=== PATIENT | female | born 1955 | race Caucasian/White ===

== ENCOUNTER → 2018-07-03 10:42 | Outpatient (CLI) | payer MEDICAID, SELFPAY | PROVIDERS: PCP Nurse Practitioner Family; Visit Provider Nurse Practitioner Family | DX: E04.2 Nontoxic multinodular goiter (principal) | CPT/HCPCS: 36415; 84443 ==

== ENCOUNTER → 2018-07-28 12:32 | Outpatient (REF) | payer MEDICAID, SELFPAY ==
[2018-07-28 22:20] LABS: Abs Immature Grans 0.01 k/cumm (0.0-0.09); Absolute Basophil Count 0.02 k/cumm (0.0-0.2); Absolute Eosinophil Count 0.03 k/cumm (0.0-0.7); Absolute Lymphocyte Count 0.84 k/cumm (1.2-3.4); Absolute Monocyte Count 0.21 k/cumm (0.11-0.7); Absolute Neutrophil Count 1.68 k/cumm (1.2-6.7); Basophils % 0.7; Eosinophils % 1.1; HCT 39.6 % (36.0-46.0); HGB 13.7 g/dL (12.0-15.5); Immature Grans % 0.4; Lymphocytes % 30.1; Mean Corp. HGB Concentration 34.6 g/dL (32.0-36.0); Mean Corpuscular Hemoglobin 29.7 pg (27.0-33.0); Mean Corpuscular Volume 85.9 fL (80-95); Monocytes % 7.5; Neutrophils % 60.2; Platelet Count 155 x1000/uL (130-400); RBC 4.61 m/cumm (4.00-5.20); RBC Distribution Width 12.2 % (11.7-14.6); White Blood Cell Count 2.79 k/cumm (4.4-10.8)
[2018-07-28 22:21] LABS: ALT 20 U/L (12-78); AST 23 U/L (15-37); Alkaline Phosphatase 73 U/L (46-116); Anion Gap 6.3 mmol/L (3-11); BUN 15 mg/dL (7-18); Bilirubin, Total 0.5 mg/dL (0.2-1.0); CO2 27.7 mmol/L (21.0-32.0); CREATININE 0.85 mg/dL (0.55-1.02); Chloride 106 mmol/L (98-107); Glucose 85 mg/dL (70-100); Magnesium 1.8 mg/dL (1.8-2.4); Potassium 3.9 mmol/L (3.5-5.1); Sodium 140 mmol/L (136-145); Total Protein 6.4 g/dL (6.4-8.2)
[2018-07-28 22:23] LABS: C-Reactive Protein < 0.05 mg/dL (0.0-0.3)
[2018-07-28 23:31] LABS: ESR 5 MM/HR (0-30)
[2018-07-30 12:13] LABS: Hepatitis C Ab w Rflx HCV PCR Negative (NEGAT)
[2018-07-30 14:19] LABS: ANA Interpretation Negative (NEGAT)
== END ==
LOC: NCHCN 12:32
PROVIDERS: PCP Nurse Practitioner Family; Visit Provider Nurse Practitioner Family
DX: R63.4 Abnormal weight loss (principal); D72.829 Elevated white blood cell count, unspecified; E04.2 Nontoxic multinodular goiter; Z11.59 Encounter for screening for other viral diseases
CPT/HCPCS: 80053; 85652; 86803; 83735; 85025; 86038; 86140

== ENCOUNTER → 2018-07-28 13:48 | Outpatient (CLI) | payer MEDICAID, SELFPAY ==
--- NOTE | 2018-07-28 13:58 | DI.REPORT_ITS ---
SYMPTOMS/DIAGNOSIS: UNINTENTIONAL WEIGHT LOSS, R63.4, LEUKOCYTOSIS, D72.829 CHEST X-RAY, PA AND LATERAL: The heart size and pulmonary vasculature are within normal limits. The lungs are clear and well expanded. No effusions or pneumothoraces are identified. There is a reciprocal scoliosis of the thoracolumbar spine. IMPRESSION: No acute pulmonary process.
== END ==
PROVIDERS: PCP Nurse Practitioner Family; Visit Provider Nurse Practitioner Family
DX: R63.4 Abnormal weight loss (principal); D72.829 Elevated white blood cell count, unspecified
CPT/HCPCS: 80053; 85652; 86803; 71046; 83735; 85025; 86038; 86140

== ENCOUNTER 2018-08-10 00:13 | Outpatient (CLI) | payer MEDICAID, SELFPAY ==
--- NOTE | 2018-08-10 10:51 | DI.MAMMO_ITS ---
SYMPTOMS/DIAGNOSIS: SCREENING, Z12.31 BILATERAL SCREENING MAMMOGRAM: Mammograms were interpreted according to the usual protocol including computer analysis with CAD system, tomosynthesis and C view imaging. Comparison is made with exams from 2014 through 2017. The breasts are composed of heterogeneously dense fibroglandular tissue, breast density category C. No suspicious masses or suspicious microcalcifications are seen. There has been no significant change. IMPRESSION: Category 1C, negative mammogram. Yearly screening mammography is recommended. [facility] ASSESSMENT OF FINDINGS: Negative. Category 1. Patient will receive a letter notifying them of these results. Bi-RADS category C. The breasts are heterogeneously dense, which may obscure small masses.
--- NOTE | 2018-08-10 12:50 | DI.US_ITS ---
SYMPTOMS/DIAGNOSIS: LEFT OVARIAN CYST, N83.202 PELVIC ULTRASOUND: Comparison is made with May,. The uterus measures 6.6 x 3.2 x 5.3 cm. The endometrial stripe measures 5 mm in double-wall thickness, which includes 3 mm of fluid. A single wall measurement is approximately 1 mm. No focal endometrial abnormality is seen. A small rounded hyperechoic area in the myometrium is again noted. The right ovary was partially obscured by bowel gas. It appeared normal in size. A cyst with a septation is again noted in the left ovary. It has increased in size slightly, now measuring 3.4 x 4.5 x 4.5 compared with 3.7 x 4.1 x 4.2 cm. The kidneys are grossly normal. There is no free fluid. IMPRESSION: Slight interval increase in size of previously noted left ovarian cyst with septation versus two adjacent cysts. Looking back to 2008, there were either two adjacent cysts or a cyst with a septation in the left ovary. It has increased slowly when compared with 2008.
== END 2018-08-10 00:33 ==
PROVIDERS: PCP Nurse Practitioner Family; Visit Provider Nurse Practitioner Family
DX: Z12.31 Encounter for screening mammogram for malignant neoplasm of breast (principal); N83.202 Unspecified ovarian cyst, left side
CPT/HCPCS: 77063; 77067; 76830; 76856

== ENCOUNTER 2018-08-13 15:17 | Outpatient (CLI) | payer MEDICAID, SELFPAY ==
[2018-08-17 11:07] LABS: CEA 1.3 ng/ml
[2018-08-17 15:00] LABS: CA 125 16 U/mL (0-30)
[2018-08-17 15:14] LABS: CA 19-9 43 U/mL (<35)
== END 2018-08-13 15:37 ==
PROVIDERS: PCP Nurse Practitioner Family; Visit Provider Nurse Practitioner Family
DX: N83.202 Unspecified ovarian cyst, left side (principal)
CPT/HCPCS: 36415; 86304; 82378; 86301

== ENCOUNTER 2019-02-08 13:35 | Outpatient (REF) | payer MEDICAID, SELFPAY ==
[2019-02-08 21:34] LABS: Anion Gap 6.2 mmol/L (3-11); BUN 19 mg/dL (7-18); CO2 31.8 mmol/L (21.0-32.0); CREATININE 0.94 mg/dL (0.55-1.02); Calcium 9.2 mg/dL (8.5-10.1); Chloride 103 mmol/L (98-107); Glucose 93 mg/dL (70-100); Sodium 141 mmol/L (136-145)
== END 2019-02-08 13:55 ==
LOC: NCHCN 13:35
PROVIDERS: PCP Nurse Practitioner Family; Visit Provider Nurse Practitioner Family
DX: I10 Essential (primary) hypertension (principal); R10.13 Epigastric pain; E04.2 Nontoxic multinodular goiter; M54.5 Low back pain
CPT/HCPCS: 80048

== ENCOUNTER 2019-02-19 00:55 | Outpatient (CLI) | payer MEDICAID, SELFPAY ==
--- NOTE | 2019-02-19 14:03 | DI.US_ITS ---
SYMPTOMS/DIAGNOSIS: LEFT OVARIAN CYST, N83.202 PELVIC ULTRASOUND: Transabdominal and transvaginal examination was performed. Comparison is 08/10/18. The uterus measures 6.8 cm long x 3.6 cm AP x 4.5 cm transverse. The endometrial stripe measures 5.3 mm. There is a small amount of fluid within the endometrial canal. There is again seen an echogenic area in the myometrium, which appears stable. The right ovary was not visualized transabdominally or transvaginally. There is again seen a 4.2 x 4 cm x 4 cm septated cyst in the left adnexa, likely ovarian. It is unchanged in size compared to the prior examination. No free pelvic fluid is identified. IMPRESSION: Stable left adnexal cystic lesion. This may represent a 4.2 cm septated cyst or two adjacent cysts. These have shown no change compared to 08/10/18.
== END 2019-02-19 01:15 ==
PROVIDERS: PCP Nurse Practitioner Family; Visit Provider Nurse Practitioner Family
DX: N83.202 Unspecified ovarian cyst, left side (principal)
CPT/HCPCS: 76830; 76856

== ENCOUNTER 2019-05-10 12:02 | Outpatient (REF) | payer MEDICAID, SELFPAY | END 2019-05-10 12:22 | LOC: NCHCN 12:02 | PROVIDERS: PCP Nurse Practitioner Family; Visit Provider Nurse Practitioner Family | DX: I10 Essential (primary) hypertension (principal); R97.8 Other abnormal tumor markers; K76.89 Other specified diseases of liver; M54.5 Low back pain; E04.2 Nontoxic multinodular goiter; N39.3 Stress incontinence (female) (male) | CPT/HCPCS: 84443 ==

== ENCOUNTER 2019-07-05 10:26 | Outpatient (REF) | payer MEDICAID, SELFPAY ==
--- NOTE | 2019-07-05 10:00 | PAPFT_PTH ---
PATIENT: Audrey Gaston LOC: [facility] U#:[id number] AGE/SX: 64/F ROOM: RE07/05/[address]: GUMARO Chairez : 1955 BED: DIS: 07/05/2019 SPEC #: [id number] RECD: 07/05/19 13:00 STATUS: ML CUEVA #: [id number] ARUN: 07/05/19 10:[address]: Arabella Wilson DEPT: [facility] Cytology RECD BY: Chayito Sun ENTERED: 07/05/19 13:01 SP TYPE: PAPFT OTHR DR: Shreya Ambrose Tissues: 1 - CX/ENDOCX FOR PAP SMEARS Procedures: PAP THIN PREP/UVM Screening HPV DNA PROBE Comments: [id number]
== END 2019-07-05 10:46 ==
LOC: LBN 10:26
PROVIDERS: PCP Nurse Practitioner Family; Visit Provider Nurse Practitioner Family
DX: Z12.4 Encounter for screening for malignant neoplasm of cervix (principal); Z11.51 Encounter for screening for human papillomavirus (HPV)
CPT/HCPCS: 88142; 87624

== ENCOUNTER 2019-08-19 00:19 | Outpatient (CLI) | payer MEDICAID, SELFPAY ==
--- NOTE | 2019-08-19 15:30 | DI.US_ITS ---
EXAM: US RENAL CLINICAL HISTORY: EXTRARENAL PELVIS, Q63.9, YEARLY MONITORING OF DILATATION OF RENAL COLLECTING SYST EM. TECHNIQUE: Ultrasound performed using standard protocol. COMPARISON: US PELVIS AND TRANSVAGINAL from 02/19/2019 FINDINGS: Kidneys are normal size and shape. There is a small extrarenal pelvis on the right but no evidence of hydronephrosis. Urinary bladder is unremarkable with pre and postvoid urinary bladder volume measure s 65 cc and 0 cc, respectively, and both ureteral jets were visualized. Note is again made of previously described 4.4 cm in greatest diameter septated left ovarian cyst as noted on previous ultrasound of February 19. No gross interval change in appearance
== END 2019-08-19 00:39 ==
PROVIDERS: PCP Nurse Practitioner Family; Visit Provider Nurse Practitioner Gerontology
DX: N83.292 Other ovarian cyst, left side (principal); N28.89 Other specified disorders of kidney and ureter
CPT/HCPCS: 76770

== ENCOUNTER 2019-09-06 01:15 | Outpatient (CLI) | payer MEDICAID, SELFPAY ==
--- NOTE | 2019-09-06 13:00 | DI.MAMMO_ITS ---
EXAM: MAMMO SCREENING CLINICAL HISTORY: Screening, Z12.31. TECHNIQUE: Mammograms were interpreted according to the usual protocol including computer analysis w [employer] CAD system, tomosynthesis and C-view imaging. COMPARISON: [id number] FINDINGS: The breasts are heterogeneously dense, which may obscure small masses, BI-RADS category C. There are no suspicious masses or microcalcifications. There are no significant changes in comparison with the prior images. IMPRESSION: BI-RADS Cat 1 - Negative Breast Density - Category C - Heterogeneously dense
== END 2019-09-06 01:35 ==
PROVIDERS: PCP Nurse Practitioner Family; Visit Provider Nurse Practitioner Family
DX: Z12.31 Encounter for screening mammogram for malignant neoplasm of breast (principal)
CPT/HCPCS: 77063; 77067

== ENCOUNTER 2019-11-09 10:51 | Outpatient (REF) | payer MEDICAID, SELFPAY ==
[2019-11-09 20:30] LABS: Abs Immature Grans 0.01 k/cumm (0.0-0.09); Absolute Basophil Count 0.03 k/cumm (0.0-0.2); Absolute Eosinophil Count 0.06 k/cumm (0.0-0.7); Absolute Monocyte Count 0.29 k/cumm (0.11-0.7); Absolute Neutrophil Count 1.98 k/cumm (1.2-6.7); Basophils % 0.9; Eosinophils % 1.7; HCT 40.5 % (36.0-46.0); HGB 13.8 g/dL (12.0-15.5); Immature Grans % 0.3; Lymphocytes % 31.7; Mean Corp. HGB Concentration 34.1 g/dL (32.0-36.0); Mean Corpuscular Hemoglobin 29.5 pg (27.0-33.0); Mean Corpuscular Volume 86.5 fL (80-95); Mean Platelet Volume 10.2 fL (8.0-11.0); Monocytes % 8.4; Platelet Count 182 x1000/uL (130-400); RBC 4.68 m/cumm (4.00-5.20); RBC Distribution Width 12.6 % (11.7-14.6); White Blood Cell Count 3.47 k/cumm (4.4-10.8)
== END 2019-11-09 11:11 ==
LOC: NCHCN 10:51
PROVIDERS: PCP Nurse Practitioner Family; Visit Provider Nurse Practitioner Family
DX: R07.9 Chest pain, unspecified (principal); I10 Essential (primary) hypertension; R10.13 Epigastric pain; E04.2 Nontoxic multinodular goiter; K76.89 Other specified diseases of liver; D72.829 Elevated white blood cell count, unspecified; N39.3 Stress incontinence (female) (male)
CPT/HCPCS: 85025

== ENCOUNTER 2019-12-13 01:11 | Outpatient (CLI) | payer MEDICAID, SELFPAY ==
--- NOTE | 2019-12-13 09:46 | DI.US_ITS ---
EXAM: US THYROID CLINICAL HISTORY: GOITER MULTINODULAR W/ ADENOMATOUS HYPERPLASTIC E04.2 TECHNIQUE: Ultrasound performed using standard protocol. COMPARISON: THYROID ULTRASOUND from 09/08/2017 US RENAL from 08/19/2019 FINDINGS: The right lobe measures 5.6 x 2.2 x 2.5 centimeters. There are 2 nodules seen in the lower pole. Th e larger and more superior nodule measures 1.8 x 1.4 x 1.5 cm. It is solid and contains internal blo od flow. The smaller measures 1.4 x 0.9 x 1.2 cm. It is complex with a cystic element and contains internal blood flow. It is similar compared to the prior examination. The patient is status post left lobectomy. There are 2 nodules seen in the left thyroid bed. The la rger and more superior nodule measures 1.3 x 1.2 x 1.1 cm. It is complex with internal blood flow. The smaller measures 0.6 x 0.6 x 0.5 cm. It is solid with internal blood flow. IMPRESSION: 1. Right thyroid nodules. The larger more superior nodule has shown slight interval increase in size compared to the prior examination from 09/08/2017. 2. The nodules in the left thyroid bed have a similar appearance sonographically compared to 09/08/20 17. Larger more superior nodule measures slightly smaller on the current examination.
== END 2019-12-13 01:31 ==
PROVIDERS: PCP Nurse Practitioner Family; Visit Provider Nurse Practitioner Family
DX: E04.2 Nontoxic multinodular goiter (principal)
CPT/HCPCS: 76536

== ENCOUNTER 2020-05-12 13:22 | Outpatient (REF) | payer MEDICAID, SELFPAY ==
[2020-05-12 21:26] LABS: TSH 1.09 uIU/mL (0.36-3.74)
[2020-05-14 16:25] LABS: T3,Free 3.1 pg/mL (2.8-5.3)
== END 2020-05-12 13:42 ==
LOC: NCHCN 13:22
PROVIDERS: PCP Nurse Practitioner Family; Visit Provider Nurse Practitioner Family
DX: I10 Essential (primary) hypertension (principal); R07.9 Chest pain, unspecified; D72.829 Elevated white blood cell count, unspecified; E04.2 Nontoxic multinodular goiter; N39.3 Stress incontinence (female) (male); M54.5 Low back pain
CPT/HCPCS: 84439; 84443; 84481

== ENCOUNTER 2020-06-23 03:47 | Outpatient (CLI) | payer MEDICARE, MEDICAID, SELFPAY ==
--- NOTE | 2020-06-23 09:00 | DI.NM_ITS ---
EXAM: NM HEPATOBILIARY CCK GRP CLINICAL HISTORY: RUQ PAIN, NORMAL CT AND MRI, NO US. TECHNIQUE: Injected dose: 5 mCi Tc-99 mebrofenin Initial dynamic images: 60 minutes Post-Gallbladder fillin.7 mcg of CCK infused according to protocol. Addition images: 20 minute dynamic during CCK administration. COMPARISON: No previous for comparison. FINDINGS: Normal hepatic transit time. Prompt excretion into the small bowel. Prompt excretion into the gallbladder. The gallbladder ejection fraction was 48 percent. ([facility] norm al gallbladder ejection fraction is greater than 40 percent). IMPRESSION: 1. Hepatobiliary CCK HIDA examination within normal limits. SNM guidelines: Gallbladder visualization should be present by 3 hours. Delayed [id number] ngo sit beyond 60 min raises the suspicion for partial common bile duct (CBD) obstruction. Gallbladder ejection fraction <35% has a good correlation with acalculous disease (i.e., chronic acal culous cholecystitis, cystic duct syndrome, sphincter of Oddi disease).
[2020-06-23] MEDS: Sincalide 5 MCG VIAL 0.7 MCG IJ (14:59)
== END 2020-06-23 04:07 ==
PROVIDERS: PCP Nurse Practitioner Family; Visit Provider Surgery
DX: R10.11 Right upper quadrant pain (principal)
CPT/HCPCS: 78227

== ENCOUNTER 2020-08-04 04:33 | Outpatient (CLI) | payer MEDICARE, SELFPAY ==
--- NOTE | 2020-08-04 07:45 | DI.US_ITS ---
EXAM: US PELVIS TRANSVAGINAL CLINICAL HISTORY: Left ovarian cyst, N83.202. TECHNIQUE: Transabdominal and transvaginal pelvic ultrasound was performed using standard protocol. COMPARISON: US US PELVIS TRANSVAGINAL from 02/19/2019 FINDINGS: KIDNEYS: Kidneys are symmetric in size. No evidence of renal calculi. No evidence of hydronephrosis. No renal mass or cyst identified. Stable mild prominence of the right renal pelvis. UTERUS: Position: Anteverted. Size: 6.1 long by 3.2 AP by 4.1 transverse cm Endometrium: Less than 0.5 cm. Normal for patient's menstrual status. Small amount of fluid within th e endometrial canal. Myometrium: Stable echogenic focus in the anterior body of the uterus. Cervix: Unremarkable. OVARIES: Right: 1.6 x 0.9 x 0.9 cm Cyst or mass: None. Left: 5.3 x 4.6 x 4.4 cm Cyst or mass: The septated cyst in the left ovary has shown some interval increase in size measuring 5.3 x 4.6 cm. This compares with 4.1 x 4.2 cm. DOPPLER: Color: Symmetric and uniform flow to both ovaries. No hyperemia. Duplex: Normal ovarian arterial waveforms visualized. CUL-DE-SAC: Free fluid: None. Other: None. IMPRESSION: 1. Normal sonographic appearance of the kidneys. 2. Stable appearance of the uterus. 3. Interval increase in size of the septated left ovarian cyst now measuring 5.3 x 4.6 cm compared wi th 4.1 x 4.2 cm. DATA REPOSITORY:
== END 2020-08-04 04:53 ==
PROVIDERS: PCP Nurse Practitioner Family; Visit Provider Nurse Practitioner Family
DX: N83.202 Unspecified ovarian cyst, left side (principal)
CPT/HCPCS: 76830; 76856

== ENCOUNTER 2020-09-01 03:58 | Outpatient (CLI) | payer MEDICARE, SELFPAY ==
[2020-09-01 10:11] LABS: HCT 39.1 % (36.0-46.0); HGB 13.1 g/dL (11.2-15.7); MCH 29.1 pg (27.0-33.0); MCHC 33.5 % (32.0-36.0); MCV 86.9 fL (80-95); MPV 9.5 fL (8.0-11.0); Platelet Count 164 10^3/uL (130-400); RDW-SD 38.5 fL; WBC 2.99 10^3/uL (4.4-10.8)
[2020-09-01 11:00] LABS: HCG Qual (Urine) Negative
[2020-09-02 20:40] LABS: COVID-19 RT-PCR Result NEGATIVE (Negative)
== END 2020-09-01 04:18 ==
PROVIDERS: PCP Nurse Practitioner Family; Visit Provider Obstetrics & Gynecology
DX: N83.202 Unspecified ovarian cyst, left side (principal); Z11.59 Encounter for screening for other viral diseases; Z01.818 Encounter for other preprocedural examination; Z01.812 Encounter for preprocedural laboratory examination
CPT/HCPCS: 36415; 85027; 86850; 86900; 86901; U0003; 81025

== ENCOUNTER 2020-09-06 07:56 | Day surgery (SDC) | payer MEDICARE, SELFPAY ==
[2020-09-06] VITALS (8 sets, daily range): BP systolic 85–140; BP diastolic 42–77; PULSE 66–79; RESP 13–19; TEMP 36–36.6; O2SAT 96–100
[2020-09-06] MEDS: Lactated Ringers 1,000 ML 125 ML IV (08:35)
[2020-09-06] MEDS: Bupivacaine 0.25% Pres-Free 30 ML VIAL (11:28)
--- NOTE | 2020-09-06 12:11 | OVAR_PTH ---
PATIENT: Audrey Gaston LOC: [facility] U#:[id number] AGE/SX: 65/F ROOM: RE09/06/[address]: Roshan Ambriz MD : 1955 BED: DIS: 09/06/2020 SPEC #: [id number] RECD: 09/06/20 17:03 STATUS: ML REMarlo #: [id number] ARUN: 09/06/20 12:[address]: Roshan Ambriz DEPT: Surgical Specimen RECD BY: Chayito Sun ENTERED: 09/06/20 17:04 SP TYPE: JAZZ BROCK DR: Shreya Ambrose Tissues: 1 - OVARY NOT TUMOR W OR W/O TUBES 2 - OVARY NOT TUMOR W OR W/O TUBES Procedures: GROSS AND MICRO LEVEL 4 Comments: [id number]
[2020-09-06] MEDS: Cellulose,Oxidized 4X8 1 PACKET MC (12:17)
--- NOTE | 2020-09-06 12:33 | DI.RAD_ITS ---
EXAM: XR ABDOMEN FLAT PLATE CLINICAL HISTORY: forgein body TECHNIQUE: COMPARISON: No exams were available for comparison FINDINGS: Single AP view of the abdomen was obtained. Bowel gas pattern is within normal limits. No gross for eign body identified. IMPRESSION: RADIATION DOSE DELIVERED: Total DLP
--- NOTE | 2020-09-06 15:24 | W.PM.DSUDISC ---
Discharge Plan Disposition Patient Disposition: HOME Condition: Good Discharge Details Attending Provider: Roshan Ambriz Primary Care Provider: Shreya Ambrose Home Meds and New Rx's Prescriptions: New oxycodone-acetaminophen 5-325 mg Tablet 1 tab PO Q4H PRNQty: 20 RF: 0 Continued omeprazole 20 mg capsule,delayed release(DR/EC) 20 mg PO DAILY PRNRF: 0 Discharge Instructions Stand Alone Forms: [facility] Post Gynecology Surgery, Olinda Francisco ([facility]) Activity:: Activity as Tolerated Shower/Bathe:: 24 hours Diet:: As Tolerated Discharge Orders Discharge Orders: Discharge Order (Routine); Ordered 09/06/20 Ordered By: Roshan Ambriz DS: Diagnosis Discharge Diagnosis (1) Ovarian cyst: Status: Acute
--- NOTE | 2020-09-06 16:17 | ROE_ITS ---
Date of service: 09/06/20 Time of Service: 16:17 Operative Note Operative Note DATE OF PROCEDURE: 09/06/20 PRE-OP DIAGNOSIS: Left ovarian cyst POST-OP DIAGNOSIS: same PROCEDURE: Laparoscopic bilateral salpingo-oophorectomy. SURGEON: Roshan Ambriz ASSISTING SURGEON: Elaine aPrk ANESTHESIA: GETA ESTIMATED BLOOD LOSS: 100 PATHOLOGY: other (Bilateral tubes and ovaries) COMPLICATIONS: None Patient was transported to: PACU Patient's condition: stable Indications: Enlarging left septated ovarian cyst Findings: 1. 5 cm left ovarian cyst which was largely retroperitoneal 2. Normal postoperative cystoscopy Procedure Description: The patient was taken to the operating room after adequate general anesthesia the patient was placed in lithotomy position. A [employer] uterine manipulator placed in the cervix. The patient was repositioned and attention was then turned to the patient's abdomen. The skin and subcutaneous tissues at the umbilicus were infiltrated with 0.25% Marcaine solution. A small infraumbilical skin incision was then made with a #15 blade scalpel. Sharp dissection was carried down to the underlying layer of fascia. The fascia was grasped elevated with 2 Ally clamps as incised sharply with the scalpel. The posterior sheath was identified and was entered with Metzenbaum scissors. S retractors were placed. 2 sutures of 0 Vicryl were placed on either side of the fascial incision. A 10 mm balloon trocar was advanced through the incision and a pneumoperitoneum to approximately 15 mmHg was established. Two 5 mm ports were placed in the right and left lower quadrants both under direct visualization. There were no significant adhesions within the abdominal cavity. The uterus was somewhat enlarged and appeared to have multiple small uterine fibroids. Both fallopian tubes were status post ligation with Falope-Rings. The left ovary was markedly enlarged and was buried almost entirely retroperitoneally. Dissection was carried across the peritoneum superior to the ovary and peritoneum was opened. Blunt and sharp dissection was used to dissect the ovary from peritoneal wall and surrounding tissues. The suspensory ligament and fallopian tube were coagulated and transected with the LigaSure device. Blunt and sharp dissection were continued until the ovary was freed. Dissection was carried across the infundibulopelvic ligament with the LigaSure device. The ovary and fallopian tube were removed from the abdomen with use of an Endo Catch device. Upon retraction of the Endo Catch bag from the umbilical trocar there was a malfunction of the valve within the trocar which did break. The trocar was removed and examined and it was felt that all components were intact within the instrument. The device was well examined by multiple members of the surgical team who felt that all components were present. Laparoscopic examination of the abdominal cavity did not identify any surgical foreign body and the decision was made to perform an x-ray at the conclusion of the case as well. Attention was turned to the right tube and ovary which were normal in appearance. Dissection carried across the infundibulopelvic ligament with LigaSure device. Dissection was carried across the mesovarium and taken to the proximal fallopian tube. The suspensory ligament and fallopian tube were transected with LigaSure device as well. These were removed from the abdomen with an additional Endo Catch bag. Excellent hemostasis was noted. 2 pieces of Surgicel were applied along each of the areas of dissection. Due to the extensive dissection on the left side the course of the ureter could not be identified. The decision was made to proceed with cystoscopy. The abdomen was desufflated and trochars removed. Mesh at the umbilicus was closed with 2 previously placed sutures of 0 Vicryl. An additional figure of 8 suture of 0 Vicryl was used to complete the repair. Each skin incision was closed with interrupted sutures of 4-0 Monocryl and Dermabond was applied. 5 mL of indigo carmine had been administered intravenously. The 3 degree 5 mm cystoscope was advanced with normal saline distention media. There was strong efflux of indigo carmine from both UOs. The bladder wall appeared to be intact. The cystoscope was removed. Radiology was contacted and an abdominal film was obtained demonstrating no retained foreign body. The procedure was concluded at this point. Sponge, lap and needle counts were correct at the conclusion of the procedure. The patient tolerated the procedure well and was transferred to PACU in stable condition.
== END 2020-09-06 16:04 | disposition home or self-care (01) ==
PROVIDERS: PCP Nurse Practitioner Family; Visit Provider Obstetrics & Gynecology
PROC: (CPT 58661; principal; 2020-09-06 10:00)
DX: N83.202 Unspecified ovarian cyst, left side (principal)
CPT/HCPCS: 58661; 88305; 74018; J0131; J1100; J1885; J2001; J2405

== ENCOUNTER 2020-09-27 02:41 | Outpatient (CLI) | payer MEDICARE, SELFPAY ==
--- NOTE | 2020-09-27 15:00 | DI.MAMMO_ITS ---
EXAM: MAMMO SCREENING CLINICAL HISTORY: screening TECHNIQUE: Mammograms were interpreted according to the usual protocol including computer analysis w [employer] CAD system, tomosynthesis and C-view imaging. COMPARISON: FINDINGS: The breasts are of moderate density with fairly symmetrical distribution of fibroglandular tissue. N o dominant mass or clumped microcalcification is identified in either breast. The current examinatio n is compared with previous examinations including August 2019 and there is increased prominence of a focal area of somewhat nodular asymmetric density projected in the central superior portion of the left breast on the MLO view. Additional mammographic views of the left breast are requested to inclu de an MLO spot compression view. No other significant change seen. IMPRESSION: Additional mammographic views of the left breast requested as described above. Breast ultrasound may be indicated as well depending on the results of the additional mammographic views. BI-RADS Category 0 - Assessment Incomplete: Need additional imaging evaluation Breast Density - Category B - Scattered areas of fibroglandular density
== END 2020-09-27 03:01 ==
PROVIDERS: PCP Nurse Practitioner Family; Visit Provider Nurse Practitioner Family
DX: Z12.31 Encounter for screening mammogram for malignant neoplasm of breast (principal); R92.8 Other abnormal and inconclusive findings on diagnostic imaging of breast
CPT/HCPCS: 77063; 77067

== ENCOUNTER 2020-10-03 01:32 | Outpatient (CLI) | payer MEDICARE, SELFPAY ==
--- NOTE | 2020-10-03 | DI.US_ITS ---
EXAM: MG MAMMO SCREEN CALL BACK UNI CLINICAL HISTORY: F/U MAMMO, INCREASED ASYMMETRIC DENSITY. TECHNIQUE: Craniocaudal and mediolateral oblique Full Field Digital Mammography views of the left br east with Computer Aided Diagnosis followed by Tomosynthesis and left breast ultrasound. COMPARISON: Priors available for comparison. FINDINGS: Mammography/Tomosynthesis: Masses/Architectural Distortion: None seen. Microcalcifictions: No suspicious pleomorphic-type are seen. Skin Thickening/Nipple Retraction: None. Left breast US: Echotexture: Normal appearance of the glandular tissue. Shadowing: No suspicious foci. Cyst: None. Solid lesions: None seen. Ductal dilation: None. IMPRESSION: 1. No evidence of malignancy is noted. 2. A six-month follow-up left mammogram is recommended for re-evaluation. 3. The findings were discussed with the patient on the date of the examination. BI-RADS Category 3 - 6 month - Probably Benign Finding: Recommend follow-up mammography in 6 months Breast Density - Category B - Scattered areas of fibroglandular density A negative radiographic report should not delay biopsy if a dominant or clinically suspicious mass is present. Up to ten percent of cancers are not identified on mammography. A negative report may reinforce clinical impression. Adenosis and dense breasts may obscure an underlying neoplasm. False positive reports average 6 to 10%. Patient will receive a letter notifying them of these results.
== END 2020-10-03 01:52 ==
PROVIDERS: PCP Nurse Practitioner Family; Visit Provider Nurse Practitioner Family
DX: R92.8 Other abnormal and inconclusive findings on diagnostic imaging of breast (principal)
CPT/HCPCS: 76642; 77063; 77067

== ENCOUNTER 2020-11-07 12:03 | Outpatient (REF) | payer MEDICARE, SELFPAY ==
[2020-11-07 21:39] LABS: Calculated LDL 164 mg/dL (<100); Cholesterol 281 mg/dL (<200); HDL Cholesterol 101 mg/dL (40-60); Triglyceride 80 mg/dL (<150)
== END 2020-11-07 12:23 ==
LOC: NCHCN 12:03
PROVIDERS: PCP Nurse Practitioner Family; Visit Provider Nurse Practitioner Family
DX: E78.5 Hyperlipidemia, unspecified (principal); I10 Essential (primary) hypertension
CPT/HCPCS: 80061

== ENCOUNTER 2021-02-08 01:51 | Outpatient (CLI) | payer MEDICARE, SELFPAY ==
--- NOTE | 2021-02-08 | DI.DEXA_ITS ---
EXAM: XR DEXA BONE DENSITY W/WO DALI CLINICAL HISTORY: SCREENING FOR OSTEOPOROSIS IN POSTMENOPAUSAL WOMAN,Z78.0 TECHNIQUE: COMPARISON: No exams were available for comparison FINDINGS: Lateral Spine Image: Unremarkable. No compression deformities identified. Left hip: Total T-Score: -1.8 Total Z-Score: -0.6 T- and Z-scores: Findings are consistent with osteopenia. Lumbar Spine: Total T-Score: -1.0 Total Z-Score: 0.7 T- and Z-scores: Within normal limits. IMPRESSION: No evidence of osteoporosis.
== END 2021-02-08 02:11 ==
PROVIDERS: PCP Nurse Practitioner Family; Visit Provider Nurse Practitioner Family
DX: Z78.0 Asymptomatic menopausal state (principal)
CPT/HCPCS: 77080

== ENCOUNTER 2021-04-03 01:27 | Outpatient (CLI) | payer MEDICARE, SELFPAY ==
--- NOTE | 2021-04-03 10:14 | DI.MAMMO_ITS ---
Exam(s) MG MAMMO DIAGNOSTIC UNI EXAM: MG MAMMO DIAGNOSTIC UNI CLINICAL HISTORY: DIAGNOSTIC, 6 MO F/U, F/U ABNL MAMMO,. TECHNIQUE: Craniocaudal and mediolateral oblique Full Field Digital Mammography views of the left br east with Computer Aided Diagnosis. COMPARISON: Comparison is made with prior examinations. FINDINGS: Mammography/Tomosynthesis: Masses/Architectural Distortion: None seen. Microcalcifictions: No suspicious pleomorphic-type are seen. Skin Thickening/Nipple Retraction: None. IMPRESSION: 1. No evidence of malignancy is noted. 2. Unless there is more urgent need, follow-up screening mammography is recommended, as per [place] [employer] guidelines. 3. The findings were discussed with the patient on the date of the examination. BI-RADS Category 1 - Negative Breast Density - Category B - Scattered areas of fibroglandular density Breast density Category C or D implies that the patient has dense breast tissue. Dense breast tissue can make it harder to find cancer on a mammogram. Dense breast tissue is also associated with an incr eased risk of breast cancer. This information about the result of the mammogram report was provided to the patient to raise their awareness. Use this report when you speak with the patient about their risks for breast cancer, which includes their family history. At that time, you may recommend additional screening tests (Ultrasoun d or MRI) as these tests may add significant information. A negative radiographic report should not delay biopsy if a dominant or clinically suspicious mass is present. Up to ten percent of cancers are not identified on mammography. A negative report may reinforce clinical impression. Adenosis and dense breasts may obscure an underlying neoplasm. False positive reports average 6 to 10%. Patient will receive a letter notifying them of these results.
== END 2021-04-03 01:47 ==
PROVIDERS: PCP Nurse Practitioner Family; Visit Provider Nurse Practitioner Family
DX: Z12.31 Encounter for screening mammogram for malignant neoplasm of breast (principal); R92.8 Other abnormal and inconclusive findings on diagnostic imaging of breast; N64.59 Other signs and symptoms in breast
CPT/HCPCS: 77061; 77065; G0279

== ENCOUNTER 2021-06-07 15:02 | Outpatient (REF) | payer MEDICARE, SELFPAY ==
[2021-06-07 14:16] LABS: TSH (W/Ref FT4) 1.05 uIU/mL (0.36-3.74)
== END 2021-06-07 15:03 | disposition home or self-care (01) ==
LOC: NCHCN 15:02
PROVIDERS: PCP Nurse Practitioner Family; Visit Provider Nurse Practitioner Family
DX: M85.80 Other specified disorders of bone density and structure, unspecified site (principal); E78.5 Hyperlipidemia, unspecified; I10 Essential (primary) hypertension; R10.9 Unspecified abdominal pain; D72.829 Elevated white blood cell count, unspecified; M54.5 Low back pain; E04.2 Nontoxic multinodular goiter; N39.3 Stress incontinence (female) (male)
CPT/HCPCS: 84443

== ENCOUNTER → 2021-07-20 08:52 | Outpatient (BNVA) | payer MEDICARE, SELFPAY | PROVIDERS: PCP Nurse Practitioner Family; Referring Provider Nurse Practitioner Family; Visit Provider Surgery | DX: R10.13 Epigastric pain (principal) | CPT/HCPCS: 99203; 99214 ==

== ENCOUNTER → 2021-07-27 12:41 | Outpatient (BNVA) | payer MEDICARE, SELFPAY | PROVIDERS: PCP Nurse Practitioner Family; Referring Provider Nurse Practitioner Family; Visit Provider Surgery | DX: R10.11 Right upper quadrant pain (principal) | CPT/HCPCS: 99212; 99442 ==

== ENCOUNTER 2021-08-08 02:36 | Outpatient (CLI) | payer MEDICARE, SELFPAY ==
[2021-08-08 08:54] LABS: CREATININE 0.9 mg/dL (0.55-1.02)
--- NOTE | 2021-08-08 10:02 | DI.CT_ITS ---
Exam(s) CT ABDOMEN PELVIS CTA EXAM: CT ABDOMEN PELVIS CTA CLINICAL HISTORY: EPIGASTRIC ABD PAIN,R10.13,LOOKING FOR MEDICAL ACRUATE LIGAMENT SYNDROME. TECHNIQUE: Imaging Protocol: Axial computed tomography images with coronal and sagittal reformatted images were created and reviewed CONTRAST MATERIAL: Intravenous: Omnipaque 350 Contrast volume:57 mL Oral: Yes COMPARISON: CT ABD PELVIS WITH CONTRAST from 04/24/2018 FINDINGS: Visualized lung bases: No pleural effusions no significant nodules. ABDOMINAL AORTA: there is no evidence of abdominal aortic aneurysm. also no significant atherosclero tic disease evident in the abdominal aorta. No evidence of renal artery stenosis. Aortic bifurcatio n and aortoiliac segments are patent with no evidence of atherosclerotic narrowing nor aneurysms. Th e celiac, superior mesenteric, and inferior mesenteric arteries are patent. No evidence of significa nt stenosis at their origins, neither due to intrinsic narrowing nor external compression. No emboli evident in these vessels. The celiac artery exhibits normal diameter as does the superior mesenteri c artery. There are no dissection flaps. There are no ischemic appearing bowel loops. ABDOMEN: There is no ascites. LIVER: There is a 8 x 6 millimeter cyst in the right hepatic lobe which is unchanged from the CT scan of March 2018. No new focal hepatic lesions evident. No dilatation of intrahepatic ducts. GALLBLADDER/BILIARY: No obvious gallbladder pathology. CBD is not dilated. PANCREAS: The pancreatic duct is slightly prominent in size, reaching maximum diameter of 3.5 Millime ters at the neck level. There does not appear to be an obvious mass the pancreatic head and uncinate process nor elsewhere in the pancreas. The uncinate process retains normal triangular configuration . Is no abnormal vascular encasement. No regional adenopathy. SPLEEN: Spleen size is upper normal. Splenic and portal veins are patent. ADRENALS: There are no significant adrenal masses. KIDNEYS: No cysts evident. No calculi nor hydronephrosis. No solid renal masses. ABDOMINAL AORTA: Unremarkable, as above. LYMPH NODES: There is no retroperitoneal nor para-aortic adenopathy. No obvious mesenteric masses. ABDOMINAL WALL: No evidence of significant anterior abdominal wall hernia. GI: There is no evidence of bowel obstruction, free air, nor abscess. PELVIS: LYMPH NODES: There is no intrapelvic nor inguinal adenopathy. GI: No evidence of appendicitis.There is sigmoid diverticulosis. No obvious acute diverticulitis. H owever, the lumen of this sigmoid appears focally narrowed for distance of 3 cm. This may be related to muscular hyperplasia for in the area of diverticuli but cannot exclude the possibly of neoplasm. No adjacent lymph nodes and. URINARY BLADDER: No calculi nor masses evident REPRODUCTIVE: Uterus size upper normal. No abnormal adnexal masses. Also no abnormal dilated veins in the adnexal regions to suggest pelvic congestion syndrome. OSSEOUS: No significant osseous lesions. IMPRESSION: 1. The abdominal aorta and aortoiliac segments are nicely patent, non atherosclerotic, without eviden ce of aneurysm. 2. The origins of the celiac and superior mesenteric arteries are patent without significant narrowin g related to intrinsic disease nor related to extrinsic compression. No obvious arcuate ligament syn drome findings (as per request). 3. Inferior mesenteric artery is patent and there is also no evidence of renal artery stenosis. 4. Sigmoid diverticulosis. Although there is no obvious acute diverticulitis, there is a 3 cm segmen t of the colon which appears slightly narrowed. Although this may be related to the chronic divertic ulosis, recommend colonoscopy to ensure that there is no malignancy at this level. 5. Pancreatic duct is slightly dilated, measuring up to 3.5 millimeters at the pancreatic neck level . This is somewhat more evident than on the 2018 study. There is no evidence of obvious pancreatic mass on this CT study,, solid or cystic. However, recommend follow-up contrast infused MRI. 6. There is a stable unchanged 8 millimeter solitary benign cyst in the liver. This is unchanged fr om the CT scan 2018. RADIATION DOSE DELIVERED: 441.15mGy.cm Total DLP DATA REPOSITORY: All CT scans at this facility are submitted to the National Radiology Data Registry (NRDR) Dose Index Registry (DIR) with the [employer] ([employer]). RADIATION OPTIMIZATION: All CT scans at this facility use at least one of these dose optimization te chniques: automated exposure control; mA and/or kV adjustment per patient size (includes targeted exa ms where dose is matched to clinical indication); or iterative reconstruction.
[2021-08-08] MEDS: Breeza Beverage 473 ML BTL PO ×2 (10:08→10:09)
[2021-08-08] MEDS: Omnipaque 350 MG/ML 50 ML BTL PO (10:09)
[2021-08-08] MEDS: Omnipaque 350 MG/ML 100 ML BTL IJ (10:10)
[2021-08-08] MEDS: Normal Saline Flush 10 ML SYR IVP (10:11)
== END 2021-08-08 02:56 ==
PROVIDERS: PCP Nurse Practitioner Family; Visit Provider Nurse Practitioner Family
DX: R10.13 Epigastric pain (principal); Z01.812 Encounter for preprocedural laboratory examination; K57.30 Diverticulosis of large intestine without perforation or abscess without bleeding; K76.89 Other specified diseases of liver
CPT/HCPCS: 74174; 82565; J3490; Q9967

== ENCOUNTER 2022-06-13 12:22 | Outpatient (REF) | payer MEDICARE, SELFPAY ==
[2022-06-13 17:05] LABS: Abs Immature Grans 0.01 10^3/uL (0.0-0.06); Absolute Basophil Count 0.04 10^3/uL (0.0-0.2); Absolute Eosinophil Count 0.05 10^3/uL (0.0-0.7); Absolute Lymphocyte Count 0.94 10^3/uL (1.2-3.4); Absolute Monocyte Count 0.36 10^3/uL (0.1-0.8); Absolute Neutrophil Count 1.44 10^3/uL (1.2-6.7); Basophils % 1.4; Eosinophils % 1.8; HCT 39.2 % (36.0-46.0); HGB 13.5 g/dL (11.2-15.7); Immature Grans % 0.4; Lymphocytes % 33.1; MCHC 34.4 % (32.0-36.0); MCV 87 fL (80-95); MPV 10.6 fL (8.0-11.0); Monocytes % 12.7; Neutrophils % 50.6; Platelet Count 181 10^3/uL (130-400); RDW 11.7 % (11.7-14.6); RDW-SD 37.2 fL; WBC 2.84 10^3/uL (4.4-10.8)
[2022-06-13 17:31] LABS: Calculated LDL 157 mg/dL (<100); Cholesterol 259 mg/dL (<200); HDL Cholesterol 91 mg/dL (40-60); TSH (W/Ref FT4) 1.31 uIU/mL (0.36-3.74); Triglyceride 59 mg/dL (<150)
== END 2022-06-13 12:23 | disposition home or self-care (01) ==
LOC: NCHCN 12:22
PROVIDERS: PCP Nurse Practitioner Family; Visit Provider Nurse Practitioner Family
DX: E78.5 Hyperlipidemia, unspecified (principal); I10 Essential (primary) hypertension; R10.13 Epigastric pain; D72.829 Elevated white blood cell count, unspecified; E04.2 Nontoxic multinodular goiter
CPT/HCPCS: 80061; 84443; 85025

== ENCOUNTER → 2022-08-20 01:03 | Outpatient (CLI) | payer MEDICARE, SELFPAY ==
--- NOTE | 2022-08-20 11:45 | DI.MAMMO_ITS ---
Exam(s) MAMMO SCREENING EXAM: MAMMO SCREENING CLINICAL HISTORY: screening. TECHNIQUE: Bilateral full field digital CC and MLO mammographic images were obtained with 3D tomosyn thesis and utilizing computer aided detection (CAD). COMPARISON: Prior mammograms were reviewed, the most recent being March 2021. Prior ultrasound examin ation of October 2020 was also reviewed. FINDINGS: The fibroglandular tissue pattern is again noted be moderately dense. There are no new significant radiograph findings in left breast. The previously described finding in the left breast is again less evident, further evidence that it was benign. In the right breast there is a well-defined slightly lobulated noncalcified nodule located medially, measuring 7 by 6 millimeters, located 7 cm in from the nipple. This is seen on both CC and MLO 3D vi ews. No malignant-appearing microcalcification groups in either breast. There is no significant architectural distortion nor skin thickening-retraction. IMPRESSION: 1. No radiographic evidence of malignancy in the left breast. 2. 7 x 6 millimeter asymmetric density-nodule in the right breast as described above. Spot compressi on views and breast ultrasound recommended. BI-RADS Category 0 - Assessment Incomplete: Need additional imaging evaluation Breast Density - Category C - Heterogeneously dense Breast density Category C or D implies that the patient has dense breast tissue. Dense breast tissue can make it harder to find cancer on a mammogram. Dense breast tissue is also associated with an incr eased risk of breast cancer. This information about the result of the mammogram report was provided to the patient to raise their awareness. Use this report when you speak with the patient about their risks for breast cancer, which includes their family history. At that time, you may recommend additional screening tests (Ultrasoun d or MRI) as these tests may add significant information. A negative radiographic report should not delay biopsy if a dominant or clinically suspicious mass is present. Up to ten percent of cancers are not identified on mammography. A negative report may reinforce clinical impression. Adenosis and dense breasts may obscure an underlying neoplasm. False positive reports average 6 to 10%. Patient will receive a letter notifying them of these results.
== END ==
PROVIDERS: PCP Nurse Practitioner Family; Visit Provider Nurse Practitioner Family
DX: Z12.31 Encounter for screening mammogram for malignant neoplasm of breast (principal); R92.8 Other abnormal and inconclusive findings on diagnostic imaging of breast
CPT/HCPCS: 77063; 77067

== ENCOUNTER → 2022-08-26 01:59 | Outpatient (CLI) | payer MEDICARE, SELFPAY ==
--- NOTE | 2022-08-26 14:16 | DI.MAMMO_ITS ---
Exam(s) MAMMO SCREEN CALL BACK UNI EXAM: MAMMO SCREEN CALL BACK UNI CLINICAL HISTORY: F/U ABNL MAMMO, WELL-DEFINED NONCALCIFIED NODULE, RT BREAST TECHNIQUE: Spot compression cc and MLO views with tomographic imaging were performed. COMPARISON: 2012 through the recent exam of 20 August 2022 FINDINGS: No suspicious masses or suspicious microcalcifications are seen. The area of nodularity in question is less prominent on the spot compression views. The nodule has a fatty hilum, consistent with a normal intramammary lymph node.. IMPRESSION: BI-RADS Cat 2 - Benign Findings Yearly screening mammography is recommended. Breast Density - Category B, scattered fibroglandular densities.
== END ==
PROVIDERS: PCP Nurse Practitioner Family; Visit Provider Nurse Practitioner Family
DX: Z12.31 Encounter for screening mammogram for malignant neoplasm of breast (principal); R92.8 Other abnormal and inconclusive findings on diagnostic imaging of breast
CPT/HCPCS: 77063; 77067

== ENCOUNTER → 2023-08-21 02:59 | Outpatient (CLI) | payer MEDICARE, SELFPAY ==
[2023-08-21 10:56] LABS: Bilirubin Negative (Negative); Blood Negative (Negative); Clarity Clear (Clear); Glucose Negative (Negative); Ketones Negative (Negative); Leukocyte Esterase Small (Negative); Nitrite Negative (Negative); Urobilinogen 0.2 mg/dL (Up to 0.2); pH 6.5 (5-8)
[2023-08-21 11:05] LABS: Bacteria Rare HPF (Negative); C & S Indicated? Yes; Casts Negative LPF (Negative); Crystals Negative HPF (Negative); Epithelial Cells Rare HPF (Negative); Mucus Negative (Negative); RBC Negative HPF (0-2)
--- NOTE | 2023-08-21 11:45 | DI.MAMMO_ITS ---
Exam(s) MAMMO SCREENING EXAM: MAMMO SCREENING CLINICAL HISTORY: screening TECHNIQUE: Bilateral full field digital CC and MLO mammographic images were obtained with 3D tomosyn thesis and utilizing computer aided detection (CAD). COMPARISON: Available for comparison. FINDINGS: Masses/Architectural Distortion: The nodule in the medial right breast is stable. No new nodules or areas category CB of architectural distortion are seen. Microcalcifications: No suspicious pleomorphic-type are seen. Skin Thickening/Nipple Retraction: None. IMPRESSION: 1. No significant interval change with no specific features of malignancy noted. 2. Unless there is more urgent need, screening mammography is recommended, as per [employer] guidelines. BI-RADS Category 2 - Benign Findings Breast Density - Category B - Scattered areas of fibroglandular density Breast density category C or D implies that the patient has dense breast tissue. Dense breast tissue is very common and is not abnormal but dense breast tissue can make it harder to find cancer on a ma mmogram. Also, dense breast tissue may increase their breast cancer risk. This information about the result of the mammogram report was provided to the patient to raise their awareness. Use this report when you speak with the patient about their risks for breast cancer, which includes their family hist ory. At that time, you may recommend for more screening tests (Ultrasound or MRI) as they might be us eful based on their risk. A negative radiographic report should not delay biopsy if a dominant or clinically suspicious mass is present. Up to ten percent of cancers are not identified on mammography. A negative report may reinforce clinical impression. Adenosis and dense breasts may obscure an underlying neoplasm. False positive reports average 6 to 10%. Patient will receive a letter notifying them of these results.
== END ==
PROVIDERS: PCP Nurse Practitioner Family; Visit Provider Nurse Practitioner Women's Health
DX: Z12.31 Encounter for screening mammogram for malignant neoplasm of breast (principal)
CPT/HCPCS: 77063; 77067; 81003; 81015; 87086

== ENCOUNTER 2023-09-19 19:07 | Outpatient (REF) | payer MEDICARE, SELFPAY ==
[2023-09-19 14:44] LABS: Abs Immature Grans 0.01 10^3/uL (0.0-0.06); Absolute Basophil Count 0.04 10^3/uL (0.0-0.2); Absolute Eosinophil Count 0.04 10^3/uL (0.0-0.7); Absolute Lymphocyte Count 1.25 10^3/uL (1.2-3.4); Absolute Monocyte Count 0.39 10^3/uL (0.1-0.8); Absolute Neutrophil Count 2.73 10^3/uL (1.2-6.7); Basophils % 0.9; Eosinophils % 0.9; HCT 41.1 % (36.0-46.0); HGB 14.1 g/dL (11.2-15.7); Immature Grans % 0.2; MCH 30.1 pg (27.0-33.0); MCHC 34.3 % (32.0-36.0); MCV 88 fL (80-95); MPV 10.3 fL (8.0-11.0); Monocytes % 8.7; Neutrophils % 61.3; Platelet Count 190 10^3/uL (130-400); RBC 4.68 10^6/uL (3.93-5.22); RDW 12.1 % (11.7-14.6); RDW-SD 38.8 fL; WBC 4.46 10^3/uL (4.4-10.8)
[2023-09-19 15:16] LABS: Vitamin D 25 Total 32.7 ng/mL (30-100)
[2023-09-19 15:19] LABS: Calculated LDL 150 mg/dL (<100); Cholesterol 276 mg/dL (<200); HDL Cholesterol 111 mg/dL (40-60); TSH 1.21 uIU/mL (0.36-3.74); Triglyceride 79 mg/dL (<150)
[2023-09-19 15:36] LABS: FREE T4 0.87 ng/dL (0.76-1.46)
--- OUTSIDE RECORDS SUMMARY | 2023-09-19 19:09 | XMS_ITS | Continuity of Care Document ---
Author Name Unknown Organization [facility] Address [address] [place] [id number] Care Team Providers Care Nurse Examiner Name Role Phone TIFFANY JEAN APRN Primary Care Physician Encounter [facility] FIN NBR [id number] Date(s): 02/12/23 - 02/12/[address] [id number]- Encounter Diagnosis Other specified injuries of right wrist, hand and finger(s), initial encounter (Final) - Discharge Disposition: Home or Self Care Attending Physician: Ijeoma Mackenzie APRN, Admitting Physician: Ijeoma Mackenzie APRN, Allergies, Adverse Reactions, Alerts No Known Allergies Problem List Condition Confirmation Course Effective Dates Status H ealth Status Informant Diverticulosis Confirmed Active History of thyroid cancer Confirmed Active Procedures Procedure Date Related Diagnosis Body Site Status Removal of thyroid nodule 1 11/28/14 Completed 1Left lobe Results Radiology Reports * Exam Date Time Procedure Performing Provider Status 02/12/23 3:04 PM MRI Wrist w/ Contrast Right DomainUser , Generated; Auth (Verified) Notes: (MRI Wrist w/ Contrast Right) Reason For Exam: Looking for a TFCC tear MRI Wrist w/ Contrast Right EXAM DESCRIPTION: MRI Wrist w/ Contrast Right 02/12/2023 INDICATION: LOOKING FOR A TFCC TEAR TECHNIQUE: MRI examination of the right wrist following right wrist arthrography as detailed on arthrogram report from the same date. Examination consists of fat-suppressed T1 weighted images in 3 planes, coronal and axial fat-suppressed T2 weighted images as well as sagittal PD fat-suppressed images. COMPARISON: Routine radiographs of the right wrist and hand from 12/31/2022 FINDINGS: Extensive full-thickness tear involving the radial aspect of the of the TFCC with extravasation of contrast into the DRUJ. Extravasation of contrast into the midcarpal joint which appears to be secondary to small scapholunate ligament tear. Lunotriquetral ligament appears grossly intact. Several ovoid intra-articular bodies are noted in the ulnar aspect of the radiocarpal joint space extending into the pisiform recess. Mild subchondral cystic changes are noted involving the distal radius and ulna with nonspecific cystic changes involving the carpus most consistent with arthritic changes. Arthritic changes involving the 1st CMC articulation with joint space narrowing and mild subchondral cyst formation. No regional marrow edema. No abnormal regional flexor or extensor tendon sheath fluid accumulation to suggest tenosynovitis. The median nerve demonstrates normal morphology and signal intensity in the carpal tunnel region with no significant bowing of the flexor retinaculum. No edema within the visualized intrinsic muscles of the hand or visualized distal forearm musculature to suggest strain or myositis. No abnormal regional fluid collection to suggest ganglion cyst is identified. IMPRESSION: Extensive full-thickness tear involving the radial aspect of the TFCC with extravasation of contrast into the DRUJ Extravasation of contrast into the midcarpal joint which appears to be secondary to small scapholunate ligament tear. Several intra-articular bodies in the ulnar aspect of the radiocarpal joint extending into the pisiform recess region. Arthritic changes of the 1st CMC articulation. JOB #: [id number] Final Signed by: Roshan Vogel MD Signed (Electronic Signature): 02/12/2023 4:06 pm * Exam Date Time Procedure Performing Provider Status 02/12/23 2:41 PM XR Arthrogram Wrist Right Bouchra Rothman (Verified) Notes: (XR Arthrogram Wrist Right) Reason For Exam: ARTHROGRAM XR Arthrogram Wrist Right EXAM DESCRIPTION: XR Arthrogram Wrist Right 02/12/2023 2:54 INDICATION: ARTHROGRAM COMPARISON: None. FLUORO TIME: Fluoro time utilized was 0.7 minutes. Image number: 4 PROCEDURE: A right wrist arthrogram was performed. The procedure and potential complications including bleeding and infection were explained to the patient and informed consent was obtained. The skin overlying the dorsal aspect of the right radiocarpal joint was prepped and draped according to sterile protocol. The skin and subcutaneous soft tissues in this region were anesthetized with 1% lidocaine. Utilizing fluoroscopic guidance, a 25 gauge needle was advanced into the right radiocarpal joint space. Approximately 3-4 mL of dilute gadolinium solution, 1:200, was injected. Solution consisted of 10cc of 0.9% NS, 10 cc of Isovue 300, and 0.1 cc of Multihance. The patient tolerated the procedure well without immediate complication and was transferred to the MRI suite. FINDINGS: Normal capacity of the right radiocarpal joint space. Extravasation of contrast into the DRUJ was observed. IMPRESSION: Successful right wrist arthrogram for MRI. Please see right wrist MRI report from the same date. JOB #: [id number] Final Signed by: Roshan Vogel MD Signed (Electronic Signature): 02/12/2023 3:32 pm Social History Social History Type Response Tobacco Former tobacco user Tobacco Use:. Sex RF Wrist - right Arthrogram * Roshan Vogel MD: VERIFY, VERIFY Event Display: Report EXAM DESCRIPTION: XR Arthrogram Wrist Right 02/12/2023 2:54 INDICATION: ARTHROGRAM COMPARISON: None. FLUORO TIME: Fluoro time utilized was 0.7 minutes. Image number: 4 PROCEDURE: A right wrist arthrogram was performed. The procedure and potential complications including bleeding and infection were explained to the patient and informed consent was obtained. The skin overlying the dorsal aspect of the right radiocarpal joint was prepped and draped according to sterile protocol. The skin and subcutaneous soft tissues in this region were anesthetized with 1% lidocaine. Utilizing fluoroscopic guidance, a 25 gauge needle was advanced into the right radiocarpal joint space. Approximately 3-4 mL of dilute gadolinium solution, 1:200, was injected. Solution consisted of 10cc of 0.9% NS, 10 cc of Isovue 300, and 0.1 cc of Multihance. The patient tolerated the procedure well without immediate complication and was transferred to the MRI suite. FINDINGS: Normal capacity of the right radiocarpal joint space. Extravasation of contrast into the DRUJ was observed. IMPRESSION: Successful right wrist arthrogram for MRI. Please see right wrist MRI report from the same date. JOB #: [id number] Final Signed by: Roshan Vogel MD Signed (Electronic Signature): 02/12/2023 3:32 pm MR Wrist - right W contrast IV * Roshan Vogel MD: VERIFY, VERIFY Event Display: Report EXAM DESCRIPTION: MRI Wrist w/ Contrast Right 02/12/2023 INDICATION: LOOKING FOR A TFCC TEAR TECHNIQUE: MRI examination of the right wrist following right wrist arthrography as detailed on arthrogram report from the same date. Examination consists of fat-suppressed T1 weighted images in 3 planes, coronal and axial fat-suppressed T2 weighted images as well as sagittal PD fat-suppressed images. COMPARISON: Routine radiographs of the right wrist and hand from 12/31/2022 FINDINGS: Extensive full-thickness tear involving the radial aspect of the of the TFCC with extravasation of contrast into the DRUJ. Extravasation of contrast into the midcarpal joint which appears to be secondary to small scapholunate ligament tear. Lunotriquetral ligament appears grossly intact. Several ovoid intra-articular bodies are noted in the ulnar aspect of the radiocarpal joint space extending into the pisiform recess. Mild subchondral cystic changes are noted involving the distal radius and ulna with nonspecific cystic changes involving the carpus most consistent with arthritic changes. Arthritic changes involving the 1st CMC articulation with joint space narrowing and mild subchondral cyst formation. No regional marrow edema. No abnormal regional flexor or extensor tendon sheath fluid accumulation to suggest tenosynovitis. The median nerve demonstrates normal morphology and signal intensity in the carpal tunnel region with no significant bowing of the flexor retinaculum. No edema within the visualized intrinsic muscles of the hand or visualized distal forearm musculature to suggest strain or myositis. No abnormal regional fluid collection to suggest ganglion cyst is identified. IMPRESSION: Extensive full-thickness tear involving the radial aspect of the TFCC with extravasation of contrast into the DRUJ Extravasation of contrast into the midcarpal joint which appears to be secondary to small scapholunate ligament tear. Several intra-articular bodies in the ulnar aspect of the radiocarpal joint extending into the pisiform recess region. Arthritic changes of the 1st CMC articulation. JOB #: [id number] Final Signed by: Roshan Vogel MD Signed (Electronic Signature): 02/12/2023 4:06 pm Patient Care team information Care Team Personnel Name: TIFFANY JEAN APRN Position: No Access Member Role: Primary Care Physician Address: Address: [address] [place] [id number] [place]
--- OUTSIDE RECORDS SUMMARY | 2023-09-19 19:09 | XMS_ITS | Continuity of Care Document ---
Author Name Unknown Organization [facility] Ambulatory Clinics Address [address] [place] [address] Care Team Providers Care Gem Carver Name Role Phone TIFFANY JEAN APRN Primary Care Physician Encounter [facility] FIN NBR [id number] Date(s): 07/25/23 - 07/25/23 [facility] Ambulatory Clinics [address], [place] [address] Encounter Diagnosis Osteoarthritis of right knee(Discharge Diagnosis) - 07/25/23 Arthritis of right knee(Discharge Diagnosis) - 07/25/23 Discharge Disposition: Home or Self Care Attending Physician: Hina Clement APRN Referring Physician: Hina Clement APRN Allergies, Adverse Reactions, Alerts No Known Allergies Medications magnesium oxide 400 mg (241.3 mg elemental magnesium) oral tablet 400 mg = 1 tab, Oral, BID, 0 Refill(s) Start Date: 04/15/23 Status: Ordered Vitamin D3 50 mcg (2000 intl units) oral tablet, chewable 50 mcg = 1 tab, Oral, Daily, # 30 EA, 0 Refill(s) Start Date: 04/15/23 Status: Ordered vitamin E 33.5 mg oral capsule 33.5 mg = 1 cap, Oral, BID, # 60 cap, 0 Refill(s) Start Date: 04/15/23 Status: Ordered Problem List Condition Confirmation Course Effective Dates Status H ealth Status Informant Diverticulosis Confirmed Active History of thyroid cancer Confirmed Active Procedures Procedure Date Related Diagnosis Body Site Status Removal of thyroid nodule 1 11/28/14 Completed 1Left lobe Vital Signs Most recent to oldest [Reference Range]: 1 Peripheral Pulse Rate [60-100 bpm] 70 bp m (07/25/23 10:28 AM) Blood Pressure [90-140/60-90 mmHg] 122/7 8mmHg (07/25/23 10:28 AM) Social History Social History Type Response Tobacco Former tobacco user Tobacco Use:. Sex Physician Outpatient Note * Hina Clement APRN: PERFORM Event Display: Office Clinic Note Physician Authored Date: [id number] MAURISIO WILSON :1955 Age:68 years Sex:Female Visit Date:07/25/2023 Primary Care Physician: TIFFANY JEAN APRN Chief Complaint right knee pain History of Present Illness Maurisio is a very pleasant 68 year old female who presents for chronic, atraumatic right knee pain. She endorses a feeling of edema, medial pain and some instability. She has attempted Tylenol and Voltaren gel without relief. She was recently seen by Ijeoma Mackenzie on 04/15 and given CSI which gave her excellent relief up until a few weeks ago. She now says the pain is worse than ever and exacerbated with any activity including walking and stairs. She denies new injury. Review of Systems Constitutional:?No??fevers,?No??chills,?No??sweats Respiratory:?No??shortness of breath,?No??cough Cardiovascular:?No??Chest pain,?No??palpitations,?No??syncope Gastrointestinal:?Nonausea,?No??vomiting,?No??diarrhea David/Lymph:?No??bruising tendency,?No??swollen lymph glands Musculoskeletal:??No??back pain,??No??neck pain,??Positive for??joint pain,??No??muscle pain,??No??decreased range of motion Integumentary:?No??rash,?No??pruritus,?No??abrasions Neurologic: Alert & oriented X 4 Physical Exam Vitals & Measurements HR:??70??(Peripheral)?? BP:??122/78?? SpO2:??98%?? Pain Score:??7?? The patient is well dressed, well groomed and appearing stated age in NAD. Focused examination of the right knee is without gross deformity. There is no edema. Skin is intact without erythema, warmth. ROM is??full without pain. Patella grind positive. Medial joint line tenderness. Ligamentously stable in all plains. Tato's negative. Calf compartment is soft and nontender. RLE is neurovascularly intact. Procedure Risks, benefits and alternatives to these injections are discussed with the patient,??verbal consent is obtained.?? Under standard, sterile technique, the anterolateral injection sites of the right??knee is??meticulously prepped with ChloraPrep x3.?? Then Monovisc??88 mg?is injected without difficulty. ??The patient tolerated the injection very well and dry, sterile bandages are applied. ??Postinjection instructions are provided. Assessment/Plan 1.??Arthritis of right knee??M17.11,??Osteoarthritis of right knee??M17.11 Maurisio returns today for evaluation of chronic right knee pain secondary to OA treated successfully3 months ago with CSI. We again reviewed her xrays together today and talked about arthritis and treatment options. She is not interested in prescription antiinflammatories and topicals are not helpful. We talked about steroids and the risks of too many in a joint. We also talked about CIRSOSTOMO and the role this treatment options may play. She is interested and shared decision making to attempt Monovisc today. If she gets no relief she may contact the office in 2 weeks and we can try CSI at that point. We also briefly talked about TKA. All questions are answered prior to appointment end and Maurisio is encouraged to contact the office at any time with questions or needs. Medications and Immunizations This Visit Given Monovisc, 88 mg, Intra-articular. For: Osteoarthritis of right knee Problem List/Past Medical History Ongoing Diverticulosis History of thyroid cancer Historical No qualifying data Procedure/Surgical History ???Removal of thyroid nodule (11/29/2014) Medications magnesium oxide 400 mg (241.3 mg elemental magnesium) oral tablet, 400 mg= 1 tab, Oral, BID Vitamin D3 50 mcg (2000 intl units) oral tablet, chewable, 50 mcg= 1 tab, Oral, Daily vitamin E 33.5 mg oral capsule, 33.5 mg= 1 cap, Oral, BID Allergies No Known Allergies Social History Electronic Cigarette/Vaping Electronic Cigarette Use: Never. Tobacco Former tobacco user Tobacco Use:. Electronically Signed on 07/25/23 11:51 AM Hina Clement APRN Patient Care team information Care Team Personnel Name: TIFFANY JEAN APRN Position: No Access Member Role: Primary Care Physician Address: Address: [address] [place] [id number]- Care Team Related Persons Name: MILAGROS WILSON Address: [address] [phone]
--- OUTSIDE RECORDS SUMMARY | 2023-09-19 19:09 | XMS_ITS | Continuity of Care Document ---
Author Name Unknown Organization [facility] Ambulatory Clinics Address [address] [place] [address] Care Team Providers Care Line Service Person Name Role Phone TIFFANY JEAN APRN Primary Care Physician Encounter [facility] FIN NBR [id number] Date(s): 12/31/22 - 12/31/22 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(Discharge Diagnosis) - 12/31/22 Discharge Disposition: Home or Self Care Attending Physician: Ijeoma Mackenzie APRN, Referring Physician: TIFFANY JEAN APRN Allergies, Adverse Reactions, Alerts No Known Allergies Functional Status 12/31/22 Other exposure to Infectious Disease Non e Medications No Known Medications Problem List Condition Confirmation Course Effective Dates Status H ealth Status Informant Diverticulosis Confirmed Active History of thyroid cancer Confirmed Active Procedures Procedure Date Related Diagnosis Body Site Status Removal of thyroid nodule 1 11/28/14 Completed 1Left lobe Vital Signs Most recent to oldest [Reference Range]: 1 Peripheral Pulse Rate [60-100 bpm] 88 bp m (12/31/22 12:04 PM) Blood Pressure [90-140/60-90 mmHg] 146/8 8mmHg *HI* (12/31/22 12:04 PM) Weight 49.90 kg (12/31/22 12:04 PM) Weight Measured (lbs) 110.011 lb (12/31/22 12:04 PM) Height 152.40 cm (12/31/22 12:04 PM) Height/Length Measured (inches) 60 inch (12/31/22 12:04 PM) BSA Measured 1.45 m2 (12/31/22 12:04 PM) Body Mass Index 21.48 kg/m2 (12/31/22 12:04 PM) Social History Social History Type Response Tobacco Former tobacco user Tobacco Use:. Sex Hospital Discharge Instructions Follow Up Care 12/09/2022 08:51:37 With:Return to this practice Address: When: only if needed Physician Outpatient Note * Ijeoma Mackenzie APRN,: PERFORM Event Display: Office Clinic Note Physician Authored Date: [id number] MAURISIO WILSON :1955 Age:67 years Sex:Female Visit Date:12/31/2022 Primary Care Physician: TIFFANY JEAN APRN Chief Complaint Bilateral thumb discomfort History of Present Illness Maurisio is a very pleasant 67-year-old woman??who I have treated for CMC arthritis this in the past.?? She treats intermittently with cortisone injections. ??Her last injections were about a year ago.?? Her pain returned several months ago.?? 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 ??No history of adverse reaction. ?? She has also struggled with intermittent episodes of right wrist pain. ??She describes pain at the ulnar aspect of the wrist. ??The pain comes on suddenly, sharp and debilitating.?? She has now had 3 episodes of this pain.?? The episodes last for 2 days.?? She treats with a splint and Epsom saltsoaks, and eventually the pain resolves, but it??is becoming more debilitating.?? She does not recall any previous injuries to this wrist.?? She is right-hand dominant. ??No associated numbness or tingling. Review of Systems Constitutional:?No??fevers,?No??chills,?No??sweats Respiratory:?No??shortness of breath,?No??cough Cardiovascular:?No??Chest pain,?No??palpitations,?No??syncope Gastrointestinal:?Nonausea,?No??vomiting,?No??diarrhea Musculoskeletal:??No??back pain,??No??neck pain,??Positive for??bilat CMC pain; ulnar-sided??right wrist pain??No??muscle pain,??No??decreased range of motion Integumentary:?No??rash,?No??pruritus,?No??abrasions Neurologic: Alert & oriented X 4 Psychiatric:?No??anxiety,?No??depression Physical Exam Vitals & Measurements HR:??88??(Peripheral)?? BP:??146/88?? SpO2:??97%?? HT:??152.40??cm?? WT:??49.90??kg?? BMI:??21.48?? Pain Score:??2?? BSA:??1.45?? The patient is alert and oriented x3. ??Pleasant and cooperative. ??Well-dressed and well-groomed.?? Appears stated age and is well-nourished and well- developed.?? Examination of the bilateral wristsand hands reveals no deformity. ??Skin is intact. ??There is no erythema or warmth. ??No signs or symptoms of infection.?? CMC grind test is positive bilaterally. ??Jarrett's test is negative bilaterally.?? At the right wrist there is mild swelling??ulnarly??without point tenderness??or overlying signs or symptoms of infection.?? Range of motion is full at both wrists without pain or discomfort. ??Radial pulses are 2+. ??Patient is able to make composite fist with ease and extend all fingers without difficulty. ??No triggering noted. ??Skin is warm and pink with brisk capillary refill andsensation is intact distally. Procedure Risks, benefits and alternatives these injections are discussed with the patient,??verbal consent is obtained. Under standard, sterile technique, the ulnar aspect of the right wrist is meticulously prepped withalcohol x3. ??Then 40 mg of Kenalog combined with 1% lidocaine plain is injected without difficulty.?? A??dry, sterile bandage is applied. Attention is then turned to the bilateral CMC joints. ??Under standard, sterile technique, the bases of the bilateral thumbs overlying the CMC joint are meticulously prepped with alcohol x3. Then 40 mg of Kenalog combined with 1% lidocaine plain is injected at each CMC joint without difficulty.?? Dry, sterile bandages are applied. The patient tolerated all injections very well and??postinjection instructions are provided. Assessment/Plan 1.??Arthritis of carpometacarpal (CMC) joint of both thumbs??M18.0 Maurisio is a pleasant 67-year-old woman with??bilateral first CMC arthritis.?? She has been dealing with this for years now, treats intermittently with cortisone injections. ??She is not quite ready to consider surgery. ??Her last injections were over a year ago, she is requesting??repeat injectionstoday and I am happy to do this for her. Ordered: Kenalog-40, 40 mg, Intra-articular, Once, First Dose: 12/31/22 12:52:00 EST, Stop Date: 12/31/22 12:52:00 EST, Physician Stop, Routine ?? 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 ??They come on suddenly and are debilitating, typically resolve within a few days of supportive care including splinting??and warm soaks.?? Today's x-rays do show calcifications in the area of the pain??reflecting either??sequela of remote injury versus intra-articular loose body. ??Maurisio and I have nothad a chance to review her x-rays together.?? I suspect she likely has TFCC pathology. ??She is currently asymptomatic, but is motivated to try something to prevent future episodes.?? Therefore I didoffer her a cortisone injection??which she would like to try.?? If she continues to have these episo maricruz, at that point??I will likely recommend??MRI for further evaluation. Ordered: Kenalog-40, 40 mg, Intra-articular, Once, First Dose: 12/31/22 12:52:00 EST, Stop Date: 12/31/22 12:52:00 EST, Physician Stop, Routine ?? I will see Maurisio back on an as-needed basis. ??She is in agreement with the above plan. ??She is encouraged to contact me with questions or concerns anytime. ??I spent 20 minutes in reviewing the record, seeing the patient and documenting in the medical record. Follow Up Instructions With When Contact Information Return to this practice Only if needed Additional Instructions: Problem List/Past Medical History Ongoing Diverticulosis History of thyroid cancer Historical No qualifying data Procedure/Surgical History ???Removal of thyroid nodule (11/29/2014) Medications Kenalog-40, 40 mg, Intra-articular, Once Allergies No Known Allergies Social History Electronic Cigarette/Vaping Electronic Cigarette Use: Never. Tobacco Former tobacco user Tobacco Use:. Diagnostic Results Diagnostic Study Interpretation: X-rays of the right wrist obtained today are personally reviewed on the [facility] system.?? Calcific densities are noted adjacent to the distal aspect of the ulna which are new since prior study.?? Per theradiologist these represent intra- articular bodies versus soft tissue calcification due to remote injury.?? Early degenerative changes are seen at the radiocarpal joint space as evidenced by joint space narrowing.?? CMC arthritis noted. X-rays of the bilateral hands obtained today are also personally reviewed on the [facility] system.?? First CMC joint arthritis is noted bilaterally as evidenced by joint space narrowing; these changes haveprogressed slightly since previous x- rays.?? Scattered degenerative changes noted throughout the IPjoints.?? No acute findings. Electronically Signed on 12/31/22 12:53 PM Ijeoma Mackenzie APRN, Patient Care team information Personnel Name: TIFFANY JEAN APRN Address: Address: [address] [place] [id number]- [place]
--- OUTSIDE RECORDS SUMMARY | 2023-09-19 19:09 | XMS_ITS | Continuity of Care Document ---
Author Name Unknown Organization [facility] Ambulatory Clinics Address [address] [place] [address] Care Team Providers Care Nailing Machine Operator Name Role Phone TIFFANY JEAN APRN Primary Care Physician Encounter [facility] FIN NBR [id number] Date(s): 04/15/23 - 04/15/23 [facility] Ambulatory Clinics [address] [place] [address]- Discharge Disposition: Home or Self Care Attending Physician: Ijeoma Mackenzie APRN, Referring Physician: TIFFANY JEAN APRN Allergies, Adverse Reactions, Alerts No Known Allergies Functional Status 04/15/23 Other exposure to Infectious Disease Non e Medications magnesium oxide 400 mg (241.3 mg [...] Range]: 1 Peripheral Pulse Rate [60-100 bpm] 78 bp m (04/15/23 1:39 PM) Blood Pressure [90-140/60-90 mmHg] 138/8 4mmHg (04/15/23 1:39 PM) Weight 46.72 kg (04/15/23 1:39 PM) Weight Measured (lbs) 103 lb (04/15/23 1:39 PM) Height 152.4 cm (04/15/23 1:39 PM) Height/Length Measured (inches) 60 inch (04/15/23 1:39 PM) BSA Measured 1.41 m2 (04/15/23 1:39 PM) Body Mass Index 20.12 kg/m2 (04/15/23 1:39 PM) Social History Social History Type Response Tobacco Former tobacco user Tobacco Use:. Sex Patient Care team information Care Team Personnel Name: TIFFANY JEAN APRN Position: No Access Member Role: Primary Care Physician Address: Address: [address] [place] [id number]- Care Team Related Persons Name: MILAGROS WILSON Address: Home [address] [place] [phone]
--- OUTSIDE RECORDS SUMMARY | 2023-09-19 19:09 | XMS_ITS | Continuity of Care Document ---
Author Name Unknown Organization [facility] Address [address] [place] [id number] Care Team Providers Care Carpenter Supervisor Name Role Phone TIFFANY JEAN APRN Primary Care Physician [phone] Encounter [facility] FIN NBR [id number] Date(s): 04/15/23 - 04/15/[address] [address]- Discharge Disposition: Home or Self Care Attending Physician: Ijeoma Mackenzie APRN, Admitting Physician: Ijeoma Mackenzie APRN, Referring Physician: TIFFANY [...] Exam Date Time Procedure Performing Provider Status 04/15/23 1:10 PM XR Knee Complete 4+ Views Right Lona Franz; Nixon (Verified) Notes: (XR Knee Complete 4+ Views Right) Reason For Exam: right knee pain XR Knee Complete 4+ Views Right EXAM DESCRIPTION: XR Knee Complete 4+ Views Right 04/15/2023 INDICATION: RIGHT KNEE PAIN COMPARISON: None IMPRESSION: No acute fracture or dislocation Medial femorotibial compartment joint space narrowing consistent with mild arthritic changes No focal lytic or sclerotic lesion. Increased density in the suprapatellar region on the lateral view suspicious for component of joint effusion. JOB #: [id number] Final Signed by: Roshan Vogel MD Signed (Electronic Signature): 04/15/2023 1:52 pm Social History Social History Type Response Tobacco Former tobacco user Tobacco Use:. Sex XR Knee - right GE 4 Views * Roshan Vogel MD: VERIFY, VERIFY Event Display: Report EXAM DESCRIPTION: XR Knee Complete 4+ Views Right 04/15/2023 INDICATION: RIGHT KNEE PAIN COMPARISON: None IMPRESSION: No acute fracture or dislocation Medial femorotibial compartment joint space narrowing consistent with mild arthritic changes No focal lytic or sclerotic lesion. Increased density in the suprapatellar region on the lateral view suspicious for component of joint effusion. JOB #: [id number] Final Signed by: Roshan Vogel MD Signed (Electronic Signature): 04/15/2023 1:52 pm Patient Care team information Care Team Personnel Name: TIFFANY JEAN APRN Position: No Access Member Role: Primary Care Physician Address: Address: [address] [place] [id number]- Care Team Related Persons Name: MILAGROS WILSON Address: [address] [phone]
--- OUTSIDE RECORDS SUMMARY | 2023-09-19 19:09 | XMS_ITS | Continuity of Care Document ---
Author Name Unknown Organization [facility] Address [address] [place] [address] Care Team Providers Care Recovery Operator Helper Name Role Phone TIFFANY JEAN APRN Primary Care Physician Encounter [facility] FIN NBR [id number] Date(s): 12/31/22 - 12/31/[address] [address] Encounter Diagnosis Pain in unspecified finger(s)(Final) - Pain in right hand(Final) - Osteoarthritis of first carpometacarpal joint, unspecified(Final) - Primary osteoarthritis, right wrist(Final) - Discharge Disposition: Home or Self Care Attending Physician: Ijeoma Mackenzie APRN, Admitting Physician: Ijeoma Mackenzie APRN, Referring Physician: Ijeoma Mackenzie APRN, Allergies, Adverse Reactions, Alerts No Known Allergies Problem List Condition Confirmation Course Effective Dates Status H ealth Status Informant Diverticulosis Confirmed Active History of thyroid cancer Confirmed Active Procedures Procedure Date Related Diagnosis Body Site Status Removal of thyroid nodule 1 11/28/14 Completed 1Left lobe Results Radiology Reports * Exam Date Time Procedure Performing Provider Status 12/31/22 11:53 AM XR Hand Complete 3+ Views Left Lona Franz; Auth (Verified) Notes: (XR Hand Complete 3+ Views Left) Reason For Exam: bilateral thumb pain XR Hand Complete 3+ Views Left EXAM DESCRIPTION: XR Hand Complete 3+ Views Left 12/31/2022 INDICATION: BILATERAL THUMB PAIN COMPARISON: 01/03/2017 IMPRESSION: No acute fracture or dislocation Scattered mild IP joint space narrowing consistent with mild arthritic changes. First CMC joint arthritic changes with joint space narrowing and mild osteophyte formation No regional radiopaque soft tissue foreign body. JOB #: [id number] Final Signed by: Roshan Vogel MD Signed (Electronic Signature): 12/31/2022 12:05 pm * Exam Date Time Procedure Performing Provider Status 12/31/22 11:53 AM XR Hand Complete 3+ Views Right Lona Franz; Auth (Verified) Notes: (XR Hand Complete 3+ Views Right) Reason For Exam: bilateral thumb pain XR Hand Complete 3+ Views Right EXAM DESCRIPTION: XR Hand Complete 3+ Views Right 12/31/2022 INDICATION: BILATERAL THUMB PAIN COMPARISON: 01/03/2017 IMPRESSION: No acute fracture or dislocation Second MCP joint space narrowing with scattered IP joint space narrowing consistent with arthritic changes. First CMC joint space narrowing consistent with mild arthritic changes Soft tissue calcification adjacent to the radial base of the 3rd proximal phalanx without significant change from prior study which may reflect sequela of old injury. Please see right wrist report of the same date for right wrist findings. JOB #: [id number] Final Signed by: Roshan Vogel MD Signed (Electronic Signature): 12/31/2022 12:04 pm * Exam Date Time Procedure Performing Provider Status 12/31/22 11:53 AM XR Wrist Complete 3+ Views Right Lona Hurley; Auth (Verified) Notes: (XR Wrist Complete 3+ Views Right) Reason For Exam: right hand pain XR Wrist Complete 3+ Views Right EXAM DESCRIPTION: XR Wrist Complete 3+ Views Right 12/31/2022 INDICATION: RIGHT HAND PAIN COMPARISON: Right hand examination from 01/03/2017 IMPRESSION: No acute fracture or dislocation Ovoid calcific densities adjacent to the distal aspect of the ulna which appear new since prior study. Findings may reflect soft tissue calcifications in the setting of old injury although intra-articular bodies can not be excluded Mild radiocarpal joint space narrowing consistent arthritic changes with subchondral cyst formation involving the distal radius. First CMC joint space narrowing consistent with arthritic changes. No regional radiopaque soft tissue foreign body. JOB #: [id number] Final Signed by: Roshan Vogel MD Signed (Electronic Signature): 12/31/2022 12:02 pm Social History Social History Type Response Tobacco Former tobacco user Tobacco Use:. Sex XR Wrist - right GE 3 Views * Roshan Vogel MD: VERIFY, VERIFY Event Display: Report EXAM DESCRIPTION: XR Wrist Complete 3+ Views Right 12/31/2022 INDICATION: RIGHT HAND PAIN COMPARISON: Right hand examination from 01/03/2017 IMPRESSION: No acute fracture or dislocation Ovoid calcific densities adjacent to the distal aspect of the ulna which appear new since prior study. Findings may reflect soft tissue calcifications in the setting of old injury although intra-articular bodies can not be excluded Mild radiocarpal joint space narrowing consistent arthritic changes with subchondral cyst formation involving the distal radius. First CMC joint space narrowing consistent with arthritic changes. No regional radiopaque soft tissue foreign body. JOB #: [id number] Final Signed by: Roshan Vogel MD Signed (Electronic Signature): 12/31/2022 12:02 pm XR Hand - right GE 3 Views * Roshan Vogel MD: VERIFY, VERIFY Event Display: Report EXAM DESCRIPTION: XR Hand Complete 3+ Views Right 12/31/2022 INDICATION: BILATERAL THUMB PAIN COMPARISON: 01/03/2017 IMPRESSION: No acute fracture or dislocation Second MCP joint space narrowing with scattered IP joint space narrowing consistent with arthritic changes. First CMC joint space narrowing consistent with mild arthritic changes Soft tissue calcification adjacent to the radial base of the 3rd proximal phalanx without significant change from prior study which may reflect sequela of old injury. Please see right wrist report of the same date for right wrist findings. JOB #: [id number] Final Signed by: Roshan Vogel MD Signed (Electronic Signature): 12/31/2022 12:04 pm XR Hand - left GE 3 Views * Roshan Vogel MD: VERIFY, VERIFY Event Display: Report EXAM DESCRIPTION: XR Hand Complete 3+ Views Left 12/31/2022 INDICATION: BILATERAL THUMB PAIN COMPARISON: 01/03/2017 IMPRESSION: No acute fracture or dislocation Scattered mild IP joint space narrowing consistent with mild arthritic changes. First CMC joint arthritic changes with joint space narrowing and mild osteophyte formation No regional radiopaque soft tissue foreign body. JOB #: [id number] Final Signed by: Roshan Vogel MD Signed (Electronic Signature): 12/31/2022 12:05 pm Patient Care team information Personnel Name: TIFFANY JEAN APRN Address: Address: [address] [place] [address]- [place]
--- OUTSIDE RECORDS SUMMARY | 2023-09-19 19:09 | XMS_ITS | Continuity of Care Document ---
Author Name Unknown Organization [facility] Address [address] [place] [address] Care Team Providers Care Data Technical Lead Name Role Phone TIFFANY JEAN APRN Primary Care Physician [phone] Encounter [facility] NBR [id number] Date(s): 07/18/23 - 07/18/23 [facility] Ambulatory Clinics [address] [place] [address]- [place] Discharge Disposition: Home Allergies, Adverse Reactions, Alerts No Known Allergies Assessment and Plan Future Appointments Medications magnesium oxide 400 mg (241.3 mg [...] thyroid nodule 1 11/28/14 Completed 1Left lobe Social History Social History Type Response Tobacco Former tobacco user Tobacco Use:. Sex Patient Care team information Care Team Personnel Name: TIFFANY JEAN APRN Position: No Access Member Role: Primary Care Physician Address: Address: [address] [place] [address] [place] Care Team Related Persons Name: MILAGROS WILSON Address: Home [address], [place] [id number]
[2023-09-19 22:15] LABS: T3,Free 4.1 pg/mL (2.8-5.3)
== END 2023-09-19 19:08 | disposition home or self-care (01) ==
LOC: NCHCN 19:07
PROVIDERS: PCP Nurse Practitioner Family; Visit Provider Nurse Practitioner Family
DX: E78.5 Hyperlipidemia, unspecified (principal); J31.0 Chronic rhinitis; I10 Essential (primary) hypertension; R10.13 Epigastric pain; D72.829 Elevated white blood cell count, unspecified; E04.2 Nontoxic multinodular goiter
CPT/HCPCS: 80061; 82306; 84439; 84443; 84481; 85025

== ENCOUNTER 2023-11-11 09:12 | Outpatient (REF) | payer MEDICARE, SELFPAY ==
[2023-11-11 15:39] LABS: ALT 19 U/L (14-59); AST 24 U/L (15-37); Alkaline Phosphatase 82 U/L (46-116); Anion Gap 7.6 mmol/L (3-11); BUN 16 mg/dL (7-18); Bilirubin, Total 0.5 mg/dL (0.2-1.0); CO2 28.4 mmol/L (21.0-32.0); CREATININE 0.9 mg/dL (0.55-1.02); Calcium 9.3 mg/dL (8.5-10.1); Calculated LDL 80 mg/dL (<100); Chloride 104 mmol/L (98-107); Cholesterol 200 mg/dL (<200); Estimated GFR 69.64 (mL/min/1.73m2); Glucose 109 mg/dL (74-106); HDL Cholesterol 105 mg/dL (40-60); Potassium 4.5 mmol/L (3.5-5.1); Sodium 140 mmol/L (136-145); Total Protein 6.5 g/dL (6.4-8.2); Triglyceride 79 mg/dL (<150)
== END 2023-11-11 09:13 | disposition home or self-care (01) ==
LOC: NCHCN 09:12
PROVIDERS: PCP Nurse Practitioner Family; Visit Provider Nurse Practitioner Family
DX: I10 Essential (primary) hypertension (principal)
CPT/HCPCS: 80053; 80061

== ENCOUNTER → 2023-12-29 13:10 | Outpatient (CLI) | payer MEDICARE, SELFPAY ==
--- NOTE | 2023-12-29 | DI.RAD_ITS ---
Exam(s) XR LUMBAR SPINE COMPLETE EXAM: XR LUMBAR SPINE COMPLETE CLINICAL HISTORY: ACUTE LOW BACK PAIN, M54.50. TECHNIQUE: 2D digital imaging was performed of the lumbar spine. Five images were obtained. AP, la teral, right oblique, left oblique and L5-S1 spot views were obtained. COMPARISON: CR XR DEXA BONE DENSITY W/WO DALI from 02/08/2021 FINDINGS: BONES: No fracture or destructive lesion. Vertebral bodies are unremarkable. There are degenerative c hanges of the facets seen at L4-5 and L5-S1. DISKS: Intervertebral disc spaces are maintained. ALIGNMENT: There is a left convex curvature of the thoracolumbar spine. No spondylolysis or spondylo listhesis. SOFT TISSUE: Normal. IMPRESSION: Degenerative facet arthropathy at L4-5 and L5-S1. DATA REPOSITORY: RADIATION DOSE DELIVERED:
== END ==
PROVIDERS: PCP Nurse Practitioner Family; Visit Provider Nurse Practitioner Family
DX: M46.96 Unspecified inflammatory spondylopathy, lumbar region (principal)
CPT/HCPCS: 72110

== ENCOUNTER → 2024-02-09 09:51 | Outpatient (BNVA) | payer MEDICARE, SELFPAY | PROVIDERS: PCP Nurse Practitioner Family; Referring Provider Nurse Practitioner Family; Visit Provider Student in an Organized Health Care Education/Training Program | DX: M18.11 Unilateral primary osteoarthritis of first carpometacarpal joint, right hand (principal); M18.12 Unilateral primary osteoarthritis of first carpometacarpal joint, left hand; S69.81XA Other specified injuries of right wrist, hand and finger(s), initial encounter; X58.XXXA Exposure to other specified factors, initial encounter | CPT/HCPCS: 20600; 99202; J1030 ==

== ENCOUNTER 2024-02-26 05:12 | Outpatient (CLI) | payer MEDICARE, SELFPAY ==
[2024-02-26 13:31] LABS: Vitamin B12 362 pg/mL (193-986)
== END 2024-02-26 05:13 | disposition home or self-care (01) ==
PROVIDERS: PCP Nurse Practitioner Family; Visit Provider Nurse Practitioner Family
DX: R20.2 Paresthesia of skin (principal)
CPT/HCPCS: 36415; 82607; 84443

== ENCOUNTER → 2024-04-15 10:33 | Outpatient (BNVA) | payer MEDICARE, SELFPAY | PROVIDERS: PCP Nurse Practitioner Family; Referring Provider Nurse Practitioner Family; Visit Provider Student in an Organized Health Care Education/Training Program | DX: M18.12 Unilateral primary osteoarthritis of first carpometacarpal joint, left hand (principal); M18.11 Unilateral primary osteoarthritis of first carpometacarpal joint, right hand; S69.81XA Other specified injuries of right wrist, hand and finger(s), initial encounter; X58.XXXA Exposure to other specified factors, initial encounter; M19.031 Primary osteoarthritis, right wrist | CPT/HCPCS: 99214; J1010 ==

== ENCOUNTER 2024-06-29 13:02 | Outpatient (REF) | payer MEDICARE, SELFPAY ==
[2024-06-29 15:18] LABS: TSH (W/Ref FT4) 1.27 uIU/mL (0.36-3.74); Vitamin B12 329 pg/mL (193-986)
== END 2024-06-29 13:03 | disposition home or self-care (01) ==
LOC: NCHCN 13:02
PROVIDERS: PCP Nurse Practitioner Family; Visit Provider Nurse Practitioner Family
DX: R20.2 Paresthesia of skin (principal); G62.9 Polyneuropathy, unspecified
CPT/HCPCS: 82607; 84443

== ENCOUNTER 2024-08-27 01:10 | Outpatient (CLI) | payer MEDICARE, SELFPAY ==
--- NOTE | 2024-08-27 | DI.MAMMO_ITS ---
Exam(s) MAMMO SCREENING EXAM: MAMMO SCREENING CLINICAL HISTORY: Z12.31 Screening TECHNIQUE: Bilateral full field digital CC and MLO mammographic images were obtained with 3D tomosyn thesis and utilizing computer aided detection (CAD). COMPARISON: Available for comparison. FINDINGS: Masses/Architectural Distortion: None seen. Microcalcifications: No suspicious pleomorphic-type are seen. Skin Thickening/Nipple Retraction: None. IMPRESSION: 1. No significant interval change with no specific features of malignancy noted. 2. Unless there is more urgent need, screening mammography is recommended, as per [employer] guidelines. BI-RADS Category 1 - Negative Breast Density - Category B - Scattered areas of fibroglandular density Breast density category C or D implies that the patient has dense breast tissue. Dense breast tissue is very common and is not abnormal but dense breast tissue can make it harder to find cancer on a ma mmogram. Also, dense breast tissue may increase their breast cancer risk. This information about the result of the mammogram report was provided to the patient to raise their awareness. Use this report when you speak with the patient about their risks for breast cancer, which includes their family hist ory. At that time, you may recommend for more screening tests (Ultrasound or MRI) as they might be us eful based on their risk. A negative radiographic report should not delay biopsy if a dominant or clinically suspicious mass is present. Up to ten percent of cancers are not identified on mammography. A negative report may reinforce clinical impression. Adenosis and dense breasts may obscure an underlying neoplasm. False positive reports average 6 to 10%. Patient will receive a letter notifying them of these results.
--- OUTSIDE RECORDS SUMMARY | 2024-08-27 01:13 | XMS_ITS | Encounter Summary ---
Author Organization [facility] [place] [address] Care Team Providers Care Process Trainer Name Role Phone Shreya Ambrose APRN Primary Care Provider [phone] Encounter Details Date Type Department Care Team (Late st Contact Info) Description 01/31/2020 [place]phone [place] [address] Amelia Schwartz RN Social History Tobacco Use Types Packs/Day Years Used Date Smoking Tobacco: Former Cigarettes 1 01/20/1977 - 11/19/1992 Smokeless Tobacco: Never Comments:Social smoker Sex and Gender Information Value Date Recorded Sex Assigned at Not on file Gender Identity Not on file Sexual Orientation Not on file documented as of this encounter Miscellaneous Notes * Telephone Encounter - Amelia Hoyos RN - 02/02/2020 3:21 PM EST Pt heard from PCP that Dr Turner is requesting a new referral for follow up and is calling to discuss.She notes that she does not need a new referral because it's only been 2 years and 3 months since she was seen. She also states she thought Dr Turner wanted her to be followed by her PCP from now on, but if Dr Turner wants to see her to reassess she is fine with that. She states that upon her comparison of previous U/S notes, she thinks the R lobe itself has increased, not necessarily the nodule. How to proceed? I believe you are booking out until May. Is that too long for pt to wait? Pt wouldlike to know plan for next steps by the end of the week and can be contacted by portal or phone. * Telephone Encounter - Amelia Hoyos RN - 02/01/2020 11:19 AM EST Images from the original note were not included. February 01, 2020 Sunday Turner, DO to Me ?? 6:36 AM There has been slight interval increase in one of the nodules, which is overall reassuring. Given that it has been 3 years since her last appt. I would recommend her PCP place a new referral for reassessment. Notified Denice who requests a faxed copy of this recommendation. Faxing to her attention at [phone]. Amelia Hoyos RN * Telephone Encounter - Amelia Hoyos RN - 01/31/2020 3:03 PM EST Images from the original note were not included. Msg from Denice at [facility]. They sent U/S report for Dr Turner's review on 12/14/19 andare looking for interp and plan. Keara Ambrose is PCP. They can be reached at [phone] or info can be faxed to [phone]. Per phone note of 07/22/19: July 28, 2019 Me to Audrey Gaston ?? 1:02 PM Jorje Ventura, I received a reply from Dr Turner: ?? She needs an ultrasound around Oct or December and that can be performed locally through her PCP. ?? So it seems he does not need to see you. Please let me know if you have any further questions. ?? Thank you, Amelia Hoyos RN documented in this encounter Plan of Treatment Upcoming Encounters Date Type Department Care Team (Late st Contact Info) Description 10/07/2024 11:30 AM EST Office Visit Dermatology at [address] [place] [address] José Villeda MD [address], [place] [address] documented as of this encounter Visit Diagnoses Not on filedocumented in this encounter Care Teams Process Trainer Relationship Specialty Start Date End Date Shreya Ambrose APRN [address] [place] [address] PCP - General 09/06/14 documented as of this encounter
--- OUTSIDE RECORDS SUMMARY | 2024-08-27 01:13 | XMS_ITS | Encounter Summary ---
Author Organization [facility] [address] Care Team Providers Care Correction Officer Head Name Role Phone Shreya Ambrose APRN Primary Care Provider [phone] Encounter Details Date Type Department Care Team (Latest Contact Info) Description 11/06/2023 Travel Social History Tobacco Use Types Packs/Day Years Used Date Smoking Tobacco: Former Cigarettes 1 01/20/1977 - 11/19/1992 Smokeless Tobacco: Never Comments:Social smoker Alcohol Use Standard Drinks/Week Comments Not Currently 0 (1 standard drink = 0.6 oz pur e alcohol) Sex and Gender Information Value Date Recorded Sex Assigned at Not on file Gender Identity Not on file Sexual Orientation Not on file documented as of this encounter Plan of Treatment Upcoming Encounters Date Type Department Care Team (Late st Contact Info) Description 10/07/2024 11:30 AM EST Office Visit Dermatology at [address] [place] [id number] José Villeda MD [address] [facility], [place] [address] documented as of this encounter Visit Diagnoses Not on filedocumented in this encounter Care Teams Correction Officer Head Relationship Specialty Start Date End Date Shreya Ambrose APRN [address] [place] [address] PCP - General 09/06/14 documented as of this encounter
--- OUTSIDE RECORDS SUMMARY | 2024-08-27 01:13 | XMS_ITS | Encounter Summary ---
Author Organization [facility] [place] [address] Care Team Providers Care Economist Research Assistant Name Role Phone Shreya Ambrose APRN Primary Care Provider [phone] Encounter Details Date Type Department Care Team (Latest Contact Info) Description 05/10/2024 Travel Social History Tobacco Use Types Packs/Day [...] 11:30 AM EST Office Visit Dermatology at [address] [place] [phone] José Villeda MD [address] [facility], [place] [address] documented as of this encounter Visit Diagnoses Not on filedocumented in this encounter Care Teams Economist Research Assistant Relationship Specialty Start Date End Date Shreya Ambrose APRN [address] [place] [address] PCP - General 09/06/14 documented as of this encounter
--- OUTSIDE RECORDS SUMMARY | 2024-08-27 01:13 | XMS_ITS | Encounter Summary ---
Author Organization [place] [address] Care Team Providers Care Belt Operator Name Role Phone Shreya Ambrose APRN Primary Care Provider [phone] Reason for Visit * Reason Onset Date Comments Reminder Appointment 09/04/2021 Encounter Details Date Type Department Care Team (Late st Contact Info) Description 09/04/2021 Telephone [place] [address] Cecy Alvarado CMA GASTROENTEROLOGY DEPT Reminder Appointment Social History Tobacco Use Types Packs/Day Years Used Date Smoking Tobacco: Former Cigarettes 1 01/20/1977 - 11/19/1992 Smokeless Tobacco: Never Comments:Social smoker Sex and Gender Information Value Date Recorded Sex Assigned at Not on file Gender Identity Not on file Sexual Orientation Not on file documented as of this encounter Miscellaneous Notes * Telephone Encounter - Cecy Alvarado CMA - 09/04/2021 9:22 AM EDT Called patient to review medications and allergies for their upcoming gastroenterology Type of Appointment: Telehealth appointment. Reach Patient during MA Check: Yes Notes for the provider: Notes for the nurse: documented in this encounter Plan of Treatment Upcoming Encounters Date Type Department Care Team (Late st Contact Info) Description 10/07/2024 11:30 AM EST Office Visit Dermatology at [place] [address] [facility] [place] [phone] José Villeda MD [address], [place] [address] documented as of this encounter Visit Diagnoses Not on filedocumented in this encounter Care Teams Belt Operator Relationship Specialty Start Date End Date Shreya Ambrose APRN [address] [place] [address] PCP - General 09/06/14 documented as of this encounter
--- OUTSIDE RECORDS SUMMARY | 2024-08-27 01:13 | XMS_ITS | Encounter Summary ---
Author Organization [facility] Address [facility] [place] [address] Care Team Providers Care Radio Disc Jockey Name Role Phone Shreya Ambrose APRN Primary Care Provider [phone] Reason for Visit * Reason Comments Follow-up Encounter Details Date Type Department Care Team (Late st Contact Info) Description 05/31/2021 11:00 AM EDT Office [place] [phone] Marilyn Mcleod MD [facility] [place] [address] Multiple thyroid nodules Social History Tobacco Use Types Packs/Day Years Used Date Smoking Tobacco: Former Cigarettes 1 01/20/1977 - 11/19/1992 Smokeless Tobacco: Never Comments:Social smoker Sex and Gender Information Value Date Recorded Sex Assigned at Not on file Gender Identity Not on file Sexual Orientation Not on file documented as of this encounter Last Filed Vital Signs Vital Sign Reading Time Taken Comments Blood Pressure 144/81 05/31/2021 10:51 AM EDT Pulse 77 05/31/2021 10:51 AM EDT Temperature 36.5 ??C (97.7 ??F) 05/31/2021 1 0:51 AM EDT Respiratory Rate 16 05/31/2021 10:5 1 AM EDT Oxygen Saturation 99% 05/31/2021 10: 51 AM EDT Inhaled Oxygen Concentration - - Weight 48.5 kg (106 lb 14.4 oz) 021 10:51 AM EDT Height 149.9 cm (4' 11.02) 05/31/2021 10:51 AM EDT Body Mass Index 21.58 05/31/2021 10:51 AM EDT documented in this encounter Progress Notes * Marilyn Mcleod MD - 05/31/2021 11:00 AM EDT Images from the original note were not included. Endocrine Surgery Follow Up ?? HPI: Ms. Audrey Gaston is a 66 y.o. year old female whom I initially met on 11/02/20 for evaluation of a right-sided thyroid nodule. Her history is detailed in my note with that date, but to briefly review, her history is significant for a left lobectomy in 2013 for a multinodular goiter. This wasdone by Dr. Toño Edwards, a general surgeon at [facility]. Per Dr. 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 She was subsequently followed by ultrasound. In January 2017, she underwent FNA of 3 nodules at [facility]: 2 nodules in the right lobe and a left-sided remnant. The right inferior was interpreted as features of benign follicular nodule, as was the left-sided remnant. The right posterior nodule was nondiagnostic because of an acellular sample. In October 2017, she saw Dr. Turner as a second opinion who repeated the biopsy of the posterior hypoechoic right-sided nodule. Cytology was AUS with a comment that there were predominantly Hurthle cells, some with nuclear atypia. ThyGenX was sent, with no mutations detected and interpreted as very highly likely benign. In December 2019, she underwent a repeat ultrasound with her PCP that demonstrated slight interval increase in the larger more superior nodule on the right. This wasbiopsied by [place] at [facility] on 07/28/20, with [place] 3 cytology and a comment that there were rare clusters of atypical follicular cells with mild nuclear enlargement and nuclear grooves. ThyroSeq was sent and demonstrated an NRAS mutation associated with a 50% risk of malignancy. When I met her in October 2020, we had an extensive discussion about her options, and ultimately Irecommended completion thyroidectomy. However, given that she is not requiring thyroid hormone supplementation, she is asymptomatic, and she had a difficult time recovering from her right hemithyroidectomy, she elected for ultrasound surveillance. She presents back today in 6-month follow up. She continues to be asymptomatic. She is not sure when her last TSH was done, but she remains off thyroid hormone replacement. There have been no other changes to her medical or surgical history except that she has started taking amitriptyline for stomach pains. Past Medical History: Diagnosis Date ??? 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 IR FNA THYROID NODULE 07/28/2020 IR US Guided Biopsy Thyroid FNA 07/28/2020 Dylan Blackwell MD [facility] INTERVENTIONL RAD ??? SALPINGO-OOPHORECTOMY Bilateral ??? THYROIDECTOMY, PARTIAL Left Current Outpatient Medications on File Prior to Visit Medication Sig Dispense Refill ??? amitriptyline (Elavil) 25 mg Tablet TAKE ONE TABLET BY MOUTH AT ONCE DAILY AT BEDTIME ??? flu vacc [id number],65yr up,/PF (FluZONE HighDose Quad 20-21 PF) 240 mcg/0.7 mL Syringe Inject 1mL into the muscle once. No current facility-administered medications on file prior to visit. No Known Allergies Family History: No thyroid cancer. No pituitary, pancreas or adrenal tumors. No parathyroid disease. Social History: unchanged. 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 Nonsmoker. No EtOH. ROS: 10 of 14 systems reviewed and all negative except as per HPI Physical Exam: No data found. General: well-appearing, NAD Neuro: Alert and oriented x 3. Cranial nerves II-XII grossly intact. Eyes: no lid lag or proptosis ENT: Moist mucus membranes. Trachea midline Thyroid: well-healed anterior neck incision. ~2cm nodule on right. Mobile with swallowing. Lymph: No palpable cervical lymphadenopathy CV: RRR Respiratory: Normal respiratory effort. Lungs clear bilaterally. Extremities well-perfused without edema Skin: warm and dry. No rashes Psych: appropriate affect Labs: TSH 1.09 (05/2020) ?? Imaging: ?? Thyroid, Parathyroid and Cervical Ultrasound ?? I performed a thyroid, parathyroid and cervical ultrasound at the time of the clinic visit today using the 12 mHz linear ultrasound transducer. The thyroid, parathyroid and central and bilateral lateral neck lymph node basins were evaluated. ?? Thyroid Isthmus: Surgically absent Right lobe: Lobe: 5.50 x 1.98 x 2.40 cm Nodules: There is a slightly hyperechoic nodule measuring 1.73 x 1.17 x 1.65cm (compared with 1.67 x 0.92 x 1.40 cm in October). It has well-defined borders. There are not microcalcifications. Thereis no/low vascularity. There is a second, poorly-defined hypoechoic nodule with ill-defined borders, possible microcalcifications, and no/low vascularity at the inferior and lateral aspect of the lobe measuring1.29 x 0.63 x 1.12cm (compared with 1.06 x 0.80 x 0.80cm in October 2020) Left lobe: The lobe is surgically absent, but there are two nodules in the thyroid bed. One measures 1.56 x 1.09 x 1.13cm (compared with 1.46 x 1.15 x 0.99cm in October 2020), is isoechoic, well-circumscribed,without calcifications and with a small amount of internal vascularity. The second is similar in echogenicity and measures approximately 7mm in greatest dimension ?? Cervical lymph nodes ?? Central neck: Normal ultrasonographic appearing lymph nodes. Right lateral neck: Normal ultrasonographic appearing lymph nodes. Left lateral neck: Normal ultrasonographic appearing lymph nodes. Ultrasound-Guided Thyroid Nodule Fine Needle Aspiration (FNA) I performed an ultrasound-guided fine needle aspiration biopsy today in clinic as a separately identifiable procedure. I first performed a diagnostic thyroid and cervical ultrasound with the findingsas noted above. Verbal informed consent was then obtained after discussing the risks of fine needlebiopsy, including bleeding, infection, and damage to surrounding structures. Then, using the 12mHz ultrasound transducer for guidance, I prepped the area with alcohol and infiltrated the dermal layerwith 1% lidocaine with epinephrine. First, I attempted to sample the posterior hypoechoic nodule that is pictured above. I made 2 attempts from a medial approach, and on both I got immediate return of approximately 1 cc of dark blood, despite clearly visualizing the needle in the nodule. I made 1 more attempt from a lateral approach, but again just got return of blood. None of these were sent forcytology, I noted a distinct change in the appearance of the nodule after aspiration of the blood Idecided to abort this attempt. The post FNA appearance of the nodule is pictured below : I observed the site for several minutes and repeated the ultrasound to ensure that there was no significant change, which there was not. I explained to the patient what had happened and that I suspected that the nodule was bleeding into itself. We decided to go ahead with the left-sided FNA. Using 4 separate passes with a 1.5 inch, 20G needle with gentle aspiration, I sampled the larger left-sided thyroid nodule. Three needle passes were washed out in Cytolyte to be sent to cytology, andthe 4th was washed out in a ThyroSeq vial to be reserved and sent in the event that the cytology isindeterminate. The patient tolerated the procedure well without immediate complications. I will notify her of the final pathology results when they are available. A/P: Ms. gaston is a 66-year-old woman who is status post left hemithyroidectomy in 2013, who presents today in 6-month surveillance of bilateral nodules. All of these have been biopsied at some point in the past. The left-sided nodule was biopsied benign in January 2017; the hypoechoic more suspiciousposterior right- sided nodule was biopsied twice in 2017, once in January with [place] 1 cytology andonce in October with [place] 3 cytology and subsequent molecular testing with ThyGenX was benign;and the larger isoechoic right-sided nodule in 2016, at which point [place] 2 cytology was favored, and again in 2020 [place] 3 cytology was reported with the NRAS mutation detected on ThyroSeq andassociated with a 50% chance of malignancy. I have offered completion thyroidectomy, but Ms. gaston would like to avoid surgery. All 3 of her nodules have grown slightly compared with my last ultrasound 6 months ago. I do not know what her TSH has done in the meantime, and this may be related. I willattempt to find out if she has recent thyroid blood work (she think she does), and if she has not then I will send her to have a TSH checked. We decided to repeat the biopsy on the left side given that the nodule had enlarged somewhat and that the cytology report from 2017 uses the terminology favor rather than definitively stating it is benign. Unfortunately, the hypoechoic right thyroid nodule seems to have bled with the biopsy today, and I did not ultimately send specimen for cytology. This does have a history of reassuring molecular testing in 2017, but has enlarged slightly since then. Given its appearance and location, a parathyroid adenoma is on the differential, but chart review reveals that her calcium levels have been between 8.8 and 9.0 over the past several years, and she also had a parathyroid sestamibi scan done in 2017 to investigate the residual tissue in the left thyroid bed. This was negative. We again discussed the fact that we have a 50% malignancy in the larger nodule on the right side, and that this alone would be enough to justify completion thyroidectomy. That nodule also has enlarged slightly since October, by about 2 mm in both the AP and transverse dimensions. I do not think a repeat biopsy with repeat molecular testing would be very high yield for that nodule. She would liketo avoid surgery, so we did decide to get additional information from the left-sided thyroid nodule, which I suspect is just residual tissue that was not removed to her index left hemithyroidectomy. I will call her when I have the results of the left-sided FNA. This is benign, I suspect she will continue to choose surveillance. I will plan to see her back in 6 months for this. documented in this encounter Plan of Treatment Upcoming Encounters Date Type Department Care Team (Late st Contact Info) Description 10/07/2024 11:30 AM EST Office Visit Dermatology at [place] [address] [place] [address] José Villeda MD [address] [facility], [place] [address] documented as of this encounter Procedures Procedure Name Priority Date/Time Associated Diagnosis Comments NON-PRESCHOOL SPECIAL EDUCATION TEACHER FINAL REPORT Routine 05/31/2021 11:56 AM EDT CYTOPATHOLOGY NON-GYNECOLOGICAL Routine 05/31/2021 11:56 AM EDT Multiple thyroid nodules documented in this encounter Results * Non-Asbestos Siding Installer Final Report (05/31/2021 11:56 AM EDT) Diagnosis Discussion [id number] ? Location: 4L The signing pathologist has (i) examined the relevant preparation(s) for the specimen(s) and (ii) rendered or confirmed the diagnosis(es). . ? Non-Asbestos Siding Installer Final DIAGNOSIS Atypia of Undetermined Significance Electronically signed by: ?Anali SPEARS, Avelino Vargas Verified: ??06/02/2021 14:37 ??Cytopathologist Performed at: ??-[facility] Dept. of Pathology, [place], [place] DISCUSSION Thyroid: left (US-guided FNA) - Atypia of Undetermined Significance. Low to moderate cellularity aspirate in which most of the follicular epithelial cells display Hurthle cell features. Scattered macrophages and a small amount of colloid are seen. Lymphocytes are not conspicuous. A sample is being sent for molecular testing. Reference: Ladonna TELLEZ, Edward PINA. The [place] System for Reporting Thyroid Cytopathology. [place]: [place]; 2018. CLINICAL INFORMATION Specimen Source : Thyroid: left (US-guided FNA) Pertinent Clinical Data and Significant Therapy: S/p L hemithyroidectomy with left thyroid nodule Clinical Impression : ? malignancy Pertinent Radiologic Findings ??: Size: 1.6 x 1.1 x 1.1cm Echogenicity: Iso Cystic: No Calcification: No Vascularity: Absent/Low Gross Description: Received ??in CytoLyt approximately 15 mL total volume of ?? cloudy, red fluid. Total Preparation: Liquid-Based Prep 1. A separate sample was received for potential molecular testing. 06/02/2021 2:37 PM EDT [facility] THYROID STRUCTURE / Unknown 05/31/2021 11:56 AM EDT 05/31/2021 11:56 AM EDT Marilyn Mcleod MD PATHOLOGY/CYTOLOG Y ORDERABLES [facility] [place] [address] * Cytopathology Non-Gynecological (05/31/2021 11:56 AM EDT) AP Specimen 05/31/2021 11:5 6 AM EDT 05/31/2021 11:56 AM EDT Narrative [facility] - 05/31/2021 11:56 AM EDT Specimen requisition ordered. ??Separate Pathology report to follow Marilyn Mcleod MD PATHOLOGY/CYTOLOG Y ORDERABLES [facility] [place] [address] documented in this encounter Visit Diagnoses Diagnosis Multiple thyroid nodules Nontoxic multinodular goiter documented in this encounter Care Teams Radio Disc Jockey Relationship Specialty Start Date End Date Shreya Ambrose APRN [address] [place] [address] PCP - General 09/06/14 documented as of this encounter
--- OUTSIDE RECORDS SUMMARY | 2024-08-27 01:13 | XMS_ITS | Encounter Summary ---
Author Organization [facility] Address [facility] [place] [address] Care Team Providers Care Color Grinder Name Role Phone Shreya Ambrose APRN Primary Care Provider [phone] Reason for Visit * Reason Comments Follow-up Encounter Details Date Type Department Care Team (Late st Contact Info) Description 11/06/2023 2:15 PM EST Office Visit [place] [phone] Marilyn Mcleod MD [facility] [place] [address] Multiple thyroid nodules Social History Tobacco Use [...] Sign Reading Time Taken Comments Blood Pressure - - Pulse - - Temperature - - Respiratory Rate - - Oxygen Saturation - - Inhaled Oxygen Concentration - - Weight 46.5 kg (102 lb 8 oz) 11/06/2023 2:07 PM EST Height 148.5 cm (4' 10.47) 11/06/2023 2:[address] Body Mass Index 21.08 11/06/2023 2:07 PM EST documented in this encounter Progress Notes * Marilyn Mcleod MD - 11/06/2023 2:15 PM EST Endocrine Surgery Follow Up HPI: Ms. Audrey Gaston is a 68 y.o. year old female whom I am following for bilateral thyroid nodules. To briefly review, her history is significant for a left lobectomy in 2013 for a multinodular goiter. This was done by Dr. Toño Edwards, a general surgeon at [facility]. 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 She was subsequently followed by ultrasound. Her biopsy history since surgery is as follows: January 2017 (FNAs at [facility]) Right inferior: benign Right posterior: nondiagnostic Left remnant: benign October 2017 (FNA with Dr. Turner, [facility] endocrinology) Right posterior: [place] 3 cytology (predominantly Hurthle cells, some with nuclear atypia) ThyGenX: no mutations, very highly likely benign July 2020 (FNA with [facility] IR) Right superior (appears to be same as right inferior above): [place] 3 cytology (rare clusters of atypical follicular cells with mild nuclear enlargement and nuclear grooves.) ThyroSeq: NRAS (50% risk of malignancy) May 2021 Left remnant nodule: [place] 3 cytology ThyroSeq: negative, but low cell content Right posterior: aborted due to aspiration of solomon blood x 3 Given that she is not requiring thyroid hormone supplementation, she is asymptomatic, and she had adifficult time recovering from her prior hemithyroidectomy, she has elected for ultrasound surveillance. Ultrasound follow-ups have been stable. She continues to be asymptomatic. She had recent TFTs with her PCP in August that were normal. PMH, PSH, Medications and Allergies: all reviewed in eDH. She has started taking simvastatin since prior visit Physical Exam: Vitals Flowsheet Row Office Visit from 11/06/2023 in General Surgery at [facility] Weight 46.5 kg (102 lb 8 oz) Height 148.5 cm (4' 10.47) BSA (Calculated - sq m) 1.38 sq meters BMI (Calculated) 21.08 General: well-appearing, NAD Neuro: Alert and oriented x 3. Cranial nerves II-XII grossly intact. Eyes: no lid lag or proptosis ENT: Moist mucus membranes. Trachea midline Thyroid: well-healed anterior neck incision. ~2cm nodule on right. possible 1.5- 2cm left-sided thyroid nodule. Mobile with swallowing. Lymph: No palpable cervical lymphadenopathy CV: RRR Respiratory: Normal respiratory effort. Lungs clear bilaterally. Extremities well-perfused without edema Skin: warm and dry. No rashes Psych: appropriate affect Labs: 09/22: free T3 4.1 [2.8-5.3]; other TFTs not in care everywhere Imaging: Thyroid, Parathyroid and Cervical Ultrasound I performed a thyroid, parathyroid and cervical ultrasound at the time of the clinic visit today using the 12 mHz linear ultrasound transducer. The thyroid, parathyroid and central and bilateral lateral neck lymph node basins were evaluated. Thyroid Isthmus: Surgically absent Right lobe: Lobe: 5.54 x 2.11 x 2.41 cm Nodules: There is a slightly hyperechoic nodule measuring 2.13 x 1.44 x 1.85 cm (compared with 1.71x 1.28 x 1.59cm in 11/21, 1.73 x 1.13 x 1.47 cm in 11/20, 1.73 x 1.17 x 1.65cm in May 2021, and 1.67 x 0.92 x 1.40 cm in October 2020). It has well-defined borders. There are not microcalcifications. There is now peripheral hypervascularity and a small amount of central vascularity. There is a second, poorly-defined hypoechoic nodule with well-defined borders, no microcalcifications, and normalvascularity at the inferior and lateral aspect of the lobe measuring 1.15 x 0.58 x 1.04cm (comparedwith 1.15 x 0.54 x 1.30 in 11/21, 1.19 x 0.48 x 0.81 cm in 11/20, 1.29 x 0.63 x 1.12cm in Maynd 1.06 x 0.80 x 0.80cm in October 2020) Left lobe: The lobe is surgically absent, but there are two nodules in the thyroid bed. One measures 1.59 x 1.07 x 1.27 (compared with 1.59 x 1.23 x 1.12cm in 11/21, 1.39 x 1.04 x 1.05 in 11/20, 1.56 x 1.09 x 1.13cm in May 2021 and 1.46 x 1.15 x 0.99cm in October 2020), is isoechoic, well-circumscribed, without calcifications and with a small amount of internal vascularity. The second is similar in echogen icity and measures 0.61 x 0.38 x 0.60cm, compared with 0.85 x 0.49 x 0.49cm in 11/21compared with 0.68 x 0.45 x 0.51 cm in 11/20 and 7mm in greatest dimension in May 2021 Cervical lymph nodes Central neck: Normal ultrasonographic appearing lymph nodes. Right lateral neck: Normal ultrasonographic appearing lymph nodes. Left lateral neck: Normal ultrasonographic appearing lymph nodes. A/P: Ms. Gaston is a 68-year-old woman who is status post left hemithyroidectomy in 2013, who presents today in annual surveillance of bilateral nodules. All of these have been biopsied at some point in the past, with the summary of these results outlined in H&P. I have offered completion thyroidectomy in the past, but Ms. Gaston would like to avoid surgery. Her largest nodule on the right side has increased in size for the first time in the 3 years I have been following her. This is the nodulethat had [place] 3 cytology with an NRAS mutation detected on ThyGenX in 2017, associated with a 50% risk of malignancy. There also appears to be a bit more vascularity to this nodule than I have measured previously. She and I discussed these findings and their implications. It may just be simple benign enlargement, but it may mean a small progression of malignancy if there is one underlying. Wedid entertain the idea of repeating the biopsy, but ultimately I decided there would probably be very little additional information gained since we had already have molecular testing on the nodule. Un fortunately, we will be unlikely to get more specific information than the NRAS mutation and the 50% risk of malignancy. We discussed the fact that it is likely safe to continue with surveillance versus considering going ahead to surgery. She would still like to avoid surgery, but would feel more comfortable checking in in 6 months rather than a year. I think this is reasonable. If the nodule has grown at that time, we should probably go ahead with removal. If it stabilizes, we could revert back to an annual surveillance strategy. I will look forward to seeing her next summer. documented in this encounter Plan of Treatment Upcoming Encounters Date Type Department Care Team (Late st Contact Info) Description 10/07/2024 11:30 AM EST Office Visit Dermatology at [place] [address] [facility] [place] [address] José Villeda MD [address] [facility], [place] [address] documented as of this encounter Visit Diagnoses Diagnosis Multiple thyroid nodules Nontoxic multinodular goiter documented in this encounter Care Teams Color Grinder Relationship Specialty Start Date End Date Shreya Ambrose APRN [address] [place] [address] PCP - General 09/06/14 documented as of this encounter
--- OUTSIDE RECORDS SUMMARY | 2024-08-27 01:13 | XMS_ITS | Encounter Summary ---
Author Organization [facility] Address [facility] [place] [address] Care Team Providers Care Assistant Research Scientist Name Role Phone ArnolAngieShreya Any MONTGOMERY Primary Care Provider [phone] Encounter Details Date Type Department Care Team (Late st Contact Info) Description 10/08/2021 1:14 PM EST Anesthesia [place] [address] Gordon Chris MD [facility] [place] [address] Anesthesia Record Procedure Summary Procedure Name Responsible Anesthesiologist Anesthesia Start Time Anesthesia Stop Time EGD, UPPER GI ENDOSCOPY (WRVU 2.09) (Trunk) Gordon Chris MD 10/08/21 1314 10/08/21 1409 Events Date Time Event Comment 10/08/2021 1221 1314 Start 1316 AN Verify 1316 An Start Data 1320 An Induction 1322 Anesthesia Ready 1404 an stop data 1409 Recovery or ICU Handoff Trudy ent care was transferred to the destination unit staff after review of the patient's medical history, current anesthetic/surgical status and plan, according to the Provider Handoff Checklist. 1409 Stop Meds Name Total IV Lidocaine 50 mg Propofol 3,110 mg Propofol INF 314.83 mg Dexmedetomidine 8 mcg lactated ringers infusion 400 mL * Agents Name O2 Air N2O O2 Auxiliary Flowmeter 1 * Blood No blood administrations on file. Lines, Drains, and Airways Type Details Placement Removal (RETIRED) Peripheral IV Line - Single Lumen 10/08/21; 1219; metacarpal vein (top of hand), right; [id number] catheter system; Anatomical Landmarks; US Not Used; 22 gauge; Gato Gifford RN; tolerated well, appears comfortable; 10/08/21; 1452 10/08/21 1219 by Nabeel Gifford RN 10/08/21 1452 by Chinyere Maharaj RN documented in this encounter Social History Tobacco Use Types Packs/Day Years [...] on file documented as of this encounter OR Notes * Anesthesia Postprocedure Evaluation - Gordon Chris MD - 10/08/2021 3:04 PM EST Department of Anesthesiology Post-procedure Note Patient: Audrey Gaston Procedure Summary Date: 10/08/21 Room / Location: [facility] ENDO 2 / [facility] ENDOSCOPY Anesthesia Start: 1314 Anesthesia Stop: 1409 Procedures: EGD, UPPER GI ENDOSCOPY (N/A Trunk) UPPER EUS- ENDOSCOPIC ULTRASOUND (N/A Trunk) COLONOSCOPY, POLYPECTOMY, REMOVAL LESION BY SNARE (WRVU 4.67) (N/A Trunk) Diagnosis: Epigastric pain Screening for colon cancer (ABnl CT, dyspepsia and screening) Surgeons: Alec Barraza MD Responsible Provider: Gordon Chris MD Anesthesia Type: MAC ASA Status: 2 All Anesthesia Providers: Anesthesiologist: Gordon Chris MD PAINTER DRUM: Edouard Choudhary CRNA Vitals Value Taken Time BP 102/57 10/08/21 1450 Temp Pulse Resp 16 10/08/21 1450 SpO2 100 % 10/08/21 1455 Pain Level 0 10/08/21 1450 Vitals shown include unvalidated device data. Patient Location: PACU/[facility] Level of Consciousness: Conscious but Sleepy Pain Management: Satisfactory Analgesia PONV: None Cardiovascular Status: Hemodynamically Stable Respiratory Status: Stable Respiratory Status Postoperative Fluid Status: Intravascular EUvolemia Possible Anesthetic Complications: NONE apparent at time of evaluation Final Primary Anesthesia Type: MAC (The anesthetic type performed was the same as planned.) Comments: * Anesthesia Preprocedure Evaluation - Gordon Chris MD - 10/05/2021 5:53 PM EDT Pre-Anesthesia Evaluation for: Audrey Gaston a 66 y.o. female. Procedure(s): EGD, UPPER GI ENDOSCOPY UPPER EUS- ENDOSCOPIC ULTRASOUND COLONOSCOPY, DIAGNOSTIC Patient Active Problem List Diagnosis ??? Epigastric pain ??? Trigger finger ??? Pain in toe ??? Goiter ??? Female stress incontinence ??? Leucopenia Past Medical History: Diagnosis Date ??? 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 IR FNA THYROID NODULE 07/28/2020 IR US Guided Biopsy Thyroid FNA 07/28/2020 Dylan Blackwell MD [facility] INTERVENTIONL RAD ??? SALPINGO-OOPHORECTOMY Bilateral ??? THYROIDECTOMY, PARTIAL Left Social History Tobacco Use ??? Smoking status: Former Smoker Years: 15.00 Types: Cigarettes Quit date: 11/19/1992 Years since quittin.8 ??? Smokeless tobacco: Never Used ??? Tobacco comment: Social smoker Substance Use Topics ??? Alcohol use: Not on file Social History Substance and Sexual Activity Drug Use Not on file No Known Allergies Medications: MAR and/or home medications have been reviewed. Physical Exam: Preprocedure Vitals Current as of 10/05/21 1753 No BP, pulse, respiration, SpO2, or temperature recorded. Height: Weight: BMI: IBW: 39.1 kg (86 lb 3.6 oz) Airway Assessment: Mallampati: I TM distance: >3 FB Neck ROM: full Cardiovascular Assessment: system normal Pulmonary Assessment: pulmonary exam normal Dental Assessment: Misc Assessment: Last Filed Perioperative Cognitive Screening None Anesthesia Plan: ASA 2 MAC, with a(n) intravenous induction 66 yr old F pmhx thyroid Ca s/p partial resection with chronic epigastric pain presenting for EGD/EUS, colo NPO appropriate, denies GERD, >4 mets, ROS negative except as above. No anest records available, patient denies any complications. No recents lab/imaging Planning propofol MAC, ETT backup Region - Other Informed Consent: Anesthetic plan and risks discussed with patient. Use of blood products discussed with patient who consented to blood products. Plan discussed with PAINTER DRUM. Anesthesia Screening documented in this encounter Miscellaneous Notes * Addendum Note - Gordon Chris MD - 10/08/2021 3:05 PM EST Addendum created 10/08/21 1505 by Gordon Chris MD Clinical Note Signed documented in this encounter Plan of Treatment Upcoming Encounters Date Type Department Care Team (Late st Contact Info) Description 10/07/2024 11:30 AM EST Office Visit Dermatology at [place] [address] [place] [id number] José Villeda MD [address], [place] [address] documented as of this encounter Visit Diagnoses Not on filedocumented in this encounter Administered Medications Inactive Administered Medications - up to 3 most recent administrations Medication Order MAR Action Action Date Dose Rate Site dexmedetomidine (Precedex) (4 mcg/mL) bolus injection (Anesthsia) Intravenous, PRN, Starting on Fri10/08/21 at 1320, Until Fri10/08/21 at 1409, Anesthesia Intra-op, Routine Given 10/08/2021 1:20 PM EST 8 mcg lactated ringers infusion 100 mL/hr, Intravenous, CONTINUOUS, Starting on Fri10/08/21 at 1245, Until Fri10/08/21 at 1453, Endoscopy (Day of Procedure) New Bag 10/08/2021 1:14 PM EST lidocaine (pf) (Xylocaine) (20 mg/mL) 2% injection syringe Intravenous, PRN, Starting on Fri10/08/21 at 1320, Until Fri10/08/21 at 1409, Anesthesia Intra-op, Routine Given 10/08/2021 1:20 PM EST 50 mg propofoL (Diprivan) 10 mg/mL bolus injection (Anesthesia) Intravenous, PRN, Starting on Fri10/08/21 at 1320, Until Fri10/08/21 at 1409, Anesthesia Intra-op Given 10/08/2021 1:30 PM EST 3,010 mg Given 10/08/2021 1:20 PM EST 100 mg propofoL (Diprivan) infusion Intravenous, CONTINUOUS PRN, Starting on Fri10/08/21 at 1320, Until Fri10/08/21 at 1409, Anesthesia Intra-op, Routine Rate/Dose Change 10/08/2021 1:58 PM EST 75 mcg/kg/min 22.05 mL/hr Rate/Dose Change 10/08/2021 1:50 PM EST 150 mcg/kg/min 44. 1 mL/hr Rate/Dose Change 10/08/2021 1:30 PM EST 175 mcg/kg/min 51. 45 mL/hr documented in this encounter Care Teams Assistant Research Scientist Relationship Specialty Start Date End Date Shreya Ambrose APRN [address] [place] [address] PCP - General 09/06/14 documented as of this encounter
--- OUTSIDE RECORDS SUMMARY | 2024-08-27 01:13 | XMS_ITS | Clinical Summary ---
Author Organization [facility] Address [facility] [place] [address] Care Team Providers Care Clinic Licensed Practical Nurse Name Role Phone Shreya Ambrose APRN Primary Care Provider [phone] [phone] Allergies No known active allergies Medications Medication Sig Dispensed Refills Start Date End Date Status simvastatin (Zocor) 20 mg tablet 10/21/2023 Active fluticasone propionate (Flonase) 50 mcg/actuation [place], Suspension 11/05/2023 Active cholecalciferol, Vitamin D3, (Vitamin D) 25 mcg (1,000 unit) Capsule Take 50 mcg by mouth. 04/15/2023 Active meloxicam (Mobic) 15 mg tablet Take 15 mg by mouth daily. Active Active Problems Problem Noted Date Diagnosed Date Epigastric pain 09/04/2021 Trigger finger 11/02/2020 Pain in toe 11/02/2020 Goiter 11/02/2020 Female stress incontinence 11/02/2020 Leucopenia 01/10/2020 Immunizations Name Administration Dates Next Due Influenza Unspecified Formulation 12/23/2016,01/2015,12/22/2013 Tdap 06/24/2011 Zoster (Zostavax) LIVE 04/06/2015 Social History Tobacco Use Types Packs/Day Years Used Date Smoking Tobacco: Former Cigarettes 1 01/20/1977 - 11/19/1992 Smokeless Tobacco: Never Tobacco Cessation:Counseling Given: Not Answered Comments:Social smoker Alcohol Use Standard Drinks/Week Comments Not Currently 0 (1 standard drink = 0.6 oz pur e alcohol) Sex and Gender Information Value Date Recorded Sex Assigned at Not on file Gender Identity Not on file Sexual Orientation Not on file Last Filed Vital Signs Vital Sign Reading Time Taken Comments Blood Pressure 147/70 05/13/2024 11:21 AM EDT Pulse 81 05/13/2024 11:21 AM EDT Temperature 36.9 ??C (98.4 ??F) 05/13/2024 11:21 AM E DT Respiratory Rate 18 11/07/2022 11:25 AM EST Oxygen Saturation 98% 05/13/2024 11:21 AM EDT Inhaled Oxygen Concentration - - Weight 48.3 kg (106 lb 8 oz) 05/13/2024 11:21 AM EDT Height 148.5 cm (4' 10.47) 05/13/2024 11:21 AM EDT Body Mass Index 21.91 05/13/2024 11:21 AM EDT Plan of Treatment Upcoming Encounters Date Type Department Care Team (Late st Contact Info) Description 10/07/2024 11:30 AM EST Office Visit Dermatology at [place] [address] [facility] [place] [phone] José Villeda MD [address], [place] [address] Health Maintenance Due Date Last Done Comments CT Colonography 1955 FIT DNA 1955 FIT 1955 Sigmoidoscopy 1955 Hepatitis C Screening 1973 Breast Cancer Share Decision Needed 1995 Breast Cancer screening 1995 Advance Directive 2010 Zoster vaccine (2 of 3) 06/01/2015 04/06/2015 Bone Density Scan 2020 Pneumoccocal Vaccine: 65+ (1 of 1 - PCV) 2020 Tetanus/Diphtheria/Pertussis Vaccines (2 - Td or Tdap) 06/24/2021 06/24/2011 Covid-19 Vaccine (1 - 2022- season) 2024 Influenza (Flu) vaccine (1 o f 1 - Influenza standard series) 08/01/2024 12/23/2016, 11/01/2015, 12/22/2013 Colonoscopy 10/08/2028 10/08/2021, 10/08/2021 Colorectal Cancer Screening 10/08/2028 Sigmoidoscopy (10 year) with FIT yearly 10/08/2031 10/08/2021, 10/08/2021 Procedures Procedure Name Priority Date/Time Associated Diagnosis Comments COLONOSCOPY Routine 10/08/2021 11:29 AM EST from Last 3 Months or Most Recently Relevant to Health Maintenance Results * COLONOSCOPY (10/08/2021 11:29 AM EST) COLONOSCOPY [facility] Endoscopy ___ Procedure Date: 10/08/2021 11:29 AM ? Patient Name: Audrey Page ? N: [id number] ? Date of : 1955 ? Age: 66 ? Order #: [id number] ? Instrument Name: [id number] ? ___ Procedure: ? Colonoscopy Indications: ? Screening for colorectal malignant ? neoplasm, Incidental - Abnormal CT of ? the GI tract Providers: ? Alec Barraza MD, Rodrigo Bauer ? Bhanu, IVAN, Taisha Weber MD: ?Shreya Ambrose Medicines: ? Propofol per Anesthesia Complications: ? No immediate complications. ___ Procedure: ? Pre-Anesthesia Assessment: ? - Prior to the procedure, a History ? and Physical was performed, and ? patient medications, allergies and ? sensitivities were reviewed. The ? patient's tolerance of previous ? anesthesia was reviewed. ? - The risks and benefits of the ? procedure and the sedation options ? and risks were discussed with the ? patient. All questions were answered ? and informed consent was obtained. ? - ASA Grade Assessment: II - A ? patient with mild systemic disease. ? - Using IV propofol under the ? supervision of an anesthesiologist ? was determined to be medically ? necessary for this procedure based on ? age 65 or older and complex procedure ? (ERCP, EUS). ? The procedure, indications, benefits, ? risks and alternatives were explained ? to the patient. Specifically ? discussed were potential ? complications including, but not ? limited to, bleeding, perforation, ? infection, missing a cancer, and ? adverse medication reactions. The ? patient was placed in the left ? lateral decubitus position, and a ? digital rectal exam was performed. ? The Colonoscope was inserted in the ? anus and under direct visualization, ? advanced to the terminal ileum. ? Careful inspection was made as the ? colonoscope was withdrawn. The ? patient tolerated the procedure well. ? The quality of the bowel preparation ? was evaluated using the BBPS ([place] ? Bowel Preparation Scale) with scores ? of: Right Colon = 3, Transverse Colon ? = 3 and Left Colon = 3 (entire mucosa ? seen well with no residual staining, ? small fragments of stool or opaque ? liquid). The total BBPS score equals ? 9. The quality of the bowel ? preparation was excellent. The total ? duration of the procedure was 25 ? minutes. Scope withdrawal time was 7 ? minutes. ? Findings: ? The perianal and digital rectal examinations were ? normal. ? The terminal ileum appeared normal. ? Multiple diverticula were found in the sigmoid colon. ? A 5 mm polyp was found in the rectum. The polyp was ? sessile. The polyp was removed with a cold snare. ? Resection and retrieval were complete. ? The retroflexed view of the distal rectum and anal ? verge was normal and showed no anal or rectal ? abnormalities. ? The exam was otherwise without abnormality. ? Moderate Sedation: ? Not applicable - See Anesthesia documentation Impression: ?- The examined portion of the ileum ? was normal. ? - Diverticulosis in the sigmoid colon. ? - One 5 mm polyp in the rectum, ? removed with a cold snare. Resected ? and retrieved. ? - The distal rectum and anal verge ? are normal on retroflexion view. Recommendation: ?- Await pathology results. ? - Repeat colonoscopy in 7-10 years ? for surveillance based on pathology ? results. ? Attending Participation: ? I personally performed the entire procedure. ? Alec Barraza MD 10/08/2021 2:24:01 PM This report has been signed electronically. Number of Addenda: 0 Note Initiated On: 10/08/2021 11:29 AM PROVATION 10/08/2021 11:2 9 AM EST Shreya Ambrose MILLING/POLISHING OPERATOR GENERAL SURGICAL ORDERABLES PROVATION from Last 3 Months or Most Recently Relevant to Health Maintenance Care Teams Clinic Licensed Practical Nurse Relationship Specialty Start Date End Date Shreya Ambrose APRN [address] [place], [place] [id number] PCP - General 09/06/14
--- OUTSIDE RECORDS SUMMARY | 2024-08-27 01:13 | XMS_ITS | Data Portability ---
Author Organization [place] - [facility] Address [address] [place] [address] Assessment Encounter Date Assessment Date Assessment LastModified by Organization Details LastModified Time 01/19/2024 01/19/2024 Flu vaccine: current Comirnaty: declines Td: current PCV20: completed Shingrix: completed RSV: counseled to get at local pharmacy as desires Pap/ HPV: aged out Mammogram: Last done 08/23 CRC: due next2027 DEXA: current The total time devoted to today's encounter, including both the uuwg-mt-rbfy time with the patient and/or family/caregi melanie and rcg-lias-sk-f isaac time I personally spent is 32 minutes. Not available 01/19/2024 10:27:53 06/29/2024 06/29/2024 Flu vaccine: current Comirnaty: declines Td: current, due next 2029 PCV20: completed 2021. PPSV23 2019. Shingrix: completed RSV: counseled to get at local pharmacy as desires Pap/ HPV: aged out Mammogram: Last done 08/23 CRC: due next2027 DEXA: current Follow-up in 6 Months. Call or RTO sooner if needs arise. Not available 06/29/2024 12:46:13 Plan of Treatment Reminders Order Date Submit Date Provider Last Modified By Organization Details Last Modified Time Details Appointments Office Visit 2024 10:30A M Not available Not available Not available Lab CMP, serum or plasma - 1Y 2022 023 [facility] (Registration ), [address] [facility] [place], [address], 11/11/2023 15:44:55 lipids, total, serum - 1Y 2022 023 [email or web address] [facility] (Registration ), [address] [place] [address] [place], [address], 11/12/2023 07:48:43 vitamin B12, serum 2023 024 [facility] (Registration ), [address] [place] [address] [place], [address], 07/01/2024 08:30:23 TSH, serum, reflex free T4 2023 024 [facility] (Registration ), [address] [place] [address] [place], [address], 07/01/2024 08:30:[address] referral - EMG 2023 024 [facility], [address] [place] [address] [place], [address], 07/27/2024 11:30:11 Procedures None recorded. Surgeries None recorded. Imaging XR, lumbar spine - Lumbar sacral spine complete 2023 024 [email or web address] [facility], [address], [place], [address], 01/12/2024 13:00:01 Medication Orders None recorded. Patient TargetsNo targets recorded. Patient Instructions Encounter Date Encounter Id Patient Instructions Last Modified By Organization Details Last Modified Time 12/29/2023 [id number] acute low back pain: exercises Not available 12/29/2023 12:19:16 06/29/2024 [id number] - Continue wearing compression socks as tolerated. - Inspect feet daily for any injuries or sores. - Consider trying vitamin B12 supplement or dmmw-zxw-iiggmqd supplements like NeuroVia or alpha-lipoic acid if desired. - Maintain a healthy diet and stay active. - Use low-dose ibuprofen as needed for pain, no more than twice a day. - Follow up with neurology as recommended. - Return for follow-up and reevaluation of hypertension and monitor for any complications. [id number] Not available 06/29/2024 11:26:04 Reason for Referral Physical Therapist Referral for Acute low back pain Referring Physician: Shreya Jean [facility], Encounter Date: 12/30/2023 Neurologist Referral for Jarrett ropathy EMG Referring Physician: Shreya Jean [facility], Encounter Date: 06/29/2024 Results Created Date Observation Date Name Description Value Unit Range Abnormal Flag Note LastModifiedBy Organization Detail LastModifiedTime 11/11/20 23 11/11/2023 COMPR EHENS LYNETTE METAB OLIC PANEL calcium 9.3 mg/dL 8.5-10 .1 normal Not Available [address] [place], [address] 11/11/2023 15:44:55 11/11/20 23 11/11/2023 COMPR EHENS LYNETTE METAB OLIC PANEL glucose 109 mg/dL 74-106 high Not Available Ronald herrera [address] [facility] [place], [address] 11/11/2023 15:44:55 11/11/20 23 11/11/2023 COMPR EHENS LYNETTE METAB OLIC PANEL BUN 16 mg/dL 7-18 normal Not Available Ronald [address] [facility] [place], [address] 11/11/2023 15:44:55 11/11/20 23 11/11/2023 COMPR EHENS LYNETTE METAB OLIC PANEL creatinine 0.9 mg/dL 0.55-1 .02 normal Not Available [address] [facility] [place], [address] 11/11/2023 15:44:55 11/11/20 23 11/11/2023 COMPR EHENS LYNETTE METAB OLIC PANEL estimated GFR 69.64 mL/min /1.73m 2 The eGFR is calcu lated from a serum creat inine using the CKD-E PI 2020 equat ion. Other varia bles requi red for the equat ion are gende r and age; this equat ion does not inclu de a race coeff icien t. This equat ion has simil ar overa ll perfo rmanc e to previ ous equat ions excep t value s may diffe r, in parti cular , in patie nts with highe r value s of eGFR and young er-ag ed adult s. Not Available [address] [place], [address] 11/11/2023 15:44:55 11/11/20 23 11/11/2023 COMPR EHENS LYNETTE METAB OLIC PANEL total protein 6.5 g/dL 6.4-8. 2 normal Not Available [address] [place], [address] 11/11/2023 15:44:55 11/11/20 23 11/11/2023 COMPR EHENS LYNETTE METAB OLIC PANEL albumin 4.0 g/dL 3.4-5. 0 normal Not Available [address] [place], [address] 11/11/2023 15:44:55 11/11/20 23 11/11/2023 COMPR EHENS LYNETTE METAB OLIC PANEL bilirubin, total 0.5 mg/dL 0.2-1. 0 normal Not Available [address] [place], [address] 11/11/2023 15:44:55 11/11/20 23 11/11/2023 COMPR EHENS LYNETTE METAB OLIC PANEL alk phos 82 U/L 46-116 normal Not Available [address] [place], [address] 11/11/2023 15:44:55 11/11/20 23 11/11/2023 COMPR EHENS LYNETTE METAB OLIC PANEL sodium 140 mmol/ L 136-14 5 normal Not Available [address] [place], [address] 11/11/2023 15:44:55 11/11/20 23 11/11/2023 COMPR EHENS LYNETTE METAB OLIC PANEL potassium 4.5 mmol/ L 3.5-5. 1 normal Not Available [address] [place], [address] 11/11/2023 15:44:55 11/11/20 23 11/11/2023 COMPR EHENS LYNETTE METAB OLIC PANEL chloride 104 mmol/ L 98-107 normal Not Available [address] [place], [address] 11/11/2023 15:44:55 11/11/20 23 11/11/2023 COMPR EHENS LYNETTE METAB OLIC PANEL CO2 28.4 mmol/ L 21.0-3 2.0 normal Not Available [address] [place], [address] 11/11/2023 15:44:55 11/11/20 23 11/11/2023 COMPR EHENS LYNETTE METAB OLIC PANEL anion gap 7.6 mmol/ L 3-11 normal Not Available [address] [place], [address] 11/11/2023 15:44:55 11/11/20 23 11/11/2023 COMPR EHENS LYNETTE METAB OLIC PANEL AST 24 U/L 15-37 normal Not Available Ronald herrera [address] [place], [address] 11/11/2023 15:44:55 11/11/20 23 11/11/2023 COMPR EHENS LYNETTE METAB OLIC PANEL ALT 19 U/L 14-59 normal Not Available Ronald herrera [address] [place], [address] 11/11/2023 15:44:55 11/11/20 23 11/11/2023 LIPID 2 cholesterol 200 mg/dL <200 Not Available [address] [place], [address] 11/11/2023 15:44:56 11/11/20 23 11/11/2023 LIPID 2 triglyceride 79 mg/dL <150 Not Available [address] [place], [address] 11/11/2023 15:44:56 11/11/20 23 11/11/2023 LIPID 2 HDL cholesterol 105 mg/dL 40-60 Not Available Mily lockhart[address] [place], [address] 11/11/2023 15:44:56 11/11/20 23 11/11/2023 LIPID 2 calculated LDL 80 mg/dL <100 Natio nal Liya stero l Educa tion Progr am (NCEP -ATPI II) class ifica tions : Liya stero l <200 mg/dL Tyree able Liya stero l 200-2 39 mg/dL Borde rline High Liya stero l >or=2 40 mg/dL High HDL <40 mg/dL Low HDL >or=6 0 mg/dL High LDL <100 mg/dL Optim al LDL 100-1 29 mg/dL Near Optim al/Ab ove Optim al LDL 130-1 59 mg/dL Borde rline High LDL 160-1 89 mg/dL High LDL >or=1 90 mg/dL Very High *The above refer ence range is for adult s 18 years or older . Not Available [address] [place], [address] 11/11/2023 15:44:56 02/26/20 24 02/26/2024 TSH (W/RE F FT4) TSH (w/ref FT4) 1.20 uIU/m L 0.36-3 .74 normal Not Available [address] [place], [address] 02/26/2024 13:44:34 02/26/20 24 02/26/2024 VITAM IN B12 vitamin B12 362 pg/mL 193-98 6 normal Not Available [address] [place], [address] 02/26/2024 13:44:34 06/29/20 24 06/29/2024 TSH (W/RE F FT4) TSH (w/ref FT4) 1.27 uIU/m L 0.36-3 .74 normal Not Available [facility] (Registration ) [address] [place] [address] [place], [address], 06/29/2024 15:58:23 06/29/20 24 06/29/2024 VITAM IN B12 vitamin B12 329 pg/mL 193-98 6 normal Not Available [facility] (Registration ) [address] [place] [address] [place], [address], 06/29/2024 15:58:24 12/29/19 24 12/29/2023 x-ray imagi ng repor t Yuriy odell Name: Alicia Gaston Unit #: [id number] Loc: DI Orderi ng Provid er: Holly Fields Accmirlande t #: [id number] Status : REG CLI Primar y Care Provid er: Holly Fields Date of Exam: Sex: F Admiss ion Date: : 1954 Age: 68 Exam(s ) XR LUMBAR SPINE COMPLE TE EXAM: XR LUMBAR SPINE COMPLE TE CLINIC AL HISTOR Y: ACUTE LOW BACK PAIN, M54.50 . TECHNI QUE: 2D digita l imagin g was perfor med of the lumbar spine. Five images were obtain ed. AP, latera l, right obliqu e, left obliqu e and L5-S1 spot views were obtain ed. COMPAR JACEY: CR XR DEXA BONE DENSIT Y W/WO DALI from 2020 FINDIN GS: BONES: No fractu re or destru ctive lesion . Verteb ral bodies are unrema rkable . There are degene rative change s of the facets seen at L4-5 and L5-S1. DISKS: Interv ertebr al disc spaces are mainta ined. ALIGNM ENT: There is a left convex curvat ure of the thorac olumba r spine. No spondy lolysi s or spondy lolist hesis. SOFT TISSUE : Normal . IMPRES TASHA: Degene rative facet arthro izabela at L4-5 and L5-S1. DATA REPOSI TORY: RADIAT ION DOSE DELIVE RED: Ordere d By: Holly Fields CC: ------ ------ ------ ------ ------ ------ ------ ------ ------ ------ ------ ------ - Dictat ed By: Neil Fernández M.D. 1324 1324 Transc ribed By: Neil Fernández 1324 This is privil eged, confid ential inform ation intend ed only for the provid er named. Any use or distri bution by any person other than this provid er is strict ly prohib ited. If you receiv e this report in error, please notify us alexy botello at and return the origin al report to us at the addres s above. Thank- you. CARA [facility] [address], [place], [address] 12/29/2023 15:12:23 08/16/20 24 04/15/2023 XR, knee No observ ation record ed. Not Available 08/16 03:25:16 08/16/20 24 02/19/2019 imagi ng/di agnos tic resul t No observ ation record ed. Not Available 08/16 03:25:17 08/16/20 24 08/19/2019 imagi ng/di agnos tic resul t No observ ation record ed. Not Available 08/16 03:25:17 08/16/20 24 12/14/2019 imagi ng/di agnos tic resul t No observ ation record ed. Not Available 08/16 03:25:18 08/16/20 24 08/04/2020 imagi ng/di agnos tic resul t No observ ation record ed. Not Available 08/16 03:25:19 08/16/20 24 10/03/2020 imagi ng/di agnos tic resul t No observ ation record ed. Not Available 08/16 03:25:20 08/16/20 24 08/08/2021 imagi ng/di agnos tic resul t No observ ation record ed. Not Available 08/16 03:25:21 08/16/20 24 02/08/2021 bone densi ty No observ ation record ed. Not Available 08/16 03:25:23 08/16/20 24 02/08/2021 bone densi ty No observ ation record ed. Not Available 08/16 03:25:24 08/16/20 24 09/07/2019 MAMMO fernando No observ ation record ed. Not Available 08/16 03:25:30 08/16/20 24 09/27/2020 MAMMO fernando No observ ation record ed. Not Available 08/16 03:25:30 08/16/20 24 10/03/2020 MAMMO fernando No observ ation record ed. Not Available 08/16 03:25:31 08/16/20 24 04/03/2021 MAMMO fernando No observ ation record ed. Not Available 08/16 03:25:32 08/16/20 24 08/20/2022 MAMMO fernando No observ ation record ed. Not Available 08/16 03:25:33 08/16/20 24 08/26/2022 MAMMO fernando No observ ation record ed. Not Available 08/16 03:25:34 08/16/20 24 08/21/2023 MAMMO fernando No observ ation record ed. Not Available 08/16 03:25:35 08/16/20 24 06/23/2020 imagi ng/di agnos tic resul t No observ ation record ed. Not Available 08/16 03:25:38 08/16/20 24 02/12/2023 XR, wrist No observ ation record ed. Not Available 08/16 03:25:40 08/16/20 24 12/29/2018 MRI, abdom en No observ ation record ed. Not Available 08/16 03:25:42 08/16/20 24 09/06/2020 imagi ng/di agnos tic resul t No observ ation record ed. Not Available 08/16 03:25:49 Result Notes None recorded. Problems Name Problem SNOMED Code Status Onset Date Resolution Date Notes Provider Name and Address Organization Details Recorded Time Genuine stress incontin ence 06413963 Active 201202/07/20 21 - Comments only - Shreya Jean APRN - Asuncion Crow ed pelvic floor exercise s/ kegels. Problem Code: N39.3; Problem Code Type: ICD-10; SHREYA JEAN APRN [address], [place], [address] , [facility] 3 09:05:06 Non-toxi c multinod ular goiter 49670170 Active 201402/07/20 21 - Comments only - Shreya Jean APRN - Check TSH with reflex next visit. Continue to see surgeon ammon peterson has a FU in March / May time period. Problem Code: E04.2; Problem Code Type: ICD-10; SHREYA JEAN APRN [address], [place], [address] , [facility] 3 09:05:06 Low back pain 383855660 Active 201702/07/20 21 - Comments only - Shreya Jean APRN - no complain ts today. monitor for now. Problem Code: M54.5; Problem Code Type: ICD-10; [address], [place], [address] , [facility] 3 09:05:06 Epigastr ic pain 63255389 Active 201707/15/20 22 - Unchange d - Paola Gomez M.D. - Unfortun ately, despite improvem ents in many areas (sleep, nausea, constipa tion), abd pain hasn't improved at all. I would expect if it was d/t gastriti s, it would be better w/ current tx and given nausea is much better. I do wonder if, given consiste ncy and position al nature, it has a MSK componen t, such as from her back/rad iculopat hy. We discusse d acupunct ure and PT. she would like to trial acupunct ure, as will set that up in [facility]. If no better w/ that, consider referral to PT and back imaging vs. spine referral . Problem Code: R10.13; Problem Code Type: ICD-10; [address], [place], [address] , [facility] 3 09:05:06 Leukocyt osis 666553438 Active 201702/07/20 21 - Comments only - Shreya Jean APRN - Unchange d and staying stable. has seen hematolo gy, no concerns . Check every fall. Problem Code: D72.829; Problem Code Type: ICD-10; [address], [place], [address] , [facility] 3 09:05:06 History of gynecolo gical disorder 310979629 Active 2017 Hx of ovarian cyst. [address], [place], [address] , [facility] 4 10:04:16 Disease of liver 833000611 Active 2017 Liver and splenic cysts. [address], [place], [address] , [facility] 4 10:04:01 Divertic nakul of intestin e 99907364 Active 201704/04/20 22 - Comments only - Poala Gomez M.D. - Assured her studies have shown NO dietary triggers of divertic ulitis, so okay to resume eating nuts! And in fact, eat a handful a day to reduce LDL. Problem Code: K57.90; Problem Code Type: ICD-10; [address], [place], [address] , [facility] 3 09:05:06 Congenit al anomaly of the kidney 10715914 Active 2017 Extraren al pelvis. [address], [place], [address] , [facility] 4 10:04:53 Finding of serum tumor marker level 765329954 Active 2017 Abnormal tumor markers, elevated CA19-9. [address], [place], [address] , [facility] 4 10:04:41 Essentia l hyperten tasha 91561656 Active 201802/07/20 21 - Comments only - Shreya Jean APRN - Diet managed. Monitor for now. Problem Code: I10; Problem Code Type: ICD-10; [address], [place], [address] , [facility] 3 09:05:06 Screenin g for cancer Active 2019 Problem Code: Z12.10; Problem Code Type: ICD-Saranya; [address], [place], [address] , [facility] 3 09:05:06 Hyperlip idemia 23562867 Active 201904/04/20 22 - Comments only - Paola Gomez M.D. - Discusse d decreasi ng saturate d fats and increasi ng intake of unsatura saumya fats. Problem Code: E78.5; Problem Code Type: ICD-10; [address], [place], [address] , [facility] 3 09:05:06 Bone density finding 643547946 Active 2020 Problem Code: M85.80; Problem Code Type: ICD-Saranya; [address], [facility] [address] , [facility] 3 09:05:06 Abdomina l pain 29698493 Completed 202006/14/2021 Problem Code: R10.9; Problem Code Type: ICD-10; Not Available [facility] 3 04:26:21 Idiopath ic osteoart hritis 602509057 Active 2021 Problem Code: M19.049; Problem Code Type: ICD-10; SHREYA JEAN APRN [address], [place], [address] , [facility] 3 09:05:06 Bilatera l tinnitus 46644315859 02 Active 202104/04/20 22 - Comments only - Paola Gomez M.D. - Unfortun ate lasting effect of amitript yline. Denies hearing loss. May be improved w/ AI diet. Could consider ENT referral , but I doubt they would have much to offer her. Problem Code: H93.13; Problem Code Type: ICD-10; SHREYA JEAN APRN [address], [place], [address] , [facility] 3 09:05:06 Active immuniza tion Completed 202109/09/2022 Problem Code: Z23; Problem Code Type: ICD-10; Not Available [facility] 3 04:26:21 Chronic rhinitis 17240755 Active 2022 Problem Code: J31.0; Problem Code Type: ICD-10; SHREYA JEAN APRN [address], [place], [address] , [facility] 3 09:05:06 Menopaus e present 716706317 Completed 202006/07/2021 Problem Code: Z78.0; Problem Code Type: ICD-10; Not Available [facility] 3 04:26:25 Bone density finding 475668700 Completed 202002/15/2021 Problem Code: M85.88; Problem Code Type: ICD-10; SHREYA JEAN, ULIS[address], [place], [address] , [facility]. 3 09:05:06 Elevated blood-pr essure reading without diagnosi s of hyperten tasha 126825210 Completed 201707/28/2018 12/10/19 19 - Comments only - Shreya Vazquezsonido [place]TG[place] - unsure of trigger, but has had periodic blood pressure spikes over the last year. More recently was reassdayan samaniego. Recheck in 1 month with nursing and 2 months with myself. If at that appt, remains elevated , would check urine for protien / MA and treat as gypsy Crow ed DASH diet. Problem Code: R03.0; Problem Code Type: ICD-10; Not Available [facility] 3 04:26:25 Trigger thumb of left hand 37352235242 9107 Completed 201503/21/2023 Problem Code: M65.312; Problem Code Type: ICD-10; Not Available [facility] 3 04:26:25 Acute upper respirat ory infectio n 34368014 Completed 201512/23/2016 Problem Code: J06.9; Problem Code Type: ICD-10; Not Available [facility] 3 04:26:26 Primary malignan t neoplasm of thyroid gland 24764749 Completed 201408/27/2023 Problem Code: 193; Problem Code Type: ICD-9; Not Available [facility] 3 04:26:26 Screenin g for disorder Completed 201704/23/2018 Problem Code: Z13.89; Problem Code Type: ICD-10; Not Available [facility] 3 04:26:26 Abnormal weight loss 252016741 Completed 201711/09/2019 Problem Code: R63.4; Problem Code Type: ICD-10; Not Available [facility] 3 04:26:26 Chest pain 39324515 Completed 201812/11/2021 Problem Code: R07.9; Problem Code Type: ICD-10; Not Available [facility] 3 04:26:26 Abdomina l pain 08230958 Completed 201707/28/2018 Problem Code: R10.9; Problem Code Type: ICD-10; Not Available [facility] 3 04:26:27 Pre-surg charley testing Completed 202012/11/2021 Problem Code: Z01.812; Problem Code Type: ICD-10; Not Available [facility] 3 04:26:27 Acquired absence of genital organ 032212011 Completed 201911/07/2020 Problem Code: Z90.79; Problem Code Type: ICD-10; Not Available [facility] 3 04:26:27 Pain of toe of left foot 62153684140 9108 Completed 201602/06/2021 Problem Code: M79.675; Problem Code Type: ICD-10; Not Available [facility] 3 04:26:28 Female stress incontin ence 55472213 Completed 201208/27/2023 Problem Code: 625.6; Problem Code Type: ICD-9; Not Available [facility] 3 04:26:28 Trigger finger of right hand 09969863144 777384 Completed 201503/21/2023 Problem Code: M65.341; Problem Code Type: ICD-10; Not Available [facility] 3 04:26:28 Pain of right knee joint 77635172963 4100 Active 2022 Problem Code: M25.561; Problem Code Type: ICD-10; Not Available [facility] 4 05:37:20 Acute low back pain 948868668 Active 2023 SHREYA JEAN APRN [address], [place], [address] , [facility]. 4 12:06:59 Impaired fasting glycemia 223950781 Active 2023 SHREYA JEAN APRN [address], [place], [address] , [facility]. 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 36381281 Active 2023 ELIEZER Kohli, [facility] 4 12:39:17 Arthriti s of hand 670778539 Active 2023 SHREYA JEAN APRN [address], [place], [address] , [facility] 4 11:30:10 Osteopen ia 926473409 Active 2023 SHREYA JEAN APRN [address], [place], [address] , [facility] 4 11:30:14 Varicose vein of ankle region Active 2023 SHREYA JEAN APRN [address], [place], [address] , [facility] 4 12:43:38 Neuropat hy 662202335 Active 2023 SHREYA JEAN APRN [address], [place], [address] , [facility] 4 12:43:38 Problem Notes None recorded. Procedures Surgical History Date Name Laterality Status Provider Name and Address Organization Details Recorded Time 1 Date of Last Colonoscopy completed MONA JESSICA CMA [facility] 11/10/2023 12:22:36 1 Date of Last Mammogram completed MONA JESSICA [facility] 11/10/2023 12:21:22 9 Date of Last Pap Smear completed MONA JESSICA [facility] 11/10/2023 12:20:27 Imaging Results Imaging Date Name Status LastModified by Organiz ation Details LastModified Time 12/29/2023 x-ray imaging report completed [facility] [address] [facility] , [place], [address] 12/29/2023 15:12:23 04/15/2023 XR, knee completed Information no t available 08/16/2024 03:25:16 02/19/2019 imaging/diagno stic result completed Information not available 08/16/2024 03:25:17 08/19/2019 imaging/diagno stic result completed Information not available 08/16/2024 03:25:17 12/14/2019 imaging/diagno stic result completed Information not available 08/16/2024 03:25:18 08/04/2020 imaging/diagno stic result completed Information not available 08/16/2024 03:25:19 10/03/2020 imaging/diagno stic result completed Information not available 08/16/2024 03:25:20 08/08/2021 imaging/diagno stic result completed Information not available 08/16/2024 03:25:21 02/08/2021 bone density completed Information not available 08/16/2024 03:25:23 02/08/2021 bone density completed Information not available 08/16/2024 03:25:24 09/07/2019 MAMMO, screening completed Information not available 08/16/2024 03:25:30 09/27/2020 MAMMO, screening completed Information not available 08/16/2024 03:25:30 10/03/2020 MAMMO, screening completed Information not available 08/16/2024 03:25:31 04/03/2021 MAMMO, screening completed Information not available 08/16/2024 03:25:32 08/20/2022 MAMMO, screening completed Information not available 08/16/2024 03:25:33 08/26/2022 MAMMO, screening completed Information not available 08/16/2024 03:25:34 08/21/2023 MAMMO, screening completed Information not available 08/16/2024 03:25:35 06/23/2020 imaging/diagno stic result completed Information not available 08/16/2024 03:25:38 02/12/2023 XR, wrist completed Information no t available 08/16/2024 03:25:40 12/29/2018 MRI, abdomen completed Information not available 08/16/2024 03:25:42 09/06/2020 imaging/diagno stic result completed Information not available 08/16/2024 03:25:49 Procedure Notes None recorded. Medical Equipment None Reported. Allergies No known drug allergies Medications Name Sig Start Date Stop Date Status Note LastModified by Organization Details LastModified Time Claritin 10 mg tablet 1 TAB daily 12/12 completed Not Available Not Available Not Available meloxicam 15 mg tablet TAKE ONE TABLET BY MOUTH ONCE DAILY active Not Available Not Available No t Available prednison e 5 mg tablet take as needed for flare ups of hands/wr ist active Dr. Ragsdale Not Available Not Available Not Available Diflucan 150 mg tablet 1TAB once 10/26 completed Not Available Not Available Not Available pantopraz ole 20 mg tablet,de layed release Take 1 tab by mouth prn 11/07 completed Not Available Not Available Not Available Guaiatuss in AC 10 mg-100 mg/5 mL oral liquid 1-2 tsp every six hours 12/23 completed Not Available Not Available Not Available amitripty line 25 mg tablet Take 1 tablet by mouth at bedtime 07/09 completed Not Available Not Available Not Available amitripty line 10 mg tablet Take 1 tablet by mouth at bedtime active Not Available Not Available No t Available benzonata te 100 mg capsule 1 tab three times daily as needed for cough 12/23 completed Not Available Not Available Not Available simvastat in 20 mg tablet Take 1 tablet by mouth every night active Not Available Not Available No t Available Pepto-Bis mol 262 mg tablet by mouth as needed 12/11 completed Not Available Not Available Not Available omeprazol e 20 mg capsule,d elayed release TAKE ONE CAPSULE BY MOUTH ONE TIME DAILY 11/09 completed Not Available Not Available Not Available fluticaso ne propionat e 50 mcg/actua tion nasal spray,sujit pension Use 2 spray intranas ally daily administ er into each nostril active Not Available Not Available No t Available cholecalc iferol (vitamin D3) 25 mcg (1,000 unit) capsule active Not Available Not Available Not Available nitrofura ntoin monohydra te/macroc rystals 100 mg capsule take 1 capsule( 100mg) by mouth every 12 hours for 5 daysadmi nister with a meal/jett d 11/11 completed Not Available Not Available Not Available hydrochlo rothiazid e 12.5 mg tablet Take 1 tab by mouth daily in the AM 02/22 completed Not Available Not Available Not Available vitamin E (dl, acetate) 180 mg (400 unit) capsule Take 1 capsule by mouth twice a day 11/11 completed Not Available Not Available Not Available magnesium citrate 100 mg capsule Take 150 capsule twice a day 11/11 completed Not Available Not Available Not Available Vitals Date Recorded Body height Body temperature Heart rate Oxygen saturation Oxygen saturation in Arterial blood by Pulse oximetry Systolic blood pressure Diastolic blood pressure Provider Name and Address Organization Details Last Updated DateTime 3 150.901 4 cm 96.9 [degF] 58 /min 96 % 96 % 120 mm[Hg] 78 mm[Hg] MONA JESSICA [facility] 3 09:04:01 Date Recorded Body height Body mass index (BMI) Body weight Oxygen saturation Oxygen saturation in Arterial blood by Pulse oximetry Heart rate Systolic blood pressure Diastolic blood pressure Provider Name and Address Organization Details Last Updated DateTime 4 150.901 4 cm 19.8 kg/m2 73231.4 4 g 97 % 97 % 81 /min 154 mm[Hg] 86 mm[Hg] SHIRA GRIER [facility] 4 11:55:25 Date Recorded Systolic blood pressure Diastolic blood pressure Provider Name and Address Organization Details Last Updated DateTime 12/29/2023 126 mm[Hg] 80 mm[Hg] SHREYA JEAN, ULISES [address], [place], [address], [facility] 12/29/2023 12:15:20 Date Recorded Body height Body mass index (BMI) Body weight Oxygen saturation Oxygen saturation in Arterial blood by Pulse oximetry Heart rate Systolic blood pressure Diastolic blood pressure Provider Name and Address Organization Details Last Updated DateTime 4 150.901 4 cm 20.3 kg/m2 68547.4 2 g 97 % 97 % 73 /min 128 mm[Hg] 82 mm[Hg] SHIRA GRIER [facility] 4 10:01:31 Date Recorded Body height Body mass index (BMI) Body weight Body temperature Oxygen saturation Oxygen saturation in Arterial blood by Pulse oximetry Heart rate Systolic blood pressure Diastolic blood pressure Provider Name and Address Organization Details Last Updated DateTime 4 150.901 4 cm 21.3 kg/m2 67227.3 8 g 98.7 [degF] 97 % 97 % 65 /min 144 mm[Hg] 80 mm[Hg] SHIRA GRIER [facility] 4 11:03:50 Date Recorded Systolic blood pressure Diastolic blood pressure Provider Name and Address Organization Details Last Updated DateTime 06/29/2024 136 mm[Hg] 80 mm[Hg] SHREYA JEAN, [employer] [address], [place], [address], [facility] 06/29/2024 11:20:18 Social History Question Answer Notes LastModified by Organizat ion Details LastModified Time Tobacco Smoking Status Never Smoker SHIRA GRIER CMA null, [facility] 12/29/2023 11:57:31 What Was The Date Of Your Most Recent Tobacco Screening? 12/29/2023 Information not available 12/29/2023 Has Tobacco Cessation Counseling Been Provided? No Information not available 12/29/2023 Do You Or Have You Ever Used Any Other Forms Of Tobacco Or Nicotine? No Information not available 12/29/2023 Sex: Female Functional Status None recorded. Mental Status None recorded. Family History Nothing Reported Notes:*Problem: Mother: Dece ased - age 74. Alzhemier's. Breast CA (40s). Father: - age 82. COPD, ETOH 6 Siblings- alive. DM and depression in quite a few. 1 brother had stroke age 50. Children: 4 - alive and well, all live locally. Grandchildren: 3 MGM: Breast cancer, arthritis, thyroid issues MGF: Diabetes Family History of: Hypertension: No Hyperlipidemia: No Coronary heart disease: No Diabetes mellitus: Yes Breast cancer: Yes Colorectal cancer: No Prostate cancer: No Alcoholism: Yes Mental illness: Yes - Depression Medical History No medical history recorded. Gynecological History Statement/Question Response Date of Last Pap Smear 07/05/2019 Date of Last Colonoscopy 10/08/2021 Date of Last Mammogram 04/03/2021 Obstetrics History GPAL:G 0 P 0 0 0 0 Immunizations Vaccine Type Date Status Provider Name and Address Organization Details Recorded Time Td (adult), 2 Lf tetanus toxoid, preservative free, adsorbed 11/07/2020 completed Not Available [facility] 10/10/2023 05:22:48 Tdap 06/24/2011 completed Not Available [facility] 05:22:48 zoster live 02/10/2019 completed Not Available [facility] 10/10/2023 05:22:49 Influenza, split virus, trivalent, preservative 12/22/2013 completed Not Available [facility] 10/10/2023 05:22:49 Influenza, split virus, trivalent, preservative 12/23/2016 completed Not Available [facility] 10/10/2023 05:22:49 Influenza, split virus, trivalent, preservative 11/01/2015 completed Not Available [facility] 10/10/2023 05:22:49 Influenza, split virus, quadrivalent, PF 09/28/2019 completed Not Available [facility] 10/10/2023 05:22:49 Influenza, split virus, quadrivalent, preservative 09/07/2018 completed Not Available [facility] 10/10/2023 05:22:50 Influenza, split virus, quadrivalent, preservative 10/08/2017 completed Not Available [facility] 10/10/2023 05:22:50 zoster recombinant 10/09/2018 completed Not Available [facility] 10/10/2023 05:22:50 zoster, unspecified formulation 04/06/2015 completed Not Available [facility] 10/10/2023 05:22:50 Influenza, high-dose, quadrivalent, PF 09/12/2022 completed Not Available [facility] 10/10/2023 05:22:50 COVID-19, mRNA, LNP-S, PF, 100 mcg/0.5mL dose or 50 mcg/0.25mL dose 02/13/2021 completed Not Available [facility] 10/10/2023 05:22:51 COVID-19, mRNA, LNP-S, PF, 100 mcg/0.5mL dose or 50 mcg/0.25mL dose 03/13/2021 completed Not Available [facility] 10/10/2023 05:22:51 COVID-19, mRNA, LNP-S, PF, 100 mcg/0.5mL dose or 50 mcg/0.25mL dose 11/12/2021 completed Not Available [facility] 10/10/2023 05:22:51 SARS-COV-2 (COVID-19) vaccine, UNSPECIFIED 09/26/2022 completed Not Available [facility] 10/10/2023 05:22:51 Pneumococcal conjugate PCV20, polysaccharide [id number] conjugate, adjuvant, PF 06/13/2022 completed Not Available [facility] 10/10/2023 05:22:51 pneumococcal polysaccharide PPV23 05/12/2020 completed Not Available [facility] 2022 05:22:51 influenza, unspecified formulation 02/10/2019 completed Not Available [facility] 10/10/2023 05:22:51 influenza, unspecified formulation 09/18/2021 completed Not Available [facility] 10/10/2023 05:22:51 influenza, unspecified formulation 11/07/2020 completed Not Available [facility] 10/10/2023 05:22:52 Influenza, high-dose, quadrivalent, PF 09/19/2023 completed Not Available [facility] 12/12/2023 05:32:03 Past Encounters Encounter ID Performer Location Encounter Start Date Encounter Closed Date Diagnosis/Indication Diagnosis SNOMED-CT Code Diagnosis ICD10 Code [id number] MONA JESSICA [address] [address] 11/11/2023 08:54:01 11/11/2023 09:08:06 Essential hypertension 89895836 I10 Lipid abov e reference range 314043405 E78.5 [id number] SHREYA [address] [address] 12/29/2023 11:42:13 12/29/2023 12:40:26 Acute low back pain 783215371 M54.50 [id number] SHREYADERRELL JEAN[address] [address] 01/19/2024 09:51:36 01/19/2024 10:26:14 Acute low back pain 468720645 M54.50 Non-toxic multinodular goiter 64438354 E04.2 Leukocytosis 762560947 D 72.829 Essential hypertension 10323993 I10 Hyperlipidemia 69569726 E78.5 Epigastric pain 58379150 R10.13 Bone density finding 385 862512 M85.80 Idiopathic osteoarthritis 492837439 M19.91 Chronic rhinitis 3744613 6 J31.0 Impaired f asting glycemia 280165741 R73.01 [id number] SHREYA JEAN[address] [address] 06/29/2024 10:40:10 06/29/2024 11:41:19 Arthritis of hand 174835442 M19.041 Neuropathy 304076735 G62 .9 Varicose v ein of ankle region 2883755405 I83.90 Leukocytosis 066514137 D 72.829 Non-toxic multinodular goiter 18550054 E04.2 Bone density finding 385 508533 M85.80 Hyperlipidemia 72589737 E78.5 Essential hypertension 83787884 I10 Epigastric pain 36593580 R10.13 Chronic rhinitis 1845911 6 J31.0 Health Concerns Section Related Observation LastModified by Organization Detai ls LastModified Time None Recorded Concern Status LastModified by Organization Details LastModified Time None Recorded Advance Directives Directive None Recorded Payers Encounter Date Sequence Insurance Name Policy Number Policy Ortiz Covered Member ID Ortiz Member ID Guarantor Name 11/11/2023 2 [employer] (MEDICARE SUPPLEMENT) Audrey Magaña Page [id number] Audrey Magaña Page 11/11/2023 1 [place] [employer] Audrey Magaña Page [id number] 9 Audrey Magaña Page 12/29/2023 2 [employer] (MEDICARE SUPPLEMENT) Audrey Magaña Page [id number] Audrey Magaña Page 12/29/2023 1 [place] [facility] Audrey Magaña Page [id number] 9 Audrey Magaña Page 01/19/2024 2 [employer] (MEDICARE SUPPLEMENT) Audrey Magaña Page [id number] Audrey Magaña Page 01/19/2024 1 [place] [facility] Audrey Magaña Page [id number] 9 Audrey Magaña Page 06/29/2024 2 [employer] (MEDICARE SUPPLEMENT) Audrey Magaña Page [id number] Audrey Magaña Page 06/29/2024 1 [place] [facility] Audrey Magaña Page [id number] 9 Audrey Magaña Page Notes Date Note Type Note Provider Name and Address Organization Details Recorded Time 12/29/2023 text/html HPI Notes: Is he re for complaints of low back pain. Started 5 days ago. Started on 12/24/23. Pain is described as low, all the way across her back. The first few days. then it went to the middle of the base of her spine. Soreness, swelling, difficult with ambulation. The pain has been awful. ice does relieve some of the discomfort, afters he stops, the pain does return; icing will last for about 2 hours. no discomfort down the legs. Denies loss of bowel or bladder. Denies saddle paresthesia. Denies any trauma. took APAP, no relief. Has not tried exercises or stretching. Denies dysuria, hematuria. pain is described more as stabbing to the point where she cannot go one way or the other, just awful. Some pressure last night and today. had covid19 the first week of December, this was horrible for her. Her wrist on the right side went bad again, has an appt with Dr Ragsdale in near future. Wearing a brace for this. SHREYA JEAN, [employer] [address], [place], [address], [facility]. 12/29/2023 12:28:39 01/19/2024 text/html HPI Notes: Is he re for follow-up: -Goiter. Had FNA 06/20. Saw endo 11/22, plans was to reimage in 6 months with US; trying to avoid surgery if possible. -Leukocytosis. Chronic and stable for her. WBC was normal 09/23. -Abdominal pain, epigastric. Chronic for her. She has worked with general surgery, gastroenterology, integrative medicine provider without resolution to her pain. The pain is constant, located in the epigastric area and will radiate across the abdomen and to her mid back, to her left flank. She has tried multiple H2 blockers, PPIs, TCAs, and supplements without improvements. -HTN. Diet managed. -HLD. ASCVD risk 09/22 was 8.23%. Started on simvastatin 09/22. no side effects. -Osteopenia. Working on diet, weight bearing activities. -OA. Wrist pain, right; working with [facility]; going to Dr Ragsdale for 2nd opinion on the right wrist pain, hoping for injections in 3 weeks. -Rhinitis. Working with ENT, uses flonase. -LBP. Started on 12/24/23. Pain is described as low, all the way across her back, then it went to the middle of the base of her spine; described as stabbing and awful, pressure at times. Soreness, swelling, difficult with ambulation. ice does relieve some of the discomfort, after she stops, the pain does return; icing will last for about 2 hours. took APAP, no relief. Xray done was reassuring, has been referred to PT. Had 1 session of PT last week, no great improvement. Acheing persists. Doing HEP 2-3 times per day. SHREYA JEAN, [employer] [address], [place], [address], [facility]. 01/19/2024 10:54:54 06/29/2024 text/html HPI Notes: 69-year-old female presents with leg numbness, aching, and swelling at the ankles. Leg numbness and aching: The patient reports having trouble with her legs, particularly her left leg, with numbness and aching from the knees down. The numbness comes and goes, sometimes lasting for days. It occurs during both sitting and activity. Swelling is also present at the ankles. The left leg is worse and the patient has a lot of veins. She has tried wearing compression socks with minimal relief. The patient is currently on meloxicam for her OA to hand pain, but it has not made much difference. There is no back pain, loss of bowel or bladder function, or numbness or tingling in the fingers. Would also like her FU of: -Goiter. Had FNA 06/20. Saw endo 11/22, plans was to reimage in 6 months with US; trying to avoid surgery if possible. -Leukocytosis. Chronic and stable for her. WBC was normal 09/23. -Abdominal pain, epigastric. Chronic for her. She has worked with general surgery, gastroenterology, integrative medicine provider without resolution to her pain. The pain is constant, located in the epigastric area and will radiate across the abdomen and to her mid back, to her left flank. She has tried multiple H2 blockers, PPIs, TCAs, and supplements without improvements. -HTN. Diet managed. -HLD. ASCVD risk 09/22 was 8.23%. Started on simvastatin 09/22. no side effects. -Osteopenia. Working on diet, weight bearing activities. -OA. Wrist pain, right; taking meloxicam without improvements. -Rhinitis. Working with ENT, uses flonase. -LBP. Started on 12/24/23. Pain is described as low, all the way across her back, then it went to the middle of the base of her spine; described as stabbing and awful, pressure at times. Soreness, swelling, difficult with ambulation. ice does relieve some of the discomfort, after she stops, the pain does return; icing will last for about 2 hours. took APAP, no relief. Xray done was reassuring, has been referred to PT. Had 1 session of PT last week, no great improvement. Acheing persists. Doing HEP 2-3 times per day. SHREYA JEAN, [employer] [address], [place], [address], [place] [facility]. 06/29/2024 12:46:37 OBGyn Episode No OBEpisode recorded.
--- OUTSIDE RECORDS SUMMARY | 2024-08-27 01:13 | XMS_ITS | Encounter Summary ---
Author Organization [facility] [place] [address] Care Team Providers Care Hay Stacker Name Role Phone Shreya Ambrose APRN Primary Care Provider [phone] Encounter Details Date Type Department Care Team (Late st Contact Info) Description 09/04/2021 Telephone [place] [phone] Bre Ferrari Social History Tobacco Use Types Packs/Day Years Used Date Smoking Tobacco: Former Cigarettes 1 01/20/1977 - 11/19/1992 Smokeless Tobacco: Never Comments:Social smoker Sex and Gender Information Value Date Recorded Sex Assigned at Not on file Gender Identity Not on file Sexual Orientation Not on file documented as of this encounter Miscellaneous Notes * Telephone Encounter - Bre Ferrari - 09/04/2021 1:30 PM EDT Spoke w/ pt, changed time of visit, pt agreeable to changes * Telephone Encounter - Bre Ferrari - 09/04/2021 10:12 AM EDT Left vm- need to shift the time of visit- (Needs to move to 4:40, provider has had to add in an urgent case) documented in this encounter Plan of Treatment Upcoming Encounters Date Type Department Care Team (Late st Contact Info) Description 10/07/2024 11:30 AM EST Office Visit Dermatology at [place] [address] [place] [address] José Villeda MD [address], [place] [address] documented as of this encounter Visit Diagnoses Not on filedocumented in this encounter Care Teams Hay Stacker Relationship Specialty Start Date End Date Shreya Ambrose APRN [address] [place] [address] PCP - General 09/06/14 documented as of this encounter
--- OUTSIDE RECORDS SUMMARY | 2024-08-27 01:13 | XMS_ITS | Continuity of Care Document ---
Author Organization [place] [facility] Address [address] [place] [address] Assessment Encounter Date Assessment Date Assessment LastModified by Organization Details LastModified Time 06/29/2024 06/29/2024 Flu vaccine: current Comirnaty: declines [...] Last Modified Time Details Appointments Office Visit 30 2024 10:30A M Not available Not available Not available Lab vitamin B12, serum 2023 024 [facility] (Registration ), [address] [place] [address] [place], [address], 07/01/2024 08:30:23 TSH, serum, reflex free T4 2023 024 [facility] (Registration ), [address] [place] [address] [place], [address], 07/01/2024 08:30:[address] referral - EMG 2023 024 [email or web address] [facility], [address] [place] [address] [place], [address], 07/27/2024 11:30:11 Procedures None recorded. Surgeries None recorded. Imaging None recorded. Medication Orders None recorded. Patient TargetsNo targets recorded. Patient Instructions Encounter Date Encounter Id Patient Instructions Last Modified By Organization Details Last Modified Time 06/29/2024 [id number] - Continue wearing compression socks as tolerated. - Inspect feet daily for any injuries or sores. - Consider trying vitamin B12 supplement or msio-vaa-korgtbi supplements like NeuroVia or alpha-lipoic acid if [...] Acute low back pain Referring Physician: Shreya Jean, Family Medicine, Encounter Date: 12/30/2023 Neurologist Referral for Jarrett ropathy EMG Referring Physician: Shreya Jean [facility] Medicine, Encounter Date: 06/29/2024 Results Created Date Observation Date Name Description Value Unit Range Abnormal Flag Note LastModifiedBy Organization Detail LastModifiedTime 08/16/2004/15/2023 XR, knee No observ ation record ed. [...] Available 08/16 03:25:24 08/16/20 24 09/07/2019 MAMMO , scree andrea No observ ation record ed. Not Available 08/16 03:25:30 08/16/20 24 09/27/2020 MAMMO , scree andrea No observ ation record ed. Not Available 08/16 03:25:30 08/16/20 24 10/03/2020 MAMMO , scree andrea No observ ation record ed. Not Available 08/16 03:25:31 08/16/20 24 04/03/2021 MAMMO , scree andrea No observ ation record ed. Not Available 08/16 03:25:32 08/16/20 24 08/20/2022 MAMMO , scree andrea No observ ation record ed. Not Available 08/16 03:25:33 08/16/20 24 08/26/2022 MAMMO , scree andrea No observ ation record ed. Not Available 08/16 03:25:34 08/16/20 24 08/21/2023 MAMMO , scree andrea No observ ation record ed. Not Available [...] Details Recorded Time Genuine stress incontin ence 66367822 Active 201202/07/20 21 - Comments only - Shreya Jean APRN - Asuncion Crow ed pelvic floor exercise s/ kegels. Problem Code: N39.3; Problem Code Type: ICD-10; SHREYA JEAN APRN [address], [place], [address] , [facility] 3 09:05:06 Non-toxi c multinod ular goiter 01038074 Active 201402/07/20 21 - Comments only - Shreya Jean APRN - Check TSH with reflex next visit. Continue to see surgeon routinejonah y. has a FU in March / May time period. Problem Code: E04.2; Problem Code Type: ICD-10; SHREYA JEAN APRN [address], [place], [address] , [facility] 3 09:05:06 Low back pain 788195060 Active 201702/07/20 21 - Comments only - Shreya Jean APRN - no complain ts today. monitor for now. Problem Code: M54.5; Problem Code Type: ICD-10; SHREYA JEAN APRN [address], [place], [address] , [facility] 3 09:05:06 Epigastr ic pain 15474246 Active 201707/15/20 22 - Unchange d - [...] ure, as will set that up in [facility]. If no better w/ that, consider referral to PT and back imaging vs. spine referral . Problem Code: R10.13; Problem Code Type: ICD-10; SHREYA JEAN APRN [address], [place], [address] , [facility] 3 09:05:06 Leukocyt osis 021452070 Active 201702/07/20 21 - Comments only - Shreya Jean APRN - Unchange d and staying stable. has seen hematolo gy, no concerns . Check every fall. Problem Code: D72.829; Problem Code Type: ICD-10; SHREYA JEAN APRN [address], [place], [address] , [facility] 3 09:05:06 History of gynecolo gical disorder 524623840 Active 2017 Hx of ovarian cyst. SHREYA JEAN APRN [address], [place], [address] , [facility] 4 10:04:16 Disease of liver 876588880 Active 2017 Liver and splenic cysts. SHREYA JEAN APRN [address], [place], [address] , [facility] 4 10:04:01 Divertic nakul of intestin e 02818500 Active 201704/04/20 22 - Comments only - Paola Gomez M.D. - Assured her studies have shown NO dietary triggers of divertic ulitis, so okay to resume eating nuts! And in fact, eat a handful a day to reduce LDL. Problem Code: K57.90; Problem Code Type: ICD-10; [address], [place], [address] , [facility] 3 09:05:06 Congenit al anomaly of the kidney 72275349 Active 2017 Extraren al pelvis. [address], [place], [address] , [facility] 4 10:04:53 Finding of serum tumor marker level 652591205 Active 2017 Abnormal tumor markers, elevated CA19-9. [address], [place], [address] , [facility] 4 10:04:41 Ess[facility]ia l hyperten wale 33284767 Active 201802/07/20 21 - Comments only - Shreya Jean APRN - Diet managed. Monitor for now. Problem Code: I10; Problem Code Type: ICD-10; [address], [place], [address] , [facility] 3 09:05:06 Screenin g for cancer Active 2019 Problem Code: Z12.10; Problem Code Type: ICD-10; [address], [place], [address] , [facility] 3 09:05:06 Hyperlip idemia 45784361 Active 201904/04/20 22 - Comments only - Paola Gomez M.D. - Discusse d decreasi ng saturate d fats and increasi ng intake of unsatura saumya fats. Problem Code: E78.5; Problem Code Type: ICD-10; [address], [place], [address] , [facility] 3 09:05:06 Bone density finding 769224057 Active 2020 Problem Code: M85.80; Problem Code Type: ICD-10; [address], [place], [address] , [facility] 3 09:05:06 Abdomina l pain 91016247 Completed 202006/14/2021 Problem Code: R10.9; Problem Code Type: ICD-10; Not Available [facility] 3 04:26:21 Idiopath ic osteoart hritis 080456529 Active 2021 Problem Code: M19.049; Problem Code Type: ICD-10; [address], [place], [address] , [facility] 3 09:05:06 Bilatera l tinnitus 27418178275 02 Active 202104/04/20 22 - Comments only - Paola Gomez M.D. - Unfortun ate lasting effect of amitript yline. Denies hearing loss. May be improved w/ AI diet. Could consider ENT referral , but I doubt they would have much to offer her. Problem Code: H93.13; Problem Code Type: ICD-10; [address], [place], [address] , [facility] 3 09:05:06 Active immuniza tion Completed 202109/09/2022 Problem Code: Z23; Problem Code Type: ICD-10; Not Available [facility] 3 04:26:21 Chronic rhinitis 89371508 Active 2022 Problem Code: J31.0; Problem Code Type: ICD-10; SHREYA JEAN, SPARMAKER [address], [place], [address] , [facility] 3 09:05:06 Ar shah present 774881032 Completed 202006/07/2021 Problem Code: Z78.0; Problem Code Type: ICD-10; Not Available [facility] 3 04:26:25 Bone density finding 467186207 Completed 202002/15/2021 Problem Code: M85.88; Problem Code Type: ICD-10; SHREYA JEAN APRN [address], [place], [address] , [facility] 09:05:06 Elevated blood-pr essure reading without diagnosi s of hyperten wale 075215792 Completed 201707/28/2018 12/10/19 19 - Comments only - Shreya Jean SPARMAKER - unsure of trigger, but has had periodic blood pressure spikes over the last year. More recently was reassdayan samaniego. Recheck in 1 month with nursing and 2 months with myself. If at that appt, remains elevated , would check urine for protien / MA and treat as indicate dKirk Encour ed DASH diet. Problem Code: R03.0; Problem Code Type: ICD-10; Not Available [facility] 3 04:26:25 Trigger thumb of left hand 45833316048 9107 Completed 201503/21/2023 Problem Code: M65.312; Problem Code Type: ICD-10; Not Available [facility] 3 04:26:25 Acute upper respirat ory infectio n 24727604 Completed 201512/23/2016 Problem Code: J06.9; Problem Code Type: ICD-10; Not Available [facility] 3 04:26:26 Primary malignan t neoplasm of thyroid gland 29848897 Completed 201408/27/2023 Problem Code: 193; Problem Code Type: ICD-9; Not Available [facility] 3 04:26:26 Screenin g for disorder Completed 201704/23/2018 Problem Code: Z13.89; Problem Code Type: ICD-10; Not Available [facility] 3 04:26:26 Abnormal weight loss 082273539 Completed 201711/09/2019 Problem Code: R63.4; Problem Code Type: ICD-10; Not Available [facility] 3 04:26:26 Chest pain 92589227 Completed 201812/11/2021 Problem Code: R07.9; Problem Code Type: ICD-10; Not Available [facility] 3 04:26:26 Abdomina l pain 00054361 Completed 201707/28/2018 Problem Code: R10.9; Problem Code Type: ICD-10; Not Available [facility] 3 04:26:27 Pre-surg charley testing Completed 202012/11/2021 Problem Code: Z01.812; Problem Code Type: ICD-10; Not Available [facility] 3 04:26:27 Acquired absence of genital organ 052021963 Completed 201911/07/2020 Problem Code: Z90.79; Problem Code Type: ICD-10; Not Available [facility] 3 04:26:27 Pain of toe of left foot 92699979616 9108 Completed 201602/06/2021 Problem Code: M79.675; Problem Code Type: ICD-10; Not Available [facility] 3 04:26:28 Female stress incontin ence 34240857 Completed 201208/27/2023 Problem Code: 625.6; Problem Code Type: ICD-9; Not Available [facility] 3 04:26:28 Trigger finger of right hand 22836455848 886864 Completed 201503/21/2023 Problem Code: M65.341; Problem Code Type: ICD-10; Not Available [facility] 3 04:26:28 Pain of right knee joint 49157818362 4100 Active 2022 Problem Code: M25.561; Problem Code Type: ICD-10; Not Available [facility] 4 05:37:20 Acute low back pain 225781554 Active [address], [facility] [address] , [facility] 4 12:06:59 Impaired fasting glycemia 476321979 Active [address], [facility] [address] , [facility] 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 4 12:39:17 Arthriti s of hand 512162236 Active [address], [facility] [address] , [facility] 4 11:30:10 Osteopen ia 157391824 Active [address], [facility] [address] , [facility] 4 11:30:14 Varicose vein of ankle region Active [address], [facility] [address] , [facility] 4 12:43:38 Neuropat hy 608720011 Active [address], [facility] [address] , [facility] 4 12:43:38 Problem Notes None recorded. Procedures Surgical History Date Name Laterality Status Provider Name and Address Organization Details Recorded Time 1 Date of Last Colonoscopy completed MONA JESSICA [facility] 11/10/2023 12:22:36 1 Date of Last Mammogram completed MONA JASKARAN [facility] 11/10/2023 12:21:22 9 Date of Last Pap Smear completed MONAAZRA GROVESAny [facility] 11/10/2023 12:20:27 Imaging Results None recorded. Procedure Notes None recorded. Medical Equipment None [...] Available Vitals Date Recorded Body height Body mass index (BMI) Body weight Body temperature Oxygen saturation Oxygen saturation in Arterial blood by Pulse oximetry Heart rate Systolic blood pressure Diastolic blood pressure Provider Name and Address Organization Details Last Updated DateTime 150.901 4 cm 21.3 kg/m2 16097.3 8 g 98.7 [degF] 97 % 97 % 65 /min 144 mm[Hg] 80 mm[Hg] SHIRA GRIER CMA [facility] 11:03:50 Date Recorded Systolic blood pressure Diastolic blood pressure Provider Name and Address Organization Details Last Updated DateTime 06/29/2024 136 mm[Hg] 80 mm[Hg] SHREYA JEAN APRN [address], [place], [address], [facility] 06/29/2024 11:20:18 Social History Question Answer Notes LastModified by Organizat ion Details LastModified Time Tobacco Smoking Status Never Smoker SHIRA GRIER CMA null, [facility] 12/29/2023 11:57:31 What Was The Date Of [...] preservative free, adsorbed 11/07/2020 completed Not Available [facility] 10/10/2023 05:22:48 Tdap 06/24/2011 completed Not Available [facility] 05:22:48 zoster live 02/10/2019 completed Not Available [facility] 10/10/2023 05:22:49 Influenza, split virus, trivalent, preservative 12/22/2013 completed Not Available [facility] 10/10/2023 05:22:49 Influenza, split virus, trivalent, preservative 12/23/2016 completed Not Available [facility] 10/10/2023 05:22:49 Influenza, split virus, trivalent, preservative 11/01/2015 completed Not Available [facility] 10/10/2023 05:22:49 Influenza, split virus, quadrivalent, PF 09/28/2019 completed Not Available [facility] 10/10/2023 05:22:49 Influenza, split virus, quadrivalent, preservative 09/07/2018 completed Not Available [facility] 10/10/2023 05:22:50 Influenza, split virus, quadrivalent, preservative 10/08/2017 completed Not Available [facility] 10/10/2023 05:22:50 zoster recombinant 10/09/[address] [facility] 10/10/2023 05:22:50 zoster, unspecified formulation 04/06/2015 completed Not Available [facility] 10/10/2023 05:22:50 Influenza, high-dose, quadrivalent, PF 09/12/2022 completed Not Available [facility] 10/10/2023 05:22:50 COVID-19, mRNA, LNP-S, PF, 100 mcg/0.5mL dose or 50 mcg/0.25mL dose 02/13/2021 completed Not Available [facility] 10/10/2023 05:22:51 COVID-19, mRNA, LNP-S, PF, 100 mcg/0.5mL dose or 50 mcg/0.25mL dose 03/13/2021 completed Not Available [facility] 10/10/2023 05:22:51 COVID-19, mRNA, LNP-S, PF, 100 mcg/0.5mL dose or 50 mcg/0.25mL dose 11/12/2021 completed Not Available [facility] 10/10/2023 05:22:51 SARS-COV-2 (COVID-19) vaccine, UNSPECIFIED 09/26/2022 completed Not Available [facility] 10/10/2023 05:22:51 Pneumococcal conjugate PCV20, polysaccharide [id number] conjugate, adjuvant, PF 06/13/2022 completed Not Available [facility] 10/10/2023 05:22:51 pneumococcal polysaccharide PPV23 05/12/2020 completed Not Available [facility] 2022 05:22:51 influenza, unspecified formulation 02/10/2019 completed Not Available [facility] 10/10/2023 05:22:51 influenza, unspecified formulation 09/18/2021 completed Not Available [facility] 10/10/2023 05:22:51 influenza, unspecified formulation 11/07/2020 completed Not Available [facility] 10/10/2023 05:22:52 Influenza, high-dose, quadrivalent, PF 09/19/2023 completed Not Available [facility] 12/12/2023 05:32:03 Past Encounters Encounter ID Performer Location Encounter Start Date Encounter Closed Date Diagnosis/Indication Diagnosis SNOMED-CT Code Diagnosis ICD10 Code [id number] SHREYA JEANULISES [address] [address] 06/29/2024 10:40:10 06/29/2024 11:41:19 Arthritis of hand 852533062 M19.041 Neuropathy 073444971 G62 .9 Varicose v ein of ankle region 3982925854 I83.90 Leukocytosis 787260322 D 72.829 Non-toxic multinodular goiter 01838343 E04.2 Bone density finding 385 701509 M85.80 Hyperlipidemia 60715508 E78.5 Essential hypertension 38684105 I10 Epigastric pain 59944345 R10.13 Chronic rhinitis 5769624 6 J31.0 Health Concerns Section Related Observation LastModified by Organization Detai ls LastModified Time None Recorded Concern Status LastModified by Organization Details LastModified Time None Recorded Payers Encounter Date Sequence Insurance Name Policy Number Policy Ortiz Covered Member ID Ortiz Member ID Guarantor Name 06/29/2024 2 [employer] (MEDICARE SUPPLEMENT) Audrey Magaña Page [id number] Audrey Magaña Page 06/29/2024 1 [place] [employer] Audrey Magaña Page [id number] Audrey Page Notes Date Note Type Note Provider Name and Address Organization Details Recorded Time 06/29/2024 text/html HPI Notes: 69-year-old female presents [...] HEP 2-3 times per day. SHREYA JEAN, SPARMAKER [address], [place], [address], [place] [facility]. 06/29/2024 12:46:37 OBGyn Episode No OBEpisode recorded.
--- OUTSIDE RECORDS SUMMARY | 2024-08-27 01:13 | XMS_ITS | Encounter Summary ---
[place] [address] Care Team Providers Care Olive Packer Name Role Phone Shreya Ambrose APRN Primary Care Provider [phone] Reason for Referral * Diagnostic Test (Routine) - Closed Specialty Diagnoses / Procedures Referred By Prerna odell Referred To Contact Radiology Diagnoses Thyroid nodule Procedures IR US Guided Biopsy Thyroid FNA Sunday Turner [facility] [place] [address] [place] [address] Referral ID Status Reason Start Date Expiration Date V isits Requested Visits Authorized [id number] Closed Specialty Service Requested 04/26/2020 10/22/2021 1 1 Encounter Details Date Type Department Care Team (Late st Contact Info) Description 04/21/2020 Orders Only [place] [address] Sunday Turner [facility] [place] [address] Thyroid nodule Social History Tobacco Use Types Packs/Day Years [...] 11:30 AM EST Office Visit [facility] [place] [address] [place] [address] José Villeda MD [address], [place] [address] documented as of this encounter Results * IR US Guided Biopsy Thyroid FNA (07/28/2020 11:17 AM EDT) Anatomical Region Laterality Modality Neck X-Ray Angiograph y Impressions 07/31/2020 4:47 PM EDT Technically successful ultrasound-guided fine-needle aspiration of a right lobe thyroid nodule. Operators: Fellow: Marky Chambers MD Attending: Dylan Blackwell MD Procedure/Teaching Attestation: I, Dylan Blackwell, was present for the entire procedure. Preliminary report signed by: Marky Chambers at 07/28/2020 5:26 PM I have personally reviewed the image(s) and the resident's interpretation and agree with the findings, Dylan Blackwell at 07/31/2020 4:47 PM Thank you for letting us participate in the care of this patient. For questions regarding this report, please contact the number below. ? Narrative 07/31/2020 4:47 PM EDT NEURORADIOLOGY PROCEDURE NOTE Procedure: US-guided biopsy of a NEURORADIOLOGY PROCEDURE NOTE Procedure: US-guided biopsy of a right lobe thyroid nodule. Indication for Procedure: History of microPTC. Please biopsy the larger (1.8cm) superior nodule in the right thyroid lobe.. Consent: After discussing the risks (including infection, hemorrhage, damage to surrounding structures, nondiagnostic biopsy) and benefits, the patient consented to the procedure. The patient was also consented for Thyroseq testing. Technique: Prior to beginning the procedure, a standard Time Out was performed. The patient was in the supine position. ??Initial grayscale and color Doppler images of the thyroid were used to localize the target and surrounding structures. The skin was prepped and draped in the usual sterile fashion. Local anesthesia provided with less than 5 mL of 1% lidocaine. Under ultrasound guidance, fine-needle aspirations were performed utilizing 25-gauge needles. Once sufficient samples were collected, the procedure was ended. The patient tolerated the procedure well. Medications: Lidocaine 1% <5 mL SQ EBL: 0 cc Complications: No immediate Specimens: Four fine-needle aspirations of the nodule. Specimen was sent to the laboratory for analysis. Findings: Preprocedure ultrasound images demonstrated a mid right thyroid lobe mostly solid nodule. Position of the needle tip was confirmed in the target lesion by ultrasound. Procedure Note Dylan Blackwell MD - 07/31/2020 NEURORADIOLOGY PROCEDURE NOTE Procedure: US-guided biopsy of a NEURORADIOLOGY PROCEDURE NOTE Procedure: US-guided biopsy of a right lobe thyroid nodule. Indication for Procedure: History of microPTC. Please biopsy the larger(1.8cm) superior nodule in the right thyroid lobe.. Consent: After discussing the risks (including infection, hemorrhage,damage to surrounding structures, nondiagnostic biopsy) and benefits, the patient consented to the procedure. The patient was also consented for Thyroseqtesting. Technique: Prior to beginning the procedure, a standard Time Out wasperformed. The patient was in the supine position. Initial grayscale and colorDoppler images of the thyroid were used to localize the target and surrounding structures. The skin was prepped and draped in the usual sterile fashion.Local anesthesia provided with less than 5 mL of 1% lidocaine. Underultrasound guidance, fine-needle aspirations were performed utilizing 25-gaugeneedles. Once sufficient samples were collected, the procedure was ended. Thepatient tolerated the procedure well. Medications: Lidocaine 1% <5 mL SQ EBL: 0 cc Complications: No immediate Specimens: Four fine-needle aspirations of the nodule. Specimen was sentto the laboratory for analysis. Findings: Preprocedure ultrasound images demonstrated a mid right thyroidlobe mostly solid nodule. Position of the needle tip was confirmed in thetarget lesion by ultrasound. IMPRESSION Technically successful ultrasound-guided fine-needle aspiration of a right lobe thyroid nodule. Operators: Fellow: Marky Chambers MD Attending: Dylan Blackwell MD Procedure/Teaching Attestation: I, Dylan Blackwell, was present for theentire procedure. Preliminary report signed by: Marky Chambers at 07/28/2020 5:26 PM I have personally reviewed the image(s) and the resident's interpretationand agree with the findings, Dylan Blackwell at 07/31/2020 4:47 PM Thank you for letting us participate in the care of this patient. Forquestions regarding this report, please contact the number below. Sunday Yue DO IMG IR ORDERABLES documented in this encounter Visit Diagnoses Diagnosis Thyroid nodule Nontoxic uninodular goiter Thyroid nodule Nontoxic uninodular goiter documented in this encounter Care Teams Olive Packer Relationship Specialty Start Date End Date Shreya Ambrose APRN [address] [place] [address] PCP - General 09/06/14 documented as of this encounter
--- OUTSIDE RECORDS SUMMARY | 2024-08-27 01:13 | XMS_ITS | Encounter Summary ---
Author Organization [facility] Address [facility] [place] [address] Care Team Providers Care Cook 3 Pastry Name Role Phone Shreya Ambrose APRN Primary Care Provider [phone] Encounter Details Date Type Department Care Team (Latest Contact Info) Description 10/08/2021 11:57 AM EST - 10/08/2021 3:21 PM EST Hospital En[place] [id number] Alec Barraza MD [facility] [place] [address] Discharge Disposition: Home Social History Tobacco Use Types Packs/Day Years [...] Sign Reading Time Taken Comments Blood Pressure 102/57 10/08/2021 2:50 PM EST Pulse 105 10/08/2021 12:07 PM EST Temperature 37.4 ??C (99.4 ??F) 10/08/2021 12:[address] Respiratory Rate 16 10/08/2021 2:50 PM EST Oxygen Saturation 100% 10/08/2021 2:50 PM EST Inhaled Oxygen Concentration - - Weight - - Height - - Body Mass Index - - documented in this encounter Discharge Instructions * Discharge Instructions* Chinyere Maharaj RN - 10/08/2021 2:11 PM EST Upper Endoscopy (EGD) and Colonoscopy: What to Expect at Home Your Recovery After you have an EGD and colonoscopy, you will stay at the clinic for 1 to 2 hours until the medicines wear off. Then you can go home. But you will need to arrange for a ride. Your doctor will tell you when you can eat and do your other usual activities. Your doctor will talk to you about when you will need your next colonoscopy. Your doctor can help you decide how often you need to be checked. This will depend on the results of your test and your risk for colorectal cancer. You may have a sore throat for a day or two after the test. After the test, you may be bloated or have gas pains. You may need to pass gas. If a biopsy was done or a polyp was removed, you may have streaks of blood in your stool (feces) for a few days. Problems such as heavy rectal bleeding may notoccur until several weeks after the test. This isn't common. But it can happen after polyps are avril irish. This care sheet gives you a general idea about how long it will take for you to recover. But each person recovers at a different pace. Follow the steps below to get better as quickly as possible. How can you care for yourself at home? Activity ?? Rest when you feel tired. ?? You can do your normal activities when it feels okay to do so. Diet ?? Follow your doctor's directions for eating. ?? Unless your doctor has told you not to, drink plenty of fluids. This helps to replace the fluidsthat were lost during the colon prep. ?? Do not drink alcohol. Medicines If you have a sore throat the day after the test, use an ydso-axj-jhbhpqo spray or lozenges to numbyour throat. Warm salt water gargles can also help the discomfort. Your doctor will tell you if and when you can restart your medicines. He or she will also give you instructions about taking any new medicines. ?? If you take blood thinners, such as warfarin (Coumadin), clopidogrel (Plavix), or aspirin, be sure to talk to your doctor. He or she will tell you if and when to start taking those medicines again. Make sure that you understand exactly what your doctor wants you to do. ?? If polyps were removed or a biopsy was done during the test, your doctor may tell you not to take aspirin or other anti-inflammatory medicines for a few days. These include ibuprofen (Advil, Motrin) and naproxen (Aleve). Other instructions for patients who received sedation: You may have received medications during the procedure which effect your judgement and reaction time. For your safety, do not drive or operate machinery until the medicine wears off and you can think clearly. Your doctor may tell you not to drive or operate machinery until the day after your test. Do not sign legal documents or make major decisions until the medicine wears off and you can think clearly. The anesthesia can make it hard for you to fully understand what you are agreeing to. Be careful on stairs and when standing up quickly as you may be unsteady on your feet. IV site: Slight redness or tenderness is normal. You can use a warm compress if you would like. If tenderness and/or redness increase or if foul drainage occurs, please contact your doctor. Please call [phone] before 8pm Mon-Fri with problems, questions, or concerns. If you call after 8pm or on weekends, call the Hospital at [phone] and ask for the Residential [employer]od[employer] Subcontractor manager of administration and the aging room operator will contact that person for you. When should you call for help? Call [phone] anytime you think you may need emergency care. For example, call if: ?? You passed out (lost consciousness). ?? You pass maroon or bloody stools. ?? You have trouble breathing. Call your doctor now or seek immediate medical care if: ?? You have pain that does not get better after you take pain medicine. ?? You are sick to your stomach or cannot drink fluids. ?? You have new or worse belly pain. ?? You have blood in your stools. ?? You have a fever. ?? You cannot pass stools or gas. ?? Your throat still hurts after a day or two. ?? Your throat still hurts after a day or two. ?? Watch closely for changes in your health, and be sure to contact your doctor if you have any problems. Where can you learn more? You can view health information on [employer], your personal patient account. Log in or sign up today. Content Version: 12.2 ?? 1149-0837 [email or web address]. Care instructions adapted under license by [facility]. If you have questions about a medical condition or this instruction, always ask your healthcare professional. [email or web address] disclaims any warranty or liability for your use of this information.Endoscopic Ultrasound (Oral): What to Expect At Home Your Recovery After you have an endoscopic ultrasound--a test to look for problems in the stomach, liver, gallbladder, and other organs--you will stay at the hospital or clinic for 1 to 2 hours. This will allow the medicine to wear off. You will be able to go home after your doctor or nurse checks to make sure you are not having any problems. You may have a sore throat for a day or two after the test. This care sheet gives you a general idea about what to expect after the test. How can you care for yourself at home? Activity ??? Rest when you feel tired. ?? You can do your normal activities when it feels okay to do so. Diet ?? Follow your doctor's directions for eating. ?? Unless your doctor has told you not to, drink plenty of fluids. ?? Do not drink alcohol. Medicines ?? Your doctor will tell you if and when you can restart your medicines. He or she will also give you instructions about taking any new medicines. ?? If you take blood thinners, such as warfarin (Coumadin), clopidogrel (Plavix), or aspirin, be sure to talk to your doctor. He or she will tell you if and when to start taking those medicines again. Make sure that you understand exactly what your doctor wants you to do. ?? If a biopsy was done during the test, your doctor may tell you not to take aspirin or other anti-inflammatory medicines for a few days. These include ibuprofen (Advil, Motrin) and naproxen (Aleve). ?? If you have a sore throat the day after the procedure, use an lyoj-dzr-fonkpjh spray to numb your throat. Sucking on throat lozenges and gargling with warm salt water may also help relieve your symptoms. Other instructions ?? For your safety, do not drive or operate machinery until the medicine wears off and you can think clearly. Your doctor may tell you not to drive or operate machinery until the day after your test. ?? Do not sign legal documents or make major decisions until the medicine wears off and you can think clearly. The anesthesia can make it hard for you to fully understand what you are agreeing to. Additional Information for Sedation Patients For patients who received sedation: ?? You may have received medications before and/or during your procedure which effects your judgement and reaction time. ?? Do not drive, operate machinery, drink alcoholic beverages or make important decisions for 24 hours. ?? Be careful on stairs as you may be unsteady on your feet. ?? You may eat a regular diet as tolerated. ?? Do not smoke if you are alone. ?? IV site: Slight redness or tenderness is normal, you can use a warm compress if you would like. If tenderness and/or redness increase or if foul drainage occurs, please contact your Doctor. Please call [phone] before 8pm Mon-Fri with problems, questions or concerns. If you call after 8pm or on weekends, call the Hospital at [phone] and ask to speak to the Residential [employer]od[employer] Subcontractor manager of administration and the aging room operator will contact that person for you. When should you call for help? Call [phone] anytime you think you may need emergency care. For example, call if: ?? You passed out (lost consciousness). ?? You pass maroon or bloody stools. ?? You have trouble breathing. Call your doctor now or seek immediate medical care if: ?? You have pain that does not get better after you take pain medicine. ?? You are sick to your stomach or cannot drink fluids. ?? You have new or worse belly pain. ?? You have blood in your stools. ?? You have a fever. ?? You cannot pass stools or gas. Watch closely for changes in your health, and be sure to contact your doctor if you have any problems. Where can you learn more? [facility] View your After Visit Summary and more online at [email or web address] If you would like to provide feedback about your hospital experience, please call the Office of Patient and Family Relations at . If you have received this After Visit Summary in error, please immediately return it in person to the department, or notify the [facility] Privacy Office by calling toll free at between the hours of 8AM and 5PM to arrange for our retrieval of the documents at no cost to you. Content Version: 12.2 ?? 9197-5839 [email or web address]. Care instructions adapted under license by [facility]. If you have questions about a medical condition or this instruction, always ask your healthcare professional. [email or web address] disclaims any warranty or liability for your use of this information. * Patient Instructions* Alec Barraza MD - 10/08/2021 2:16 PM EST Please see Recommendations in the Provation procedure report which is documented in the procedural note in E-DH. documented in this encounter Medications at Time of Discharge Medication Sig Dispensed Refills Start Date End Date flu vacc [id number],65yr up,/PF (FluZONE HighDose Quad 20-21 PF) 240 mcg/0.7 mL Syringe Inject 1 mL into the muscle once. 08/15/2020 05/13/2024 documented as of this encounter H&P Notes * Alec Barraza MD - 10/08/2021 1:11 PM EST Gastroenterology and Hepatology Pre-Procedure History and Physical Exam Procedure: EGD: Colonoscopy: EUS: Indication: Epigastric pain, abnormal CT and colon cancer screening. Patient Active Problem List Diagnosis Code ??? Leucopenia D72.819 ??? Trigger finger M65.30 ??? Pain in toe M79.676 ??? Goiter E04.9 ??? Female stress incontinence N39.3 ??? Epigastric pain R10.13 EXAM: HEENT: Airway examined, oropharynx clear Mallampati Score: Per anesthesia LUNGS: Clear to auscultation HEART: Regular rate and rhythm, normal S1, S2 ABDOMEN: Normal bowel sounds, soft, non tender, non distended, A/P Proceed with the planned endoscopic procedure. ASA 2 - Patient with mild systemic disease with no functional limitations Sedation Plan: deep Risks and benefits of the procedure explained to the patient. Consent signed. documented in this encounter Miscellaneous Notes * Op Note - Alce Barraza MD - 10/08/2021 1:27 PM EST [facility] [place] Operative Note Patient Name: Audrey Gaston : [id number] MR#: [id number] Case Date: 10/08/2021 Surgeon: Surgeon(s) and Role: * Alec Barraza MD - Primary Preoperative diagnosis: ABnl CT, dyspepsia and screening Postoperative diagnosis: * No post-op diagnosis entered * Procedure(s) (LRB): EGD, UPPER GI ENDOSCOPY (N/A) UPPER EUS- ENDOSCOPIC ULTRASOUND (N/A) COLONOSCOPY, POLYPECTOMY, REMOVAL LESION BY SNARE (WRVU 4.67) (N/A) Anesthesia: MAC Full procedure note is documented under the Procedure section of eDH. documented in this encounter Plan of Treatment Upcoming Encounters Date Type Department Care Team (Late st Contact Info) Description 10/07/2024 11:30 AM EST Office Visit Dermatology at [place] [address] [place] [address] José Villeda MD [address] [facility], [place] [address] documented as of this encounter Procedures Procedure Name Priority Date/Time Associated Diagnosis Comments SPECIMEN TO PATHOLOGY Routine 10/08/2021 2:04 PM EST SURGICAL PATHOLOGY REPORT Routine 10/08/2021 2:01 PM EST Colonoscopy, Remv Kevan, Snare ([id number]) 10/08/2021 1:16 PM EST Epigastric pain Screening for colon cancer Endoscopic Us Exam, Esoph ([id number]) 10/08/2021 1:16 PM EST Epigastric pain Screening for colon cancer Upper GI Endoscopy, Diagnostic ([id number]) 10/08/2021 1:16 PM EST Epigastric pain Screening for colon cancer UPPER GI ENDOSCOPY Routine 10/08/2021 11 :30 AM EST UPPER EUS-ENDOSCOPIC ULTRASOUND Routine 10/08/2021 11:29 AM EST COLONOSCOPY Routine 10/08/2021 11:29 AM EST documented in this encounter Results * Specimen to Pathology (10/08/2021 2:04 PM EST) AP Specimen 10/08/2021 2:04 PM EST 10/08/2021 2:04 PM EST Narrative [facility] - 10/08/2021 2:04 PM EST Specimen requisition ordered. ??Separate Pathology report to follow Alec Barraza MD PATHOLOGY/CYTOLOGY Everardo KIDD Performing Organization Address City/State/[facility] Co de Phone Number [facility] [place] [address] * Surgical Pathology Report (10/08/2021 2:01 PM EST) Final Diagnosis [id number] ? Location: 4T; EA08; A The signing pathologist has (i) examined the relevant preparation(s) for the specimen(s) and (ii) rendered or confirmed the diagnosis(es). . ?Surgical Pathology DIAGNOSIS A - Rectal polyp, excision: - ??Hyperplastic polyp. CR-PX Electronically signed by: ?Edmond Banks MD Verified: ??10/12/2021 12:53 ??Pathologist Performed at: ??-[facility] – [place] Dept. of Pathology, [place], [place] SPECIMEN(S) SUBMITTED A - Rectal polyp, excision (1) CLINICAL INFORMATION 66-year-old with abdominal pain SPECIMEN PROCESSING A - Labeled/Fixativ e: Rectal polyp, formalin. Quantity/Size: Single, 1.0 x 0.4 x 0.1 cm. Tissue Description: Soft, pink-red tissue. Sections/Proces sing: Quadrisected and entirely submitted in 1 cassette labeled A1. ??sns 10/12/2021 12:53 PM EST [facility] GI Biopsy 10/08/2021 2:01 PM EST 10/08/2021 2:01 PM EST Alec Barraza MD PATHOLOGY/CYTOLOGY O MARTI [facility] [place] [address] * UPPER GI ENDOSCOPY (10/08/2021 11:30 AM EST) UPPER GI ENDOSCOPY [facility] Endoscopy ___ Procedure Date: 10/08/2021 11:30 AM ? Patient Name: Audrey Page ? N: [id number] ? Date of : 1955 ? Age: 66 ? Order #: [id number] ? Instrument Name: [id number] ? ___ Procedure: ? Upper GI endoscopy Indications: ? Epigastric abdominal pain, Abnormal ? CT of the GI tract Providers: ? Alec Barraza MD, Rodrigo Bauer ? IVAN Drummond, Taisha Weber MD: ?Shreya Ambrose Medicines: ? [...] and ? adverse medication reactions. The ? Endoscope was introduced through the ? mouth, and advanced to the second ? part of duodenum. The patient ? tolerated the procedure well. The ? patient tolerated the procedure well. ? Findings: ? The esophagus was normal. ? The Z-line was regular and was found 38 cm from the ? incisors. ? A few small sessile polyps were found in the gastric ? fundus. ? Otherwise normal stomach including retroflex view of ? cardia and fundus. ? The examined duodenum was normal. ? Moderate Sedation: ? Not applicable - See Anesthesia documentation Impression: ?- Normal esophagus. ? - A few benign fundic gland gastric ? polyps. ? - Normal examined duodenum. ? - No specimens collected. Recommendation: ?- Perform an upper endoscopic ? ultrasound (UEUS) today. ? Attending Participation: ? I personally performed the entire procedure. ? Alec Barraza MD 10/08/2021 1:46:09 PM This report has been signed electronically. Number of Addenda: 0 Note Initiated On: 10/08/2021 11:30 AM [employer]ATION 10/08/2021 11:3 0 AM EST Shreya Ambrose APRN GENERAL SURGICAL ORDERABLES [employer] * UPPER EUS-ENDOSCOPIC ULTRASOUND (10/08/2021 11:29 AM EST) UPPER ENDOSCOPIC ULTRASOUND [facility] Endoscopy Procedure Date: 10/08/2021 11:29 AM ? Patient Name: Audrey Page ? Date of : 1955 ? Age: 66 ? Order #: [id number] ? Instrument Name: [id number] ? Procedure: ? Upper EUS Indications: ? Dilated pancreatic duct on CT scan, ? Epigastric abdominal pain Providers: ? Alec Barraza MD, Rodrigo Bauer ? IVAN Drummond, Taisha Acevedo Referring : ?Shreya Ambrose Medicines: ? Propofol per Anesthesia Complications: ? No immediate complications. Procedure: ? Pre-Anesthesia Assessment: ? - Prior [...] missing a cancer, and ? adverse medication reactions.The ? ULTRASOUND SCOPE was introduced ? through the mouth, and advanced to ? the second part of duodenum. The ? patient tolerated the procedure well. ? Findings: ? ENDOSONOGRAPHIC FINDING: : ? The esophagus, stomach and duodenum were visualized ? endosonographically and were unremarkable save for ? few benign fundic gland polyps in the stomach. ? The pancreatic duct had a mildly dilated ? endosonographic appearance in the genu of the ? pancreas. The pancreatic duct measured up to 3 mm in ? diameter. The distal duct and proximal was normal in ? caliber. There was no evidence for stricture or mass. ? There was no sign of significant endosonographic ? abnormality in the common bile duct and in the ? gallbladder. ? Normal visualized portion of liver (limited exam). ? No lymphadenopathy seen. ? Moderate Sedation: ? Not applicable - See Anesthesia documentation Impression: ?- The pancreatic duct had a mildly ? dilated endosonographic appearance in ? the genu of the pancreas. The ? pancreatic duct measured up to 3 mm ? in diameter. However, there was no ? evidence for associated stricture or ? mass so the finding is likely ? clinically insignificant. ? - The remainder of the EUS was ? unremarkable. Recommendation: ?- Observe patient's clinical course. ? - Reassurance. ? Attending Participation: ? I personally performed the entire procedure. ? Alec Barraza MD 10/08/2021 2:27:13 PM This report has been signed electronically. Number of Addenda: 0 Note Initiated On: 10/08/2021 11:29 AM [employer]ATION 10/08/2021 11:2 9 AM EST Shreya Ambrose APRN GENERAL SURGICAL ORDERABLES [employer]ATION * COLONOSCOPY (10/08/2021 11:29 AM EST) COLONOSCOPY [facility] Endoscopy ___ Procedure Date: 10/08/2021 11:29 AM ? Patient Name: Audrey Page ? N: [id number] ? Date of : 1955 ? Age: 66 ? Order #: [id number] ? Instrument Name: [id number] ? ___ Procedure: ? Colonoscopy Indications: ? [...] preparation ? was evaluated using the BBPS (Lyndon ? Bowel Preparation Scale) with scores ? [...] 10/08/2021 11:2 9 AM EST Shreya Ambrose APRN GENERAL SURGICAL ORDERABLES [employer] documented in this encounter Visit Diagnoses Not on filedocumented in this encounter Active and Recently Administered Medications Due to Daylight Saving Time, this section may contain times in both EDT and EST. Continuous Medication Order 10/06/2021 10/07/2021 10/08/2021 lactated ringers infusion (CANCELED) 100 mL/hr, Intravenous, CONTINUOUS, Starting on Fri10/08/21 at 1245, Until Fri10/08/21 at 1453, Endoscopy (Day of Procedure) 1314 (New Bag - Prov ider: Roshan Haro CRNA)1358 (Anesthesia Volume Adjustment - Provider: Edouard Choudhary CRNA) documented in this encounter Care Teams Cook 3 Pastry Relationship Specialty Start Date End Date Shreya Ambrose APRN [address] [place] [address] PCP - General 09/06/14 documented as of this encounter
--- OUTSIDE RECORDS SUMMARY | 2024-08-27 01:13 | XMS_ITS | Encounter Summary ---
Author Organization [place] [address] Care Team Providers Care Check Inspector Name Role Phone Shreya Ambrose APRN Primary Care Provider [phone] Encounter Details Date Type Department Care Team (Latest Contact Info) Description 11/03/2023 Travel Social History Tobacco Use Types Packs/Day [...] 11:30 AM EST Office Visit Dermatology at [address] [place] [phone] José Villeda MD [address] [facility], [place] [address] documented as of this encounter Visit Diagnoses Not on filedocumented in this encounter Care Teams Check Inspector Relationship Specialty Start Date End Date Shreya Ambrose APRN [address] [place] [address] PCP - General 09/06/14 documented as of this encounter
--- OUTSIDE RECORDS SUMMARY | 2024-08-27 01:13 | XMS_ITS | Encounter Summary ---
Author Organization [facility] Address [facility] [place] [address] Care Team Providers Care Advertising Sales Assistant Name Role Phone Shreya Ambrose APRN Primary Care Provider [phone] Encounter Details Date Type Department Care Team (Late st Contact Info) Description 06/05/2021 Telephone [place] [address] Marilyn Mcleod MD [facility] [place] [address] Social History Tobacco Use Types Packs/Day Years Used Date Smoking Tobacco: Former Cigarettes 1 01/20/1977 - 11/19/1992 Smokeless Tobacco: Never Comments:Social smoker Sex and Gender Information Value Date Recorded Sex Assigned at Not on file Gender Identity Not on file Sexual Orientation Not on file documented as of this encounter Miscellaneous Notes * Telephone Encounter - Marilyn Mcleod MD - 06/05/2021 12:42 PM EDT Called patient to review results: AUS in left-sided nodule, ThyroSeq pending. I will notify her when those results are available, and we will make a decision about surgery. documented in this encounter Plan of Treatment Upcoming Encounters Date Type Department Care Team (Late st Contact Info) Description 10/07/2024 11:30 AM EST Office Visit Dermatology at [address] [phone] José Villeda MD [address] [place] [address] [address], [place] [address] documented as of this encounter Visit Diagnoses Not on filedocumented in this encounter Care Teams Advertising Sales Assistant Relationship Specialty Start Date End Date Shreya Ambrose APRN [address] [place] [address] PCP - General 09/06/14 documented as of this encounter
--- OUTSIDE RECORDS SUMMARY | 2024-08-27 01:13 | XMS_ITS | Encounter Summary ---
Author Organization Formerly [facility] [place] [address] Care Team Providers Care Industrial Automation Engineer Name Role Phone ArnolShreya head Any MONTGOMERY Primary Care Provider [phone] [phone] Encounter Details Date Type Department Care Team (Late st Contact Info) Description 12/14/2021 Telephone Gastroenterology at [facility] [place] [address] Tracey Nelson Social History Tobacco Use Types Packs/Day Years [...] encounter Miscellaneous Notes * Telephone Encounter - Tracey Nelson - 12/14/2021 9:01 AM EST Call made to patient per in basket request from: nursing Patient needs: JEZ from Dr. Barraza to Motility team LVM for patient to call GI clinic to schedule documented in this encounter Plan of Treatment Upcoming Encounters Date Type Department Care Team (Late st Contact Info) Description 10/07/2024 11:30 AM EST Office Visit Dermatology at [place] [address] [facility] [address] [place] [address] José Villeda MD [address], [place] [address] documented as of this encounter Visit Diagnoses Not on filedocumented in this encounter Care Teams Industrial Automation Engineer Relationship Specialty Start Date End Date Shreya Ambrose APRN [address] [place] [address] PCP - General 09/06/14 documented as of this encounter
--- OUTSIDE RECORDS SUMMARY | 2024-08-27 01:13 | XMS_ITS | Encounter Summary ---
Author Organization [facility] Address [facility] [place] [address] Care Team Providers Care Assault Amphibious Vehicle Crewman Name Role Phone Shreya Ambrose APRN Primary Care Provider [phone] [phone] Reason for Referral * Consultation (Routine) - Closed Specialty Diagnoses / Procedures Referred By Prerna odell Referred To Contact General Surgery Diagnoses Thyroid nodule Right superior most nodule with atypia (including a few scattered nuclear changes) and NRAS mutation on molecular testing. s/p left lobectomy with incidental finding of 1mm PTC. Procedures Right superior most nodule with atypia (including a few scattered nuclear changes) and NRAS mutation on molecular testing. s/p left lobectomy with incidental finding of 1mm PTC. Sunday Turner DO [facility] [place] [address] Marilyn Mcleod MD [facility] [place] [address] Referral ID Status Reason Start Date Expiration Date V isits Requested Visits Authorized [id number] Closed Consult, Test & Treat 08/25/2020 08/25/2021 1 1 Encounter Details Date Type Department Care Team (Late st Contact Info) Description 08/25/2020 12:00 PM EDT TH Visit (TeleHealth) [place] [address] Sunday Turner DO [facility] [place] [address] Thyroid nodule Social History Tobacco Use Types Packs/Day Years Used Date Smoking Tobacco: Former Cigarettes 1 01/20/1977 - 11/19/1992 Smokeless Tobacco: Never Comments:Social smoker Sex and Gender Information Value Date Recorded Sex Assigned at Not on file Gender Identity Not on file Sexual Orientation Not on file documented as of this encounter Progress Notes * YueSunday, - 08/25/2020 12:00 PM EDT Images from the original note were not included. Endocrinology Follow Up Visit Patient Name: Audrey Gaston Date of : 1955 PCP: Shreya Ambrose APRN Audrey Gaston is a very pleasant 65 y.o. 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 In 2013, She underwent left lobectomy (Dr Pham in [facility]). 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 She has been followed with serial ultrasounds since that time. She is feeling well and denies specific complaints. She reports having yearly thyroid blood work with her primary care provider in January 2020 everything was normal. Past medical history: Papillary carcinoma/microcarcinoma 1 mm in largest dimension REVIEW OF SYSTEMS: as per HPI, all other systems reviewed and negative No Known Allergies Current Outpatient Medications on File Prior to Visit Medication Sig Dispense Refill ??? omeprazole (PRILOSEC) 20 mg Capsule, Delayed Release(E.C.) No current facility-administered medications on file prior to visit. Social History Socioeconomic History ??? Marital status: Spouse name: Not on file ??? Number of children: Not on file ??? Years of education: Not on file ??? Highest education level: Not on file Occupational History ??? Not on file Social Needs ??? Financial resource strain: Not on file ??? Food insecurity Worry: Not on file Inability: Not on file ??? Transportation needs Medical: Not on file Non-medical: Not on file Tobacco Use ??? Smoking status: Former Smoker Years: 15.00 Types: Cigarettes Quit date: 11/19/1992 Years since quittin.7 ??? Smokeless tobacco: Never Used ??? Tobacco comment: Social smoker Substance and Sexual Activity ??? Alcohol use: Not on file ??? Drug use: Not on file ??? Sexual activity: Not on file Lifestyle ??? Physical activity Days per week: Not on file Minutes per session: Not on file ??? Stress: Not on file Relationships ??? Social connections Talks on phone: Not on file Gets together: Not on file Attends faith service: Not on file Active member of club or organization: Not on file Attends meetings of clubs or organizations: Not on file Relationship status: Not on file ??? Intimate partner violence Fear of current or ex partner: Not on file Emotionally abused: Not on file Physically abused: Not on file Forced sexual activity: Not on file Other Topics Concern ??? Not on file Social History Narrative ??? 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 There has been a small interval increase (0.4cm) over 3 years in the larger of the right-sided nodules and therefore I recommended fine-needle aspiration. The cytology revealed atypia and therefore molecular testing was completed revealing an intermediate risk of malignancy including NIFTP. Given the molecular test results and her prior history of a 1 mm foci of papillary thyroid cancer I have recommended she meet with our endocrine surgeon for a discussion regarding completion thyroidectomy. Recommendations: - Surgical referral placed for discussion of completion thyroidectomy vs surveillance. Sunday Turner DO, MS Junior Account Executivetheatrical rigger Department of Medicine Section of Endocrinology [facility] cc: [address] documented in this encounter Plan of Treatment Upcoming Encounters Date Type Department Care Team (Late st Contact Info) Description 10/07/2024 11:30 AM EST Office Visit Dermatology at [place] [address] [place] [id number] José Villeda MD [address], [place] [address] documented as of this encounter Procedures Procedure Name Priority Date/Time Associated Diagnosis Comments AMB REFERRAL TO GENERAL SURGERY Routine 11/14/2020 11:08 PM EST Thyroid nodule documented in this encounter Results * Referral to General Surgery (11/14/2020 11:08 PM EST) Sunday Turner DO OUTPATIENT REFERRAL ORDERABLES documented in this encounter Visit Diagnoses Diagnosis Thyroid nodule Nontoxic uninodular goiter documented in this encounter Care Teams Assault Amphibious Vehicle Crewman Relationship Specialty Start Date End Date Shreya Ambrose APRN [address] [place] [address] PCP - General 09/06/14 documented as of this encounter
--- OUTSIDE RECORDS SUMMARY | 2024-08-27 01:13 | XMS_ITS | Encounter Summary ---
Author Organization [facility] [place] [address] Care Team Providers Care Station Mechanic Apprentice Name Role Phone Shreya Ambrose APRN Primary Care Provider [phone] Encounter Details Date Type Department Care Team (Latest Contact Info) Description 11/07/2022 Travel Social History Tobacco Use Types Packs/Day [...] 11:30 AM EST Office Visit Dermatology at [address] [place] [address] José Villeda MD [address] [facility], [place] [address] documented as of this encounter Visit Diagnoses Not on filedocumented in this encounter Care Teams Station Mechanic Apprentice Relationship Specialty Start Date End Date Shreya Ambrose APRN [address] [place] [address] PCP - General 09/06/14 documented as of this encounter
--- OUTSIDE RECORDS SUMMARY | 2024-08-27 01:13 | XMS_ITS | Encounter Summary ---
Author Organization [facility] Address [facility] [place] [address] Care Team Providers Care Playground Official Name Role Phone Shreya Ambrose APRN Primary Care Provider [phone] Reason for Visit * Reason Comments Follow-up Encounter Details Date Type Department Care Team (Late st Contact Info) Description 11/01/2021 11:15 AM EST Office Visit [place] [phone] Marilyn Mcleod MD [facility] [place] [address] Multiple thyroid nodules Social History Tobacco Use [...] Pressure - - Pulse - - Temperature 36.6 ??C (97.8 ??F) 11/01/2021 1 1:02 AM EST Respiratory Rate - - Oxygen Saturation - - Inhaled Oxygen Concentration - - Weight 47.1 kg (103 lb 14.4 oz) 021 11:02 AM EST Height 149.9 cm (4' 11.02) 11/01/2021 11:02 AM EST Body Mass Index 20.97 11/01/2021 11:02 AM EST documented in this encounter Progress Notes * Marilyn Mcleod MD - 11/01/2021 11:15 AM EST Endocrine Surgery Follow Up ?? HPI:??Ms.??Audrey Magaña Page??is a 66 y.o.??year old female??whom I am following for bilateral thyroid nodules. To briefly review, her history is significant for a left lobectomy??in 2013 for a multinodular goiter. This was done by Dr. Toño Edwards, a general surgeon at [facility]. 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 She was subsequently followed by ultrasound. Her biopsy history since surgery is as follows: January 2017 (FNAs at [facility]) Right inferior: benign Right posterior: nondiagnostic Left remnant: benign October 2017 (FNA with Dr. Turner, [facility] endocrinology) Right posterior: Gypsy 3 cytology (predominantly Hurthle cells, some with nuclear atypia) ThyGenX: no mutations, very highly likely benign July 2020 (FNA with [facility] IR) Right superior (appears to be same as right inferior above): Gypsy 3 cytology (rare clusters of atypical follicular cells with mild nuclear enlargement and nuclear grooves.) ThyroSeq: NRAS (50% risk of malignancy) May 2021 Left remnant nodule: Gypsy 3 cytology ThyroSeq: negative, but low cell content Right posterior: aborted due to aspiration of solomon blood x 3 Given that she is not requiring thyroid hormone supplementation, she is asymptomatic, and she had adifficult time recovering from her prior hemithyroidectomy, she has elected for ultrasound surveillance. She presents back today in 6-month follow up. ?? She continues to be asymptomatic. She reports that she had a recent TSH with her PCP that was normal. PMH, PSH, Medications and Allergies: all reviewed in eDH and not significantly changed since prior visit Physical Exam: No data found. Body mass index is 20.97 kg/m??. General: well-appearing, NAD Neuro: Alert and oriented x 3. ??Cranial nerves II-XII grossly intact. Eyes: no lid lag or proptosis ENT: Moist mucus membranes. ??Trachea midline Thyroid:??well-healed anterior neck incision. ??~2cm nodule on right. ??possible 1.5-2cm left-sidedthyroid nodule. Mobile with swallowing. Lymph: No palpable cervical lymphadenopathy CV: RRR Respiratory: Normal respiratory effort. ??Lungs clear bilaterally. Extremities well-perfused without edema Skin:??warm and dry. ??No rashes Psych: appropriate affect ?? Labs:?? TSH 1.09 (05/2020) ?? Imaging: ?? Thyroid, Parathyroid and Cervical Ultrasound ?? I performed a thyroid, parathyroid and cervical ultrasound at the time of the clinic visit today using the 12 mHz linear ultrasound transducer. ??The thyroid, parathyroid and central and bilateral lateral neck lymph node basins were evaluated. ?? Thyroid Isthmus: ?Surgically absent Right lobe: ?Lobe: ??5.70 x 2.19 x 2.41??cm ?Nodules: There is a??slightly hyperechoic??nodule measuring 1.73 x 1.13 x 1.47 cm (compared with 1.73 x 1.17 x 1.65cm in May 2021 and 1.67??x 0.92??x 1.40??cm in October 2020). ??It has well-defined??borders. ??There are not??microcalcifications. ??There is no/low vascularity. ??There is a second, poorly-defined hypoechoic nodule with ill-defined borders, possible microcalcifications, andno/low vascularity at the inferior and lateral aspect of the lobe measuring 1.19 x 0.48 x 0.81 cm (compared with 1.29 x 0.63 x 1.12cm in May 2021 and 1.06 x 0.80 x 0.80cm in October 2020) Left lobe: ?The lobe is surgically absent, but there are two nodules in the thyroid bed. ??One measures 1.39 x 1.04 x 1.05 (compared with 1.56 x 1.09 x 1.13cm in May 2021 and 1.46 x 1.15 x 0.99cm in October 2020), is isoechoic, well- circumscribed, without calcifications and with a small amount of internal vascularity. ??The second is similar in echogenicity and measures 0.68 x 0.45 x 0.51 cm (noted to be 7mm in greatest dimension in May 2021) ?? Cervical lymph nodes ?Central neck: Normal ultrasonographic appearing lymph nodes. ?Right lateral neck: Normal ultrasonographic appearing lymph nodes.?Left lateral neck: ??Normal ultrasonographic appearing lymph nodes. ? A/P: Ms. Gaston is a 66-year-old woman who is status post left hemithyroidectomy in 2013, who presents today in 6-month surveillance of bilateral nodules. All of these have been biopsied at some point in the past, but the summary of these results outlined in H&P. I have offered completion thyroidectomy in the past, but Ms. Gaston would like to avoid surgery. All of her nodules are stable compared with my last ultrasound 6 months ago. Her strong preference is to continue to avoid surgery. She expresses good understanding that there is a chance we may be missing a malignancy, as not all of her cytology was definitively benign. However, given the ultrasound characteristics and stability of thenodules in size, I think this is a reasonable strategy. I recommend a follow-up with me in 1 year. At that time, we could start to consider whether she could have her surveillance ultrasounds more locally. documented in this encounter Plan of Treatment Upcoming Encounters Date Type Department Care Team (Late st Contact Info) Description 10/07/2024 11:30 AM EST Office Visit Dermatology at [place] [address] [place] [address] José Villeda MD [address] [facility], [place] [address] documented as of this encounter Visit Diagnoses Diagnosis Multiple thyroid nodules Nontoxic multinodular goiter documented in this encounter Care Teams Playground Official Relationship Specialty Start Date End Date Shreya Ambrose APRN [address] [place] [address] PCP - General 09/06/14 documented as of this encounter
--- OUTSIDE RECORDS SUMMARY | 2024-08-27 01:13 | XMS_ITS | Encounter Summary ---
Author [facility] [place] [address] Care Team Providers Care Semiconductor Processing Group Leader Name Role Phone Shreya Ambrose APRN Primary Care Provider [phone] Encounter Details Date Type Department Care Team (Latest Contact Info) Description 05/13/2024 Travel Social History Tobacco Use Types Packs/Day [...] 11:30 AM EST Office Visit Dermatology at [address] [place] [address] José Villeda MD [address] [facility], [place] [address] documented as of this encounter Visit Diagnoses Not on filedocumented in this encounter Care Teams Semiconductor Processing Group Leader Relationship Specialty Start Date End Date Shreya Ambrose APRN [address] [place] [address] PCP - General 09/06/14 documented as of this encounter
--- OUTSIDE RECORDS SUMMARY | 2024-08-27 01:13 | XMS_ITS | Encounter Summary ---
[place] [address] Care Team Providers Care Brownfield Redevelopment Specialist Name Role Phone Shreya Ambrose APRN Primary Care Provider [phone] Reason for Referral * Diagnostic Test (Routine) - Closed Specialty Diagnoses / Procedures Referred By Prerna odell Referred To Contact Radiology Diagnoses Thyroid nodule Procedures IR US Guided Biopsy [facility] [place] [address] [place] [address] Referral ID Status Reason Start Date Expiration Date V isits Requested Visits Authorized [id number] Closed Specialty Service Requested 04/26/2020 10/22/2021 1 1 Reason for Visit * Diagnostic Test (Routine) - Closed Specialty Diagnoses / Procedures Referred By Prerna odell Referred To Contact Radiology Diagnoses Thyroid nodule Procedures IR US Guided Biopsy Thyroid FNA Sunday Turner [facility] [place] [address] [place] [address] Referral ID Status Reason Start Date Expiration Date V isits Requested Visits Authorized [id number] Closed Specialty Service Requested 04/26/2020 10/22/2021 1 1 Encounter Details Date Type Department Care Team (Latest Contact Info) Description 07/28/2020 8:41 AM EDT - 07/28/2020 11:59 PM EDT Hospital [place] [address] Sunday Turner [facility] [place] [address] Thyroid nodule Discharge Disposition: Home Social History Tobacco Use Types Packs/Day Years Used Date Smoking Tobacco: Former Cigarettes 1 01/20/1977 - 11/19/1992 Smokeless Tobacco: Never Comments:Social smoker Sex and Gender Information Value Date Recorded Sex Assigned at Not on file Gender Identity Not on file Sexual Orientation Not on file documented as of this encounter Medications at Time of Discharge Medication Sig Dispensed Refills Start Date End Date omeprazole (PRILOSEC) 20 mg Capsule, Delayed Release(E.C.)Indications:Leukopenia, unspecified type 07/20/2018 11/02/2020 documented as of this encounter Plan of Treatment Upcoming Encounters Date Type Department Care Team (Late st Contact Info) Description 10/07/2024 11:30 AM EST Office Visit Dermatology at [place] [address] [facility] [place] [address] José Villeda MD [address] [facility], [place] [address] documented as of this encounter Procedures Procedure Name Priority Date/Time Associated Diagnosis Comments IR FNA THYROID NODULE Routine 07/28/2020 11:17 AM EDT Thyroid nodule NON-ASSOCIATE DIRECTOR OF NURSING FINAL REPORT Routine 07/28/2020 10:44 AM EDT CYTOPATHOLOGY NON-GYNECOLOGICAL Routine 07/28/2020 10:44 AM EDT documented in this encounter Results * IR US Guided [...] report, please contact the number below. ? Electronically signed by: Dylan Blackwell [facility] ([phone]), at 07/31/2020 4:47 PM Narrative 07/31/2020 4:47 PM EDT NEURORADIOLOGY PROCEDURE [...] this report, please contact the number below. Electronically signed by: Dylan Blackwell [facility]([phone]), at 07/31/2020 4:47 PM Sunday Turner DO IMG IR ORDERABLES * Non-Innersole Maker Final Report (07/28/2020 10:44 AM EDT) Diagnosis Discussion [id number] ? Location: [facility] The signing pathologist has (i) examined the relevant preparation(s) for the specimen(s) and (ii) rendered or confirmed the diagnosis(es). . ? Non-Innersole Maker Final DIAGNOSIS Atypia of Undetermined Significance Electronically signed by: ??Leonardo SPEARS, Angely Verified: ??07/31/2020 ?Pathologist Performed at: ??[facility] Dept. of Pathology, [place], [place] DISCUSSION Thyroid, right (US guided FNA): Atypia of Undetermined Significance (see note). A rare cluster of atypical follicular cells with mild nuclear enlargement and nuclear grooves, is noted. The specimen contains ?predominantly Hurthle cells, ??abundant macrophages, rare lymphocytes, and small amount colloid. Note: Clinical correlation is recommended. ?A sample will be sent for molecular testing. Reference: Ladonna TELLEZ, ??Cibyasmeen ??ES. The [employer] System for Reporting Thyroid Cytopathology. [place]: [place]; 2018. CLINICAL INFORMATION Specimen Source : Thyroid, right (US guided FNA) Pertinent Clinical Data and Significant Therapy: History of microPTC. Please biopsy the larger (1.8cm) superior nodule in the right thyroid lobe. Clinical Impression : History of microPTC. Please biopsy the larger (1.8cm) superior nodule in the right thyroid lobe. Pertinent Radiologic Findings ??: (not provided) Gross Description: Received ??in CytoLyt approximately 30 mL total volume of ?? clear, pink fluid, with light flecks. Total Preparation: Liquid-Based Prep 1. A separate sample was received for potential molecular testing. 07/31/2020 12:43 PM EDT [facility] THYROID STRUCTURE / Unknown 07/28/2020 10:44 AM EDT 07/28/2020 10:44 AM EDT Sunday Turner DO PATHOLOGY/CYTOLOGY O RDERABREANNE Performing Organization Address [facility] Co de Phone Number [facility] [place] [address] * Cytopathology Non-Gynecological (07/28/2020 10:44 AM EDT) AP Specimen 07/28/2020 10:4 4 AM EDT 07/28/2020 10:44 AM EDT Narrative [facility] - 07/28/2020 10:44 AM EDT Specimen requisition ordered. ??Separate Pathology report to follow Sunday Turner DO PATHOLOGY/CYTOLOGY O RDERABREANNE Performing Organization Address [facility] Co de Phone Number [facility] [place] [address] documented in this encounter Visit Diagnoses Diagnosis Thyroid nodule Nontoxic uninodular goiter documented in this encounter Care Teams Brownfield Redevelopment Specialist Relationship Specialty Start Date End Date Shreya Ambrose APRN [address] [place] [address] PCP - General 09/06/14 documented as of this encounter
--- OUTSIDE RECORDS SUMMARY | 2024-08-27 01:13 | XMS_ITS | Encounter Summary ---
Author Organization Formerly [facility], 1928–1983 Address [facility] [place] [address] Care Team Providers Care Promotion Producer Name Role Phone Shreya Ambrose APRN Primary Care Provider [phone] [phone] Encounter Details Date Type Department Care Team (Late st Contact Info) Description 10/08/2021 1:00 PM EST - 10/08/2021 2:15 PM EST Surgery [place] [phone] Alec Barraza MD [facility] [place] [address] EGD, UPPER GI ENDOSCOPY (VU 2.09) Social History Tobacco Use Types Packs/Day Years [...] Sign Reading Time Taken Comments Blood Pressure 87/59 10/08/2021 2:10 PM EST Pulse 105 10/08/2021 12:07 PM EST Temperature 37.4 ??C (99.4 ??F) 10/08/2021 12:[address] Respiratory Rate 16 10/08/2021 2:10 PM EST Oxygen Saturation 99% 10/08/2021 2:10 PM EST Inhaled Oxygen Concentration - - [...] the day after the test, use an tmyw-rur-jfwbume spray or lozenges to numbyour throat. Warm [...] occurs, please contact your doctor. Please call [phone] before 8pm Mon-Fri with problems, questions, or concerns. If you call after 8pm or on weekends, call the Hospital at [phone] and ask for the Cable Weaver day habilitation specialist and the strapping machine operator will contact that person for you. When should you call for help? Call [phone] anytime you think you may need emergency [...] more? You can view health information on [email or web address], your personal patient account. Log in or sign up today. Content Version: 12.2 ?? 8588-5080 edPULSE. Care instructions adapted under license by [facility]. If you have questions about a medical condition or this instruction, always ask your healthcare professional. [employer] disclaims any warranty or liability for your [...] the day after the procedure, use an idac-noo-nvwdzvn spray to numb your throat. Sucking on [...] occurs, please contact your Doctor. Please call [phone] before 8pm Mon-Fri with problems, questions or concerns. If you call after 8pm or on weekends, call the Hospital at [phone] and ask to speak to the Cable Weaver day habilitation specialist and the strapping machine operator will contact that person for you. When should you call for help? Call [phone] anytime you think you may need emergency [...] any problems. Where can you learn more? [facility] View your After Visit Summary and more online at [email or web address] If you would like to provide feedback [...] cost to you. Content Version: 12.2 ?? 1116-0494 edPULSE. Care instructions adapted under license by [facility]. If you have questions about a medical condition or this instruction, always ask your healthcare professional. ed[employer]ULSE disclaims any warranty or liability for your use of this information. * Patient Instructions* Alec Barraza MD - 10/08/2021 2:16 PM EST Please see Recommendations in the Provation procedure report which is documented in the procedural note in E-DH. documented in this encounter Medications at Time of Discharge Medication Sig Dispensed Refills Start Date End Date flu vacc xt1177-55,65yr up,/PF (FluZONE HighDose Quad 20-21 PF) 240 [...] encounter Miscellaneous Notes * Op Note - Alec Barraza MD - 10/08/2021 1:27 PM EST [facility] [place] [place] Operative Note Patient Name: Audrey Gaston : [id number] MR#: [id number] Case Date: 10/08/2021 Surgeon: Surgeon(s) and Role: * Alec Barraza MD - Primary Preoperative diagnosis: ABnl CT, dyspepsia and screening Postoperative diagnosis: * No post-op diagnosis entered * Procedure(s) (LRB): EGD, UPPER GI ENDOSCOPY (N/A) UPPER EUS- ENDOSCOPIC ULTRASOUND (N/A) COLONOSCOPY, POLYPECTOMY, REMOVAL LESION BY SNARE (WRVU 4.67) (N/A) Anesthesia: MAC Full procedure note is documented under the Procedure section of eD. documented in this encounter Plan of Treatment Upcoming Encounters Date Type Department Care Team (Late st Contact Info) Description 10/07/2024 11:30 AM EST Office Visit Dermatology at [address] [phone] José Villeda MD [address] [facility], [place] [address] documented as of this encounter Procedures Procedure Name Priority Date/Time Associated Diagnosis Comments SPECIMEN TO PATHOLOGY Routine 10/08/2021 2:04 PM EST SURGICAL PATHOLOGY REPORT Routine 10/08/2021 2:01 PM EST Colonoscopy, Remv Lesn, Snare ([id number]) 10/08/2021 1:16 PM EST Epigastric pain Screening for colon cancer Endoscopic Us Exam, Esoph ([id number]) 10/08/2021 1:16 PM EST Epigastric pain Screening for colon cancer Upper GI Endoscopy, Diagnostic ([id number]) 10/08/2021 1:16 PM EST Epigastric pain Screening for colon cancer UPPER GI ENDOSCOPY Routine 10/08/2021 11 :30 AM EST UPPER EUS-ENDOSCOPIC ULTRASOUND Routine 10/08/2021 11:29 AM EST COLONOSCOPY Routine 10/08/2021 11:29 AM EST documented in this encounter Results * Specimen to Pathology (10/08/2021 2:04 PM EST) AP Specimen 10/08/2021 2:04 PM EST 10/08/2021 2:04 PM EST Narrative [facility] - 10/08/2021 2:04 PM EST Specimen requisition ordered. ??Separate Pathology report to follow Alec Barraza MD PATHOLOGY/CYTOLOGY O MARTI [facility] [place] [address] * Surgical Pathology Report (10/08/2021 2:01 PM EST) Final Diagnosis [id number] ? Location: 4T; EA08; A The signing pathologist has (i) examined the relevant preparation(s) for the specimen(s) and (ii) rendered or confirmed the diagnosis(es). . ?Surgical Pathology DIAGNOSIS A - Rectal polyp, excision: - ??Hyperplastic polyp. CR-PX Electronically signed by: ?Edmond Banks MD Verified: ??10/12/2021 12:53 ??Pathologist Performed at: ??-[facility] [place] [place] Dept. of Pathology, [place], [place] SPECIMEN(S) SUBMITTED A - Rectal polyp, excision (1) CLINICAL INFORMATION 66-year-old with abdominal pain SPECIMEN PROCESSING A - Labeled/Fixativ e: Rectal polyp, formalin. Quantity/Size: Single, 1.0 x 0.4 x 0.1 cm. Tissue Description: Soft, pink-red tissue. Sections/Proces sing: Quadrisected and entirely submitted in 1 cassette labeled A1. ??sns 10/12/2021 12:53 PM EST [facility] GI Biopsy 10/08/2021 2:01 PM EST 10/08/2021 2:01 PM EST Alec Barraza MD PATHOLOGY/CYTOLOGY Everardo KIDD [facility] [place] [address] * UPPER GI ENDOSCOPY (10/08/2021 11:30 AM EST) UPPER GI ENDOSCOPY [facility] ___ Procedure Date: 10/08/2021 11:30 AM ? Patient Name: Audrey Page ? N: [id number] ? Date of : 1955 ? Age: 66 ? Order #: [id number] ? Instrument Name: [id number] ? ___ Procedure: ? Upper GI endoscopy [...] (10/08/2021 11:29 AM EST) UPPER ENDOSCOPIC ULTRASOUND [facility] Procedure Date: 10/08/2021 11:29 AM ? Patient Name: Audrey Page ? Date of : 1955 ? Age: 66 ? Order #: [id number] ? Instrument Name: [id number] ? Procedure: ? Upper EUS Indications: ? [...] * COLONOSCOPY (10/08/2021 11:29 AM EST) COLONOSCOPY [facility] ___ Procedure Date: 10/08/2021 11:29 AM ? Patient Name: Audrey Page ? N: [id number] ? Date of : 1955 ? Age: 66 ? Order #: [id number] ? Instrument Name: [id number] ? ___ Procedure: ? Colonoscopy Indications: ? [...] preparation ? was evaluated using the BBPS ([place] ? Bowel Preparation Scale) with scores ? [...] PROVATION documented in this encounter Visit Diagnoses Diagnosis Epigastric pain Abdominal pain, epigastric Screening for colon cancer Special screening for malignant neoplasms, colon documented in this encounter Active and Recently Administered [...] CRNA) documented in this encounter Care Teams Promotion Producer Relationship Specialty Start Date End Date Shreya Ambrose APRN [address] [place] [address] PCP - General 09/06/14 documented as of this encounter
--- OUTSIDE RECORDS SUMMARY | 2024-08-27 01:13 | XMS_ITS | Encounter Summary ---
Author Organization [facility] Address [facility] [place] [address] Care Team Providers Care Manager Of Financial Reporting Name Role Phone Shreya Ambrose APRN Primary Care Provider +1 [phone] Encounter Details Date Type Department Care Team (Late st Contact Info) Description 11/07/2022 11:15 AM EST Office [place] [address] Marilyn Mcleod MD [facility] [address] [place] [address] Multiple thyroid nodules Social History Tobacco Use [...] Sign Reading Time Taken Comments Blood Pressure 152/87 11/07/2022 11:25 AM EST Pulse 70 11/07/2022 11:25 AM EST Temperature 36.1 ??C (97 ??F) 11/07/2022 11:25 AM EST Respiratory Rate 18 11/07/2022 11:25 AM EST Oxygen Saturation 99% 11/07/2022 11:25 AM EST Inhaled Oxygen Concentration - - Weight 49.4 kg (109 lb) 11/07/2022 11:25 AM EST Height - - Body Mass Index 22 11/01/2021 11:02 AM EST documented in this encounter Progress Notes * Marilyn Mcleod MD - 11/07/2022 11:15 AM EST Endocrine Surgery??Follow Up ?? HPI:??Ms.??Audrey M Page??is a 67??y.o.??year old female??whom I am following for bilateral thyroidnodules. To briefly review, her history is significant for??a left lobectomy??in 2013 for a??multinodular goiter. ??This was done by Dr. Toño Edwards, a general surgeon at [facility]. 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 ? Her biopsy history since surgery is as follows: ?? January 2017 (FNAs at [facility]) Right inferior: benign Right posterior: nondiagnostic Left remnant: benign ?? October 2017 (FNA with Dr. Turner, [facility] endocrinology) Right posterior: [place] 3 cytology (predominantly Hurthle cells, some with nuclear atypia) ThyGenX: no mutations, very highly likely benign ?? July 2020 (FNA with [facility] IR) Right superior (appears to be same as right inferior above): [place] 3 cytology (rare clusters of atypical follicular cells with mild nuclear enlargement and nuclear grooves.) ThyroSeq: NRAS (50% risk of malignancy) ?? May 2021 Left remnant nodule: [place] cytology ThyroSeq: negative, but low cell content Right posterior: aborted due to aspiration of solomon blood x 3 ?? Given that she is not requiring thyroid hormone supplementation, she is asymptomatic, and she had adifficult time recovering from her prior hemithyroidectomy, she has elected for ultrasound surveillance. ??Ultrasound follow-ups have been stable. ?? She continues to be asymptomatic. ??She reports that she had a recent TSH with her PCP that was normal. ?? PMH, PSH, Medications and Allergies: all reviewed in eDH and not significantly changed since prior visit ?? Physical Exam: Vitals Flowsheet Row Office Visit from 11/07/2022 in General Surgery at [facility] Weight 49.4 kg (109 lb) Temp 36.1 ??C (97 ??F) Heart Rate 70 Resp 18 BP 152/87 SpO2 99 % Body mass index is 22 kg/m??. ?? General: well-appearing, NAD Neuro: Alert and oriented [...] rashes Psych: appropriate affect ?? Labs:?? TSH 1.31 (05/2022) ?? Imaging: ?? Thyroid, Parathyroid and Cervical Ultrasound ?? I performed a thyroid, parathyroid and cervical ultrasound at the time of the clinic visit today using the 12 mHz linear ultrasound transducer. ??The thyroid, parathyroid and central and bilateral lateral neck lymph node basins were evaluated. ?? Thyroid Isthmus: ?Surgically absent Right lobe: ?Lobe:?5.31 x 2.28 x 2.18??cm ?Nodules: There is a??slightly??hyperechoic??nodule measuring?? 1.71 x 1.28 x 1.59cm (comparedwith 1.73 x 1.13 x 1.47 cm in 11/20, 1.73 x 1.17 x 1.65cm in May 2021, and??1.67??x 0.92??x 1.40??cm??in October 2020). ??It has well- defined??borders. ??There are not??microcalcifications. ??Thereis no/low vascularity. ??There is a second, poorly-defined hypoechoic nodule with ill- defined borders,??possible microcalcifications, and no/low vascularity at the inferior and lateral aspect of the lobe??measuring 1.15 x 0.54 x 1.30 (compared with 1.19 x 0.48 x 0.81 cm in 11/20, 1.29 x 0.63 x 1.12cm in May 2021 and 1.06 x 0.80 x 0.80cm in October 2020) ?? Left lobe: ?The lobe is surgically absent, but there are two nodules in the thyroid bed. ??One measures?? 1.59 x 1.23 x 1.12cm (compared with 1.39 x 1.04 x 1.05 in 11/20, 1.56 x 1.09 x 1.13cm in May 2021 and??1.46 x 1.15 x 0.99cm??in October 2020), is isoechoic, well-circumscribed, without calcificationsand with a small amount of internal vascularity. ??The second is similar in echogenicity and measures?? 0.85 x 0.49 x 0.49cm (compared with 0.68 x 0.45 x 0.51 cm In 11/20 and 7mm in greatest dimension in May 2021) ?? Cervical lymph nodes ?Central neck: Normal ultrasonographic appearing lymph nodes. ?Right lateral neck: Normal ultrasonographic appearing lymph nodes.?Left lateral neck: ??Normal ultrasonographic appearing lymph nodes.? A/P:??Ms. Gaston is a 67-year-old woman who is status post left hemithyroidectomy in 2014, who presents today in annual surveillance of bilateral nodules. ??All of these have been biopsied at some point in the past, with the summary of these results outlined in H&P. ??I have offered completion thyroidectomy in the past, but Ms. Gaston would like to avoid surgery. ??Her nodules are sonographically stable. ?? Her strong preference is to continue to avoid surgery. She expresses good understanding that there is a chance we may be missing a malignancy, as not all of her cytology was definitively benign. However, given the ultrasound characteristics and stability of the nodules in size, I think this is a reasonable strategy. I recommend a follow-up ultrasound in 1 year, for which she prefers tocontinue to see me. documented in this encounter Plan of Treatment Upcoming Encounters Date Type Department Care Team (Late st Contact Info) Description 10/07/2024 11:30 AM EST Office Visit Dermatology at [address] [place] [address] José Villeda MD [address] [facility], [place] [address] documented as of this encounter Visit Diagnoses Diagnosis Multiple thyroid nodules Nontoxic multinodular goiter documented in this encounter Care Teams Manager Of Financial Reporting Relationship Specialty Start Date End Date Shreya Ambrose APRN [address] [place] [address] PCP - General 09/06/14 documented as of this encounter
--- OUTSIDE RECORDS SUMMARY | 2024-08-27 01:13 | XMS_ITS | Encounter Summary ---
Author Organization [facility] Address [facility] [place] [address] Care Team Providers Care Automatic Line Set Up Mechanic Name Role Phone Shreya Ambrose APRN Primary Care Provider [phone] [phone] Encounter Details Date Type Department Care Team (Late st Contact Info) Description 09/05/2021 Telephone Gastroenterology at [facility] [place] [phone] Boni[place] Social History Tobacco Use Types Packs/Day Years Used Date Smoking Tobacco: Former Cigarettes 1 01/20/1977 - 11/19/1992 Smokeless Tobacco: Never Comments:Social smoker Sex and Gender Information Value Date Recorded Sex Assigned at Not on file Gender Identity Not on file Sexual Orientation Not on file documented as of this encounter Miscellaneous Notes * Telephone Encounter - BoniMarch - 09/05/2021 1:48 PM EDT Audrey Magaña Page [id number] Diagnosis/Indication: ABnl CT, dyspepsia and screening Age:66 y.o. 1. Have you ever had a/an Upper Endoscopy & Colonoscopy before? Yes: Date 3 years ago EGD [place], [place]; [place] - 10 years ago at [facility] If yes, did you have any problems with the procedure? No What type of sedation was used: unknown 2. Do you take any blood thinners or have you been diagnosed with a bleeding disorder that increases your risk of bleeding with procedures? No 3. Do you have a Pacemaker or Defibrillator device? No 4. Are you a diabetic? No 5. Do you have any Allergies to Eggs, Latex or Medications? No 6. Do you take any Oral Iron Supplements (Including multi-vitamins)? No 7. Do you have a history of three or more abdominal surgeries? No 8. Have you had a problem with sedation or anesthesia? No 9. Do you use a c-pap machine or oxygen tank? Neither 10. Do you take prescription narcotic pain medications, including suboxone or methodone? No 11. Do you have a preference regarding the gender of your provider? Yes: Male 12. Is there any other information you would like to us to note for the provider and nursing team who will perform your case? No 13. Say to patient: You must have a responsible constitution party who will drive you to your procedure, stay oncampus for the entire duration of your procedure, and drive you home from your procedure? *Please Verify the height and weight, and adjust if height and/or weight have changed* Estimated body mass index is 21.58 kg/m?? as calculated from the following: Height as of 05/31/21: 149.9 cm (4' 11.02). Weight as of 05/31/21: 48.5 kg (106 lb 14.4 oz). Age:66 y.o. documented in this encounter Plan of Treatment Upcoming Encounters Date Type Department Care Team (Late st Contact Info) Description 10/07/2024 11:30 AM EST Office Visit Dermatology at [place] [address] [facility] [place] [address] José Villeda MD [address] [facility] [address], [place] [address] documented as of this encounter Visit Diagnoses Not on filedocumented in this encounter Care Teams Automatic Line Set Up Mechanic Relationship Specialty Start Date End Date Shreya Ambrose APRN [address] [place] [address] PCP - General 09/06/14 documented as of this encounter
--- OUTSIDE RECORDS SUMMARY | 2024-08-27 01:13 | XMS_ITS | Encounter Summary ---
Author Organization [facility] Address [facility] [place] [address] Care Team Providers Care Lasting Room Supervisor Name Role Phone Shreya Ambrose APRN Primary Care Provider +1 [phone] Encounter Details Date Type Department Care Team (Latest Contact Info) Description 09/04/2021 4:40 PM EDT TH Visit (TeleHealth) [place] [address] Alec Barraza MD [facility] [place] [address] Screening for colon cancer (Primary Dx); Epigastric pain Social History Tobacco Use Types Packs/Day Years Used Date Smoking Tobacco: Former Cigarettes 1 01/20/1977 - 11/19/1992 Smokeless Tobacco: Never Comments:Social smoker Sex and Gender Information Value Date Recorded Sex Assigned at Not on file Gender Identity Not on file Sexual Orientation Not on file documented as of this encounter Progress Notes * Alec Barraza MD - 09/04/2021 4:40 PM EDT This was a telehealth visit due to the Covid epidemic. CC: Referred by Shreya Ambrose APRN for further evaluation of chronic epigastric pain as well as the need for a screening colonoscopy. HPI: For at least the past 3 years she has had chronic epigastric discomfort and has undergone extensive testing in [place] including an MRI of the abdomen, an upper endoscopy that showed nonspecific gastritis and 2 CT scans the most recent of which performed this fall showed borderline pancreatic ductal dilatation and the neck of the pancreas and some nonspecific narrowing of the sigmoid colonbut was otherwise unremarkable. She has been tried on numerous medications including proton pump inhibitors and more recently a tricyclic in the form of amitriptyline but has not received any relief from any of those medications. Her last colonoscopy was approximately 10 years ago. Despite her chronic epigastric discomfort she does not have significant change in bowel habits or weight loss. Current Outpatient Medications on File Prior to Visit Medication Sig Dispense Refill ??? amitriptyline (Elavil) 25 mg Tablet TAKE ONE TABLET BY MOUTH AT ONCE DAILY AT BEDTIME ??? flu vacc [id number],65yr up,/PF (FluZONE HighDose Quad 20-21 PF) 240 mcg/0.7 mL Syringe Inject 1mL into the muscle once. No current facility-administered medications on file prior to visit. Patient Active Problem List Diagnosis Code ??? Leucopenia D72.819 ??? Trigger finger M65.30 ??? Pain in toe M79.676 ??? Goiter E04.9 ??? Female stress incontinence N39.3 ??? Epigastric pain R10.13 Review of Systems: Constitutional: no weight loss HEENT: no visual changes, no URI symptoms Cardio: no chest pain Resp: no cough, no SOB, no FLORES or orthopnea Hem/Lymph: no new lumps or bumps on body GI: see HPI : no dysuria Integumentary: no new rashes Musculoskeletal: no new joint pains Neuro: no new numbness, weakness in extremities Objective: Physical Exam: Constitutional: Appears well-developed and well-nourished. Eyes: No scleral icterus. The remainder of the exam was deferred as this was a telehealth visit. 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 The finding of a borderline dilated pancreatic duct is likely to be clinically insignificant but could be further evaluated with an EUS exam at the same time as an upper endoscopy for repeat evaluation of her epigastric pain. Since she is due for follow-up screening colonoscopy as well as the need to evaluate the nonspecific sigmoid narrowingon CT scan, we could plan to do an EGD with EUS at the same time as a colonoscopy. She was agreeable to that approach so we will arrange for those exams in the near future. Further management or other therapeutic trials for dyspepsia could be considered pending those results. Most of this 30 minute telehealth visit spent in discussion and coordination of care regarding functional dyspepsia and abnormalities on CT imaging. Alec Barraza MD director prospect Director, GI Endoscopy Section of Gastroenterology and Hepatology [place] [address] Cc:Shreya Ambrose APRN documented in this encounter Plan of Treatment Upcoming Encounters Date Type Department Care Team (Late st Contact Info) Description 10/07/2024 11:30 AM EST Office Visit Dermatology at [place] [address] [place] [address] José Villeda MD [address], FABIO A DERMATOLOGY [place], [place] [id number] Scheduled Orders Name Type Priority Associated Diagnoses Orde r Schedule ENDOSCOPY CASE REQUEST: EGD, UPPER GI ENDOSCOPY, COLONOSCOPY, DIAGNOSTIC Procedures Routine Epigastric pain Screening for colon cancer Ordered: 09/04/2021 documented as of this encounter Visit Diagnoses Diagnosis Screening for colon cancer- Primary Special screening for malignant neoplasms, colon Epigastric pain Abdominal pain, epigastric documented in this encounter Care Teams Lasting Room Supervisor Relationship Specialty Start Date End Date Shreya Ambrose APRN [address] [place] [address] PCP - General 09/06/14 documented as of this encounter
--- OUTSIDE RECORDS SUMMARY | 2024-08-27 01:13 | XMS_ITS | Encounter Summary ---
Author Organization [facility] Address [facility] [place] [address] Care Team Providers Care Electronics Technician Apprentice Name Role Phone Sherya Ambrose APRN Primary Care Provider [phone] Encounter Details Date Type Department Care Team (Late st Contact Info) Description 04/25/2020 Orders [place] [address] Ferny Franks MD [facility] [place] [address] Social History Tobacco Use Types Packs/Day Years Used Date Smoking Tobacco: Former Cigarettes 1 01/20/1977 - 11/19/1992 Smokeless Tobacco: Never Comments:Social smoker Sex and Gender Information Value Date Recorded Sex Assigned at Not on file Gender Identity Not on file Sexual Orientation Not on file documented as of this encounter Progress Notes * Ferny Franks MD - 04/25/2020 2:57 PM EDT Images from the original note were not included. INTERVENTIONAL NEURORADIOLOGY FOCUSED H&P and PRE-PROCEDURE NOTE: PCP: Shreya Ambrose APRN Referring Provider: Sunday Turner Planned Procedure: US guided right thyroid nodule biopsy Procedure Indication: Right thyroid nodule Presenting Diagnosis/ Complaint: Audrey Magaña Page is 65 y.o. female with prior history of papillary thyroid cancer, status post left thyroidectomy. US 12/13/2019 shows 1.8cm solid right thyroid nodule with additional other nodules. Neuroradiology is consulted for biopsy of the 1.8 cm nodule. Past Medical/Surgical History: Patient Active Problem List Diagnosis Code ??? Leucopenia D72.819 No past medical history on file. No past surgical history on file. Medications: Current Outpatient Medications on File Prior to Visit Medication Sig Dispense Refill ??? omeprazole (PRILOSEC) 20 mg Capsule, Delayed Release(E.C.) No current facility-administered medications on file prior to visit. Allergies: Patient has no known allergies. Social History and Habits: Social History Socioeconomic History ??? Marital status: [...] status: Former Smoker Years: 15.00 Types: Cigarettes Last attempt to quit: 11/19/1992 Years since quittin.4 ??? Smokeless tobacco: Never Used ??? Tobacco [...] file Gets together: Not on file Attends yazidi service: Not on file Active member of [...] Social History Narrative ??? Not on file Significant Family History: No family history on file. Pertinent ROS: as per HPI Labs: Lab Results Component Value Date WBC 3.47 11/09/2019 ANC 1.98 11/09/2019 HCT 40.5 11/09/2019 PLATELET 182 11/09/2019 Imaging: Physical Exam: Pending (to be performed in angio the day of procedure) ASA: Pending (to be assessed in angio the day of procedure) Mallampati Class: Pending (to be assessed in angio the day of procedure) Assessment: Audrey Gaston is 65 y.o. female with prior history of papillary thyroid cancer, status post left thyroidectomy. US 12/13/2019 shows 1.8cm solid right thyroid nodule with additional other nodules. Neuroradiology is consulted for biopsy of the 1.8 cm nodule. Plan: Ultrasound guided biopsy of right thyroid nodule Position: Supine Sedation: None Medications to hold: None Labs to order: None. Prior PLT 182 on 11/09 Medications for procedure: Lidocaine Pathology present: No Consent: To be obtained day of procedure Ferny Franks MD Neuroradiology fellow 04/25/2020 documented in this encounter Plan of Treatment Upcoming Encounters Date Type Department Care Team (Late st Contact Info) Description 10/07/2024 11:30 AM EST Office Visit Dermatology at [place] [address] [facility] [place] [address] José Villeda MD [address] [facility], [place] [address] documented as of this encounter Visit Diagnoses Not on filedocumented in this encounter Care Teams Electronics Technician Apprentice Relationship Specialty Start Date End Date Shreya Ambrose APRN [address] [place] [address] PCP - General 09/06/14 documented as of this encounter
--- OUTSIDE RECORDS SUMMARY | 2024-08-27 01:13 | XMS_ITS | Encounter Summary ---
Author Organization [facility] Address [facility] [place] [address] Care Team Providers Care Dermatology Specialist Name Role Phone Shreya Ambrose APRN Primary Care Provider [phone] Encounter Details Date Type Department Care Team (Late st Contact Info) Description 05/13/2024 11:15 AM EDT Office [place] [address] Marilyn Mcleod MD [facility] GENER[place] [address] Multiple thyroid nodules Social History Tobacco Use [...] 05/13/2024 11:21 AM E DT Respiratory Rate - - Oxygen Saturation 98% 05/13/2024 11:21 AM EDT Inhaled Oxygen Concentration - - Weight 48.3 kg (106 lb 8 oz) 05/13/2024 11:21 AM EDT Height 148.5 cm (4' 10.47) 05/13/2024 11:21 AM EDT Body Mass Index 21.91 05/13/2024 11:21 AM EDT documented in this encounter Progress Notes * Marilyn Mcleod MD - 05/13/2024 11:15 AM EDT Endocrine Surgery Follow Up HPI: Ms. Audrey Gaston is a 69 y.o. year old female whom I am following for bilateral thyroid nodules. To briefly review, her history is significant for a left lobectomy in 2013 for a multinodular goiter. This was done by Dr. Toño Edwards, a general surgeon at [facility]. 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 She was subsequently followed by ultrasound. Her biopsy history since surgery is as follows: January 2017 (FNAs at [facility]) Right inferior: benign Right posterior: nondiagnostic Left remnant: benign October 2017 (FNA with Dr. Turner, [facility]) Right posterior: [place] 3 cytology (predominantly Hurthle cells, some with nuclear atypia) ThyGenX: no mutations, very highly likely benign July 2020 (FNA with [facility] IR) Right superior (appears to be same as right inferior above): [place] 3 cytology (rare clusters of atypical follicular cells with mild nuclear enlargement and nuclear grooves.) ThyroSeq: NRAS (50% risk of malignancy) May 2021 Left remnant nodule: [place] 3 cytology ThyroSeq: negative, but low cell content Right posterior: aborted due to aspiration of solomon blood x 3 Given that she is not requiring thyroid hormone supplementation, she is asymptomatic, and she had adifficult time recovering from her prior hemithyroidectomy, she has elected for ultrasound surveillance. Ultrasound follow-ups have been stable. She continues to be asymptomatic. PMH, PSH, Medications and Allergies: all reviewed in eDH. She has started taking simvastatin since prior visit Physical Exam: Vitals Flowsheet Row Office Visit from 05/13/2024 in General Surgery at [facility] Weight 48.3 kg (106 lb 8 oz) Height 148.5 cm (4' 10.47) BSA (Calculated - sq m) 1.41 sq meters BMI (Calculated) 21.9 Temp 36.9 ??C (98.4 ??F) Temp src Temporal Heart Rate 81 BP 147/70 Patient Position Sitting SpO2 98 % General: well-appearing, NAD Neuro: Alert and oriented [...] There is a slightly hyperechoic nodule measuring 2.20 x 1.42 x 1.85cm (compared with 2.13 x 1.44 x 1.85 cm in 11/22, 1.71 x 1.28 x 1.59cm in 11/21, 1.73 x [...] nodule with well-defined borders, no microcalcifications, and normal vascularity at the inferior and lateral aspect of the lobe measuring1.49 x 0.55 x 1.12cm (compared with 1.15 x 0.58 x 1.04cm in 11/22, 1.15 x 0.54 x 1.30 in 11/21, 1.19 x 0.48 x 0.81 cm in 11/20, 1.29 x 0.63 x 1.12cm in May 2021 and 1.06 x 0.80 x 0.80cm in October 2020) Left lobe: The lobe is surgically absent, but there are two nodules in the thyroid bed. One measures 1.68 x 1.18 x 1.33cm (compared with 1.59 x 1.07 x 1.27in 11/22, 1.59 x 1.23 x 1.12cm in 11/21, 1.39 x 1.04 x 1.05 in 11/20, 1.56 x 1.09 x 1.13cm in May 2021 and 1.46 x 1.15 x 0.99cm in October 2020), is isoechoic, well- circumscribed, without calcifications and with a small amount of internal vascularity. The second is similar in echogenicity and measures 0.77 x 0.42 x 0.48cm (compared with 0.61 x 0.38 x 0.60cm in 11/22, 0.85 x 0.49 x 0.49cm in 11/21compared with 0.68 x 0.45 x 0.51 cm in 11/20 and 7mm in greatest dimension in May 2021) Cervical lymph nodes Central neck: Normal ultrasonographic appearing lymph nodes. Right lateral neck: Normal ultrasonographic appearing lymph nodes. Left lateral neck: Normal ultrasonographic appearing lymph nodes. A/P: Ms. Gaston is a 69-year-old woman who is status post left hemithyroidectomy in 2013, who presents today in annual surveillance of bilateral nodules. All of these have been biopsied at some point in the past, with the summary of these results outlined in H&P. I have offered completion thyroidectomy in the past, but Ms. Gaston would like to avoid surgery. Her nodules continue to enlarge very slightly. We did entertain the idea of repeating the biopsy, but ultimately decided there would probably be very little additional information gained since we had already have molecular testing on the nodule. Unfortunately, we will be unlikely to get more specific information than the NRAS mutation and the 50% risk of malignancy. We discussed the fact that it is likely safe to continue with surveillance versus considering going ahead to surgery. She would still like to avoid surgery, and we agreed that we will go back to an annual surveillance strategy. I will look forward to seeing her next summer. Of note, I contacted her after the visit to ask to update her TSH to ensure that her nodules are not being stimulated to grow. documented in this encounter Plan of Treatment Upcoming Encounters Date Type Department Care Team (Late st Contact Info) Description 10/07/2024 11:30 AM EST Office Visit Dermatology at [place] [address] [place] [address] José Villeda MD [address], [place] [address] documented as of this encounter Visit Diagnoses Diagnosis Multiple thyroid nodules Nontoxic multinodular goiter documented in this encounter Care Teams Dermatology Specialist Relationship Specialty Start Date End Date Shreya Ambrose APRN [address] [place] [address] PCP - General 09/06/14 documented as of this encounter
--- OUTSIDE RECORDS SUMMARY | 2024-08-27 01:13 | XMS_ITS | Encounter Summary ---
Author Organization [facility] Address [facility] [place] [address] Care Team Providers Care Fur Glazer Name Role Phone Shreya Ambrose APRN Primary Care Provider [phone] Reason for Visit * Consultation (Routine) - Closed Specialty Diagnoses / Procedures Referred By Prerna t Referred To Contact General Surgery Diagnoses Thyroid [...] finding of 1mm PTC. Sunday Turner DO [facility] [place] [address] Marilyn Mcleod MD [facility] [place] [address] Referral ID Status Reason Start Date Expiration Date V isits Requested Visits Authorized [id number] Closed Consult, Test & Treat 08/25/2020 08/25/2021 1 1 Encounter Details Date Type Department Care Team (Late st Contact Info) Description 11/02/2020 9:30 AM EST Office [place] [address] Marilyn Mcleod MD [facility] [place] [address] Shell Carlson APRN [facility] [place] [address] Multiple thyroid nodules Social History Tobacco Use [...] Sign Reading Time Taken Comments Blood Pressure 150/81 11/02/2020 9:08 AM EST Pulse 70 11/02/2020 9:08 AM EST Temperature - - Respiratory Rate 16 11/02/2020 9:08 AM EST Oxygen Saturation 99% 11/02/2020 9:08 AM EST Inhaled Oxygen Concentration - - Weight 47.7 kg (105 lb 1.6 oz) 11/02/2020 9:01 A M EST Height 149.9 cm (4' 11) 11/02/2020 9:01 AM EST Body Mass Index 21.23 11/02/2020 9:01 AM EST documented in this encounter Progress Notes * Marilyn Mcleod MD - 11/02/2020 9:30 AM EST Endocrine Surgery Initial Consultation HPI: Ms. Audrey Gaston is a 65 y.o. year old female referred by Dr. Turner who presents for evaluationof a right-sided thyroid nodule. She has a history of a left lobectomy in 2014 for a multinodular goiter. 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 She has been getting yearly ultrasound since that time. She denies compressive symptoms including globus sensation. She denies symptoms of hyperthyroidism or hypothyroidism, and recent thyroid function tests have been normal. There is not personal history of radiation exposure, and the patient has had prior anterior neck surgery. There may be family history of endocrine tumors or malignancy in her maternal grandmohter. Imaging studies to date include thyroid ultrasound performed most recently by radiology at [facility] which demonstrated right lobe measuring 5.6 x 2.2 x 2.5 cm. There are two nodules largest measuring 1.8 x 1.4 x 1.5 cm and one measuring 1.4 x 0.9 x 1.2 cm. There is not a reported substernal component. There larger nodule has increased in size with time. Fine needle aspiration biopsy of the right-sided 1.8cm nodule has been performed by radiology and cytology was atypia of undetermined significance (Switzer 3). 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 She is now referred to me for consideration of surgical management of her thyroid disease. No past medical history on file. Past Surgical History: Procedure Laterality Date ??? IR FNA THYROID NODULE 07/28/2020 IR US Guided Biopsy Thyroid FNA 07/28/2020 Dylan Blackwell MD [facility] INTERVENTIONL RAD ??? SALPINGO-OOPHORECTOMY Bilateral ??? THYROIDECTOMY, PARTIAL Left Current Outpatient Medications on File Prior to Visit Medication Sig Dispense Refill ??? flu vacc [id number],65yr up,/PF (FluZONE HighDose Quad 20-21 PF) 240 mcg/0.7 mL Syringe Inject 1mL into the muscle once. ??? [DISCONTINUED] omeprazole (PRILOSEC) 20 mg Capsule, Delayed Release(E.C.) No current facility-administered medications on file prior to visit. No Known Allergies Family History: Maternal grandmother with thyroid problems. No pituitary, pancreas or adrenal tumors. No parathyroid disease. Social History: She lives with her . 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 She does not do any professional public speaking or singing. Nonsmoker. No etoh. Review of Systems - 10 of 14 systems were reviewed with the patient and were negative except as perHPI Patient Vitals for the past 24 hrs: Pulse Resp BP SpO2 11/02/20 0901 75 16 169/75 99 % 11/02/20 0908 70 16 150/81 99 % Body mass index is 21.23 kg/m??. Physical Exam: General: well-appearing, NAD Neuro: Alert and oriented [...] rashes Psych: appropriate affect Labs: TSH 1.09 05/2020 Imaging: Thyroid, Parathyroid and Cervical Ultrasound I performed a thyroid, parathyroid and cervical ultrasound at the time of the clinic visit today using the 12 mHz linear ultrasound transducer. The thyroid, parathyroid and central and bilateral lateral neck lymph node basins were evaluated. Thyroid Isthmus: Surgically absent Right lobe: Lobe: 5.52 x 2.10 x 2.31 cm Nodules: There is a hyperechoic nodule measuring 1.67 x 0.92 x1.40 cm. It has well-defined borders.There are not microcalcifications. There is no/low vascularity. There is a second, poorly-defined hypoechoic nodule with ill- defined borders, no calcifications, and no/low vascularity at the inferiorand lateral aspect of the lobe Left lobe: The lobe is surgically absent, but there are two nodules in the thyroid bed. One measures 1.46 x 1.15 x 0.99cm, is isoechoic, well-circumscribed, without calcifications and with a small amount of internal vascularity. The second is similar in echogenicity and measures 0.68 x 0.49 x 0.53cm with internal flow, no calcifications Cervical lymph nodes Central neck: Normal ultrasonographic appearing lymph nodes. Right lateral neck: Normal ultrasonographic appearing lymph nodes. Left lateral neck: Normal ultrasonographic appearing lymph nodes. A/P: Ms. Audrey Gaston is a 65 y.o. year old female s/p left hemithyroidectomy with bilateral thyroid nodules (within the remaining lobe on the right and in the thyroid bed in the left). FNA of one of the right-sided nodules demonstrated atypia of undetermined significance (Switzer 3) cytology with indeterminate (risk of malignancy 50%) molecular testing. I therefore recommended completion thyroidectomy to include excision of the left-sided lesions. Ms Gaston had a difficult recovery after her hemithyroidectomy, and she would rather avoid surgery ifpossible. She also isn't enthusiastic about requiring thyroid hormone supplement. Her lymph nodes are normal on today's ultrasound, so we decided to pursue an active surveillance approach. I will follow up with her in 6 months with repeat ultrasound and a plan to biopsy both the hypoechoic 1cm nodule and the larger left-sided nodule. She will call me if she changes her mind or developsnew symptoms in the meantime. CESQIP Data Body mass index is 21.23 kg/m??. Race: Patient Ethnicity & Race Ethnic Group Patient Race Not nor White Prior neck irradiation: no Prior anterior neck surgery: yes Pre-operative laryngoscopy: no Anti-coagulation meds (aspirin, warfarin, clopidogrel, heparin, oral thrombin or factor Xa inhibitors): no Substernal component: no Symptoms of compression: yes FNA: no FNA Classification: [place] 3 documented in this encounter Plan of Treatment Upcoming Encounters Date Type Department Care Team (Late st Contact Info) Description 10/07/2024 11:30 AM EST Office Visit Dermatology at [place] [address] [facility] [place] [address] José Villeda MD [address], [place] [address] documented as of this encounter Procedures Procedure Name Priority Date/Time Associated Diagnosis Comments AMB REFERRAL TO GENERAL SURGERY Routine 11/14/2020 11:08 PM EST Thyroid nodule documented in this encounter Visit Diagnoses Diagnosis Multiple thyroid nodules Nontoxic multinodular goiter documented in this encounter Care Teams Fur Glazer Relationship Specialty Start Date End Date Shreya Ambrose APRN [address] [place] [address] PCP - General 09/06/14 documented as of this encounter
--- OUTSIDE RECORDS SUMMARY | 2024-08-27 01:13 | XMS_ITS | Encounter Summary ---
Author Organization [facility] [place] [address] Care Team Providers Care [employer] Name Role Phone ArnolShreya Any MONTGOMERY Primary Care Provider [phone] Encounter Details Date Type Department Care Team (Late st Contact Info) Description 08/23/2020 Telephone [place] [phone] Amelia Schwartz RN Social History Tobacco Use Types Packs/Day Years Used Date Smoking Tobacco: Former Cigarettes 1 01/20/1977 - 11/19/1992 Smokeless Tobacco: Never Comments:Social smoker Sex and Gender Information Value Date Recorded Sex Assigned at Not on file Gender Identity Not on file Sexual Orientation Not on file documented as of this encounter Miscellaneous Notes * Telephone Encounter - Amelia Hoyos RN - 08/23/2020 3:14 PM EDT Pt left msg on Fri08/18/20 asking if we've received results of molecular testing from July. Thyroseq results under scanned docs. Positive. Pt has not been notified. documented in this encounter Plan of Treatment Upcoming Encounters Date Type Department Care Team (Late st Contact Info) Description 10/07/2024 11:30 AM EST Office Visit Dermatology at [place] [address] [facility] [place] [address] José Villeda MD [address] [facility], [place] [address] documented as of this encounter Visit Diagnoses Not on filedocumented in this encounter Care Teams [employer] Relationship Specialty Start Date End Date Shreya Ambrose APRN [address] [place] [address] PCP - General 09/06/14 documented as of this encounter
--- OUTSIDE RECORDS SUMMARY | 2024-08-27 01:14 | XMS_ITS | Encounter Summary ---
[facility] Organization [facility] [place] [address] Care Team Providers Care Pai Gow Manager Name Role Phone Shreya Ambrose APRN Primary Care Provider [phone] [phone] Encounter Details Date Type Department Care Team (Latest Contact Info) Description 08/20/2018 2:15 PM EDT - 08/20/2018 11:59 PM EDT Hospital Encounter Hematology [place] [address] Leukopenia, unspecified type Discharge Disposition: Home Social History Tobacco Use [...] 11:30 AM EST Office Visit Dermatology at [place] [address] [facility] [place] [id number] José Villdea MD [address] [facility], [place]AB[place] [address] documented as of this encounter Procedures Procedure Name Priority Date/Time Associated Diagnosis Comments IMMUNOGLOBULINS, QUANTITATIVE STAT 08/20/2018 3:30 PM EDT Leukopenia, unspecified type DNA ANTIBODY (DOUBLE-STRANDED) STAT 08/20/2018 3:30 PM EDT Leukopenia, unspecified type HEMOGRAM STAT 08/20/2018 3:30 PM EDT Leukopenia, unspecified type DIFFERENTIAL, AUTOMATED STAT 08/20/2018 3:30 PM EDT Leukopenia, unspecified type CBC (WITH DIFF) STAT 08/20/2018 3:30 PM EDT Leukopenia, unspecified type FOLATE, SERUM STAT 08/20/2018 3:30 PM EDT Leukopenia, unspecified type VITAMIN B12 STAT 08/20/2018 3:30 PM EDT Leukopenia, unspecified type documented in this encounter Results * Differential, Automated (08/20/2018 3:30 PM EDT) Neutrophil % 53.3 % [facility] Neutrophil Absolute 1.97 1.70 - 6.10 x10(3)/[facility] Lymph % 34.6 % [facility] Lymphocytes Abs 1.3 0.9 - 3.2 x10(3)/[facility] Monocyte % 10.5 % [facility] Monocyte Abs 0.4 0.3 - 0.9 x10(3)/[facility] Eos % 0.8 % [facility] Eosinophils Abs 0.0 0.0 - 0.4 x10(3)/[facility] Basophil % 0.8 % [facility] Baso Absolute 0.0 0.0 - 0.1 x10(3)/[facility] Immature Gran % 0.00 % [facility] Comment: Immature granulocytes(IG's)percentage and absolute count will include metamyelocytes, myelocytes, and promyelocytes. Blood smears from CBCs yielding IG's will be scanned manually for concordance. If this scan disagrees with the automated IG or if promyelocytes are noted, a manual differential will be performed. Immature Gran Absolute 0.00 0.00 - 0.04 x10(3)/mcL [facility] Blood specimen (specimen) 08/20/2018 3:30 PM EDT 08/20/2018 3:38 PM EDT Narrative Resulting Agency Comment Spec In Lab Treasure Calderon MD HEMATOLOGY ORDER WILFREDO [facility] [place] [address] * (ABNORMAL) Hemogram (08/20/2018 3:30 PM EDT) White Blood Cell 3.7(L) 4.0 - 9.5 x10(3)/[facility] Red Blood Cell 4.95 4.00 - 5.21 x10(6)/mc [facility] Hemoglobin 14.4 11.7 - 15.5 gm/dL [facility] Hematocrit 41.7 35.7 - 45.8 % [facility] Mean Cell Volume 84.2 82.6 - 94.4 [facility] Mean Cell Hemoglobin 29.1 27.1 - 32.0 pg [facility] Mean Cell Hemoglobin Concentration 34.5 31.7 - 35.0 gm/dL [facility] Platelet 173 145 - 357 x10(3)/[facility] RDW Standard Deviation 36.0(L) 37.0 - 46.0 [facility] RDW coefficient of variation 11.9 11.5 - 14.1 % [facility] Mean Platelet Volume 9.9 7.6 - 12.9 [facility] NRBC% auto 0.0 % [facility] NRBC Absolute 0.000 0.000 - 0.000 x10(3)/ L [facility] Blood specimen (specimen) 08/20/2018 3:30 PM EDT 08/20/2018 3:38 PM EDT Narrative Resulting Agency Comment Spec In Lab Treasure Calderon MD HEMATOLOGY ORDER WILFREDO Performing Organization Address City/[facility]/ZIP Co de Phone Number [facility] [place] [address] * DNA Antibody (Double-Stranded) (08/20/2018 3:30 PM EDT) DNA Ab (DS) Neg Neg [facility] Blood specimen (specimen) 08/20/2018 3:30 PM EDT 08/21/2018 7:33 AM EDT Narrative Resulting Agency Comment Spec In Lab Treasure Calderon MD LAB SEND OUT ORD ERABLES Performing Organization Address [facility]/ZIP Co de Phone Number [facility] [place] [address] * (ABNORMAL) Immunoglobulins, Quantitative (08/20/2018 3:30 PM EDT) Pathologist [facility] Immunoglobulin G 619(L) 700 - 1,600 mg/dL [facility] IgA 95 70 - 400 mg/dL [facility] IgM 80 40 - 230 mg/dL [facility] Blood specimen (specimen) 08/20/2018 3:30 PM EDT 08/20/2018 3:38 PM EDT Narrative Resulting Agency Comment Spec In Lab Treasure Calderon MD CHEMISTRY ORDERA BLES Performing Organization Address [facility]/ZIP Co de Phone Number [facility] [place] [address] * Folate, serum (08/20/2018 3:30 PM EDT) Pathologist [facility] Folate >20.0 4.8 - 24.2 ng/mL [facility] Blood specimen (specimen) 08/20/2018 3:30 PM EDT 08/20/2018 3:38 PM EDT Narrative Resulting Agency Comment Spec In Lab Treasure Calderon MD CHEMISTRY ORDERA BLES [facility] [place] [address] * Vitamin B12 (08/20/2018 3:30 PM EDT) Vitamin B12 416 232 - 1,245 pg/mL [facility] Blood specimen (specimen) 08/20/2018 3:30 PM EDT 08/20/2018 3:38 PM EDT Narrative Resulting Agency Comment Spec In Lab Treasure Calderon MD CHEMISTRY ORDERA BLES Performing Organization Address City/[facility]/ZIP Co de Phone Number [facility] [place] [address] documented in this encounter Visit Diagnoses Diagnosis Leukopenia, unspecified type documented in this encounter Care Teams Pai Gow Manager Relationship Specialty Start Date End Date Shreya Ambrose APRN [address] [place] [address] PCP - General 09/06/14 documented as of this encounter
--- OUTSIDE RECORDS SUMMARY | 2024-08-27 01:14 | XMS_ITS | Encounter Summary ---
Author Organization [facility] Address [address] [place] [address] Care Team Providers Care Cmo Name Role Phone Unavailable Primary Care Provider Unavailabl e Encounter Details Date Type Department Care Team (Late st Contact Info) Description 02/08/2008 Results Only [facility] - Maple conversion [address] [place] [address] Arabella Wilson, [facility] [address] [place] [address] [place] [address] Social History Tobacco Use Types Packs/Day Years Used Date Smoking Tobacco: Never Assessed Sex and Gender Information Value Date Recorded Sex Assigned at Not on file Gender Identity Not on file Sexual Orientation Not on file documented as of this encounter Plan of Treatment Not on file documented as of this encounter Procedures Procedure Name Priority Date/Time Associated Diagnosis Comments CYTOPATHOLOGY Routine 02/08/2008 0:00 EDT documented in this encounter Results * CYTOPATHOLOGY (02/08/2008 0:00 EDT) Pathology Report: CYTOPATHOLOGY REPORT Reports generated via electronic interface contain original data; however they are lacking the format of the original report. Caution should be taken when reading/interpreti ng unformatted reports. Name: ? MAURISIO WILSON ? Accession #: ? [id number] : ? 1955 (Age: 52) ??F ?Collect Date: ? 02/08/2008 Location: ? [facility] ? Receive Date: ? 02/09/2008 Provider: ?ARABELLA WILSON MULTIPLE SPINDLE ROUTER OPERATOR Copy to: ? Specimen/Source: ?ThinPrep Pap Test, Cervix/Endocervix, processed on [employer] ThinPrep Imaging System, with manual evaluation Last Menstrual Period: ? 01-26-08 Previous Gynecologic Pathology: ? ASC-US: 01-28-06 ??HPV neg Other: ? HPVA - HPV testing requested if ASC-US on the current ThinPrep Pap test. ? SPECIMEN ADEQUACY ? Satisfactory for Evaluation - transformation zone component present GENERAL CATEGORIZATION ? Negative for Intraepithelial Lesion or Malignancy ? Document reviewed and electronically signed by: ? MIRELLA Carr(ASCP) ? Report Date: ??02/11/2008 11:36 End of Report SAMANTA ORNELAS 02/08/2008 02/09/2008 Arabella Wilson MULTIPLE SPINDLE ROUTER OPERATOR PATHOLOGY ORDERABLES SAMANTA ORNELAS [address] [place] [address] documented in this encounter Visit Diagnoses Not on filedocumented in this encounter
--- OUTSIDE RECORDS SUMMARY | 2024-08-27 01:14 | XMS_ITS | Encounter Summary ---
Author Organization [facility] Address [address] [place] [address] Care Team Providers Care Jogger Operator Name Role Phone Unavailable Primary Care Provider Unavailabl e Encounter Details Date Type Department Care Team (Late st Contact Info) Description 05/08/2011 Results Only [facility] [phone] Pau Leonardo, DO [address] [place] [address] Social History Tobacco Use Types Packs/Day Years Used Date Smoking Tobacco: Never Assessed Sex and Gender Information Value Date Recorded Sex Assigned at Not on file Gender Identity Not on file Sexual Orientation Not on file documented as of this encounter Plan of Treatment Not on file documented as of this encounter Procedures Procedure Name Priority Date/Time Associated Diagnosis Comments SURGICAL PATHOLOGY Routine 05/08/2011 0:00 EDT documented in this encounter Results * SURGICAL PATHOLOGY (05/08/2011 0:00 EDT) Pathology Report: SURGICAL PATHOLOGY REPORT ? Reports generated via electronic interface contain original data; ? however they are lacking the format of the original report. ? Caution should be taken when reading/interpreting unformatted reports. ? Name: ? PAGE, MAURISIO M ? Accession #: ? [id number] ? : ? 1955 (Age: 56) ??F ? Collect Date: ? 05/08/2011 ? Location: ? [facility] ? Receive Date: ? 05/08/2011 ? Provider: PAU LEONARDO DO ? Copy to: NARCISO JAMIE LINTER OPERATOR ? Final Pathologic Diagnosis: ? Soft tissue, left axilla, excision: ? 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 - Lesion extends to surgical margins of resection. See comment. ? Comment: ? Dr. Scotty Ochoa and Dr. Lizette Aguiar have reviewed this case in ? consultation and both favor the diagnosis of benign mixed tumor. Although the ?? benign entity of chondroid syringoma is in the differential (a tumor arising ? associated with eccrine sweat glands) the lesion fits best with the diagnosis of pleomorphic adenoma. ??Immunohistochemical staining was performed on this case to further characterize the lesion. ??Positive and negative controls stained ? appropriately. ??(Dr. San)/clare ? Block ?Antibody (Clone) ? Result ? A2 ?GFAP (polyclonal, Dako) ?Positive ?OTILIA (E29, [facility]ako) ? Positive ? P63 (4A4, [facility]) ? Focally positive ? Heavy Chain Myosin (SMMS-1, Dako) ? Focally positive ? NOTE: ??One or more of the reagents used in immunohistochemical testing in this case may not have been cleared or approved by the U.S. Food and Drug ? Administration (FDA). ??The FDA has determined that such clearance or approval is not necessary. ??These tests are used for clinical purposes. ??They should not be regarded as investigational or for research. ??These reagents' ??performance ? characteristics have been determined by [facility]. ??This ? laboratory is certified under the Clinical Laboratory Improvement Amendments of 1988 (CLIA-88) as qualified to perform high complexity clinical laboratory ? testing. ? Document reviewed and electronically signed by: ? EFRAIN MOUNT MD ? Report ??Date: 05/17/2011 08:33 ? By the signature above, the attending physician certifies that he/she has ? personally conducted a gross and/or microscopic examination of the described ? specimens and rendered or confirmed the above diagnosis. ? Specimen(s) Received: ? Lt axillary mass ? Clinical History: ? Mass Lt axilla ? Gross Description: ? Received in formalin labelled Maurisio Gaston and left axillary mass is a trejo-yellow, lobulated, unoriented 2.0 x 1.0 x 0.6 cm rubbery soft tissue. ??The ?? cut surfaces are trejo-rivera and slightly gelatinous. ??Separately received are ? multiple trejo-rivera soft tissue fragments measuring 1.4 x 1.0 x 0.3 cm in ? aggregate. ??The largest tissue is trisected and submitted as (A1). ??The smaller tissue fragments are submitted as (A2). /ion ? End of Report ? SAMANTA ORNELAS 05/08/2011 05/08/2011 8:1 3 EDT Pau Leonardo DO PATHOLOGY ORDERABLES Performing Organization Address City/State/[facility] Co de Phone Number SAMANTA [facility] [address] [place] [address] documented in this encounter Visit Diagnoses Not on filedocumented in this encounter
--- OUTSIDE RECORDS SUMMARY | 2024-08-27 01:14 | XMS_ITS | Encounter Summary ---
Author Organization [facility] Address [address] [place] [address] Care Team Providers Care Mixing Pan Tender Name Role Phone Unavailable Primary Care Provider Unavailabl e Encounter Details Date Type Department Care Team (Late st Contact Info) Description 02/02/2007 Results Only [facility] - Maple conversion [address] [place] [address] Arabella Wilson, [facility] [address] [place] [address] [place] [address] Social History Tobacco Use Types [...] Priority Date/Time Associated Diagnosis Comments CYTOPATHOLOGY Routine 02/02/2007 0:00 EST documented in this encounter Results * CYTOPATHOLOGY (02/02/2007 0:00 EST) Pathology Report: CYTOPATHOLOGY REPORT Reports generated via electronic interface contain original data; however they are lacking the format of the original report. Caution should be taken when reading/interpreti ng unformatted reports. Name: ? MAURISIO WILSON ? Accession #: ? [id number] : ? 1955 (Age: 51) ??F ?Collect Date: ? 02/02/2007 Location: ? [facility] ? Receive Date: ? 02/02/2007 Provider: ?ARABELLA WILSON INSTITUTIONAL ASSET MANAGER Copy to: ? Specimen/Source: ?ThinPrep Pap Test, Cervix/Endocervix, processed on [employer] ThinPrep Imaging System, with manual evaluation Last Menstrual Period: ? Previous Gynecologic Pathology: ? ASC-US: 01/28/06 HPV neg Treatment History: ? Miscellaneous treatment: 10/03/05 endomet. curettage Other: ? 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 ??Frag. endocx. tiss with microglandular hyperplasia HPVA - HPV testing requested if ASC-US on the current ThinPrep Pap test. ? SPECIMEN ADEQUACY ? Satisfactory for Evaluation - transformation zone component present GENERAL CATEGORIZATION ? Negative for Intraepithelial Lesion or Malignancy ? Document reviewed and electronically signed by: ? MIRELLA Patel(ASCP) ? Report Date: ??02/05/2007 11:48 End of Report SAMANTA ORNELAS 02/02/2007 02/02/2007 Arabella Wilson INSTITUTIONAL ASSET MANAGER PATHOLOGY ORDERABLES SAMANT[facility] ORNELAS [address] [place] [address] documented in this encounter Visit Diagnoses Not on filedocumented in this encounter
--- OUTSIDE RECORDS SUMMARY | 2024-08-27 01:14 | XMS_ITS | Encounter Summary ---
Author Organization [facility] [place] [address] Care Team Providers Care Regulatory Compliance Specialist Name Role Phone Shreya Ambrose APRN Primary Care Provider [phone] [phone] Encounter Details Date Type Department Care Team (Late st Contact Info) Description 12/17/2017 External [place] [address] Provider, Scanning Social History Tobacco Use Types Packs/Day Years [...] 11:30 AM EST Office Visit Dermatology at [address] [place] [address] José Villeda MD [address] [facility], [place] [address] documented as of this encounter Visit Diagnoses Not on filedocumented in this encounter Care Teams Regulatory Compliance Specialist Relationship Specialty Start Date End Date Shreya Ambrose APRN [address] [place] [address] PCP - General 09/06/14 documented as of this encounter
--- OUTSIDE RECORDS SUMMARY | 2024-08-27 01:14 | XMS_ITS | Encounter Summary ---
Author Organization [facility] Address [address] [place] [address] Care Team Providers Care Director Of Labor And Delivery Name Role Phone Shreya Ambrose APRN Primary Care Provider [phone] [phone] Encounter Details Date Type Department Care Team (Latest Contact Info) Description 08/31/2018 22:17 EDT - 08/31/2018 23:59 EDT Hospital Encounter [address] [address] Unknown, Provider, Discharge Disposition: Home or Self Care Social History Tobacco Use Types Packs/Day Years Used Date Smoking Tobacco: Never Assessed Sex and Gender Information Value Date Recorded Sex Assigned at Not on file Gender Identity Not on file Sexual Orientation Not on file documented as of this encounter Discharge Disposition Disposition Code Departure Means Destination Home or Self Longterm documented in this encounter Plan of Treatment Not on file documented as of this encounter Visit Diagnoses Not on filedocumented in this encounter Care Teams Director Of Labor And Delivery Relationship Specialty Start Date End Date Shreya Ambrose APRN [address] [place] [address] PCP - General 09/01/14 documented as of this encounter
--- OUTSIDE RECORDS SUMMARY | 2024-08-27 01:14 | XMS_ITS | Encounter Summary ---
Author Organization [facility] Address [address] [place] [address] Care Team Providers Care Single Ending Machine Operator Name Role Phone Arnol Tiffanyshraddha Agarwal APRN Primary Care Provider [phone] [phone] Encounter Details Date Type Department Care Team (Late st Contact Info) Description 06/28/2016 Results Only [facility]- [facility] [phone] Arabella Wilson, [facility] [address] [place] [address] Social History Tobacco Use Types Packs/Day Years Used Date Smoking Tobacco: Never Assessed Sex and Gender Information Value Date Recorded Sex Assigned at Not on file Gender Identity Not on file Sexual Orientation Not on file documented as of this encounter Plan of Treatment Not on file documented as of this encounter Procedures Procedure Name Priority Date/Time Associated Diagnosis Comments PAP TEST- RESULT ONLY Routine 06/28/2016 0:00 EDT documented in this encounter Results * PAP TEST- RESULT ONLY (06/28/2016 0:00 EDT) Pathology Report: CYTOPATHOLOGY REPORT Reports generated via electronic interface contain original data; however they are lacking the format of the original report. Caution should be taken when reading/interpreti ng unformatted reports. Name: ? MAURISIO GASTON ? Accession #: ? [id number] ? : ? 1955 (Age: 61) ??F ?Collect Date: ? 06/28/2016 ? Location: ? [facility] ? Receive Date: ? 07/02/2016 ? Provider: ARABELLA WILSON TAX ACCOUNTANT Copy to: TIFFANY JEAN WORK ENVIRONMENT SAFETY INSPECTOR ? Final Report SPECIMEN ADEQUACY ? Satisfactory for Evaluation - transformation zone component present GENERAL CATEGORIZATION ? Negative for Intraepithelial Lesion or Malignancy ?? Last Menstrual Period: 2000 Specimen/Source: ??Pap Test, Cervix/Endocervix, ThinPrep Imaging System with manual evaluation Document reviewed and electronically signed by: ? Susana Reed, CT(ASCP)(IAC) ? Report ??Date: 07/09/2016 14:39 HPV with Pap Test ? Date Ordered: ? 07/09/2016 ? Status: ?? Signed Out ?Date Complete: ? 07/11/2016 ? By: ??System Interface ? Date Reported: ? 07/11/2016 ? Interpretation RESULT: Negative for HPV. No E6 or E7 mRNA is detected from HPV types 16,18,31,33,35, 39,45,51,52,56,58, 59,66, and 68 by smoking pipe liner mediated amplification. Comments Document reviewed and electronically signed by: ? System Interface ? Report date: 07/11/2016 By the signature above, the attending physician certifies that he/she has personally conducted a gross and/or microscopic examination of the described specimens and rendered or confirmed the above diagnosis. End of Report [facility] 06/28/2016 07/02/2016 Arabella Wilson TAX ACCOUNTANT PATHOLOGY ORDERABLES [facility] [address] [place] [address] documented in this encounter Visit Diagnoses Not on filedocumented in this encounter Care Teams Single Ending Machine Operator Relationship Specialty Start Date End Date Tiffany Jean APRN [address] [place] [address] PCP - General 09/01/14 documented as of this encounter
--- OUTSIDE RECORDS SUMMARY | 2024-08-27 01:14 | XMS_ITS | Encounter Summary ---
Author Organization [facility] [place] [address] Care Team Providers Care Firearms Specialist Name Role Phone Shreya Ambrose APRN Primary Care Provider [phone] Reason for Visit * Consultation (Routine) - Closed Specialty Diagnoses / Procedures Referred By Contandree t Referred To Contact Hematology and Oncology Diagnoses Leukocytosis Shreya Ambrose APRN [address] [place] [address] [facility] [address] [address] [place] [address] Referral ID Status Reason Start Date Expiration Date V isits Requested Visits Authorized [id number] Closed Consult, Test & Treat Connection Center 07/31/2018 07/31/2019 1 1 Encounter Details Date Type Department Care Team (Late st Contact Info) Description 08/20/2018 2:30 PM EDT Office Visit Hematology [place] [phone] Treasure Calderon MD [facility] [address] [place] [address] Treasure Wheeler APRN [facility] [address] HEMATOLOGY AND ONCOLOGY [place], [place] [id number] Leukopenia, unspecified type Social History Tobacco Use Types Packs/Day Years Used Date Smoking Tobacco: Former Cigarettes 1 01/20/1977 - 11/19/1992 Smokeless Tobacco: Never Comments:Social smoker Sex and Gender Information Value Date Recorded Sex Assigned at Not on file Gender Identity Not on file Sexual Orientation Not on file documented as of this encounter Last Filed Vital Signs Vital Sign Reading Time Taken Comments Blood Pressure 133/80 08/20/2018 2:11 PM EDT Pulse 74 08/20/2018 2:11 PM EDT Temperature 36.8 ??C (98.2 ??F) 08/20/2018 2:11 PM ED T Respiratory Rate 17 08/20/2018 2:11 PM EDT Oxygen Saturation 98% 08/20/2018 2:11 PM EDT Inhaled Oxygen Concentration - - Weight 45.5 kg (100 lb 3.2 oz) 08/20/2018 2:11 P M EDT Height 150 cm (4' 11.06) 08/20/2018 2:11 PM EDT Body Mass Index 20.2 08/20/2018 2:11 PM EDT documented in this encounter Progress Notes * Treasure Calderon MD - 08/20/2018 2:30 PM EDT H[facility] [place] [id number] NEW PATIENT EVALUATION Patient Active Problem List Diagnosis ??? Leucocytosis HISTORY OF PRESENT ILLNESS: Patient prefers to be called: Audrey Support person(s) : Jaime It was my pleasure to meet Audrey Gaston today. Audrey Gaston is a 63 y.o. year old female being seen for evaluation of leukopenia. she is referred in consultaion from CHARLI Hough. Audrey has been evaluated by her primary care providers For history of abdominal pain and fatigue. She is also had unexpected/unexplained weight loss. In the workup she has been noted to have isolated leukopenia with normal differential. Normal hemoglobin and normal platelets.. Her tests include ESR and RADHA as well as HIV and hepatitis C studies all of which are normal. Her thyroid studies were normal as well. Office notes state that a CT was going to be ordered, but I do not have those results. Per pt - CT abd revealed diverticulosis, cyst on spleen and liver, and ovarian cyst. She reports RUQ pain and epigastric soreness. Since #unintentional weight loss since March 2018. After the onset of the abdominal pain Audrey changed her diet and has been eating very healthy with minimal fat intake and junk food intake. Minimal dairy. Trial of omeprazole with no response. Audrey met with Dr. Neil Valenzuela, gastroenterology, at [place] this morning. He is planning endoscopies. No viral sx in last year. No naturopathic or supplemental medications. PMHX: No sig PMHx or PSHx. Partial thyroidectomy for multinodular goiter - Path has not been received here. Followed by Dr Shankar WINTER Energy level: tired Pain: see above Appetite: eating but different diet; very lean diet. Fevers/chills/sweats: none Bruising/bleeding/melena:No Recent infections:No Headaches:neg Vision:neg Hearing:neg Sinus: neg Seasonal Allergies: neg Mouth sores:neg Dentition: Good Swallowing: neg GERD : neg Nausea/vomiting: neg diarrhea/constipation:No SOB/FLORES/pulmonary sx: no chest pain:No sx: negative Change in adenopathy or other masses:No Unexpected weight loss or gain: see HPI Skin rashes or petechiae:No Musculoskeletal complaints:No Extremities: Negative upper and lower bilaterally Neurologic symptoms:No Mental Status changes: neg Mood: Normal Sleep: Minimal difficulty sleeping MEDS: No outpatient prescriptions have been marked as taking for the 08/20/18 encounter (Office Visit) with Treasure Calderon MD. Allergies: No Known Allergies FAMILY HISTORY: Mother: alzheimer's; H/o breast ca Father: dementia and COPD Sibs: DM, diverticulitis Children: All healthy Other: Maternal grandmother with thyroid issues and breast cancer. SOCIAL HISTORY Personal: , and accompanied by her today. Jaime. 45 years. 4 children. Has dog and cat. Enjoys 3 grandchildren 12, 13.14. 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 ETOH: none Smoking: Former social smoker, quit around [employer] Contact Permission: OK to leave message on home or cell phone: OK to leave medical information on home or cell phone: Would patient benefit from social work consult: PHYSICAL EXAM BP 133/80 (Patient Position: Sitting) Pulse 74 Temp 36.8 ??C (98.2 ??F) (Temporal) Resp 17 Ht 150 cm (4' 11.06) Wt 45.5 kg (100 lb 3.2 oz) SpO2 98% BMI 20.2 kg/m2 Body surface area is 1.38 meters squared. GENERAL: Audrey Gaston appears well and is in no acute distress. ENT: Oral pharynx clear. EYES: CYNTHIA NECK: Supple without adenopathy. AXILLARY: no adenopathy OTHER LYMPH: no adenopathy CARDIAC: Regular rate and rhythm without S3,S4 or murmurs. LUNGS: Clear to auscultation./percussion ABDOMEN: Soft and non-tender without hepatosplenomegaly or masses. EXTREMITIES: No cyanosis, clubbing, edema or calf tenderness. SKIN: No bruises or petechiae. NEUROLOGICAL: Alert and oriented to person, place and time. MUSCULOSKELETAL: No spinal or chest wall tenderness. LABORATORY STUDIES Recent Results (from the past 72 hour(s)) Vitamin B12 Result Value Ref Range Vitamin B-12 416 232 - 1245 pg/mL Folate, serum Result Value Ref Range Folate Lvl >20.0 4.8 - 24.2 ng/mL Immunoglobulins, Quantitative Result Value Ref Range IgG 619 (L) 700 - 1600 mg/dL IgA 95 70 - 400 mg/dL IgM 80 40 - 230 mg/dL Hemogram Result Value Ref Range WBC 3.7 (L) 4.0 - 9.5 x10(3)/mcL RBC 4.95 4.00 - 5.21 x10(6)/mcL Hemoglobin 14.4 11.7 - 15.5 gm/dL Hematocrit 41.7 35.7 - 45.8 % MCV 84.2 82.6 - 94.4 fL MCH 29.1 27.1 - 32.0 pg MCHC 34.5 31.7 - 35.0 gm/dL Platelets 173 145 - 357 x10(3)/mcL RDWSD 36.0 (L) 37.0 - 46.0 fL RDWCV 11.9 11.5 - 14.1 % MPV 9.9 7.6 - 12.9 fL nRBC % Auto 0.0 % nRBC Abs Auto 0.000 0.000 - 0.000 x10(3)/mcL Differential, Automated Result Value Ref Range Neutrophils % 53.3 % Neutr Abs (ANC) 1.97 1.70 - 6.10 x10(3)/mcL Lymphocytes % 34.6 % Lymphocytes Abs 1.3 0.9 - 3.2 x10(3)/mcL Monocytes % 10.5 % Monocyte Abs 0.4 0.3 - 0.9 x10(3)/mcL Eosinophils % 0.8 % Eosinophils Abs 0.0 0.0 - 0.4 x10(3)/mcL Basophils % 0.8 % Basophils Abs 0.0 0.0 - 0.1 x10(3)/mcL Immature Gran % 0.00 % Yue Gran Abs 0.00 0.00 - 0.04 x10(3)/mcL date wbc anc alc hgb plt other 02/13/18 3.66 2.08 1.2 13.9 155k 04/23/18 3.02 1.61 1.1 13.8 161k 07/28/18 2.79 1.68 0.84 13.7 155 See HPI 08/20/18 3.7 1.97 1.3 14.4 173 RADIOLOGY STUDIES REVIEWED: None ASSESSMENT/PLAN: It was my pleasure to meet Audrey and her Jaime today. Audrey has been worked up over the last 4-5 months for chronic epigastric and right upper quadrant abdominal pain. Please see HPI above.Today she met with Dr. Valenzuela of gastroenterology at [place] who is planning on endoscopies in thenear future. I was consulted for her leukopenia. She has an isolated leukopenia with normal hemoglobin and normal platelet count. Her primary care physician, CHARLI Lomeli, was not concerned, but the patient wanted reassurance so she is seen here today. She is noted to have a normal differential. She did come with labs from about 6 years ago which showed a white count of 6.0. These were drawn either at [facility] or [facility]. I do not have the hard copy of the labs. More recently her total white count has been in the range of 2-3000. Differential is completely normal. For the most part her ANC is normal. She has had an intermittent low lymphocyte count. Her differential percentage has always been normal. I reassured her that an isolated leukopenia is not unusual and rarely is a hallmark of more serious disease. She was HIV negative. Hepatitis C studies were also negative. RADHA was negative. I will draw double-stranded DNA today. She is not of -[place] heritage ( heritage often has a slightly lower white count). She does have 1 white count in the past it was normal. It ispossible that she had some type of virus that resulted in the lower white count. This can last for a year or more, but is usually transient. I am not concerned that this is a hallmark of a more serious problem. I will check a CBC today. Along with double-stranded DNA, folate, and B12. She does not get infections. In fact she does not even remember having a virus in the last year or 2. She has notrequired any recent antibiotics. Reassured her that my suspicion was extremely low but we will see her back in [facility] in March 2019 for one last CBC to be sure there is not been progression orother cause for concern. She was comfortable with this plan. I appreciate the opportunity to meet this delightful female and look forward to seeing her again [facility] in the spring. Addendum: Labs came back near normal. Very little concern for any underlying problem. Will see in spring in [facility] for final CBC but no concerns. I discussed all of the above with the patient and all of her questions were answered. Support and counseling given as appropriate. This note was written or modified using [employer] voice recognition software. The final note was screened for mistakes. Please excuse any remaining errors. total time: time in counselling: Copy Shreya Ambrose APRN . documented in this encounter Plan of Treatment Upcoming Encounters Date Type Department Care Team (Late st Contact Info) Description 10/07/2024 11:30 AM EST Office Visit Dermatology at [place] [address] [place] [address] José Villeda MD [address] [facility] [address], FABIO [place] [address] documented as of this encounter Results * DNA Antibody (Double-Stranded) (08/20/2018 3:30 PM EDT) DNA Ab (DS) Neg Neg [facility] Blood specimen (specimen) 08/20/2018 3:30 PM EDT 08/21/2018 7:33 AM EDT Narrative Resulting Agency Comment Spec In Lab Treasure Calderon MD LAB SEND OUT ORD ERABLES Performing Organization Address City/[facility]/ZIP Co de Phone Number [facility] [place] [address] * (ABNORMAL) Immunoglobulins, Quantitative (08/20/2018 3:30 PM EDT) Immunoglobulin G 619(L) 700 - 1,600 mg/dL [facility] IgA 95 70 - 400 mg/dL [facility] IgM 80 40 - 230 mg/dL [facility] Blood specimen (specimen) 08/20/2018 3:30 PM EDT 08/20/2018 3:38 PM EDT Narrative Resulting Agency Comment Spec In Lab Treasure Calderon MD CHEMISTRY ORDERA BLES Performing Organization Address [facility]/ZIP Co de Phone Number [facility] [place] [address] * Folate, serum (08/20/2018 3:30 PM EDT) Folate >20.0 4.8 - 24.2 ng/mL [facility] Blood specimen (specimen) 08/20/2018 3:30 PM EDT 08/20/2018 3:38 PM EDT Narrative Resulting Agency Comment Spec In Lab Treasure Calderon MD CHEMISTRY ORDERA BLES Performing Organization Address City/[facility]/ZIP Co de Phone Number [facility] [place] [address] * Vitamin B12 (08/20/2018 3:30 PM EDT) Vitamin B12 416 232 - 1,245 pg/mL [facility] Blood specimen (specimen) 08/20/2018 3:30 PM EDT 08/20/2018 3:38 PM EDT Narrative Resulting Agency Comment Spec In Lab Treasure Calderon MD CHEMISTRY ORDERA BREANNE [facility] [place] [address] documented in this encounter Visit Diagnoses Diagnosis Leukopenia, unspecified type documented in this encounter Care Teams Firearms Specialist Relationship Specialty Start Date End Date Shreya Ambrose APRN [address] [place] [address] PCP - General 09/06/14 documented as of this encounter
--- OUTSIDE RECORDS SUMMARY | 2024-08-27 01:14 | XMS_ITS | Encounter Summary ---
Author Organization [facility] Address [address] [place] [address] Care Team Providers Care Lineman Service Or Work Dispatcher Name Role Phone Shreya Ambrose APRN Primary Care Provider [phone] Encounter Details Date Type Department Care Team (Latest Contact Info) Description 12/02/2014 7:00 EST - 12/02/2014 23:59 [facility] Hospital Encounter [address] [address] Unknown, Provider, Discharge Disposition: Home or Self Care Social History Tobacco Use Types Packs/Day Years Used Date Smoking Tobacco: Never Assessed Sex and Gender Information Value Date Recorded Sex Assigned at Not on file Gender Identity Not on file Sexual Orientation Not on file documented as of this encounter Discharge Disposition Disposition Code Departure Means Destination Home or Self Half-Way documented in this encounter Plan of Treatment Not on file documented as of this encounter Visit Diagnoses Not on filedocumented in this encounter Care Teams Lineman Service Or Work Dispatcher Relationship Specialty Start Date End Date Shreya Ambrose APRN [address] [place] [address] PCP - General 09/01/14 documented as of this encounter
--- OUTSIDE RECORDS SUMMARY | 2024-08-27 01:14 | XMS_ITS | Encounter Summary ---
Author Organization [facility] Address [address] [place] [address] Care Team Providers Care Airways Operations Specialist Name Role Phone Unavailable Primary Care Provider Unavailabl e Encounter Details Date Type Department Care Team (Late st Contact Info) Description 09/18/2001 Results Only [facility] [address] [place] [address] Arabella [place], [facility] [address] [place] [address] [place] [address] Social History Tobacco Use Types [...] Priority Date/Time Associated Diagnosis Comments CYTOPATHOLOGY Routine 09/18/2001 0:00 EDT documented in this encounter Results * CYTOPATHOLOGY (09/18/2001 0:00 EDT) Pathology Report: CYTOPATHOLOGY REPORT Reports generated via electronic interface contain original data; however they are lacking the format of the original report. Caution should be taken when reading/interpreti ng unformatted reports. Name: ? MAURISIO W[place] ? Accession #: ? [id number] : ? 1955 (Age: 46) ??F ?Collect Date: ? 09/18/2001 Location: ? [facility] ? Receive Date: ? 09/21/2001 Provider: ?ARABELLA WIL[place] CLAIM ANALYST Copy to: ? Specimen/Source: ?ThinPrep Pap Test, Cervix/Endocervix Last Menstrual Period: ? 09/05/01 ? SPECIMEN ADEQUACY ? Satisfactory for evaluation. GENERAL CATEGORIZATION ? Within Normal Limits ? Document reviewed and electronically signed by: ? Adela Hamlin, CT(ASCP) ? Report Date: ??09/23/2001 12:54 End of Report SAMANTA ORNELAS 09/18/2001 09/21/2001 Arabella [place] CLAIM ANALYST PATHOLOGY ORDERABLES SAMANTA ORNELAS [address] [place] [address] documented in this encounter Visit Diagnoses Not on filedocumented in this encounter
--- OUTSIDE RECORDS SUMMARY | 2024-08-27 01:14 | XMS_ITS | Encounter Summary ---
Author Organization [facility] Address [address] [place] [address] Care Team Providers Care Adjunct Psychology Professor Name Role Phone Tiffany Ambrose Any [place] Primary Care Provider [phone] Encounter Details Date Type Department Care Team (Late st Contact Info) Description 02/14/2017 Results Only [facility] [phone] Cherrie Gresham, DO [address] [facility] [address] [place], [place] [id number] Social History Tobacco Use Types Packs/Day Years Used Date Smoking Tobacco: Never Assessed Sex and Gender Information Value Date Recorded Sex Assigned at Not on file Gender Identity Not on file Sexual Orientation Not on file documented as of this encounter Plan of Treatment Not on file documented as of this encounter Procedures Procedure Name Priority Date/Time Associated Diagnosis Comments CYTOPATHOLOGY Routine 02/14/2017 0:00 EDT documented in this encounter Results * CYTOPATHOLOGY (02/14/2017 0:00 EDT) Pathology Report: CYTOPATHOLOGY REPORT Reports generated via electronic interface contain original data; however they are lacking the format of the original report. Caution should be taken when reading/interpret ing unformatted reports. Name: ? MAURISIO GASTON ? Accession #: ? [id number] : ? 1955 (Age: 61) ??F ?Collect Date: ? 02/14/2017 Location: ? [facility] ? Receive Date: ? 02/17/2017 Provider: ? CHERRIE GRESHAM DO Copy to: ?TIFFANY AMBROSE SALESPERSON MEN'S HATS ? CYTOLOGIC DIAGNOSIS: A. THYROID, RIGHT, INFERIOR, FINE NEEDLE ASPIRATION: - Features suggestive of benign follicular nodule with cystic change. See comment. B. THYROID, RIGHT, POSTERIOR, FINE NEEDLE ASPIRATION: - Nondiagnostic; acellular sample. ??See comment. C. THYROID, LEFT, SUPERIOR POST THYROIDECTOMY, FINE NEEDLE ASPIRATION: - Features suggestive of benign follicular nodule with cystic change. See comment. ? COMMENT: The aspirate smears of the right inferior and left thyroid nodules (specimens A and C) are of overall low cellularity but adequate for evaluation consisting of unremarkable follicular cells, many with Hurthle cell change, arranged predominantly in macrofollicles. ??The background shows histiocytes, rare giant cells, cyst-lining cells and abundant watery colloid. ??The findings are suggestive of benign follicular nodules. ??Specimen (B) is acellular and consists of blood and colloid only. Dr. Pickens 02/17/2017 4:57 PM Document reviewed and electronically signed by: ? CASEY GRANADO MD Report Date: ??02/18/2017 12:45 By the signature above, the attending physician certifies that he/she has personally conducted a gross and/or microscopic examination of the described specimens and rendered or confirmed the above diagnosis. Specimen Type: ? A: Thyroid, Fine Needle Aspiration, Right inferior B: Thyroid, Fine Needle Aspiration, Right posterior C: Thyroid, Fine Needle Aspiration, Left post lobectomy Clinical History: ? History of papillary thyroid carcinoma, left lobe; post left thyroid lobectomy ? Rapid Interpretation: A. ??RIGHT THYROID, INFERIOR, FINE NEEDLE ASPIRATION: Evaluation episode #1: ? Not adequate. ??Additional tissue needed. Evaluation episode #2: ? Adequate. B. ??RIGHT THYROID, POSTERIOR, FINE NEEDLE ASPIRATION: Evaluation episode #1: ? Unsatisfactory. C. ??LEFT THYROID NODULE, SUPERIOR POSTERIOR THYROIDECTOMY, FINE NEEDLE ASPIRATION: Evaluation episode #1: ? Not adequate. ??Additional tissue needed. Evaluation episode #2: ? Adequate. Dr. Ananda Plata 02/14/2017 Gross Description: ? A. ??Thyroid, Fine Needle Aspiration, Right inferior: ??4 fixed prepared slides, 11 air dried prepared slides (stained with Diff-Quik), and 1 tube of CytoLyt were received and processed by selective cellular enhancement technique. ? B. ??Thyroid, Fine Needle Aspiration, Right posterior: ??1fixed prepared slide, 1 air dried prepared slide (stained with Diff-Quik), and 1 tube of CytoLyt were received and processed by selective cellular enhancement technique. ? C. ??Thyroid, Fine Needle Aspiration, Left post lobectomy: ??6 fixed prepared slides, 10 air dried prepared slides (stained with Diff-Quik), and 1 tube of CytoLyt were received and processed by selective cellular enhancement technique. ? End of Report [facility] 02/14/2017 02/17/2017 9:2 0 EDT Cherrie Gresham DO PATHOLOGY ORDER WILFREDO [facility] [address] [place] [address] documented in this encounter Visit Diagnoses Not on filedocumented in this encounter Care Teams Adjunct Psychology Professor Relationship Specialty Start Date End Date Tiffany Ambrose APRN [address] [facility] [address] [place] [address] PCP - General 09/01/14 documented as of this encounter
--- OUTSIDE RECORDS SUMMARY | 2024-08-27 01:14 | XMS_ITS | Encounter Summary ---
Author Organization [facility] Address [address] [place] [address] Care Team Providers Care Earth Science Laboratory Technician Name Role Phone Shreya Ambrose ULISES Primary Care Provider [phone] Encounter Details Date Type Department Care Team (Late st Contact Info) Description 05/13/2020 Lab Requisition [facility] Pathology & Laboratory Medicine - [address] [id number] Outr Resulting Lab, Provider Social History Tobacco Use Types Packs/Day Years Used Date Smoking Tobacco: Never Assessed Sex and Gender Information Value Date Recorded Sex Assigned at Not on file Gender Identity Not on file Sexual Orientation Not on file documented as of this encounter Plan of Treatment Not on file documented as of this encounter Procedures Procedure Name Priority Date/Time Associated Diagnosis Comments T3 FREE Routine 05/12/2020 10:30 EDT documented in this encounter Results * T3 FREE (05/12/2020 10:30 EDT) T3, Free 3.1 2.8 - 5.3 pg/mL 05/14/2020 16:20 EDT [facility] Blood VENOUS BLOOD / Unknown 05/12/2020 10:30 EDT 05/14/2020 15:51 EDT Provider Outr Resulting Lab CHEMISTRY & BLOOD GAS ORDERABLES [facility] [address] [place] [address] documented in this encounter Visit Diagnoses Not on filedocumented in this encounter Care Teams Earth Science Laboratory Technician Relationship Specialty Start Date End Date Shreya Ambrose, ULISES [address] [place] [id number] PCP - General 09/01/14 documented as of this encounter
--- OUTSIDE RECORDS SUMMARY | 2024-08-27 01:14 | XMS_ITS | Encounter Summary ---
Author Organization [facility] Address [address] [place] [address] Care Team Providers Care Investor Relations Analyst Name Role Phone Shreya Ambrose APRN Primary Care Provider [phone] Encounter Details Date Type Department Care Team (Late st Contact Info) Description 09/07/2020 Lab Requisition [facility] Pathology & Laboratory Medicine - [facility] [address] [place] [address] Roshan Ambriz MD [address] [place] [id number] Encounter for other general examination Social History Tobacco Use Types Packs/Day Years Used Date Smoking Tobacco: Never Assessed Interpersonal Safety Answer Date Record ed Physically Hurt Never 07/02/2020 Verbally Threaten Not on file 07/02/2020 Sex and Gender Information Value Date Recorded Sex Assigned at Not on file Gender Identity Not on file Sexual Orientation Not on file documented as of this encounter Plan of Treatment Not on file documented as of this encounter Procedures Procedure Name Priority Date/Time Associated Diagnosis Comments SURGICAL PATHOLOGY Today 09/06/2020 12 :11 EDT Encounter for other general examination documented in this encounter Results * SURGICAL PATHOLOGY (09/06/2020 12:11 EDT) Final Diagnosis A. OVARY AND FALLOPIAN TUBE, LEFT, CYSTECTOMY AND SALPINGECTOMY: - Ovarian cyst, left: - Simple/benign (serous) ovarian cyst. - Fallopian tube, left: - Fallopian tube with no specific pathologic features. B. OVARY AND FALLOPIAN TUBE, RIGHT, SALPINGO-OOPHOREC FELICITY: - Ovary, right: - Cortical inclusion cysts - Focal periovarian adhesions. - Fallopian tube, right: - Fallopian tube with no specific pathologic features. 09/11/2020 9:18 [facility] Attestation There was significant resident/fellow involvement in the diagnostic evaluation of this case. By the signature below, the attending physician certifies that they have personally conducted a gross and/or microscopic examination of the described specimens and rendered or confirmed the above diagnosis. 09/11/2020 9:18 [facility] at 0918 Clinical History Ovarian cyst 09/11/2020 9:18 [facility] Gross Description A. Received in formalin labelled with proper patient identification (initials P, J) and left fallopian tube and ovary is an intact ovarian cyst (4.6 x 3.1 x 2.2 cm) with a detached previously ligated fimbriated fallopian tube (5.1 cm in length by 0.5 cm in diameter). The cyst is biloculated and filled with serous fluid. No excrescences are present on the inner lining. The fallopian tube has a dark purple hyperemic serosa. A Filshie clip is present. The cut surfaces show an unremarkable pinpoint lumen. Parent Educator sections are submitted as follows: BLOCK RAYMOND A1-A2- ovarian cyst A3- fimbria, longitudinally bisected and 2 cross sections B. Received in formalin labelled with proper patient identification (initials P, J) and R fallopian tube and ovary is an ovary (2.1 x 1.2 x 0.7 cm) with attached previously ligated fimbriated fallopian tube (4.5 cm in length by 0.4 cm in diameter). The ovaryhas a pale yellow nodular outer surface with cut surfaces showing unremarkable ovarian parenchyma. The fallopian tube is dark purple and hyperemic with a loosely attached Filshie clip. The cut surfaces show an unremarkable pinpoint lumen. Parent Educator sections are submitted as follows: BLOCK RAYMOND B1- ovary B2- fimbria, longitudinally bisected and 1 cross section CHERRIE DOTSON(ASCP) 09/07/2020 10:47 09/11/2020 9:18 [facility] Resident/Ashu w: Nanette Maya DO 09/11/2020 9:18 EDT [facility] Performing Lab [facility] 09/11/2020 9:18 EDT [facility] Scanned Images 09/11/2020 9:18 EDT [facility] Tissue FALLOPIAN TUBE AND OVARY, CS / Unknown 09/06/2020 12:11 EDT 09/07/2020 8:08 EDT Tissue specimen (specimen) FALLOPIAN TUBE AND OVARY, CS / Unknown 09/06/2020 12:11 EDT 09/07/2020 8:08 EDT Roshan Ambriz MD PATHOLOGY ORDERABLES [facility] [address] [place] [address] documented in this encounter Visit Diagnoses Diagnosis Encounter for other general examination documented in this encounter Care Teams Investor Relations Analyst Relationship Specialty Start Date End Date Shreya Ambrose APRN [address] [facility] [facility] [place] [address] PCP - General 09/01/14 documented as of this encounter
--- OUTSIDE RECORDS SUMMARY | 2024-08-27 01:14 | XMS_ITS | Encounter Summary ---
Author Organization [facility] Address [address] [place] [address] Care Team Providers Care Cylinder Press Feeder Name Role Phone Shreya Ambrose APRN Primary Care Provider [phone] Encounter Details Date Type Department Care Team (Latest Contact Info) Description 02/14/2017 15:29 EDT - 02/14/2017 23:59 EDT Hospital Encounter [address] [address] Unknown, Provider, Discharge Disposition: Home or Self Care Social History Tobacco Use Types Packs/Day Years Used Date Smoking Tobacco: Never Assessed Sex and Gender Information Value Date Recorded Sex Assigned at Not on file Gender Identity Not on file Sexual Orientation Not on file documented as of this encounter Discharge Disposition Disposition Code Departure Means Destination Home or Self Shelter documented in this encounter Plan of Treatment Not on file documented as of this encounter Visit Diagnoses Not on filedocumented in this encounter Care Teams Cylinder Press Feeder Relationship Specialty Start Date End Date Shreya Ambrose APRN [address] [place] [address] PCP - General 09/01/14 documented as of this encounter
--- OUTSIDE RECORDS SUMMARY | 2024-08-27 01:14 | XMS_ITS | Encounter Summary ---
Author Organization [facility] [place] [address] Care Team Providers Care Rn Maternity Name Role Phone Shreya Ambrose APRN Primary Care Provider [phone] Encounter Details Date Type Department Care Team (Late st Contact Info) Description 09/10/2016 Ancillary Procedure Radiology Library at [facility] [place] [address] [facility] [place] [address] Social History Tobacco Use Types Packs/Day Years [...] 11:30 AM EST Office Visit Dermatology at [place] [address] [facility] [place] [id number] José Villeda MD [address] [facility] [place] [address] documented as of this encounter Procedures Procedure Name Priority Date/Time Associated Diagnosis Comments FILM LIBRARY STORAGE ONLY ULTRASOUND STUDY Routine 09/10/2016 12:00 AM EDT documented in this encounter Results * Film Library- Storage Only Ultrasound Study (09/10/2016 12:00 AM EDT) Narrative [facility] - 04/22/2020 4:58 PM EDT This exam is auto-finalizing. It's purpose is for storage only. Sunday Turner DO [facility] FILM LIBRARY ORD ERABLES [place], [place] documented in this encounter Visit Diagnoses Not on filedocumented in this encounter Care Teams Rn Maternity Relationship Specialty Start Date End Date Shreya Ambrose, ACCREDITATION MANAGER [address] [place] [address] PCP - General 09/06/14 documented as of this encounter
--- OUTSIDE RECORDS SUMMARY | 2024-08-27 01:14 | XMS_ITS | Referral Summary ---
Author Organization [facility] Address [address] [place] [address] Care Team Providers Care Dispensing Lead Name Role Phone Shreya Ambrose APRN Primary Care Provider [phone] Social History Tobacco Use Types Packs/Day Years Used Date Smoking Tobacco: Never Assessed Interpersonal Safety Answer Date Record ed Physically Hurt Never 07/02/2020 Verbally Threaten Not on file 07/02/2020 Sex and Gender Information Value Date Recorded Sex Assigned at Not on file Gender Identity Not on file Sexual Orientation Not on file Plan of Treatment Not on file Care Teams Dispensing Lead Relationship Specialty Start Date End Date Shreya Ambrose APRN [address] [place] [address] PCP - General 09/01/14
--- OUTSIDE RECORDS SUMMARY | 2024-08-27 01:14 | XMS_ITS | Encounter Summary ---
Author Organization [facility] Address [address] [place] [address] Care Team Providers Care Electric Meter Repairer Name Role Phone Arnol Shreyashraddah Agarwal APRN Primary Care Provider [phone] Encounter Details Date Type Department Care Team (Late st Contact Info) Description 09/01/2020 Lab Requisition [facility] Pathology & Laboratory Medicine - [facility] [address] [place] [address] Outr Resulting Lab, Provider Social History Tobacco [...] Procedure Name Priority Date/Time Associated Diagnosis Comments DO NOT ORDER STANDALONE - BROAD COVID TEST Today 09/01/2020 10:20 EDT COVID-19 TESTING Routine 09/01/2020 10:2 0 EDT documented in this encounter Results * DO NOT ORDER STANDALONE - BROAD COVID TEST (09/01/2020 10:20 EDT) COVID-19 rt-PCR Result NEGATIVE Negative 09/02/2020 18:18 EDT [facility] Comment: 2019-novel Coronavirus (2019-nCoV) not detected by the qRT-PCR assay. Consider testing for other respiratory viruses or re-collecting for 2019-nCoV testing. Note: Optimum timing for peak viral levels during infections caused by 2019-nCoV have not been determined. Collection of multiple specimens from the same patient may be necessary to detect the virus. Limitations Positive results are indicative of active infection with SARS-CoV-2 but do not rule out bacterial infection or co-infection with other viruses. The agent detected may not be the definite cause of disease. In addition, detection of viral RNA may not indicate the presence of infectious virus or that SARS-CoV-2 is the causative agent for clinical symptoms. Negative results do not preclude SARS-CoV-2 infection and should not be used as the sole basis for patient management decisions. Negative results must be combined with clinical observations, patient history, and epidemiological information. False negative results may also occur if amplification inhibitors are present in the specimen or if inadequate numbers of organisms are present in the specimen. Optimum specimen types and timing for peak viral levels during infections caused by SARS-CoV-2 have not been fully determined. Collection of multiple specimens (types and time points) from the same patient may be necessary to detect the virus. The test was validated for use with upper respiratory specimens obtained via nasopharyngeal or oropharyngeal swabs in VTM, UTM, M4, M5, M6, saline, and MTM media. The performance of this test has not been established for other specimens. Specimens collected using other FDA recommended Specimen Collection Materials listed in the FDA COVID-19 Diagnostic Technologies communication (February 24, 2020) are processed with the caveat that they were not all validated for use with this test and the result must be interpreted in this context. Furthermore, a false negative results may occur if a specimen is improperly collected, transported or handled. If the virus mutates in the RT-PCR target region, SARS-CoV-2 may not be detected or may be detected less predictably. Inhibitors or other types of interference may produce a false negative result. An interference study evaluating the effect of common cold medications was not performed. This test is not FDA-cleared but its performance characteristics were established by our CLIA-certified, CAP-accredited, high complexity laboratory in accordance with CLIA regulations, College [employer] (CAP) guidelines (Feb 17, 2020), and FDA guidance (Jan 29, 2020). This test is only for use under the Food and Drug Administration's Emergency Use Authorization. Swab ENTIRE NASOPHARYNX / Unknown 09/01/2020 10:20 EDT 09/01/2020 15:42 EDT Provider Outr Resulting Lab MICROBIOLOGY - GENERAL ORDERABLES [facility] [place], [place] * COVID-19 TESTING (09/01/2020 10:20 EDT) COVID-19 rt-PCR Result NEGATIVE Negative 09/02/2020 20:35 EDT [facility] Comment: 2019-novel Coronavirus (2019-nCoV) not detected by the qRT-PCR assay. Consider testing for other respiratory viruses or re-collecting for 2019-nCoV testing. Note: Optimum timing for peak viral levels during infections caused by 2019-nCoV have not been determined. Collection of multiple specimens from the same patient may be necessary to detect the virus. Limitations Positive results are indicative of active infection with SARS-CoV-2 but do not rule out bacterial infection or co-infection with other viruses. The agent detected may not be the definite cause of disease. In addition, detection of viral RNA may not indicate the presence of infectious virus or that SARS-CoV-2 is the causative agent for clinical symptoms. Negative results do not preclude SARS-CoV-2 infection and should not be used as the sole basis for patient management decisions. Negative results must be combined with clinical observations, patient history, and epidemiological information. False negative results may also occur if amplification inhibitors are present in the specimen or if inadequate numbers of organisms are present in the specimen. Optimum specimen types and timing for peak viral levels during infections caused by SARS-CoV-2 have not been fully determined. Collection of multiple specimens (types and time points) from the same patient may be necessary to detect the virus. The test was validated for use with upper respiratory specimens obtained via nasopharyngeal or oropharyngeal swabs in VTM, UTM, M4, M5, M6, saline, and MTM media. The performance of this test has not been established for other specimens. Specimens collected using other FDA recommended Specimen Collection Materials listed in the FDA COVID-19 [employer] communication (February 24, 2020) are processed with the caveat that they were not all validated for use with this test and the result must be interpreted in this context. Furthermore, a false negative results may occur if a specimen is improperly collected, transported or handled. If the virus mutates in the RT-PCR target region, SARS-CoV-2 may not be detected or may be detected less predictably. Inhibitors or other types of interference may produce a false negative result. An interference study evaluating the effect of common cold medications was not performed. This test is not FDA-cleared but its performance characteristics were established by our CLIA-certified, CAP-accredited, high complexity laboratory in accordance with CLIA regulations, College of [employer]ologists (CAP) guidelines (Feb 17, 2020), and FDA guidance (Jan 29, 2020). This test is only for use under the Food and Drug Administration's Emergency Use Authorization. Performing Lab [facility] 09/02/2020 20:35 EDT [facility] Swab 09/01/2020 10:2 0 EDT 09/01/2020 15:42 EDT Provider Outr Resulting Lab MICROBIOLOGY - GENERAL ORDERABLES [facility] [address] [place] [address] [facility] [place], [place] documented in this encounter Visit Diagnoses Not on filedocumented in this encounter Care Teams Electric Meter Repairer Relationship Specialty Start Date End Date Shreya Ambrose APRN [address] [place] [address] PCP - General 09/01/14 documented as of this encounter
--- OUTSIDE RECORDS SUMMARY | 2024-08-27 01:14 | XMS_ITS | Encounter Summary ---
Author Organization [facility] Address [address] [place] [address] Care Team Providers Care Plant Senior Manager Name Role Phone Unavailable Primary Care Provider Unavailabl e Encounter Details Date Type Department Care Team (Late st Contact Info) Description 04/16/2011 Results Only [facility] Laboratory Services - [facility] [address] [place], [place] [id number] Arabella Wilson, [facility] [address] [place] [address] [place] [address] Social History Tobacco Use Types [...] Diagnosis Comments PAP TEST- RESULT ONLY Routine 04/16/2011 0:00 EDT documented in this encounter Results * PAP TEST- RESULT ONLY (04/16/2011 0:00 EDT) Pathology Report: CYTOPATHOLOGY REPORT ? Reports generated via electronic interface contain original data; ? however they are lacking the format of the original report. ? Caution should be taken when reading/interpreti ng unformatted reports. ? Name: ? PAGE, MAURISIO M ? Accession #: ? [id number] ? : ? 1955 (Age: 56) ??F ?Collect Date: ? 04/16/2011 ? Location: ? [facility] ? Receive Date: ? 04/17/2011 ? Provider: ?ARABELLA ROWAN BOILER ENGINEER ? Copy to: ? Specimen/Source: ?Pap Test, Cervix/Endocervix, ThinPrep Imaging System ? with manual evaluation ? Last Menstrual Period: ? 01/07/2011 ? SPECIMEN ADEQUACY ? Satisfactory for Evaluation ? - transformation zone component present ? GENERAL CATEGORIZATION ? Negative for Intraepithelial Lesion or Malignancy ? Document reviewed and electronically signed by: ? Neil Carpenter, [place](ASCP) ? Report Date: ??04/22/2011 10:06 ? End of Report ? [facility] 04/16/2011 04/17/2011 Arabella Wilson BOILER ENGINEER PATHOLOGY ORDERABLES Performing Organization Address City/State/[facility] Co de Phone Number [facility] [address] [place] [address] documented in this encounter Visit Diagnoses Not on filedocumented in this encounter
--- OUTSIDE RECORDS SUMMARY | 2024-08-27 01:14 | XMS_ITS | Encounter Summary ---
Author Organization [facility] Address [address] [place] [address] Care Team Providers Care Clinical Research Nurse Name Role Phone Kiara Almodovar Primary Care Provider [phone] Encounter Details Date Type Department Care Team (Latest Contact Info) Description 08/29/2014 9:13 EDT - 08/29/2014 23:59 EDT Hospital Encounter [address] [address] Unknown, Provider, Discharge Disposition: Home or Self Care Social History Tobacco Use Types Packs/Day Years Used Date Smoking Tobacco: Never Assessed Sex and Gender Information Value Date Recorded Sex Assigned at Not on file Gender Identity Not on file Sexual Orientation Not on file documented as of this encounter Discharge Disposition Disposition Code Departure Means Destination Home or Self Intermediate documented in this encounter Plan of Treatment Not on file documented as of this encounter Visit Diagnoses Not on filedocumented in this encounter Care Teams Clinical Research Nurse Relationship Specialty Start Date End Date Kiara Almodovar ARNP [address] [place] [address] PCP - General 07/02/11 08/31/14 documented as of this encounter
--- OUTSIDE RECORDS SUMMARY | 2024-08-27 01:14 | XMS_ITS | Encounter Summary ---
Author Organization [facility] Address [address] [place] [address] Care Team Providers Care Advertising Copy Writer Name Role Phone Unavailable Primary Care Provider Unavailabl e Encounter Details Date Type Department Care Team (Late st Contact Info) Description 09/20/2003 Results Only [facility] - [facility] [address] [place] [address] Arabella Wilson, [facility] [address] [place] [address] [place] [address] Social History Tobacco Use Types [...] Priority Date/Time Associated Diagnosis Comments CYTOPATHOLOGY Routine 09/20/2003 0:00 EDT documented in this encounter Results * CYTOPATHOLOGY (09/20/2003 0:00 EDT) Pathology Report: CYTOPATHOLOGY REPORT Reports generated via electronic interface contain original data; however they are lacking the format of the original report. Caution should be taken when reading/interpreti ng unformatted reports. Name: ? MAURISIO WILSON ? Accession #: ? [id number] : ? 1955 (Age: 48) ??F ?Collect Date: ? 09/20/2003 Location: ? [facility] ? Receive Date: ? 09/22/2003 Provider: ?ARABELLA WILSON CHAR CONVEYOR TENDER Copy to: ? Specimen/Source: ?ThinPrep Pap Test, Cervix/Endocervix Last Menstrual Period: ? 08/31/03 ? SPECIMEN ADEQUACY ? Satisfactory for Evaluation - transformation zone component present GENERAL CATEGORIZATION ? Negative for Intraepithelial Lesion or Malignancy INTERPRETATION ? Reactive cellular changes associated with inflammation present (includes repair). ? Document reviewed and electronically signed by: ? Melida Tsai MD ? Report Date: ??09/28/2003 17:32 End of Report [facility] 09/20/2003 09/22/2003 Arabella Wilson CHAR CONVEYOR TENDER PATHOLOGY ORDERABLES [facility] [address] [place] [address] documented in this encounter Visit Diagnoses Not on filedocumented in this encounter
--- OUTSIDE RECORDS SUMMARY | 2024-08-27 01:14 | XMS_ITS | Encounter Summary ---
Author Organization [facility] Address [address] [place] [address] Care Team Providers Care Elevator Service Mechanic Name Role Phone Kiara Almodovar Primary Care Provider Encounter Details Date Type Department Care Team (Late st Contact Info) Description 08/30/2014 Results Only [facility] [phone] Pau Edwards, DO [address] [place] [address] Social History Tobacco Use Types [...] Priority Date/Time Associated Diagnosis Comments CYTOPATHOLOGY Routine 08/30/2014 0:00 EDT documented in this encounter Results * CYTOPATHOLOGY (08/30/2014 0:00 EDT) Pathology Report: CYTOPATHOLOGY REPORT Reports generated via electronic interface contain original data; however they are lacking the format of the original report. Caution should be taken when reading/interpreti ng unformatted reports. Name: ? MAURISIO GASTON ? Accession #: ? [id number] : ? 1955 (Age: 59) ??F ?Collect Date: ? 08/30/2014 Location: ? [facility] ? Receive Date: ? 08/30/2014 Provider: ? PAU EDWARDS DO Copy to: ?TIFFANY JEAN TECHNICAL ACCOUNT EXECUTIVE ? CYTOLOGIC DIAGNOSIS: THYROID, LEFT, 2.5 CM NODULE, ULTRASOUND-GUIDED FINE NEEDLE ASPIRATION: - ??Atypical follicular cells of uncertain significance. See comment. ? COMMENT: The specimen is paucicellular with only rare follicular cells identified in the aspirate smears. Present on one air-dried slide are groups of follicular cells showing focal crowding and a microfollicular pattern. The paucity of material precludes definitive diagnosis. Consideration for repeat fine needle aspiration and 6-8 weeks is recommended. This case was reviewed at the departmental consultation conference. Dr. Howie Muhammad 09/01/2014 09:57 AM Document reviewed and electronically signed by: ? KAREN MUHAMMAD MD Report Date: ??09/01/2014 09:58 By the signature above, the attending physician certifies that he/she has personally conducted a gross and/or microscopic examination of the described specimens and rendered or confirmed the above diagnosis. Specimen Type: ? Thyroid, Fine Needle Aspiration, Left Clinical History: ? Left thyroid nodule ? Rapid Interpretation: THYROID, LEFT, 2.5 X 1.8 CM NODULE, ULTRASOUND GUIDED FINE NEEDLE ASPIRATION: Evaluation episode #1: ? Passes 1-5: ??Rare follicular cells embedded in clot. Evaluation episode #2: ? Passes 6-10: ??Rare follicular cells and rare histiocytes. Evaluation episode #3: ? Passes 11-15: ??Crushed, rare lymphocytes. Non-diagnostic. Case discussed with Dr. Edwards on site. Dr. Megan Gunter 08/29/2014 4:30 PM Gross Description: ? 28 fixed prepared slides, 3 air dried prepared slides, and 1 tube of CytoLyt were received and processed by selective cellular enhancement technique. ? End of Report [facility] 08/30/2014 08/30/2014 8:3 6 EDT Pau Edwards DO PATHOLOGY ORDERABLES Performing Organization Address City/State/[facility] Co de Phone Number [facility] [address] [place] [address] documented in this encounter Visit Diagnoses Not on filedocumented in this encounter Care Teams Elevator Service Mechanic Relationship Specialty Start Date End Date Kiara Almodovar ARNP [address] [place] [address] PCP - General 07/02/11 08/31/14 documented as of this encounter
--- OUTSIDE RECORDS SUMMARY | 2024-08-27 01:14 | XMS_ITS | Encounter Summary ---
Author Organization [facility] [place] [address] Care Team Providers Care Powerhouse Mechanic Apprentice Name Role Phone Shreya Ambrose APRN Primary Care Provider [phone] [phone] Encounter Details Date Type Department Care Team (Late st Contact Info) Description 12/13/2019 Ancillary Procedure Radiology Library at [facility] [place] [address] Sunday Turner [facility] [place] [address] Social History Tobacco Use Types Packs/Day Years [...] 11:30 AM EST Office Visit Dermatology at [place] [address] [facility] [place] [address] José Villeda MD [address] [facility], [place] [address] documented as of this encounter Procedures Procedure Name Priority Date/Time Associated Diagnosis Comments FILM LIBRARY STORAGE ONLY ULTRASOUND STUDY Routine 12/13/2019 12:00 AM EST documented in this encounter Results * Film Library- Storage Only Ultrasound Study (12/13/2019 12:00 AM EST) Narrative RAD - 04/22/2020 4:57 PM EDT This exam is auto-finalizing. It's purpose is for storage only. Sunday Turner DO IMG FILM LIBRARY ORD ERABLES [place], [place] documented in this encounter Visit Diagnoses Not on filedocumented in this encounter Care Teams Powerhouse Mechanic Apprentice Relationship Specialty Start Date End Date Shreya Ambrose, ULISES [address] [place] [address] PCP - General 09/06/14 documented as of this encounter
--- OUTSIDE RECORDS SUMMARY | 2024-08-27 01:14 | XMS_ITS | Encounter Summary ---
Author Organization [facility] Address [address] [place] [address] Care Team Providers Care Dining Room Attendant Name Role Phone Unavailable Primary Care Provider Unavailabl e Encounter Details Date Type Department Care Team (Late st Contact Info) Description 01/28/2006 Results Only [facility] - Maple conversion [address] [place] [address] Arabella Wilson, [facility] [address] [place] [address] [place] [address] Social History Tobacco Use Types Packs/Day Years Used Date Smoking Tobacco: Never Assessed Sex and Gender Information Value Date Recorded Sex Assigned at Not on file Gender Identity Not on file Sexual Orientation Not on file documented as of this encounter Plan of Treatment Not on file documented as of this encounter Procedures Procedure Name Priority Date/Time Associated Diagnosis Comments HPV DETECTION, HIGH RISK TYPES Routine 01/28/2006 10:50 EST CYTOPATHOLOGY Routine 01/28/2006 0:00 EST documented in this encounter Results * HUMAN PAPILLOMA VIRUS DNA TEST (01/28/2006 10:50 EST) Specimen Description Cervix, ThinPrep vial [facility] Result Negative for HPV types 16, 18, 31, 33, 35, 39, 45, 51, 52, 56, 58, 59, and 68. [facility] Report Status Final [id number] [facility] 01/28/2006 10:5 0 EST 02/07/2006 9:44 EST Arabella Wilson BATCH OR CONTINUOUS STILL OPERATOR MICROBIOLOGY - GENER AL ORDERABLES [facility] [address] [place] [address] * CYTOPATHOLOGY (01/28/2006 0:00 EST) Pathology Report: CYTOPATHOLOGY REPORT Reports generated via electronic interface contain original data; however they are lacking the format of the original report. Caution should be taken when reading/interpreti ng unformatted reports. Name: ? PAGE, MAURISIO Magaña ? Accession #: ? [id number] : ? 1955 (Age: 50) ??F ?Collect Date: ? 01/28/2006 Location: ? [facility] ? Receive Date: ? 01/29/2006 Provider: ?ARABELLA WILSON BATCH OR CONTINUOUS STILL OPERATOR Copy to: ? Specimen/Source: ?ThinPrep Pap Test, Cervix/Endocervix, processed on [employer] ThinPrep Imaging System, with manual evaluation Last Menstrual Period: ? 01/08/06 Treatment History: ? Miscellaneous treatment: 10/03/05 endomet curettage 1)weakly proliferative endometrium with papillary syncytial metaplasia & stromal breakdown.2)frag endocx tiss with microglandular hyperplasia. Other: ? HPVA - HPV testing requested if ASC-US on the current ThinPrep Pap test. ? SPECIMEN ADEQUACY ? Satisfactory for Evaluation - transformation zone component present GENERAL CATEGORIZATION ? Epithelial Cell Abnormality INTERPRETATION ? Squamous Cell Abnormality - Atypical squamous cells, undetermined significance. EDUCATIONAL NOTES/RECOMMENDATI ONS ? [facility] recommends following the 2001 Consensus Guidelines for the Management of Women with Cervical Cytological Abnormalities (CEM,2002;287:212 0-9). Management algorithms have been distributed by [facility] and are available online at www.ASCCP.org. ? Document reviewed and electronically signed by: ? [facility] ? Report Date: ??02/06/2006 18:41 End of Report [facility] 01/28/2006 01/29/2006 Arabella Wilson BATCH OR CONTINUOUS STILL OPERATOR PATHOLOGY ORDERABLES [facility] [address] [place] [address] documented in this encounter Visit Diagnoses Not on filedocumented in this encounter
--- OUTSIDE RECORDS SUMMARY | 2024-08-27 01:14 | XMS_ITS | Clinical Summary ---
Author Organization [facility] Address [address] [place] [address] Care Team Providers Care Cook Pickled Meat Name Role Phone Shreya Ambrose APRN Primary Care Provider [phone] [phone] Social History Tobacco Use Types Packs/Day Years Used Date Smoking Tobacco: Never Assessed Interpersonal Safety Answer Date Record ed Physically Hurt Never 07/02/2020 Verbally Threaten Not on file 07/02/2020 Sex and Gender Information Value Date Recorded Sex Assigned at Not on file Gender Identity Not on file Sexual Orientation Not on file Plan of Treatment Health Maintenance Due Date Last Done Comments Hepatitis C Screen 1955 RSV Immunization ( o r 60+ Years) (1 - 1-dose 60+ series) 2015 Fall Risk Screening 2020 COVID-19 Vaccine (2022- season) 2024 Care Teams Cook Pickled Meat Relationship Specialty Start Date End Date Shreya Ambrose APRN [address] [place] [address] PCP - General 09/01/14
--- OUTSIDE RECORDS SUMMARY | 2024-08-27 01:14 | XMS_ITS | Encounter Summary ---
Author Organization [facility] Address [facility] [place] [address] Care Team Providers Care Metallographic Technician Name Role Phone Shreya Ambrose APRN Primary Care Provider [phone] [phone] Encounter Details Date Type Department Care Team (Late st Contact Info) Description 03/24/2019 Telephone [place] [address] Treasure Calderon MD [facility] [address] H[place] [address] Social History Tobacco Use Types Packs/Day Years Used Date Smoking Tobacco: Former Cigarettes 1 01/20/1977 - 11/19/1992 Smokeless Tobacco: Never Comments:Social smoker Sex and Gender Information Value Date Recorded Sex Assigned at Not on file Gender Identity Not on file Sexual Orientation Not on file documented as of this encounter Miscellaneous Notes * Telephone Encounter - Treasure Calderon MD - 03/24/2019 8:32 AM EDT Called Audrey. Her labs are stable (scanned into eDH). WBC is 3.4 with normal diff. Normal H/H and Plt. No need tocome to appt on 03/24/19 but I would like to see her in early 2019 to recheck her labs and cBC. documented in this encounter Plan of Treatment Upcoming Encounters Date Type Department Care Team (Late st Contact Info) Description 10/07/2024 11:30 AM EST Office Visit Dermatology at [place] [address] [place] [address] José Villeda MD [address], [place] [address] documented as of this encounter Visit Diagnoses Diagnosis Leukocytosis, unspecified type documented in this encounter Care Teams Metallographic Technician Relationship Specialty Start Date End Date Shreya Ambrose APRN [address] [place] [address] PCP - General 09/06/14 documented as of this encounter
--- OUTSIDE RECORDS SUMMARY | 2024-08-27 01:14 | XMS_ITS | Encounter Summary ---
Author Organization [facility] Address [address] [place] [address] Care Team Providers Care Cable Operator Name Role Phone Unavailable Primary Care Provider Unavailabl e Encounter Details Date Type Department Care Team (Late st Contact Info) Description 09/25/[address] [facility] - Maple conversion [address] [place] [address] Arabella Wilson, [facility] [address] [place] [address] [place] [address] Social History Tobacco Use Types [...] Priority Date/Time Associated Diagnosis Comments CYTOPATHOLOGY Routine 09/25/2004 0:00 EDT documented in this encounter Results * CYTOPATHOLOGY (09/25/2004 0:00 EDT) Pathology Report: CYTOPATHOLOGY REPORT Reports generated via electronic interface contain original data; however they are lacking the format of the original report. Caution should be taken when reading/interpreti ng unformatted reports. Name: ? MAURISIO WILSON ? Accession #: ? [id number] : ? 1955 (Age: 49) ??F ?Collect Date: ? 09/25/2004 Location: ? [facility] ? Receive Date: ? 09/26/2004 Provider: ?ARABELLA WILSON INFORMATION TECHNOLOGY INSTRUCTOR Copy to: ? Specimen/Source: ?ThinPrep Pap Test, Cervix/Endocervix Last Menstrual Period: ? 09/08/04 Other: ? HPVA - HPV testing requested if ASC-US on the current ThinPrep Pap test. ? SPECIMEN ADEQUACY ? Satisfactory for Evaluation - transformation zone component present GENERAL CATEGORIZATION ? Negative for Intraepithelial Lesion or Malignancy ? Document reviewed and electronically signed by: ? MIRELLA Pickens(ASCP) ? Report Date: ??10/01/2004 16:00 End of Report [facility] 09/25/2004 09/26/2004 Arabella Wilson INFORMATION TECHNOLOGY INSTRUCTOR PATHOLOGY ORDERABLES [facility] [address] [place] [address] documented in this encounter Visit Diagnoses Not on filedocumented in this encounter
--- OUTSIDE RECORDS SUMMARY | 2024-08-27 01:14 | XMS_ITS | Encounter Summary ---
Author Organization [facility] Address [address] [place] [address] Care Team Providers Care Visual Coordinator Name Role Phone Unavailable Primary Care Provider Unavailabl e Encounter Details Date Type Department Care Team (Late st Contact Info) Description 02/28/2009 Before PRISM Converted Visit (Maple) [facility] - Maple conversion [address] [place] [address] Arabella Wilson, [facility] [address] [place] [address] [place] [address] Social History Tobacco Use Types [...] Priority Date/Time Associated Diagnosis Comments CYTOPATHOLOGY Routine 02/28/2009 0:00 EDT documented in this encounter Results * CYTOPATHOLOGY (02/28/2009 0:00 EDT) Pathology Report: CYTOPATHOLOGY REPORT ? Reports generated via electronic interface contain original data; ? however they are lacking the format of the original report. ? Caution should be taken when reading/interpreti ng unformatted reports. ? Name: ? PAGE, MAURISIO M ? Accession #: ? [id number] ? : ? 1955 (Age: 53) ??F ?Collect Date: ? 02/28/2009 ? Location: ? [facility] ? Receive Date: ? 03/01/2009 ? Provider: ?ARABELLA ROWAN PUNCH HAND ? Copy to: ? Specimen/Source: ?Pap Test, Cervix/Endocervix, ThinPrep Imaging System ? with manual evaluation ? Last Menstrual Period: ? 3/24/09 ? Previous Gynecologic Pathology: ? ASC-US: 2/28/09 ??HPV neg. ? Other: ? HPVA - HPV testing requested if ASC-US on the current ThinPrep Pap test. ? SPECIMEN ADEQUACY ? Satisfactory for Evaluation ? - transformation zone component present ? GENERAL CATEGORIZATION ? Other, see interpretation ? INTERPRETATION ? Endometrial cells present in a woman equal to or greater than age 40. ? Negative for Intraepithelial Lesion. ? EDUCATIONAL NOTES/RECOMMENDATI ONS ? Benign appearing endometrial cells on Pap tests are usually a normal ? finding in women with regular menstrual cycles, especially if the Pap test was ?? collected during the first half of the menstrual cycle. ? There is data showing that endometrial cells on Pap tests may be associated with endometrial/uterin e abnormalities in post menopausal women or in perimenopausal women with abnormal bleeding. ? There is limited data on the significance of benign endometrial cells in post ?? menopausal women on HRT. ??Clinical correlation is recommended. ? Note: ??The Pap test is not an accurate test for the screening of endometrial ? lesions and should not be used as a follow up in patients with clinical ? suspicion of endometrial pathology. ? Document reviewed and electronically signed by: ? EFRAIN MOUNT MD ? Report Date: ??03/03/2009 11:17 ? End of Report ? [facility] 02/28/2009 03/01/2009 Arabella Wilson PUNCH HAND PATHOLOGY ORDERABLES [facility] [address] [place] [address] documented in this encounter Visit Diagnoses Not on filedocumented in this encounter
--- OUTSIDE RECORDS SUMMARY | 2024-08-27 01:14 | XMS_ITS | Encounter Summary ---
Author Organization [facility] Address [address] [place] [address] Care Team Providers Care Offshoring Manager Name Role Phone Shreya Ambrose APRN Primary Care Provider [phone] [phone] Encounter Details Date Type Department Care Team (Late st Contact Info) Description 08/31/2018 Results Only [facility]- [facility] [phone] Jennifer Valenzuela MD [address] [place] [address] Social History Tobacco Use Types Packs/Day Years Used Date Smoking Tobacco: Never Assessed Sex and Gender Information Value Date Recorded Sex Assigned at Not on file Gender Identity Not on file Sexual Orientation Not on file documented as of this encounter Plan of Treatment Not on file documented as of this encounter Procedures Procedure Name Priority Date/Time Associated Diagnosis Comments SURGICAL PATHOLOGY Routine 08/31/2018 22 :56 EDT documented in this encounter Results * SURGICAL PATHOLOGY (08/31/2018 22:56 EDT) Pathology Report: SURGICAL PATHOLOGY REPORT Reports generated via electronic interface contain original data; however they are lacking the format of the original report. Caution should be taken when reading/interpret ing unformatted reports. Name: ? MAURISIO GASTON ? Accession #: ? [id number] ? : ? 1955 (Age: 63) ??F ? Collect Date: ? 08/31/2018 ? Location: ? [facility] ? Receive Date: ? 08/31/2018 ? Provider: JENNIFER VALENZUELA MD Copy to: ? Final Pathologic Diagnosis: A. STOMACH, ANTRUM, BIOPSY: - Mild reactive (chemical) gastropathy. - No Helicobacter pylori-like organisms identified on H&E stained sections. B. STOMACH, BODY, BIOPSY: - Changes compatible with mild reactive (chemical) gastropathy. - No Helicobacter pylori-like organisms identified on H&E stained sections. Document reviewed and electronically signed by: TRESA RILEY MD Report ??Date: 09/03/2018 16:29 By the signature above, the attending physician certifies that he/she has personally conducted a gross and/or microscopic examination of the described specimens and rendered or confirmed the above diagnosis. Specimen(s) Received: A. ??Antrum bx B. ??Body bx Clinical History: Abdominal pain, wt loss; clinical diagnosis codes: R63.4, R10.84 Gross Description: A. ?Received in formalin labelled with proper patient identification (initials P, J) and antrum bx is a trejo irregular tissue, 0.3 x 0.2 x 0.2 cm. Entirely submitted in A1. B. ?Received in formalin labelled with proper patient identification (initials P, J) and body bx are two trejo irregular tissues averaging 0.2 x 0.2 x 0.1 cm. Entirely submitted in B1. CHERRIE Deshpande (ASCP) 09/01/2018 8:39 AM End of Report [facility] 08/31/2018 22:5 6 EDT 08/31/2018 22:56 EDT Jennifer Valenzuela MD PATHOLOGY ORDERABLES [facility] [address] [place] [address] documented in this encounter Visit Diagnoses Not on filedocumented in this encounter Care Teams Offshoring Manager Relationship Specialty Start Date End Date Shreya Ambrose APRN [address] [place] [address] PCP - General 09/01/14 documented as of this encounter
--- OUTSIDE RECORDS SUMMARY | 2024-08-27 01:14 | XMS_ITS | Encounter Summary ---
Author Organization [facility] Address [address] [place] [address] Care Team Providers Care Instructor Tap Dancing Name Role Phone Arnol Shreya Any MONTGOM[place] Primary Care Provider +1 [phone] Encounter Details Date Type Department Care Team (Late st Contact Info) Description 09/19/2023 Lab Requisition [facility] Pathology & Laboratory Medicine - [address] [id number] Outr Resulting Lab, Provider Social History Tobacco [...] Date/Time Associated Diagnosis Comments T3 FREE Routine 09/19/2023 10:35 EDT documented in this encounter Results * T3 FREE (09/19/2023 10:35 EDT) T3, Free 4.1 2.8 - 5.3 pg/mL 09/19/2023 22:11 EDT [facility] Blood VENOUS BLOOD / Unknown 09/19/2023 10:35 EDT 09/19/2023 21:28 EDT Provider Outr Resulting Lab CHEMISTRY & BLOOD GAS ORDERABLES [facility] [address] [place] [address] documented in this encounter Visit Diagnoses Not on filedocumented in this encounter Care Teams Instructor Tap Dancing Relationship Specialty Start Date End Date Shreya Ambrose APRN [address] [facility] [address] [place] [address] PCP - General 09/01/14 documented as of this encounter
--- OUTSIDE RECORDS SUMMARY | 2024-08-27 01:14 | XMS_ITS | Encounter Summary ---
Author Organization [facility] [place] Address [address] [place] [address] Care Team Providers Care Organ Assembler Name Role Phone TedTiffany Any MONTGOMERY Primary Care Provider [phone] [phone] Encounter Details Date Type Department Care Team (Late st Contact Info) Description 11/29/2014 Results Only [facility] [phone] Pau Leonardo, DO [address] [place] [address] Social History Tobacco Use Types [...] Date/Time Associated Diagnosis Comments SURGICAL PATHOLOGY Routine 11/29/2014 18 :14 EST documented in this encounter Results * SURGICAL PATHOLOGY (11/29/2014 18:14 EST) Pathology Report: SURGICAL PATHOLOGY REPORT Reports generated via electronic interface contain original data; however they are lacking the format of the original report. Caution should be taken when reading/interpreting unformatted reports. Name: ? MAURISIO GASTON ? Accession #: ? [id number] ? : ? 1955 (Age: 59) ??F ? Collect Date: ? 11/29/2014 ? Location: ? [facility] ? Receive Date: ? 11/29/2014 ? Provider: PAU LEONARDO DO Copy to: TIFFANY H TED SENIOR LEAD DEVELOPER ? Final Pathologic Diagnosis: THYROID, LEFT LOBE, LOBECTOMY: - Multi-nodular goiter with adenomatous hyperplastic nodule.. - Chronic lymphocytic thyroiditis. - Incidental microscopic papillary thyroid carcinoma, pT1a. ??See summary report. SYNOPTIC REPORT ? THYROID GLAND: Resection Specimen ? Procedure: ?Partial thyroidectomy (lobectomy Left ? Specimen Integrity: ?Intact ? Tumor Focality: ?Unifocal Dominant Tumor ? Specimen ?Tumor Laterality: ?Left lobe ? Tumor ?Histologic Type: ?Papillary carcinoma: ? Variant - Microcarcinoma (occult, latent, small, papillary microtumor) ? Architecture - Classical (papillary) ? Cytomorphology - Classical ? Accessory Findings ?Lymph-Vascular Invasion: ? Not identified ?Perineural Invasion: ?Not identified ? Extent ?Tumor Size: ?Greatest dimension: 0.1 cm ?Tumor Capsule: ?Totally encapsulated ?Tumor Capsular Invasion: ? Not identified ?Extrathyroidal Extension: ? Not identified ? Margins: ?Margins uninvolved by invasive carcinoma Pathologic Staging (pTNM) ? Primary Tumor (pT): ?pT1a: ? Tumor 1 cm or less in greatest dimension limited to the thyroid ? Regional Lymph Nodes: ?pNX: ? Regional lymph nodes cannot be assessed ?Number of Lymph Nodes Examined: ?No nodes submitted or found ? Distant Metastasis (pM): ?Not applicable Comment: ? This case is reviewed at intradepartmental consultation conference. Document reviewed and electronically signed by: Terence Castillo MD Report ??Date: 12/02/2014 14:33 By the signature above, the attending physician certifies that he/she has personally conducted a gross and/or microscopic examination of the described specimens and rendered or confirmed the above diagnosis. Specimen(s) Received: Left thyroid lobe single stitch superior Clinical History: Left thyroid nodule Gross Description: ? Received in formalin labelled with proper identification (initials P, J) and L thyroid lobe single stitch superior is a left lobe of thyroid (12.8 g, 4.7 cm superior to inferior, 2.5 cm medial to lateral, 2.3 cm anterior to posterior), oriented as per the accompanying requisition slip. ? The outer surface has a trejo-purple smooth capsule with minimal focal disruption on the posterior aspect. ??The specimen is sectioned from superior (level 1) to inferior (level 14). ??In levels 6-12 there is a well-circumscribed trejo-brown focally hemorrhagic nodule (2.0 x 1.5 x 0.9 cm). ??This nodule abuts but does not disrupt at the inked outer anterior-medial surface, and is 0.1 cm from the isthmus resection margin. ??In levels 6 and 7 there is a smaller trejo-rivera nodule (0.6 x 0.4 x 0.4 cm), which is disrupted on the posterior surface of the specimen. ??The remaining cut surfaces are red-brown with numerous small scattered pink-white ill-defined foci (up to 0.4 cm in greatest dimension). ? Entire specimen is submitted as follows: INK RAYMOND Blue-posterior aspect Red-isthmus resection margin Black-remaining outer surface BLOCK RAYMOND 1- ??level 1 (superior), perpendicular sections 2- ??levels 2 and 3 (dot of green ink placed on level 2 for identification purposes) 3- ??levels 4 and 5 (dot of green ink placed on level 4 for identification purposes) 4- ??level 6 5- ??level 7 6- ??level 8 7- ??level 9 8- ??level 10 9- ??level 11 10- ??level 12 11- ??level 13 12- ??level 14 (inferior), perpendicular section Jocelyn Leon 11/30/2014 09:04 AM End of Report [facility] 11/29/2014 18:1 4 EST 11/29/2014 18:14 EST Pau Leonardo DO PATHOLOGY ORDERABLES Performing Organization Address City/State/[facility] Co de Phone Number [facility] [address] [place] [address] documented in this encounter Visit Diagnoses Not on filedocumented in this encounter Care Teams Organ Assembler Relationship Specialty Start Date End Date Tiffany Ambrose APRN [address] [facility] [address] [place] [address] PCP - General 09/01/14 documented as of this encounter
--- OUTSIDE RECORDS SUMMARY | 2024-08-27 01:14 | XMS_ITS | Encounter Summary ---
Author Organization [facility] Address [address] [place] [address] Care Team Providers Care Centrifugal Wax Molder Name Role Phone Shreya Ambrose APRN Primary Care Provider [phone] Encounter Details Date Type Department Care Team (Latest Contact Info) Description 10/10/2014 17:17 EST - 10/10/2014 23:59 [facility] Hospital Encounter [address] [address] Unknown, Provider, Discharge Disposition: Home or Self [...] on filedocumented in this encounter Care Teams Centrifugal Wax Molder Relationship Specialty Start Date End Date Shreya Ambrose APRN [address] [place] [address] PCP - General 09/01/14 documented as of this encounter
--- OUTSIDE RECORDS SUMMARY | 2024-08-27 01:14 | XMS_ITS | Encounter Summary ---
Author Organization [facility] Address [facility] [place] [address] Care Team Providers Care Resin Painter Name Role Phone Shreya Ambrose APRN Primary Care Provider [phone] Encounter Details Date Type Department Care Team (Late st Contact Info) Description 01/11/2020 4:00 PM EST Office Visit Hematology/Oncology at [address] [address] Treasure Calderon MD [facility] [address] HEMATOLOGY [place] [address] Leukopenia, unspecified type Social History Tobacco Use [...] Sign Reading Time Taken Comments Blood Pressure 147/84 01/11/2020 4:02 PM EST Pulse 80 01/11/2020 4:02 PM EST Temperature 36.8 ??C (98.2 ??F) 01/11/2020 4:02 PM ES T Respiratory Rate 18 01/11/2020 4:02 PM EST Oxygen Saturation 99% 01/11/2020 4:02 PM EST Inhaled Oxygen Concentration - - Weight 48.6 kg (107 lb 3.2 oz) 01/11/2020 4:02 P M EST Height - - Body Mass Index 21.61 08/20/2018 2:11 PM EDT documented in this encounter Progress Notes * Treasure Calderon MD - 01/11/2020 4:00 PM EST Hematology Note Audrey is seen today in follow-up. She was referred with a diagnosis of leukopenia. Her leukopenia has persisted but remained quite stable over the last 2 years. Her baseline white count seems to runbetween 3 and 4. She has maintained a normal ANC, and a low/normal ALC. She has had no infectious sy mptoms. Her platelet count and hemoglobin remain normal. Most recent labs from 11/09/2019 at [facility] report: WBC 3.47, hemoglobin 13.8, platelets 182,000, ANC 1.98, ALC 1.1. Audrey also reports new right ear pain which is been intermittent and comes and goes. On examination bilateral TMs are clear, without any erythema. Canal is clear as well. She has a good light reflexbilaterally. Oropharynx is also clear. If the pain persists, she will see her primary care physician. Audrey will not need any further follow-up, but we are always happy to see her if new problems arise in the future. Thank you for the consultation documented in this encounter Plan of Treatment Upcoming Encounters Date Type Department Care Team (Late st Contact Info) Description 10/07/2024 11:30 AM EST Office Visit Dermatology at [place] [address] [place] [address] José Villeda MD [address] [facility], [place] [address] documented as of this encounter Procedures Procedure Name Priority Date/Time Associated Diagnosis Comments CBC (WITH DIFF) Routine 11/09/2019 documented in this encounter Results * CBC (with Diff) (11/09/2019) White Blood Cell 3.47 Hemoglobin 13.8 Hematocrit 40.5 Platelet 182 Neutrophil Absolute (ANC) - Automated 1.98 Lymph Absolute Manual 1.10 Blood specimen (specimen) 11/09/2019 Treasure Calderon MD HEMATOLOGY ORDER [place] documented in this encounter Visit Diagnoses Diagnosis Leukopenia, unspecified type documented in this encounter Care Teams Resin Painter Relationship Specialty Start Date End Date Shreya Ambrose APRN [address] [place] [address] PCP - General 09/06/14 documented as of this encounter
--- OUTSIDE RECORDS SUMMARY | 2024-08-27 01:14 | XMS_ITS | Encounter Summary ---
[place] [address] Care Team Providers Care Zigzagger Name Role Phone Shreya Ambrose APRN Primary Care Provider [phone] Reason for Visit * Consultation (Routine) - Closed Specialty Diagnoses / Procedures Referred By Prerna odell Referred To Contact Endocrinology Diagnoses goiter multinodular w/ adenmatous, hyperplastic Shreya Ambrose APRN [address] [place] [address] [facility] Endocrinology [address] [place] [phone] Referral ID Status Reason Start Date Expiration Date V isits Requested Visits Authorized [id number] Closed Consult, Test & Treat [facility] 09/16/2017 09/16/2018 1 1 Encounter Details Date Type Department Care Team (Late st Contact Info) Description 11/19/2017 9:00 AM EST Office [place] [phone] Sunday Turner [facility] [place] [address] Thyroid cancer Social History Tobacco Use Types Packs/Day Years Used Date Smoking Tobacco: Former Cigarettes 1 01/20/1977 - 11/19/1992 Smokeless Tobacco: Never Comments:Social smoker Sex and Gender Information Value Date Recorded Sex Assigned at Not on file Gender Identity Not on file Sexual Orientation Not on file documented as of this encounter Last Filed Vital Signs Vital Sign Reading Time Taken Comments Blood Pressure 154/82 11/19/2017 8:34 AM EST Pulse 79 11/19/2017 8:34 AM EST Temperature 36.7 ??C (98.1 ??F) 11/19/2017 8:34 AM ES T Respiratory Rate - - Oxygen Saturation 100% 11/19/2017 8:34 AM EST Inhaled Oxygen Concentration - - Weight 50.3 kg (111 lb) 11/19/2017 8:34 AM EST Height 152.4 cm (5') 11/19/2017 8:34 AM EST Body Mass Index 21.68 11/19/2017 8:34 AM EST documented in this encounter Progress Notes * Sunday Turner, DO - 11/19/2017 9:00 AM EST Endocrinology Consult Patient Name: Audrey Gaston Date of : 1955 PCP: Shreya Ambrose APRN HISTORY OF PRESENT ILLNESS: Audrey Gaston is a very pleasant 62 y.o. female who presents for evaluation of a right-sided thyroid nodule in the setting of papillary microcarcinoma. 2013 she was experiencing dysphagia and a workup at that time revealed a 2 cm left-sided thyroid nodule. Needle aspiration at that time returned with atypia of undetermined significance. She underwent left lobectomy which was uncomplicated with Dr. Pham in [facility]. The pathology revealed a multinodular goiter with a hyperplastic nodule, chronic lymphocytic thyroiditis, and the incidental discovery of micro-scopic papillary thyroid carcinoma 1 mm in dimension. She has been followed with serial ultrasounds since that time. She u nderwent fine-needle aspiration in January of this year of 3 areas, a left-sided remnant, and 2 nodules in the right lobe. The superiormost nodule in the right lobe returned benign and unfortunately the posterior and inferior nodule which is hypoechoic was unsatisfactory in cellularity. Given her history of thyroid carcinoma she is requesting a second opinion. The plan at [facility] was to repeat the ultrasound in 1 year. She is feeling well and denies specific complaints. She no longer has dysphagia. She states that since her surgery if somebody hugs or she feels some compression in her neck. No other compressive symptoms. She reports having yearly thyroid blood work with her primary care provider/ Past medical history: Papillary carcinoma/microcarcinoma 1 mm in largest dimension REVIEW OF SYSTEMS: as per HPI, all other systems reviewed and negative No Known Allergies No current outpatient prescriptions on file prior to visit. No current facility-administered medications on file prior to visit. Social History Social History ??? Marital status: Spouse name: N/A ??? Number of children: N/A ??? Years of education: N/A Social History Main Topics ??? Smoking status: Former Smoker Years: 15.00 Types: Cigarettes Quit date: 11/19/1992 ??? Smokeless tobacco: Never Used Comment: Social smoker ??? Alcohol use None ??? Drug use: None ??? Sexual activity: Not Asked Other Topics Concern ??? None Social History Narrative ??? None Grandmother with a multinodular goiter in her 50s of unknown causes No other family members with known thyroid disease PHYSICAL EXAM: BP 154/82 Pulse 79 Temp 36.7 ??C (98.1 ??F) (Oral) Ht 152.4 cm (5') Wt 50.3 kg (111 lb) SpO2 100% BMI 21.68 kg/m2 GENERAL: Well nourished, well hydrated, in no distress. SKIN: normal in texture and temperature EYES: no thyroid eye signs, INGA, cornea normal NECK: supple, no palpable nodule or goiter, no bruit, no tenderness, no lymphadenopathy CVS: S1 S2 heard, rhythm regular RS: clear breath sounds bilateral ABD: soft, BS heard, no organomegaly EXTREMITIES: No clubbing, no edema, no cyanosis, normal nails. No tremor on out- stretched hands. Impression: Multiple thyroid nodules with a history of microscopic papillary thyroid cancer. Typically papillary thyroid cancer is treated with a completion thyroidectomy, however given the very small foci (1mm)has elected surveillance which I think is reasonable. Given the hypoechoic nodule in the right lobefine needle aspiration was performed at today's visit. Her pathology (left lobectomy) did identify c hronic lymphocytic thyroiditis and therefore I would recommend continued TSH surveillance. Recommendations: - Fine needle biopsy performed today - Yearly TSH with her primary care provider We have reviewed our plan outlined above with the patient, and patient verbalized understanding. All questions were answered and most of the time was spent on counseling. Thank you for this consult, please do not hesitate to contact me with any questions. Sunday Boh, DO, MS Stamp Machine Servicerfield service manager Department of Medicine Section of Endocrinology [facility] cc: Shreya Ambrose APRN * Sunday Turner DO - 11/19/2017 9:00 AM EST THYROID ULTRASOUND: Indication: Thyroid nodule on prior study; Considering FNA - clarify size, position and US characteristics Real time images of the thyroid gland were obtained. All measurements are given as Longitudinal x Anterior-Posterior (A-P) x Transverse Right Lobe: The right lobe contains a hyperechoic nodule measuring 1.4 cm sagittal ??0.9 cm AP x 1.3 cm transverse, borders are well-defined, there is increased internal vascularity. There are no calcifications. There is a small hypoechoic nodule in the posterior inferior aspect of the right lobe measuring 1 cm in all dimensions, there are microcalcifications, there is slightly increased vascularity, the borders appear well-defined. Left Lobe: There appears to be remnant tissue in the left lobe measuring 1.3 cm sagittal ??1 cm AP ??1 cm transverse. There is normal echogenicity. There is internal vascularity. There are no calcifications. There is a small 1 mm hypoechoic area at the center of the tissue. Isthmus : Absent IMPRESSION: -Small hypoechoic nodule in the right lobe in the setting of prior papillary microcarcinoma Recommendation: FNA PROCEDURE: THYROID FNA under US guidance Indication: Right thyroid nodule with prior micro-PTC => FNA of the solid component and aspiration of cystic fluid for cytology Informed consent was obtained after a discussion of the nature of the procedure, its risks, benefits and possible alternatives. Immediately prior to the start of the procedure a time out was taken: - The patient's identity was confirmed using two identifiers - The intended procedure, patient positioning and availability of all required equipment was also confirmed. - The proper site(s)/side(s) of the nodule(s) was/were confirmed by visualization with ultrasound. The biopsy site(s) on the patient's neck was/were prepared using isopropyl alchohol. 5 passes of a 25g needle were performed on the right posterior inferior thyroid nodule, which included 1 past saved for molecular testing. The needle placement was ultrasound guided. The needle was visualized in the nodule in each pass. The procedure was well tolerated by the patient. The patient was given a thyroid FNA post-procedure handout upon completion. Sunday Turner DO, MS Stamp Machine Servicerfield service manager Department of Medicine Section of Endocrinology [facility] Addendum: 12/02/2017 procedure/US note correction. There was a residential life director error in the original note that has been corrected. documented in this encounter Plan of Treatment Upcoming Encounters Date Type Department Care Team (Late st Contact Info) Description 10/07/2024 11:30 AM EST Office Visit Dermatology at [place] [address] [facility] [place] [phone] José Villeda MD [address] [facility] [address] [place] [address] documented as of this encounter Procedures Procedure Name Priority Date/Time Associated Diagnosis Comments NON-A P MANAGER FINAL REPORT Routine 11/19/2017 10:42 AM EST CYTOPATHOLOGY NON-GYNECOLOGICAL Routine 11/19/2017 9:45 AM EST Thyroid cancer documented in this encounter Results * Non-Sales Agent [employer] Final Report (11/19/2017 10:42 AM EST) Diagnosis Discussion [id number] ? Location: 5C The signing pathologist has (i) examined the relevant preparation(s) for the specimen(s) and (ii) rendered or confirmed the diagnosis(es). . ? Addendum ADDENDUM DISCUSSION SPECIAL TEST PERFORMED: Test: ??[employer] [facility] Case: ??[id number] Performing Lab: ??[employer] Performing Lab Case: ??[id number] Reported by Chantal Farias MD Date reported: ??12/15/2017 For the full text of the [facility] report(s) please refer to Non- Documentation Pathology in the electronic health record (eDH). Electronically signed by: ??Martin SPEARS PhD, Castro Vargas Verified: ??12/18/2017 ?Pathologist Performed at: ??-[facility] Dept. of Pathology, [place], [place] ? Non-Sales Agent [employer] Final DIAGNOSIS Atypical Electronically signed by: ??Martin SPEARS PhD, Castro Vargas Verified: ??11/21/2017 ?Pathologist Performed at: ??-[facility] Dept. of Pathology, [place], [place] DISCUSSION Thyroid, right (US-guided FNA): Atypia of Undetermined Significance (see note). Predominantly Hurthle cells, some with nuclear atypia, are present. ??Scant colloid noted. Note: Clinical correlation is recommended. Molecular testing or a repeat aspirate after an appropriate interval of observation might be helpful if clinically indicated. Reference: Ladonna SZ, Edward ES. The Mccormick System for Reporting Thyroid Cytopathology. [place]: [place]; 2018. CLINICAL INFORMATION Specimen Source : Thyroid, right (US-guided FNA, assisted) Pertinent Clinical Data and Significant Therapy: MicroPTC (1mm) now s/p left lobectomy Clinical Impression: Right hypoechoic nodule Pertinent Radiologic Findings: Echogenicity: Hypo Cystic: No Calcification: Micro . CLINICAL INFORMATION Vascularity: High Gross Description: Received in CytoLyt approximately 10 mL total volume of cloudy, pink fluid, with light flecks. Total Preparation: Liquid-Based Prep 1; Diff-Quik 4; Pap Stain 4. Fine Needle Aspiration Immediate Assessment: Evaluation Episode #1 (2 slides): Inadequate for final diagnosis. Scattered follicular groups. Immediate Assessment by: ?? Castro Salazar MD, PhD. ??I have personally examined the cytologic slides. My interpretation is as stated. Note: Immediate Assessment results are preliminary assessments of adequacy and diagnosis. See final diagnostic comments for completed interpretation. 12/18/2017 10:46 AM EST [facility] THYROID STRUCTURE / Unknown 11/19/2017 10:42 AM EST 11/19/2017 10:42 AM EST Sunday Turner DO PATHOLOGY/CYTOLOGY O RDERABREANNE Performing Organization Address [facility] [place] [place] [address] * Cytopathology Non-Gynecological (11/19/2017 9:45 AM EST) AP Specimen 11/19/2017 9:45 AM EST 11/19/2017 9:45 AM EST Narrative [facility] - 11/19/2017 9:45 AM EST Specimen requisition ordered. ??Separate Pathology report to follow Sunday Turner DO PATHOLOGY/CYTOLOGY O MARTI Performing Organization Address [facility] [place] [place] [address] documented in this encounter Visit Diagnoses Diagnosis Thyroid cancer Malignant neoplasm of thyroid gland documented in this encounter Care Teams Zigzagger Relationship Specialty Start Date End Date Shreya Ambrose APRN [address] [place] [address] PCP - General 09/06/14 documented as of this encounter
--- OUTSIDE RECORDS SUMMARY | 2024-08-27 01:14 | XMS_ITS | Encounter Summary ---
Author Organization [facility] Address [address] [place] [address] Care Team Providers Care Funeral Workers Name Role Phone Arnol Tiffanyshraddha Agarwal APRN Primary Care Provider [phone] [phone] Encounter Details Date Type Department Care Team (Late st Contact Info) Description 07/05/2019 Results Only [facility]- [facility] [phone] Arabella Wilson, [facility] [address] [place] [address] Social History Tobacco Use Types [...] Diagnosis Comments PAP TEST- RESULT ONLY Routine 07/05/2019 0:00 EDT documented in this encounter Results * PAP TEST- RESULT ONLY (07/05/2019 0:00 EDT) Pathology Report: CYTOPATHOLOGY REPORT Reports generated via electronic interface contain original data; however they are lacking the format of the original report. Caution should be taken when reading/interpreti ng unformatted reports. Name: ? MAURISIO GASTON ? Accession #: ? [id number] ? : ? 1955 (Age: 64) ??F ?Collect Date: ? 07/05/2019 ? Location: ? [facility] ? Receive Date: ? 07/06/2019 ? Provider: ARABELLA WILSON COIN PURSE FRAMER Copy to: TIFFANY JEAN NAIL POLISH BRUSH MACHINE FEEDER ? Final Report SPECIMEN ADEQUACY ? Satisfactory for Evaluation - transformation zone component present - scant squamous epithelial component, contamination present, possibly lubricant GENERAL CATEGORIZATION ? Negative for Intraepithelial Lesion or Malignancy ?? Last Menstrual Period: 2010 Specimen/Source: ??Pap Test, Cervix, ThinPrep Imaging System with manual evaluation Document reviewed and electronically signed by: ? Melida Pereyra, CT(ASCP) ? Report ??Date: 07/13/2019 10:13 HPV with Pap Test ? Date Ordered: ? 07/13/2019 ? Status: ?? Signed Out ?Date Complete: ? 07/14/2019 ? By: ??System Interface ? Date Reported: ? 07/14/2019 ? Interpretation RESULT: Negative for HPV. No E6 or E7 mRNA is detected from HPV types 16,18,31,33,35, 39,45,51,52,56,58, 59,66, and 68 by certified medication technician mediated amplification. Comments Document reviewed and electronically signed by: ? System Interface ? Report date: 07/14/2019 By the signature above, the attending physician certifies that he/she has personally conducted a gross and/or microscopic examination of the described specimens and rendered or confirmed the above diagnosis. End of Report [facility] 07/05/2019 07/06/2019 Arabella Wilson COIN PURSE FRAMER PATHOLOGY ORDERABLES [facility] [address] [place] [address] documented in this encounter Visit Diagnoses Not on filedocumented in this encounter Care Teams Funeral Workers Relationship Specialty Start Date End Date Tiffany Jean APRN [address] [place] [address] PCP - General 09/01/14 documented as of this encounter
--- OUTSIDE RECORDS SUMMARY | 2024-08-27 01:14 | XMS_ITS | Encounter Summary ---
Author Organization Health system Address [address] [place] [address] Care Team Providers Care Mechanical Lead Name Role Phone Unavailable Primary Care Provider Unavailabl e Encounter Details Date Type Department Care Team (Late st Contact Info) Description 10/03/2005 Results Only [facility] - Maple conversion [address] [place] [address] Zoie Bonilla MD [address] [place] [address] [place], [place] Social History Tobacco Use Types Packs/Day Years Used Date Smoking Tobacco: Never Assessed Sex and Gender Information Value Date Recorded Sex Assigned at Not on file Gender Identity Not on file Sexual Orientation Not on file documented as of this encounter Plan of Treatment Not on file documented as of this encounter Procedures Procedure Name Priority Date/Time Associated Diagnosis Comments SURGICAL PATHOLOGY Routine 10/03/2005 0:00 EST documented in this encounter Results * SURGICAL PATHOLOGY (10/03/2005 0:00 EST) Pathology Report: SURGICAL PATHOLOGY REPORT Reports generated via electronic interface contain original data; however they are lacking the format of the original report. Caution should be taken when reading/interpreti ng unformatted reports. Name: ? MAURISIO GASTON ? Accession #: ? [id number] ? : ? 1955 (Age: 50) ??F ? Collect Date: ? 10/03/2005 ? Location: ? [facility] ? Receive Date: ? 10/03/2005 ? Provider: ZOIE BONILLA MD Copy to: RALF DONAHUE PHARMACIST MANAGER ? Final Pathologic Diagnosis: ? Endometrium, curettage: 1. ?Weakly proliferative endometrium with papillary syncytial metaplasia and stromal breakdown. ??See comment. 2. 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 Comment: ? Dr. Josy San has reviewed this case in consultation and agrees with the above diagnoses. ??(Dr. Adrian)/[facility] Document reviewed and electronically signed by: BLOSSOM ADRIAN MD Report ??Date: 10/07/2005 16:15 By the signature above, the attending physician certifies that he/she has personally conducted a gross and/or microscopic examination of the described specimens and rendered or confirmed the above diagnosis. Specimen(s) Received: ? Endometrial curettings Clinical History: ? Menometrorrhagia; LMP: 09/11/05 Gross Description: ? Received in formalin labelled Page and endometrial curettings is a 2.6 x 1.8 x 0.7 cm aggregate of red-brown, hemorrhagic soft tissue, submitted in toto as (A1) ??(A3). ??(Megan Sawyer/[facility] End of Report [facility] 10/03/2005 10/03/2005 9:4 5 EST Zoie Bonilla MD PATHOLOGY ORDERABLES [facility] [address] [place] [address] documented in this encounter Visit Diagnoses Not on filedocumented in this encounter
--- OUTSIDE RECORDS SUMMARY | 2024-08-27 01:14 | XMS_ITS | Encounter Summary ---
Author Organization [facility] Address [address] [place] [address] Care Team Providers Care Electrician Substation Supervisor Name Role Phone Unavailable Primary Care Provider Unavailabl e Encounter Details Date Type Department Care Team (Late st Contact Info) Description 06/24/2005 Results Only [facility] - Maple conversion [address] [place] [address] Zoie Bonilla MD [address] [place] [address] [place], [place] Social History Tobacco Use Types Packs/Day Years Used Date Smoking Tobacco: Never Assessed Sex and Gender Information Value Date Recorded Sex Assigned at Not on file Gender Identity Not on file Sexual Orientation Not on file documented as of this encounter Plan of Treatment Not on file documented as of this encounter Procedures Procedure Name Priority Date/Time Associated Diagnosis Comments SURGICAL PATHOLOGY Routine 06/24/2005 0:00 EDT documented in this encounter Results * SURGICAL PATHOLOGY (06/24/2005 0:00 EDT) Pathology Report: SURGICAL PATHOLOGY REPORT Reports generated via electronic interface contain original data; however they are lacking the format of the original report. Caution should be taken when reading/interpreti ng unformatted reports. Name: ? MAURISIO GASTON ? Accession #: ? [id number] ? : ? 1955 (Age: 50) ??F ? Collect Date: ? 06/24/2005 ? Location: ? [facility] ? Receive Date: ? 06/26/2005 ? Provider: ZOIE BONILLA MD Copy to: RALF DONAHUE CUFF MATCHER ? Final Pathologic Diagnosis: ? Endometrium, biopsy: 1. ?Disordered proliferative endometrium with focal early secretory changes. 2. ?No cytologic atypia identified. Document reviewed and electronically signed by: EFRAIN TRACY MD Report ??Date: 06/28/2005 16:09 By the signature above, the attending physician certifies that he/she has personally conducted a gross and/or microscopic examination of the described specimens and rendered or confirmed the above diagnosis. Specimen(s) Received: ? Endometrial bx Clinical History: ? DUB, on Provera; LMP: 06/08/05 Gross Description: ? Received in formalin labelled Page and endometrial bx are 2.0 x 1.0 x 0.3 cm of multiple trejo-pink to red hemorrhagic soft tissue fragments. ??The specimen is entirely submitted in one cassette. ??(Ananda Dennis)/[facility] End of Report [facility] 06/24/2005 06/26/2005 9:2 4 EDT Zoie Bonilla MD PATHOLOGY ORDERABLES [facility] [address] [place] [address] documented in this encounter Visit Diagnoses Not on filedocumented in this encounter
--- OUTSIDE RECORDS SUMMARY | 2024-08-27 01:14 | XMS_ITS | Encounter Summary ---
Author Organization Pending [facility] To [facility] Address [facility] [place] [address] Care Team Providers Care Supervisor Metal Furniture Fabrication Name Role Phone Shreya Ambrose APRN Primary Care Provider [phone] Encounter Details Date Type Department Care Team (Late st Contact Info) Description 12/17/2017 External [place] [address] Provider, Scanning Social History Tobacco Use Types [...] 11:30 AM EST Office Visit Dermatology at [address] [phone] José Villeda MD [address] [place] [address], [facility] [place] [address] documented as of this encounter Procedures Procedure Name Priority Date/Time Associated Diagnosis Comments CYTOLOGY SCAN Routine 12/17/2017 documented in this encounter Results * Scan Doc: Cytology (12/17/2017) Historical Provider MD MONTEIRO MGR SCAN EX T ORDR/RSLT documented in this encounter Visit Diagnoses Not on filedocumented in this encounter Care Teams Supervisor Metal Furniture Fabrication Relationship Specialty Start Date End Date Shreya Ambrose APRN [address] [place] [address] PCP - General 09/06/14 documented as of this encounter
--- OUTSIDE RECORDS SUMMARY | 2024-08-27 01:14 | XMS_ITS | Encounter Summary ---
Author Organization [facility] Address [address] [place] [address] Care Team Providers Care Morning Caregiver Name Role Phone Lucita Ibarra MD Primary Care Provider [phone] Encounter Details Date Type Department Care Team (Late st Contact Info) Description 06/25/2011 Results Only [facility] Non-Invasive Cardiology - [facility] [address] [place] [address] Kiara Almodovar, CHARLI [address] [place] [address] Social History Tobacco Use Types Packs/Day Years Used Date Smoking Tobacco: Never Assessed Sex and Gender Information Value Date Recorded Sex Assigned at Not on file Gender Identity Not on file Sexual Orientation Not on file documented as of this encounter Plan of Treatment Not on file documented as of this encounter Procedures Procedure Name Priority Date/Time Associated Diagnosis Comments FLOW CYTOMETRY Routine 06/25/2011 0:00 EDT documented in this encounter Results * FLOW CYTOMETRY (06/25/2011 0:00 EDT) Pathology Report: FLOW CYTOMETRY REPORT ? Reports generated via electronic interface contain original data; ? however they are lacking the format of the original report. ? Caution should be taken when reading/interpreting unformatted reports. ? Name: ? PAGE, MAURISIO M ? Accession #: ? [id number] ? : ? 1955 (Age: 56) ??F ?Collect Date: ? 06/25/2011 00:00 ? Location: ? [facility] ? Receive Date: ? 06/26/2011 08:00 ? Provider: ?KIARA JAMIE EDGE INKER HEELS ? Copy to: ? FINAL IMMUNOPHENOTYPIC INTERPRETATION: ? Peripheral blood, flow cytometric analysis: ?- No immunophenotypic evidence of a clonal cell population. ??See comment. ? COMMENT: ? The results of flow cytometry show no immunophenotypic evidence of ? involvement by a clonal lymphoproliferative or myeloproliferative disorder. ? Correlation of these findings with morphologic and clinical data is essential. ? Document reviewed and electronically signed by: ? MI Vargas LAINA MD ? Report Date: ??06/26/2011 14:01 ? By the signature above, the attending physician certifies that he/she has ? personally conducted an evaluation of the described specimen and rendered or ? confirmed the above diagnosis. ? CLINICAL HISTORY: ? The patient is a 56-year-old female with lymphocytopenia. ? DESCRIPTION: ? The specimen consists of peripheral blood subjected to erythrocyte lysis by an ammonium chloride-based technique. ??Gating is performed using CD45 ? fluorescence and side scatter. ??Cellular viability (assessed by propidium iodide exclusion) is good (93%). ??Expression of the following markers is tested: ??CD2, CD3, CD4, CD5, CD7, CD8, CD10, CD11b, CD11c, CD13, CD14, CD16, CD19, CD20, CD23, CD33, CD34, CD38, CD45, CD56, CD57, CD117, FMC-7, HLA-DR, kappa light chain, ? lambda light chain. ? A majority of the lymphoid cells are T-lymphocytes (CD2+CD3+CD5+CD7+) with CD4+ and CD8+ subsets represented. ??The remaining lymphocytes are B-lymphocytes (CD19+CD20+) and NK-cells (CD2+CD3-CD16+CD56+). ??B-cells are too few in number ?? to permit definitive assessment with respect to light chain expression. ??The ? remainder of the CD45+ events is predominantly of myeloid lineage. ??There is no increase in blasts or plasma cells. ? This test was developed and its performance characteristics determined by ?? the Department of Pathology and Laboratory Medicine, [place], [place] ??It has not been cleared or approved by the U.S. Food and Drug ?? Administration. ? End of Report ? [facility] 06/25/2011 06/26/2011 8:0 0 EDT Kiara AUGUSTIN PATHOLOGY ORDERABLES [facility] [address] [place] [address] documented in this encounter Visit Diagnoses Not on filedocumented in this encounter Care Teams Morning Caregiver Relationship Specialty Start Date End Date Lucita Ibarra MD [address] [place] [address] PCP - General 05/10/11 07/01/11 documented as of this encounter
--- OUTSIDE RECORDS SUMMARY | 2024-08-27 01:14 | XMS_ITS | Encounter Summary ---
Author Organization [facility] Address [address] [place] [address] Care Team Providers Care Motorcycle Mechanic Apprentice Name Role Phone ArnolTiffany head ULISES Primary Care Provider [phone] Encounter Details Date Type Department Care Team (Late st Contact Info) Description 10/10/2014 Results Only [facility] - [facility] [address] [place], [place] [id number] Ramirez Gresham MD [address] [place] [id number] Social History Tobacco Use Types Packs/Day Years Used Date Smoking Tobacco: Never Assessed Sex and Gender Information Value Date Recorded Sex Assigned at Not on file Gender Identity Not on file Sexual Orientation Not on file documented as of this encounter Plan of Treatment Not on file documented as of this encounter Procedures Procedure Name Priority Date/Time Associated Diagnosis Comments CYTOPATHOLOGY Routine 10/10/2014 0:00 EST documented in this encounter Results * CYTOPATHOLOGY (10/10/2014 0:00 EST) Pathology Report: CYTOPATHOLOGY REPORT Reports generated via electronic interface contain original data; however they are lacking the format of the original report. Caution should be taken when reading/interpret ing unformatted reports. Name: ? MAURISIO GASTON ? Accession #: ? [id number] : ? 1955 (Age: 59) ??F ?Collect Date: ? 10/10/2014 Location: ? [facility] ? Receive Date: ? 10/11/2014 Provider: ? RAMIREZ GRESHAM MD Copy to: ?TIFFANY AMBROSE APRN PAU LEONARDO DO ? CYTOLOGIC DIAGNOSIS: THYROID, LEFT LOBE MIDPORTION, 2.3 CM NODULE, ULTRASOUND GUIDED FINE NEEDLE ASPIRATION: - ??Atypical follicular cells of undetermined significance. ??See comment. ? COMMENT: The specimen is adequately cellular and composed of predominantly microfollicular groups with nuclear crowding and occasional groups with nuclear enlargement and pallor. ??Peripheral nucleoli and nuclear grooves are seen. ??A few passes show a background of cystic material and macrophages. ??The cellular features are atypical and raise the possibility of a follicular neoplasm including a follicular variant of papillary carcinoma. ??The differential however also includes reactive changes in a benign follicular lesion. ??Clinical correlation and follow-up are recommended. ?? Document reviewed and electronically signed by: ? DANITA MORALES MD Report Date: ??10/11/2014 18:44 By the signature above, the attending physician certifies that he/she has personally conducted a gross and/or microscopic examination of the described specimens and rendered or confirmed the above diagnosis. Specimen Type: ? Thyroid, Fine Needle Aspiration, Left mid pole Clinical History: ? 2.3 x 0.9 x 1.7 cm thyroid nodule; insufficient sample 08/29/14 ? Rapid Interpretation: THYROID, LEFT LOBE, MID PORTION, 2.3 CM NODULE, ULTRASOUND GUIDED FINE NEEDLE ASPIRATION: Evaluation episode #1: ? Passes 1-5: ??Follicular cells with pallor and crowding; histiocytes. ??Adequate, but additional recommended for complete evaluation. ?Passes 6+7: ??Not evaluated on site. Dr. Megan Gunter 10/10/2014 13:45 Gross Description: ? 13 fixed prepared slides, 2 air dried prepared slides, and 1 tube of CytoLyt were received and processed by selective cellular enhancement technique. ? End of Report [facility] 10/10/2014 10/11/2014 7:2 8 EST Ramirez Gresham MD PATHOLOGY ORDERABLE S [facility] [address] [place] [address] documented in this encounter Visit Diagnoses Not on filedocumented in this encounter Care Teams Motorcycle Mechanic Apprentice Relationship Specialty Start Date End Date Tiffany Ambrose APRN [address] [facility] [address] [place] [address] PCP - General 09/01/14 documented as of this encounter
--- OUTSIDE RECORDS SUMMARY | 2024-08-27 01:14 | XMS_ITS | Encounter Summary ---
Author Organization [facility] Address [address] [place] [address] Care Team Providers Care Stockroom Coordinator Name Role Phone Unavailable Primary Care Provider Unavailabl e Encounter Details Date Type Department Care Team (Late st Contact Info) Description 09/24/2002 Results Only [facility] - Maple conversion [address] [place] [address] Arabella Wilson, [facility] [address] [place] [address] [place] [address] Social History Tobacco Use Types [...] Priority Date/Time Associated Diagnosis Comments CYTOPATHOLOGY Routine 09/24/2002 0:00 EDT documented in this encounter Results * CYTOPATHOLOGY (09/24/2002 0:00 EDT) Pathology Report: CYTOPATHOLOGY REPORT Reports generated via electronic interface contain original data; however they are lacking the format of the original report. Caution should be taken when reading/interpreti ng unformatted reports. Name: ? MAURISIO WILSON ? Accession #: ? [id number] : ? 1955 (Age: 47) ??F ?Collect Date: ? 09/24/2002 Location: ? [facility] ? Receive Date: ? 09/27/2002 Provider: ?ARABELLA WILSON MENTAL HEALTH CASE MANAGER Copy to: ? Specimen/Source: ?ThinPrep Pap Test, Cervix/Endocervix Last Menstrual Period: ? 09/07/02 Other: ? Additional clinical information: pap history wnl ? SPECIMEN ADEQUACY ? Satisfactory for Evaluation - transformation zone component present GENERAL CATEGORIZATION ? Negative for Intraepithelial Lesion or Malignancy ? Document reviewed and electronically signed by: ? MIRELLA Carr(ASCP) ? Report Date: ??09/30/2002 10:19 End of Report [facility] 09/24/2002 09/27/2002 Arabella Wilson MENTAL HEALTH CASE MANAGER PATHOLOGY ORDERABLES [facility] [address] [place] [address] documented in this encounter Visit Diagnoses Not on filedocumented in this encounter
--- OUTSIDE RECORDS SUMMARY | 2024-08-27 01:14 | XMS_ITS | Encounter Summary ---
Author Organization [facility] Address [facility] [place] [address] Care Team Providers Care Munitions Factory Worker Name Role Phone Shreya Ambrose APRN Primary Care Provider [phone] Encounter Details Date Type Department Care Team (Late st Contact Info) Description 12/16/2017 Telephone [place] [address] Lucita Richter LPN Social History Tobacco Use Types Packs/Day Years Used Date Smoking Tobacco: Former Cigarettes 1 01/20/1977 - 11/19/1992 Smokeless Tobacco: Never Comments:Social smoker Sex and Gender Information Value Date Recorded Sex Assigned at Not on file Gender Identity Not on file Sexual Orientation Not on file documented as of this encounter Miscellaneous Notes * Telephone Encounter - Lucita Richter LPN - 12/16/2017 2:47 PM EST Images from the original note were not included. Audrey Gaston?? Female, 62 y.o., 1955 Weight: 50.3 kg (111 lb) Home: PCP: Shreya Ambrose APRN myD-H: Active Next Appt: None ?? Message Received: Today ? Sunday Turner, DO Lucita Richter LPN ? Good news for Audrey. The mutation testing revealed that the nodule is very, highly likely benign. No mutations identified. I would recommend a repeat US in 2 years. ? Called patient at which time above message was read to her. Patient agrees with plan of care. Spokewith assistant secretary Teresitawho placed reminder for appointment in edh documented in this encounter Plan of Treatment Upcoming Encounters Date Type Department Care Team (Late st Contact Info) Description 10/07/2024 11:30 AM EST Office Visit Dermatology at [place] [address] [facility] [place] [address] José Villeda MD [address] [facility] [place] [address] documented as of this encounter Visit Diagnoses Not on filedocumented in this encounter Care Teams Munitions Factory Worker Relationship Specialty Start Date End Date Shreya Ambrose APRN [address] [place] [address] PCP - General 09/06/14 documented as of this encounter
--- OUTSIDE RECORDS SUMMARY | 2024-08-27 01:14 | XMS_ITS | Encounter Summary ---
Author Organization [facility] Address [address] [place] [address] Care Team Providers Care Relief Worker Name Role Phone Unavailable Primary Care Provider Unavailabl e Encounter Details Date Type Department Care Team (Late st Contact Info) Description 09/17/2000 Results Only [facility] - Maple conversion [address] [place] [address] Arabella Wilson, [facility] [address] [place] [address] [place] [address] Social History Tobacco Use Types [...] Priority Date/Time Associated Diagnosis Comments CYTOPATHOLOGY Routine 09/17/2000 0:00 EDT documented in this encounter Results * CYTOPATHOLOGY (09/17/2000 0:00 EDT) Pathology Report: CYTOPATHOLOGY REPORT Reports generated via electronic interface contain original data; however they are lacking the format of the original report. Caution should be taken when reading/interpreti ng unformatted reports. Name: ? MAURISIO WILSON ? Accession #: ? [id number] : ? 1955 (Age: 45) ??F ?Collect Date: ? 09/17/2000 Location: ? [facility] ? Receive Date: ? 09/18/2000 Provider: ?ARABELLA WILSON COLOR DEPOSITING MACHINE TENDER Copy to: ? Specimen/Source: ?ThinPrep Pap Test, Cervix/Endocervix Last Menstrual Period: ? 08/26/00 ? SPECIMEN ADEQUACY ? Satisfactory for evaluation. GENERAL CATEGORIZATION ? Within Normal Limits ? Document reviewed and electronically signed by: ? MIRELLA Carr(ASCP) ? Report Date: ??09/26/2000 13:48 End of Report [facility] 09/17/2000 09/18/2000 Arabella Wilson COLOR DEPOSITING MACHINE TENDER PATHOLOGY ORDERABLES [facility] [address] [place] [address] documented in this encounter Visit Diagnoses Not on filedocumented in this encounter
--- OUTSIDE RECORDS SUMMARY | 2024-08-27 01:14 | XMS_ITS | Encounter Summary ---
Author Organization [facility] [place] [address] Care Team Providers Care Curtain Stretcher Assembler Name Role Phone Shreya Ambrose APRN Primary Care Provider [phone] Encounter Details Date Type Department Care Team (Late st Contact Info) Description 11/25/2017 Telephone [place] [address] Patti Robert RN Social History Tobacco Use Types Packs/Day Years Used Date Smoking Tobacco: Former Cigarettes 1 01/20/1977 - 11/19/1992 Smokeless Tobacco: Never Comments:Social smoker Sex and Gender Information Value Date Recorded Sex Assigned at Not on file Gender Identity Not on file Sexual Orientation Not on file documented as of this encounter Miscellaneous Notes * Telephone Encounter - Patti Robert RN - 11/25/2017 4:18 PM EST Called patient, verified name and , read her Dr. Turner message, patient verbalized understanding. * Telephone Encounter - Patti Robert RN - 11/25/2017 4:17 PM EST ----- Message from Sunday Turner DO sent at 11/23/2017 11:40 AM EST ----- Can you please contact cytology and ask them to send the molecular test (ThyGenX). Also please inform Audrey that we did see some atypical cells and will be sending the molecular test to better determine the risk of cancer. I will call her as soon as I get these results (typically 3-4 weeks). Thanks documented in this encounter Plan of Treatment Upcoming Encounters Date Type Department Care Team (Late st Contact Info) Description 10/07/2024 11:30 AM EST Office Visit Dermatology at [place] [address] [facility] [place] [address] José Villeda MD [address], [place] [address] documented as of this encounter Visit Diagnoses Not on filedocumented in this encounter Care Teams Curtain Stretcher Assembler Relationship Specialty Start Date End Date Shreya Ambrose APRN [address] [place] [address] PCP - General 09/06/14 documented as of this encounter
--- OUTSIDE RECORDS SUMMARY | 2024-08-27 01:14 | XMS_ITS | Encounter Summary ---
Author Organization [facility] Address [address] [place] [address] Care Team Providers Care Terrazzo Journeyman Name Role Phone Nishi Kiara CHARLI Primary Care Provider [phone] Encounter Details Date Type Department Care Team (Late st Contact Info) Description 05/06/2013 Results Only [facility] Laboratory Services - [facility] ([facility]) [address] [place], [place] [id number] Ralf Wilson, [facility] [address] [place] [phone] Social History Tobacco Use Types Packs/Day Years [...] Diagnosis Comments PAP TEST- RESULT ONLY Routine 05/06/2013 0:00 EDT documented in this encounter Results * PAP TEST- RESULT ONLY (05/06/2013 0:00 EDT) Pathology Report: CYTOPATHOLOGY REPORT Reports generated via electronic interface contain original data; however they are lacking the format of the original report. Caution should be taken when reading/interpreti ng unformatted reports. Name: ? MAURISIO GASTON ? Accession #: ? [id number] ? : ? 1955 (Age: 58) ??F ?Collect Date: ? 05/06/2013 ? Location: ? [facility] ? Receive Date: ? 05/10/2013 ? Provider: RALF WILSON INSURANCE COMPLIANCE ANALYST Copy to: KIARA AUGUSTIN ? Final Report SPECIMEN ADEQUACY ? Satisfactory for Evaluation - transformation zone component present GENERAL CATEGORIZATION ? Epithelial Cell Abnormality INTERPRETATION ? Squamous Cell Abnormality - Atypical squamous cells, undetermined significance (ASC-US). EDUCATIONAL NOTES/RECOMMENDATI ONS ? [facility] recommends following ASCCP's 2012 Updated Consensus Guidelines for the Management of Abnormal Cervical Cancer Screening Tests and Cancer Precursors (JLGTD, 2013; 17(5):S1-S27). ??Consensus guidelines are available online at www.asccp.org. Last Menstrual Period: 2010 Hormonal/Contracep tive status: Tubal ligation: bilateral Specimen/Source: ??Pap Test, Cervix/Endocervix, ThinPrep Imaging System with manual evaluation Document reviewed and electronically signed by: ? HILDA MENDEZ MD ? Report ??Date: 05/20/2013 15:41 HPV with Pap Test ? Date Ordered: ? 05/20/2013 ? Status: ?? Signed Out ?Date Complete: ? 05/24/2013 ? By: ??System Interface ? Date Reported: ? 05/24/2013 ? Interpretation RESULT: Negative for HPV. No E6 or E7 mRNA is detected from HPV types 16,18,31,33,35, 39,45,51,52,56,58, 59,66, and 68 by server administrator mediated amplification. Comments Document reviewed and electronically signed by: ? System Interface ? Report date: 05/24/2013 By the signature above, the attending physician certifies that he/she has personally conducted a gross and/or microscopic examination of the described specimens and rendered or confirmed the above diagnosis. End of Report [facility] 05/06/2013 05/10/2013 Ralf Wilson [facility] PATHOLOGY ORDERABLES [facility] [address] [place] [address] documented in this encounter Visit Diagnoses Not on filedocumented in this encounter Care Teams Terrazzo Journeyman Relationship Specialty Start Date End Date Kiara Almodovar ARNP [address] [place] [address] PCP - General 07/02/11 08/31/14 documented as of this encounter
--- OUTSIDE RECORDS SUMMARY | 2024-08-27 01:14 | XMS_ITS | Encounter Summary ---
Author Organization [facility] [place] [address] Care Team Providers Care Wind Site Manager Name Role Phone Shreya Ambrose APRN Primary Care Provider [phone] Encounter Details Date Type Department Care Team (Late st Contact Info) Description 09/08/2017 Ancillary Procedure Radiology Library at [facility] [place] [address] Sunday Turner [facility] [place] [address] Social History Tobacco Use Types Packs/Day Years [...] 11:30 AM EST Office Visit Dermatology at [place] [address] [facility] [place] [id number] José Villeda MD [address] [facility], [place] [address] documented as of this encounter Procedures Procedure Name Priority Date/Time Associated Diagnosis Comments FILM LIBRARY STORAGE ONLY ULTRASOUND STUDY Routine 09/08/2017 12:00 AM EDT documented in this encounter Results * Film Library- Storage Only Ultrasound Study (09/08/2017 12:00 AM EDT) Narrative [facility] NAMED [facility] - 04/22/2020 4:59 PM EDT This exam is auto-finalizing. It's purpose is for storage only. Sunday Turner DO [facility] FILM LIBRARY ORD ERABLES [place], [place] documented in this encounter Visit Diagnoses Not on filedocumented in this encounter Care Teams Wind Site Manager Relationship Specialty Start Date End Date Shreya Ambrose, AIR MOTOR REPAIRER [address] [place] [address] PCP - General 09/06/14 documented as of this encounter
== END 2024-08-27 01:30 ==
LOC: DI 01:10
PROVIDERS: PCP Nurse Practitioner Family; Visit Provider Nurse Practitioner Family
DX: Z12.31 Encounter for screening mammogram for malignant neoplasm of breast (principal)
CPT/HCPCS: 77063; 77067

== ENCOUNTER → 2024-10-04 09:12 | Outpatient (BNVA) | payer MEDICARE, SELFPAY | PROVIDERS: PCP Nurse Practitioner Family; Referring Provider Nurse Practitioner Family; Visit Provider Psychiatry & Neurology Neurology | DX: M79.671 Pain in right foot (principal); M79.672 Pain in left foot; G62.9 Polyneuropathy, unspecified; E53.8 Deficiency of other specified B group vitamins | CPT/HCPCS: 99215 ==

== ENCOUNTER 2024-10-04 11:21 | Outpatient (CLI) | payer MEDICARE, SELFPAY ==
[2024-10-04 10:52] LABS: ESR < 1 mm/hr (0-30)
[2024-10-04 10:53] LABS: Hemoglobin A1C 5.4 % (<5.7)
[2024-10-05 14:15] LABS: Albumin 67.3 % (55.8-66.1); Albumin g/dL 4.4 g/dL (3.6-5.2); Total Protein 6.6 g/dL (6.3-8.2)
== END 2024-10-04 11:22 | disposition home or self-care (01) ==
LOC: LBO 11:23
PROVIDERS: PCP Nurse Practitioner Family; Visit Provider Psychiatry & Neurology Neurology
DX: G62.9 Polyneuropathy, unspecified (principal); M79.671 Pain in right foot; M79.672 Pain in left foot; R73.9 Hyperglycemia, unspecified; E53.8 Deficiency of other specified B group vitamins
CPT/HCPCS: 36415; 85652; 99215; 83036; 84165

== ENCOUNTER → 2024-12-07 11:26 | Outpatient (BNVA) | payer MEDICARE, SELFPAY | PROVIDERS: PCP Nurse Practitioner Family; Referring Provider Nurse Practitioner Family; Visit Provider Psychiatry & Neurology Neurology | DX: M79.671 Pain in right foot (principal); M79.672 Pain in left foot; G62.9 Polyneuropathy, unspecified; E53.8 Deficiency of other specified B group vitamins | CPT/HCPCS: 95908; 95923; 99214 ==

== ENCOUNTER 2024-12-22 13:54 | Outpatient (REF) | payer MEDICARE, SELFPAY ==
--- OUTSIDE RECORDS SUMMARY | 2024-12-22 14:00 | XMS_ITS | Data Portability ---
Author Organization [facility] [place] [address] Assessment Encounter Date Assessment Date Assessment LastModified by Organization Details LastModified Time 01/19/2024 01/19/2024 Flu vaccine: current Comirnaty: declines Td: current PCV20: completed Shingrix: completed RSV: counseled to get at local pharmacy as desires Pap/ HPV: aged out Mammogram: Last done 08/23 CRC: due next2027 DEXA: current The total time devoted to today's encounter, including both the cbqy-av-ashd time with the patient and/or family/caregi melanie and bgu-prqe-po-f isaac time I personally spent is 32 [...] Organization Details Last Modified Time Details Appointments Nurse Visit 2024 09:00A M Gm Nursing Staff Not available Not available Not available Office Visit 2024 10:30A M SHREYA JEAN Not available Not available Not available Lab vitamin B12, serum 2023 024 [facility] (Registration ), [address] [place] [address] Dr [facility] [place], [address], 07/01/2024 08:30:23 TSH, serum, reflex free T4 2023 024 [facility] (Registration ), [address] [place] [address] Dr [facility] [place], [address], 07/01/2024 08:30:11 CMP, serum or plasma - 1Y [address] Laboratory (Registration ), [address] [place] [address] [place], [address], 12/22/2024 12:53:37 lipid panel, serum 2024 025 [email or web address] (Registration ), [address] [place] [address] [place], [address], 12/22/2024 12:53:[address] referral - EMG 2023 024 [facility], [address] [place] [address] [place], [address], 12/09/2024 09:27:46 Procedures None recorded. Surgeries None recorded. Imaging XR, lumbar spine - Lumbar sacral spine complete 2023 024 [email or web address] [facility], [address], [place], [address], 01/12/2024 13:00:01 Medication Orders None recorded. Patient TargetsNo targets recorded. Patient Instructions Encounter Date Encounter Id Patient Instructions Last Modified By Organization Details Last Modified Time 12/29/2023 [id number] acute low back pain: exercises Not available 12/29/2023 12:19:16 06/29/2024 [id number] - Continue wearing compression socks as tolerated. - Inspect feet daily for any injuries or sores. - Consider trying vitamin B12 supplement or cgaz-svr-ghtlsdr supplements like NeuroVia or alpha-lipoic acid if desired. - Maintain a healthy diet and stay active. - Use low-dose ibuprofen as needed for pain, no more than twice a day. - Follow up with neurology as recommended. - Return for follow-up and reevaluation of hypertension and monitor for any complications. [email or web address] Not available 06/29/2024 11:26:04 Reason for Referral Neurologist Referral for Jarrett ropathy EMG Referring Physician: Shreya Jean, Family Medicine, Encounter Date: 06/29/2024 Results Created Date Observation Date Name Description Value Unit Range Abnormal Flag Note LastModifiedBy Organization Detail LastModifiedTime 02/26/20 24 02/26/2024 TSH (W/RE F FT4) TSH (w/ref FT4) 1.20 uIU/m L 0.36-3 .74 normal Not Available [address] [place], [address] 02/26/2024 13:44:34 02/26/20 24 02/26/2024 VITAM IN B12 vitamin B12 362 pg/mL 193-98 6 normal Not Available [address] [place], [address] 02/26/2024 13:44:34 06/29/20 24 06/29/2024 TSH (W/RE F FT4) TSH (w/ref FT4) 1.27 uIU/m L 0.36-3 .74 normal Not Available [facility] (Registration ) [address] [place] [address] [place], [address], 06/29/2024 15:58:23 06/29/20 24 06/29/2024 VITAM IN B12 vitamin B12 329 pg/mL 193-98 6 normal Not Available [facility] (Registration ) [address] [place] [address] [place], [address], 06/29/2024 15:58:24 10/04/20 24 10/05/2024 ELECT ROPHO RESIS , SERUM total protein 6.6 g/dL 6.3-8. 2 Not Available [address], [address] 10/06/2024 08:25:30 10/04/20 24 10/05/2024 ELECT ROPHO RESIS , SERUM albumin 67.3 % 55.8-6 6.1 abnormal Not Available [address] [place], [address] 10/06/2024 08:25:30 10/04/2010/05/2024 ELECT ROPHO RESIS , SERUM alpha 1 4.2 % 2.9-4. 9 Not Available [address] [place], [address] 10/06/2024 08:25:30 10/04/20 24 10/05/2024 ELECT ROPHO RESIS , SERUM alpha 2 9.1 % 7.1-11 .8 Not Available [address] [place], [address] 10/06/2024 08:25:30 10/04/2010/05/2024 ELECT ROPHO RESIS , SERUM beta 10.4 % 8.4-13 .1 Not Available [address] [place], [address] 10/06/2024 08:25:30 10/04/20 24 10/05/2024 ELECT ROPHO RESIS , SERUM gamma 9.0 % 11.1-1 8.8 abnormal Not Available [address] [place], [address] 10/06/2024 08:25:30 10/04/2010/05/2024 ELECT ROPHO RESIS , SERUM comment SEE BELOW RESUL T: No appar ent monoc lonal prote in seen on serum elect ropho resis See scann ed/feliciano pplem entar y repor t. Test perfo rmed or refer red by [facility] [address] [place] [address] Not Available [address] [place], [address] 10/06/2024 08:25:30 10/04/2010/05/2024 ELECT ROPHO RESIS , SERUM albumin g/dL 4.4 g/dL 3.6-5. 2 Not Available [address] [place], [address] 10/06/2024 08:25:30 10/04/2010/05/2024 ELECT ROPHO RESIS , SERUM alpha 1 g/dL 0.30 g/dL 0.15-0 .40 Not Available [address], [address] 10/06/2024 08:25:30 10/04/20 24 10/05/2024 ELECT ROPHO RESIS , SERUM alpha 2 g/dL 0.60 g/dL 0.50-1 .00 Not Available [address], [address] 10/06/2024 08:25:30 10/04/20 24 10/05/2024 ELECT ROPHO RESIS , SERUM beta g/dL 0.70 g/dL 0.60-1 .20 Not Available [address], [address] 10/06/2024 08:25:30 10/04/20 24 10/05/2024 ELECT ROPHO RESIS , SERUM gamma g/dL 0.60 g/dL 0.60-1 .60 Not Available [address] [place], [address] 10/06/2024 08:25:30 10/04/20 24 10/04/2024 HEMOG LOBIN A1C hemoglobin A1C 5.4 % <5.7 Refer ence Range s <5.7 Gloria l 5.7-6 .4% Predi abete s 6.5% or great er Diagn ostic for diabe lluvia (if confi rmed) Refer ences : 1. Ameri can Diabe lluvia Assoc iatio n. Clas sific ation and Diagn osis of Diabe lluvia. Diabe lluvia Care 2019 2(Sup pleme nt 1):S1 3-s28 . Not Available [address], [address] 10/04/2024 10:56:04 10/04/20 24 10/04/2024 ESR ESR < 1 mm/HR 0-30 normal Not Available [address], [address] 10/04/2024 10:55:04 12/29/19 24 12/29/2023 x-ray imagi ng repor t Patien t Name: Alicia Gaston Unit #: [id number] Loc: DI Orderi ng Provid er: Holly Fields Accoun t #: [id number] Status : REG CLI Primar [...] this report in error, please notify us immcarmel botello at and return the origin al report to us at the addres s above. Thank- you. CARA [facility] [address] [place], [address] 12/29/2023 15:12:23 08/16/20 24 04/15/2023 XR, knee [...] 08/16 03:25:24 08/16/20 24 09/07/2019 MAMMO , fernando mendez No observ ation record ed. Not Available 08/16 03:25:30 08/16/20 24 09/27/2020 MAMMO , fernando mendez No observ ation record ed. Not Available 08/16 03:25:30 08/16/20 24 10/03/2020 MAMMO , fernando mendez No observ ation record ed. Not Available 08/16 03:25:31 08/16/20 24 04/03/2021 MAMMO , fernando mendez No observ ation record ed. Not Available 08/16 03:25:32 08/16/20 24 08/20/2022 MAMMO , fernando mendez No observ ation record ed. Not Available 08/16 03:25:33 08/16/20 24 08/26/2022 MAMMO , fernando mendez No observ ation record ed. Not Available 08/16 03:25:34 08/16/20 24 08/21/2023 MAMMO , fernando mendez No observ ation record ed. Not Available [...] ation record ed. Not Available 08/16 03:25:49 08/27/20 24 08/27/2024 MAMMO , scree andrea, bilat eral Patien t Name: Alicia Gaston Unit #: [id number] Loc: DI Orderi ng Provid er: Holly Fields Accmirlande t #: [id number] Status : REG CLI Primar y Care Provid er: Holly Fields Date of Exam: Sex: F Admiss ion Date: : 1954 Age: 69 Exam(s ) MG MAMMO SCREEN ING EXAM: MG MAMMO SCREEN ING CLINIC AL HISTOR Y: Z12.31 Screen ing TECHNI QUE: Bilate ral full field digita l CC and MLO mammog raphic images were obtain ed with 3D tomosy nthesi s and utiliz ing comput er aided detect ion (CAD). COMPAR JACEY: Availa ble for compar jacey. FINDIN GS: Masses /Archi tectur al Distor tion: None seen. Microc alcifi cation s: No suspic ious pleomo rphic- type are seen. Skin Thicke andrea/N ipple Retrac tion: None. IMPRES TASHA: 1. No signif icant interv al change with no specif ic featur es of malign rivka noted. 2. Unless there is more urgent need, screen ing mammog libra is recomm ended, as per [employer] [facility] [employer] Soci[facility] y guidel altagracia. BI-RAD S Catego ry 1 - Negati ve Breast Densit y - Catego ry B - Scatte red areas of fibrog landul ar densit y Breast densit y catego ry C or D implie s that the patien t has dense breast tissue . Dense breast tissue is very common and is not abnorm al but dense breast tissue can make it harder to find cancer on a mammog zakiya. Also, dense breast tissue may increa se their breast cancer risk. This inform ation about the result of the mammog zakiya report was provid ed to the patien t to raise their awaren ess. Use this report when you speak with the patien t about their risks for breast cancer , which includ es their family histor y. At that time, you may recomm end for more screen ing tests (Ultra sound or MRI) as they might be useful based on their risk. A negati ve radiog raphic report should not delay biopsy if a domina nt or clinic ally suspic ious mass is presen t. Up to ten percen t of cancer s are not identi fied on mammog libra. A negati ve report may reinfo rce clinic al impres tasha. Adenos is and dense breast s may obscur e an underl roxann neopla sm. False positi ve report s averag e 6 to 10%. Patien t will receiv e a letter notify ing them of these result s. Ordere d By: Holly Fields CC: ------ ------ ------ ------ ------ ------ ------ ------ ------ ------ ------ ------ - Dictat ed By: Neil Fernández M.D. [id number] Transc ribed By: Neil Fernández 1544 This is privil eged, confid ential inform ation intend ed only for the provid er named. Any use or distri bution by any person other than this provid er is strict ly prohib ited. If you receiv e this report in error, please notify us immedi ately at and return the origin al report to us at the addres s above. Thank- you. [email or web address] [facility] (Radiology) [address] , [place], [address], 08/31/2024 12:15:14 Result Notes None recorded. Problems Name Problem SNOMED Code Status Onset Date Resolution Date Notes Provider Name and Address Organization Details Recorded Time Genuine stress incontin ence 55027451 Active 201202/07/20 21 - Comments only - Shreya Jean APRN - Asuncion Crow ed pelvic floor exercise s/ kegels. Problem Code: N39.3; Problem Code Type: ICD-10; SHREYA JEAN APRN [address], [place], [address] , [facility] 3 09:05:06 Non-toxi c multinod ular goiter 64674219 Active 201402/07/20 21 - Comments only - Shreya Jean APRN - Check TSH with reflex next visit. Continue to see surgeon ammon peterson has a FU in March / May time period. Problem Code: E04.2; Problem Code Type: ICD-10; SHREYA JEAN APRN [address], [place], [address] , [facility] 3 09:05:06 Low back pain 577344668 Active 201702/07/20 21 - Comments only - Shreya Jean APRN - no complain ts today. monitor for now. Problem Code: M54.5; Problem Code Type: ICD-10; [address], [place], [address] , [facility] 3 09:05:06 Epigastr ic pain 96728074 Active 201707/15/20 22 - Unchange d - [...] ure, as will set that up in St. . If no better w/ that, consider referral to PT and back imaging vs. spine referral . Problem Code: R10.13; Problem Code Type: ICD-10; [address], [place], [address] , [facility] 3 09:05:06 Leukocyt osis 273084753 Active 201702/07/20 21 - Comments only - Shreya Jean APRN - Unchange d and staying stable. has seen hematolo gy, no concerns . Check every fall. Problem Code: D72.829; Problem Code Type: ICD-10; [address], [place], [address] , [facility] 3 09:05:06 History of gynecolo gical disorder 643386339 Active 2017 Hx of ovarian cyst. [address], [facility] [address] , [facility] 4 10:04:16 Disease of liver 640554418 Active 2017 Liver and splenic cysts. [address], [place], [address] , [facility] 4 10:04:01 Divertic nakul of intestin e 46480666 Active 201704/04/20 22 - Comments only - Paola Gomez M.D. - Assured her studies have shown NO dietary triggers of divertic ulitis, so okay to resume eating nuts! And in fact, eat a handful a day to reduce LDL. Problem Code: K57.90; Problem Code Type: ICD-10; [address], [place], [address] , [facility] 3 09:05:06 Congenit al anomaly of the kidney 58362058 Active 2017 Extraren al pelvis. [address], [place], [address] , [facility] 4 10:04:53 Finding of serum tumor marker level 274568675 Active 2017 Abnormal tumor markers, elevated CA19-9. [address], [place], [address] , [facility] 4 10:04:41 Essentia l hyperten tasha 97382030 Active 201802/07/20 21 - Comments only - Shreya Jean APRN - Diet managed. Monitor for now. Problem Code: I10; Problem Code Type: ICD-10; [address], [place], [address] , [facility] 3 09:05:06 Screenin g for cancer Active 2019 Problem Code: Z12.10; Problem Code Type: ICD-10; [address], [facility] [address] , [facility] 3 09:05:06 Hyperlip idemia 22696337 Active 201904/04/20 22 - Comments only - Paola Gomez M.D. - Discusse d decreasi ng saturate d fats and increasi ng intake of unsatura saumya fats. Problem Code: E78.5; Problem Code Type: ICD-10; [address], [place], [address] , [facility] 3 09:05:06 Bone density finding 735435861 Active 2020 Problem Code: M85.80; Problem Code Type: ICD-10; [address], [place], [address] , [facility] 3 09:05:06 Abdomina l pain 78417211 Completed 202006/14/2021 Problem Code: R10.9; Problem Code Type: ICD-10; Not Available [facility] 3 04:26:21 Idiopath ic osteoart hritis 402828857 Active 2021 Problem Code: M19.049; Problem Code Type: ICD-10; [address], [place], [address] , [facility] 3 09:05:06 Kina mckenzie tinnitus 31766926283 02 Active 202104/04/20 22 - Comments only - Paola Gomez M.D. - Unfortun ate lasting effect of amitript yline. Denies hearing loss. May be improved w/ AI diet. Could consider ENT referral , but I doubt they would have much to offer her. Problem Code: H93.13; Problem Code Type: ICD-10; [address], [place], [address] , [facility] 3 09:05:06 Active immuniza tion Completed 202109/09/2022 Problem Code: Z23; Problem Code Type: ICD-10; Not Available [facility] 3 04:26:21 Chronic rhinitis 05083889 Active 2022 Problem Code: J31.0; Problem Code Type: ICD-10; SHREYA JEAN APRN [address], [place], [address] , [facility] 3 09:05:06 Menopaus e present 392747692 Completed 202006/07/2021 Problem Code: Z78.0; Problem Code Type: ICD-10; Not Available [facility] 3 04:26:25 Bone density finding 721466173 Completed 202002/15/2021 Problem Code: M85.88; Problem Code Type: ICD-10; [address], [place], [address] , [facility] 3 09:05:06 Elevated blood-pr essure reading without diagnosi s of hyperten tasha 534931229 Completed 201707/28/2018 12/10/19 19 - Comments only - Shreya Jean APRN - unsure of trigger, but has had periodic blood pressure spikes over the last year. More recently was reassuri ng. Recheck in 1 month with nursing and 2 months with myself. If at that appt, remains elevated , would check urine for protien / MA and treat as gypsy Crow ed DASH diet. Problem Code: R03.0; Problem Code Type: ICD-10; Not Available [facility] 3 04:26:25 Trigger thumb of left hand 58021067420 9107 Completed 201503/21/2023 Problem Code: M65.312; Problem Code Type: ICD-10; Not Available [facility] 3 04:26:25 Acute upper respirat ory infectio n 68916432 Completed 201512/23/2016 Problem Code: J06.9; Problem Code Type: ICD-10; Not Available [facility] 3 04:26:26 Primary malignan t neoplasm of thyroid gland 16322947 Completed 201408/27/2023 Problem Code: 193; Problem Code Type: ICD-9; Not Available [facility] 3 04:26:26 Screenin g for disorder Completed 201704/23/2018 Problem Code: Z13.89; Problem Code Type: ICD-10; Not Available [facility] 3 04:26:26 Abnormal weight loss 702442795 Completed 201711/09/2019 Problem Code: R63.4; Problem Code Type: ICD-10; Not Available [facility] 3 04:26:26 Chest pain 80164025 Completed 201812/11/2021 Problem Code: R07.9; Problem Code Type: ICD-10; Not Available [facility] 3 04:26:26 Abdomina l pain 50853169 Completed 201707/28/2018 Problem Code: R10.9; Problem Code Type: ICD-10; Not Available [facility] 3 04:26:27 Pre-surg charley testing Completed 202012/11/2021 Problem Code: Z01.812; Problem Code Type: ICD-10; Not Available [facility] 3 04:26:27 Acquired absence of genital organ 331634002 Completed 201911/07/2020 Problem Code: Z90.79; Problem Code Type: ICD-10; Not Available [facility] 3 04:26:27 Pain of toe of left foot 46346103313 9108 Completed 201602/06/2021 Problem Code: M79.675; Problem Code Type: ICD-10; Not Available [facility] 3 04:26:28 Female stress incontin ence 45759025 Completed 201208/27/2023 Problem Code: 625.6; Problem Code Type: ICD-9; Not Available [facility] 3 04:26:28 Trigger finger of right hand 82570337990 913365 Completed 201503/21/2023 Problem Code: M65.341; Problem Code Type: ICD-10; Not Available [facility] 3 04:26:28 Pain of right knee joint 40947129316 4100 Active 2022 Problem Code: M25.561; Problem Code Type: ICD-10; Not Available [facility] 4 05:37:20 Acute low back pain 607828076 Active 2023 SHREYA JEAN APRN [address], [place], [address] , [facility] 4 12:06:59 Impaired fasting glycemia 830619005 Active 2023 SHREYA JEAN, ULISES [address], [facility] [address] , [facility] 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 87138943 Active 2023 Kina GRIER CMA [facility], [facility] 4 12:39:17 Arthriti s of hand 619165876 Active 2023 SHREYA JEAN APRN [address], [place], [address] , [facility] 4 11:30:10 Osteopen ia 693655403 Active 2023 SHREYA JEAN APRN [address], [place], [address] , [facility] 4 11:30:14 Varicose vein of ankle region Active 2023 SHREYA JEAN APRN [address], [place], [address] , [facility] 4 12:43:38 Neuropat hy 803155142 Active 2023 SHREYA JEAN APRN [address], [place], [address] , [facility] 4 12:43:38 Eczema 94525176 Active 2023 dermatit is left anterior smith SHIRA GRIER, [employer] null, [facility] 07:42:18 Problem Notes None recorded. Procedures Surgical History Date Name Laterality Status Provider Name and Address Organization Details Recorded Time 1 Date of Last Colonoscopy completed [facility], [facility] 11/10/2023 12:22:36 1 Date of Last Mammogram completed [facility] 11/10/2023 12:21:22 9 Date of Last Pap Smear completed [facility] 11/10/2023 12:20:27 Imaging Results Imaging Date Name Status LastModified by Organiz ation Details LastModified Time 12/29/2023 x-ray imaging report completed [facility] [address] , [place], [address] 12/29/2023 15:12:23 04/15/2023 XR, knee completed Information [...] result completed Information not available 08/16/2024 03:25:49 08/27/2024 MAMMO, screening, bilateral completed [email or web address] [facility] (Radiology) [address] [place], [address], 08/31/2024 12:15:14 Procedure Notes None recorded. Medical Equipment None Reported. Allergies No known drug allergies Medications Name Sig Start Date Stop Date Status Note LastModified by Organization Details LastModified Time atorvasta tin 10 mg tablet Take 1 tablet every day by oral route at bedtime. active Not Available Not Available No t Available tretinoin 0.025 % topical cream APPLY TO FACE EVERY OTHER BEDTIME FOR 2 WEEKS, THEN EVERY BEDTIME USE SPARINGL Y active Not Available Not Available No t Available Claritin 10 mg tablet 1 TAB daily [...] completed Not Available Not Available Not Available triamcino lone acetonide 0.1 % topical cream Apply twice daily as needed to affected areas on the shins active Not Available Not Available No t Available pantopraz ole 20 mg tablet,de layed [...] Take 1 tablet by mouth every night 2023 active Not Available Not Available Not Avai lable Pepto-Bis mol 262 mg tablet by mouth [...] DateTime 4 150.901 4 cm 19.8 kg/m2 39213.4 4 g 97 % 97 % 81 /min 154 mm[Hg] 86 mm[Hg] SHIRA GRIER CMA [facility] 11:55:25 Date Recorded Systolic blood pressure Diastolic blood pressure Provider Name and Address Organization Details Last Updated DateTime 12/29/2023 126 mm[Hg] 80 mm[Hg] SHREYA JEAN, ULISES [address], [place], [address], [facility] 12/29/2023 12:15:20 Date Recorded Body height Body mass index (BMI) Body weight Oxygen saturation Oxygen saturation in Arterial blood by Pulse oximetry Heart rate Systolic blood pressure Diastolic blood pressure Provider Name and Address Organization Details Last Updated DateTime 4 150.901 4 cm 20.3 kg/m2 30800.4 2 g 97 % 97 % 73 /min 128 mm[Hg] 82 mm[Hg] SHIRA GRIER CMA [facility] 10:01:31 Date Recorded Body height Body mass index (BMI) Body weight Body temperature Oxygen saturation Oxygen saturation in Arterial blood by Pulse oximetry Heart rate Systolic blood pressure Diastolic blood pressure Provider Name and Address Organization Details Last Updated DateTime 4 150.901 4 cm 21.3 kg/m2 57990.3 8 g 98.7 [degF] 97 % 97 % 65 /min 144 mm[Hg] 80 mm[Hg] SHIRA GRIER CMA [facility] 11:03:50 Date Recorded Systolic blood pressure Diastolic blood pressure Provider Name and Address Organization Details Last Updated DateTime 06/29/2024 136 mm[Hg] 80 mm[Hg] SHREYA JEAN APRN [address], [place], [address], [facility] 06/29/2024 11:20:18 Date Recorded Body height Systolic blood pressure Diastolic blood pressure Provider Name and Address Organization Details Last Updated DateTime 12/22/2024 150.9014 cm 150 mm[Hg] 80 mm[Hg] MONA JESSICA CMA [facility] 12/22/2024 09:00:35 Social History Question Answer Notes LastModified by Organizat ion Details LastModified Time Tobacco Smoking Status Never Smoker SHIRA GRIER CMA null, [facility], [facility] 12/29/2023 11:57:31 What Was The Date [...] 0 0 Immunizations Vaccine Type Date Status Note Provider Nam e and Address Organization Details Recorded Time Td (adult), 2 Lf tetanus toxoid, preservative free, adsorbed 0 completed Not Available [facility] 10/10/2023 05:22:48 Tdap 1 completed Not Available [facility] 10/10/2023 05:22:48 zoster live 9 completed Not Available [facility] 10/10/2023 05:22:49 Influenza, split virus, trivalent, preservative 4 completed Not Available [facility] 10/10/2023 05:22:49 Influenza, split virus, trivalent, preservative 7 completed Not Available [facility] 10/10/2023 05:22:49 Influenza, split virus, trivalent, preservative 5 completed Not Available [facility] 10/10/2023 05:22:49 Influenza, split virus, quadrivalent, PF 9 completed Not Available [facility] 10/10/2023 05:22:49 Influenza, split virus, quadrivalent, preservative 8 completed Not Available [facility] 10/10/2023 05:22:50 Influenza, split virus, quadrivalent, preservative 7 completed Not Available [facility] 10/10/2023 05:22:50 zoster recombinant 8 completed Not Available [facility] 10/10/2023 05:22:50 zoster, unspecified formulation 5 completed Not Available [facility] 10/10/2023 05:22:50 Influenza, high-dose, quadrivalent, PF 2 completed Not Available [facility] 10/10/2023 05:22:50 COVID-19, mRNA, LNP-S, PF, 100 mcg/0.5mL dose or 50 mcg/0.25mL dose 1 completed Not Available [facility] 10/10/2023 05:22:51 COVID-19, mRNA, LNP-S, PF, 100 mcg/0.5mL dose or 50 mcg/0.25mL dose 1 completed Not Available [facility] 10/10/2023 05:22:51 COVID-19, mRNA, LNP-S, PF, 100 mcg/0.5mL dose or 50 mcg/0.25mL dose 1 completed Not Available [facility] 10/10/2023 05:22:51 SARS-COV-2 (COVID-19) vaccine, UNSPECIFIED 2 completed Not Available [facility] 10/10/2023 05:22:51 Pneumococcal conjugate PCV20, polysaccharide [id number] conjugate, adjuvant, PF 2 completed Not Available [facility] 10/10/2023 05:22:51 pneumococcal polysaccharide PPV23 0 completed Not Available [facility] 10/10/2023 05:22:51 influenza, unspecified formulation 9 completed Not Available [facility] 10/10/2023 05:22:51 influenza, unspecified formulation 1 completed Not Available [facility] 10/10/2023 05:22:51 influenza, unspecified formulation 0 completed Not Available [facility] 10/10/2023 05:22:52 Influenza, high-dose, trivalent, PF 4 completed DEWAYNE Ponce, [facility] 10/08/2024 14:10:11 Influenza, high-dose, quadrivalent, PF 3 completed Not Available [facility] 12/12/2023 05:32:03 Past Encounters Encounter ID Performer Location Encounter Start Date Encounter Closed Date Diagnosis/Indication Diagnosis SNOMED-CT Code Diagnosis ICD10 Code Diagnosis Note [id number] MONA JASKARAN, [address] [address] 11/11/2023 08:54:01 11/11/2023 09:08:06 Essential hypertension 94032043 I10 Lipid abov e reference range 883091288 E78.5 [id number] SHREYA JEAN [address] [address] 12/29/2023 11:42:13 12/29/2023 12:40:26 Acute low back pain 822228757 M54.50 LBP. Acute.- Differenti als include muscular in origin, pinched nerve, herniated disc, arthritis. No trauma to indicate acute fracture. Slight change to natural curvature of spine.- Will order xrays of lumbar and sacrum for further evaluation .- Continue ice.- Discussed PT, she would like to hold for now. Encouraged routine stretching , cat cow/ alaina pose. handout provided.- She will consider going to Chiropract or.- Encouraged APAP PRN. Declines any further medication s. post results on the portal. [id number] SHREYA TED, [address] [address] 01/19/2024 09:51:36 01/19/2024 10:26:14 Acute low back pain 905344905 M54.50 LBP. Acute.- Reassuring xray- Continue to work with PT. Continue HEP for her back.- Continue Ice PRN.- Having intermitte nt paresthesi a to her feet; occurs with different activities ; to discuss with PT and if worsening or more persistent would push for MRI sooner. Non-toxic multinodular goiter 32121423 E04.2 Goiter, multinodul ar with adenomatou s hyperplast ic.- Check TSH, free T4 and free T3 next 09/23. If endo wants checked yearly, she will call/ schedule NV.- Saw endo last 11/22 with a plan for FU and repeat US in Stephie 24. Leukocytosis 585895831 D 72.829 Leukocytos is.- Saw hematology 2019, they had no concerns.- CBCD last done 09/22, was normal. Check yearly. Essential hypertension 20473647 I10 Hypertensi on.- Diet managed. If BP remains this range next visit, will change dx to hx of HTN.- UA/ MA normal, ACEI/ ARB not indicated; checked 09/22. Check yearly.- Continue lifestyle. Hyperlipidemia 85843116 E78.5 HLD.- Elevated ASCVD risk at 8.23%, calculated 09/22.- Lipids improved with statin, LDL at goal. Recheck next routine blood draw with CMP, lipids.- Continue statin. Epigastric pain 12536306 R10.13 Abdominal pain, epigastric .- unchanged. Unclear etiology.- Has seen gastro, general surgery, integrativ e medicine without finding etiology or affective treatment. Has tried multiple medication remedies without improvemen ts. Will monitor for now. Bone density finding 385 261761 M85.80 Osteopenia .- Encouraged weight bearing activities .- Encouraged diet rich in vitamin D/ calcium, continue supplement s.- Vitamin D checked 09/22, on low end of normal. Recheck next routine blood draw.- Last DEXA done 2020. Can repeat every 3-5 years, discussed when she would like to have it rechecked; will discuss at her 6 month FU. Idiopathic osteoarthritis 493622244 M19.91 Osteoarthr itis, fingers; right wrist. FU with Dr Ragsdale in February 21. Chronic rhinitis 9688038 6 J31.0 Rhinitis. Stable, continue flonase PRN. Impaired f asting glycemia 385524039 R73.01 Impaired fasting glucose. Sugar checked 11/22 was fasting, it was 109. Check A1C next routine blood draw. [id number] SHREYA JEAN APRN [address] [address] 06/29/2024 10:40:10 06/29/2024 11:41:19 Arthritis of hand 786272339 M19.041 Arthritis/ wrist.- Since meloxicam has not provided significan t relief, the patient may discontinu e its use. Recommend low-dose ibuprofen as needed and Tylenol for pain management . Neuropathy 360343315 G62 .9 Neuropathy .- Will check thyroid hormone and vitamin B12 levels to assess for potential causes of peripheral neuropathy . - Referral to neurology for EMG studies to further evaluate the issue. - Recommend trying vitamin B12 supplement or over-the-c ounter supplement s like NeuroVia or alpha-lipo ic acid if the patient desires; consider after EMG studies as desires. Continued use of compressio n socks as tolerated. Varicose v ein of ankle region 0392927236 I83.90 Varicose veins. Encouraged compressio n socks as tolerated. If the varicose veins become more painful, consider a referral to vascular surgery. Leukocytosis 636623268 D 72.829 Leukocytos is.- Saw hematology 2019, they had no concerns.- CBCD last done 09/22, was normal. Check yearly. Non-toxic multinodular goiter 40433830 E04.2 Goiter, multinodul ar with adenomatou s hyperplast ic.- Check TSH, free T4 and free T3 next last done 02/21 with just a TSH; no free T4, free T3.- Saw endo last 11/22 with a plan for FU and repeat US in May 24. Bone density finding 385 270758 M85.80 Osteopenia .- Encouraged weight bearing activities .- Encouraged diet rich in vitamin D/ calcium, continue supplement s.- Vitamin D checked 09/22, on low end of normal. Recheck next routine blood draw.- Last DEXA done 2020. Can repeat every 3-5 years, does not want to do this year. Hyperlipidemia 25591738 E78.5 HLD.- Elevated ASCVD risk at 8.23%, calculated 09/22.- Lipids improved with statin, LDL at goal. Recheck next routine blood draw with CMP, lipids.- Continue statin. Essential hypertension 14696377 I10 Hypertensi on.- Diet managed.- UA/ MA normal, ACEI/ ARB not indicated; checked 09/22. Check yearly, at next visit.- Continue lifestyle. Epigastric pain 74277306 R10.13 Abdominal pain, epigastric .- unchanged. Unclear etiology.- Has seen gastro, general surgery, integrativ e medicine without finding etiology or affective treatment. Has tried multiple medication remedies without improvemen ts. Will monitor for now. Chronic rhinitis 1938152 6 J31.0 Rhinitis. Stable, continue flonase PRN. [id number] Elvira Su A [address] [address] 10/08/2024 13:48:40 10/08/2024 15:30:14 Active or passive immunization 516015869 Z23 [id number] MONA JESSICA [employer] [address] [address] 12/22/2024 08:51:58 12/22/2024 09:02:36 Hyperlipidemia 53730246 E78.5 Health Concerns Section Related Observation LastModified by Organization Detai ls LastModified Time None Recorded Concern Status LastModified by Organization Details LastModified Time None Recorded Advance Directives Directive None Recorded Payers Encounter Date Sequence Insurance Name Policy Number Policy Ortiz Covered Member ID Ortiz Member ID Guarantor Name 12/29/2023 1 [place] [employer] Audrey Magaña Page [id number] Audrey Magaña Page 12/29/2023 2 [employer] (MEDICARE SUPPLEMENT) Audrey Magaña Page [id number] Audrey Magaña Page 01/19/2024 1 [place] [employer] Audrey Magaña Page [id number] Audrey Magaña Page 01/19/2024 2 [employer] (MEDICARE SUPPLEMENT) Audrey Magaña Page [id number] Audrey Magaña Page 06/29/2024 1 [place] [facility] G[employer]MENT SERVICES Audrey Magaña Page [id number] Audrey Magaña Page 06/29/2024 2 [employer] (MEDICARE SUPPLEMENT) Audrey Magaña Page [id number] Audrey Magaña Page 10/08/2024 1 [place] [facility] G[employer]ERNMENT SERVICES Audrey Magaña Page [id number] 9 Audrey Magaña Page 10/08/2024 2 [employer] (MEDICARE SUPPLEMENT) Audrey Magaña Page [id number] Audrey Magaña Page 12/22/2024 1 [place] [facility] [employer] Audrey Magaña Page [id number] 9 Audrey Magaña Page 12/22/2024 2 [employer] (MEDICARE SUPPLEMENT) Audrey Magaña Page [id number] Audrey Magaña Page Notes Date Note Type Note Provider Name and Address Organization Details Recorded Time 12/29/2023 text/html Is here for complaints of low back pain. Started [...] Wearing a brace for this. SHREYA JEAN, [employer] [address], [place], [address], [facility] 12/29/2023 12:28:39 01/19/2024 text/html Is here for follow-up:-Goiter. Had FNA 06/20. Saw endo 11/22, plans was to reimage in 6 months with US; trying to avoid surgery if possible.-Leukocyt osis. Chronic and stable for her. WBC was normal 09/23.-Abdominal pain, epigastric. Chronic for her. She has worked with general surgery, gastroenterology, integrative medicine provider without resolution to her pain. The pain is constant, located in the epigastric area and will radiate across the abdomen and to her mid back, to her left flank. She has tried multiple H2 blockers, PPIs, TCAs, and supplements without improvements.-HTN. Diet managed.-HLD. ASCVD risk 09/22 was 8.23%. Started on simvastatin 09/22. no side effects.-Osteopeni a. Working on diet, weight bearing activities.-OA. Wrist pain, right; working with [facility]; going to Dr Ragsdale for 2nd opinion on the right wrist pain, hoping for injections in 3 weeks.-Rhinitis. Working with ENT, uses flonase. -LBP. Started [...] HEP 2-3 times per day. SHREYA JEAN, [employer] [address], [place], [address], [facility] 01/19/2024 10:54:54 06/29/2024 text/html 69-year-old fema jarrett presents with leg numbness, aching, and swelling [...] the fingers. Would also like her FU of:-Goiter. Had FNA 06/20. Saw endo 11/22, plans was to reimage in 6 months with US; trying to avoid surgery if possible.-Leukocyt osis. Chronic and stable for her. WBC was normal 09/23.-Abdominal pain, epigastric. Chronic for her. She has worked with general surgery, gastroenterology, integrative medicine provider without resolution to her pain. The pain is constant, located in the epigastric area and will radiate across the abdomen and to her mid back, to her left flank. She has tried multiple H2 blockers, PPIs, TCAs, and supplements without improvements.-HTN. Diet managed.-HLD. ASCVD risk 09/22 was 8.23%. Started on simvastatin 09/22. no side effects.-Osteopeni a. Working on diet, weight bearing activities.-OA. Wrist pain, right; taking meloxicam without improvements.-Rhin itis. Working with ENT, uses flonase. -LBP. Started [...] HEP 2-3 times per day. SHREYA JEAN, [employer] [address], [place], [address], [facility]. 06/29/2024 12:46:37 OBGyn Episode No OBEpisode recorded.
--- OUTSIDE RECORDS SUMMARY | 2024-12-22 14:00 | XMS_ITS | Continuity of Care Document ---
Author Organization [facility] Address [address] [place] [address] Assessment No assessment recorded. Plan of Treatment Reminders Order Date Submit Date Provider Last Modified By Organization Details Last Modified Time Details Appointments Nurse Visit 2024 09:00A M [place] Nursing Staff Not available Not available Not available Office Visit 2024 10:30A M SHREYA JEAN Not available Not available Not available Lab CMP, serum or plasma - 1Y [address] [facility] (Registration ), [address] [place] [address] , [place], [address], 12/22/2024 12:53:37 lipid panel, serum [address] [facility] (Registration ), [address] [place] [address] [place], [address], 12/22/2024 12:53:37 Referral None recorded . Procedures None recorded . Surgeries None recorded . Imaging None recorded . Medication Orders None recorded . Patient TargetsNo targets recorded. Patient InstructionsNo instructions recorded. Reason for Referral None Reported. Problems Name Problem SNOMED Code Status Onset Date Resolution Date Notes Provider Name and Address Organization Details Recorded Time Genuine stress incontin ence 52194280 Active 201202/07/20 21 - Comments only - Shreya Jean APRN - Asuncion Sánchez ed pelvic floor exercise s/ kegels. Problem Code: N39.3; Problem Code Type: ICD-10; SHREYA JEAN APRN [facility] [address], [place], [address] , [facility] 3 09:05:06 Non-toxi c multinod ular goiter 54558775 Active 201402/07/20 21 - Comments only - Shreya Jean CUSTOMER SERVICES MANAGER - Check TSH with reflex next visit. Continue to see surgeon ammon peetrson has a FU in March / May time period. Problem Code: E04.2; Problem Code Type: ICD-10; SHREYA JEAN APRN [address], [place], [address] , [facility] 3 09:05:06 Low back pain 863009153 Active 201702/07/20 21 - Comments only - Shreya Jean CUSTOMER SERVICES MANAGER - no complain ts today. monitor for now. Problem Code: M54.5; Problem Code Type: ICD-10; SHREYA JEAN APRN [address], [place], [address] , [facility] 3 09:05:06 Epigastr ic pain 75523950 Active 201707/15/20 22 - Unchange d - [...] ICD-10; SHREYA JEAN APRN [address], [place], [address] , [facility] 3 09:05:06 Leukocyt osis 623764065 Active 201702/07/20 21 - Comments only - Shreya Jean APRN - Unchange d and staying stable. has seen hematolo gy, no concerns . Check every fall. Problem Code: D72.829; Problem Code Type: ICD-10; [address], [place], [address] , [facility] 3 09:05:06 History of gynecolo gical disorder 110429250 Active 2017 Hx of ovarian cyst. [address], [facility] [address] , [facility] 4 10:04:16 Disease of liver 461349431 Active 2017 Liver and splenic cysts. SHREYA JEAN APRN [address], [place], [address] , [facility] 4 10:04:01 Divertic nakul of intestin e 66956051 Active 201704/04/20 22 - Comments only - Paola Gomez M.D. - Assured her studies have shown NO dietary triggers of divertic ulitis, so okay to resume eating nuts! And in fact, eat a handful a day to reduce LDL. 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 [address], [place], [address] , [facility] 4 10:04:53 Finding of serum tumor marker level 150295788 Active 2017 Abnormal tumor markers, elevated CA19-9. [address], [place], [address] , [facility] 4 10:04:41 [facility] hyperten wale 01926124 Active 201802/07/20 21 - Comments only - Shreya Jean APRN - Diet managed. Monitor for now. Problem Code: I10; Problem Code Type: ICD-10; [address], [facility] [address] , [facility] 3 09:05:06 Screenin g for cancer Active 2019 Problem Code: Z12.10; Problem Code Type: ICD-10; [address], [facility] [address] [place] [address] 3 09:05:06 Hyperlip idemia 52978597 Active 201904/04/20 22 - Comments only - Paola Gomez M.D. - Discusse d decreasi ng saturate d fats and increasi ng intake of unsatura saumya fats. Problem Code: E78.5; Problem Code Type: ICD-10; [address], [facility] [address] , [facility] 3 09:05:06 Bone density finding 164573382 Active 2020 Problem Code: M85.80; Problem Code Type: ICD-10; [address], [facility] [address] , [facility] 3 09:05:06 Abdomina l pain 56503844 Completed 202006/14/2021 Problem Code: R10.9; Problem Code Type: ICD-10; Not Available [facility] 3 04:26:21 Idiopath ic osteoart hritis 291403123 Active 2021 Problem Code: M19.049; Problem Code Type: ICD-10; [address], [place], [address] , [facility] 3 09:05:06 Kina mckenzie tinnitus 60583180345 02 Active 202104/04/20 22 - Comments only - Paola Gomez M.D. - Unfortun ate lasting effect of amitript yline. Denies hearing loss. May be improved w/ AI diet. Could consider ENT referral , but I doubt they would have much to offer her. Problem Code: H93.13; Problem Code Type: ICD-10; SHREYA JEAN APRN [address], [place], [address] , [facility] 3 09:05:06 Active immuniza tion Completed 202109/09/2022 Problem Code: Z23; Problem Code Type: ICD-10; Not Available [facility] 3 04:26:21 Chronic rhinitis 92293945 Active 2022 Problem Code: J31.0; Problem Code Type: ICD-10; SHREYA JEAN APRN [address], [place], [address] , [facility] 3 09:05:06 Menopaus e present 386137308 Completed 202006/07/2021 Problem Code: Z78.0; Problem Code Type: ICD-10; Not Available [facility] 3 04:26:25 Bone density finding 345830625 Completed 202002/15/2021 Problem Code: M85.88; Problem Code Type: ICD-10; SHREAY JEAN APRN [address], [place], [address] , [facility] 3 09:05:06 Elevated blood-pr essure reading without diagnosi s of hyperten wale 223963520 Completed 201707/28/2018 12/10/19 19 - Comments only - Shreya Jean APRN - unsure of trigger, but has had periodic blood pressure spikes over the last year. More recently was reassuri ng. Recheck in 1 month with nursing and 2 months with myself. If at that appt, remains elevated , would check urine for protien / MA and treat as indicate taj Sánchezag ed DASH diet. Problem Code: R03.0; Problem Code Type: ICD-10; Not Available [facility] 3 04:26:25 Trigger thumb of left hand 73982197141 9107 Completed 201503/21/2023 Problem Code: M65.312; Problem Code Type: ICD-10; Not Available [facility] 3 04:26:25 Acute upper respirat ory infectio n 97563991 Completed 201512/23/2016 Problem Code: J06.9; Problem Code Type: ICD-10; Not Available [facility] 3 04:26:26 Primary malignan t neoplasm of thyroid gland 96637377 Completed 201408/27/2023 Problem Code: 193; Problem Code Type: ICD-9; Not Available [facility] 3 04:26:26 Screenin g for disorder Completed 201704/23/2018 Problem Code: Z13.89; Problem Code Type: ICD-10; Not Available [facility] 3 04:26:26 Abnormal weight loss 063279953 Completed 201711/09/2019 Problem Code: R63.4; Problem Code Type: ICD-10; Not Available [facility] 3 04:26:26 Chest pain 10592217 Completed 201812/11/2021 Problem Code: R07.9; Problem Code Type: ICD-10; Not Available [facility] 3 04:26:26 Abdomina l pain 48723736 Completed 201707/28/2018 Problem Code: R10.9; Problem Code Type: ICD-10; Not Available [facility] 3 04:26:27 Pre-surg charley testing Completed 202012/11/2021 Problem Code: Z01.812; Problem Code Type: ICD-10; Not Available [facility] 3 04:26:27 Acquired absence of genital organ 133107996 Completed 201911/07/2020 Problem Code: Z90.79; Problem Code Type: ICD-10; Not Available [facility] 3 04:26:27 Pain of toe of left foot 08490143168 9108 Completed 201602/06/2021 Problem Code: M79.675; Problem Code Type: ICD-10; Not Available [facility] 3 04:26:28 Female stress incontin ence 00236831 Completed 201208/27/2023 Problem Code: 625.6; Problem Code Type: ICD-9; Not Available [facility] 3 04:26:28 Trigger finger of right hand [id number] 013590 Completed 201503/21/2023 Problem Code: M65.341; Problem Code Type: ICD-10; Not Available [facility] 3 04:26:28 Pain of right knee joint 31746928268 4100 Active 2022 Problem Code: M25.561; Problem Code Type: ICD-10; Not Available [facility] 4 05:37:20 Acute low back pain 106828605 Active 2023 SHREYA JEAN APRN [address], [facility] [address] , [facility] 4 12:06:59 Impaired fasting glycemia 296934246 Active 2023 SHREYA JEAN APRN [address], [facility] [address] , [facility] 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 36734205 Active 2023 Kina GRIER [facility] sarahi, [facility] 4 12:39:17 Arthriti s of hand 899316456 Active 2023 SHREYA JEAN APRN [address], [place], [address] , [facility] 4 11:30:10 Osteopen ia 813035737 Active 2023 SHREYA JEAN APRN [address], [place], [address] , [facility] 4 11:30:14 Varicose vein of ankle region Active 2023 SHREYA JEAN APRN [address], [facility] [address] , [facility] 4 12:43:38 Neuropat hy 118215771 Active 2023 SHREYA JEAN APRN [address], [facility] [address] , [facility] 4 12:43:38 Eczema 48352395 Active 2023 dermatit is left anterior smith SHIRA GRIER, [facility] null, [facility] 4 07:42:18 Problem Notes None recorded. Procedures Surgical History Date Name Laterality Status Provider Name and Address Organization Details Recorded Time 1 Date of Last Colonoscopy completed [facility] 11/10/2023 12:22:36 1 Date of Last Mammogram completed [facility] 11/10/2023 12:21:22 9 Date of Last Pap Smear completed [facility] 11/10/2023 12:20:27 Imaging Results None recorded. [...] Not Available Vitals Date Recorded Body height Systolic blood pressure Diastolic blood pressure Provider Name and Address Organization Details Last Updated DateTime 12/22/2024 150.9014 cm 150 mm[Hg] 80 mm[Hg] MONA JESSICA [facility] 12/22/2024 09:00:35 Social History Question Answer Notes LastModified by Organizat ion Details LastModified Time Tobacco Smoking Status Never Smoker [facility] 12/29/2023 11:57:31 What Was The Date [...] preservative free, adsorbed 0 completed Not Available [facility] 10/10/2023 05:22:48 Tdap 1 completed Not Available [facility] 10/10/2023 05:22:48 zoster live 9 completed Not Available [facility] 10/10/2023 05:22:49 Influenza, split virus, trivalent, preservative 4 completed Not Available [facility] 10/10/2023 05:22:49 Influenza, split virus, trivalent, preservative 7 completed Not Available [facility] 10/10/2023 05:22:49 Influenza, split virus, trivalent, preservative 5 completed Not Available [facility] 10/10/2023 05:22:49 Influenza, split virus, quadrivalent, PF 9 completed Not Available [facility] 10/10/2023 05:22:49 Influenza, split virus, quadrivalent, preservative 8 completed Not Available [facility] 10/10/2023 05:22:50 Influenza, split virus, quadrivalent, preservative 7 completed Not Available [facility] 10/10/2023 05:22:50 zoster recombinant 8 completed Not Available [facility] 10/10/2023 05:22:50 zoster, unspecified formulation 5 completed Not Available [facility] 10/10/2023 05:22:50 Influenza, high-dose, quadrivalent, PF 2 completed Not Available [facility] 10/10/2023 05:22:50 COVID-19, mRNA, LNP-S, PF, 100 mcg/0.5mL dose or 50 mcg/0.25mL dose 1 completed Not Available [facility] 10/10/2023 05:22:51 COVID-19, mRNA, LNP-S, PF, 100 mcg/0.5mL dose or 50 mcg/0.25mL dose 1 completed Not Available [facility] 10/10/2023 05:22:51 COVID-19, mRNA, LNP-S, PF, 100 mcg/0.5mL dose or 50 mcg/0.25mL dose 1 completed Not Available [facility] 10/10/2023 05:22:51 SARS-COV-2 (COVID-19) vaccine, UNSPECIFIED 2 completed Not Available [facility] 10/10/2023 05:22:51 Pneumococcal conjugate PCV20, polysaccharide [id number] conjugate, adjuvant, PF 2 completed Not Available [facility] 10/10/2023 05:22:51 pneumococcal polysaccharide PPV23 0 completed Not Available [facility] 10/10/2023 05:22:51 influenza, unspecified formulation 9 completed Not Available [facility] 10/10/2023 05:22:51 influenza, unspecified formulation 1 completed Not Available [facility] 10/10/2023 05:22:51 influenza, unspecified formulation 0 completed Not Available [facility] 10/10/2023 05:22:52 Influenza, high-dose, trivalent, PF 4 completed DEWAYNE Ponce, [facility] 10/08/2024 14:10:11 Influenza, high-dose, quadrivalent, PF 3 completed Not Available [facility] 12/12/2023 05:32:03 Past Encounters Encounter ID Performer Location Encounter Start Date Encounter Closed Date Diagnosis/Indication Diagnosis SNOMED-CT Code Diagnosis ICD10 Code Diagnosis Note [id number] MONA JESSICA CMA [address] [address] 12/22/2024 08:51:58 12/22/2024 09:02:36 [facility] [id number] E78.5 Health Concerns Section Related Observation LastModified by Organization Detai ls LastModified Time None Recorded Concern Status LastModified by Organization Details LastModified Time None Recorded Payers Encounter Date Sequence Insurance Name Policy Number Policy Ortiz Covered Member ID Ortiz Member ID Guarantor Name 12/22/2024 1 [place] [employer] Audrey Magaña Page [id number] Audrey Magaña Page 12/22/2024 2 [employer] (MEDICARE SUPPLEMENT) Audrey Gaston [id number] Audrey Gaston OBGyn Episode No OBEpisode recorded.
--- OUTSIDE RECORDS SUMMARY | 2024-12-22 14:00 | XMS_ITS | Continuity of Care Document ---
Author Organization [facility] Address [address] [place] [address] Assessment No assessment recorded. Plan of Treatment Reminders Order Date Submit Date Provider Last Modified By Organization Details Last Modified Time Details Appointments Nurse Visit 2024 09:00A [address] Nursing Staff Not available Not available Not available Office Visit 2024 10:30A M SHREYA JEAN Not available Not available Not available Lab None recorded . Referral None recorded . Procedures None recorded . Surgeries None recorded . Imaging None recorded . Medication Orders None recorded . Patient TargetsNo targets recorded. Patient InstructionsNo instructions recorded. Reason for Referral None Reported. Problems Name Problem SNOMED Code Status Onset Date Resolution Date Notes Provider Name and Address Organization Details Recorded Time Genuine stress incontin ence 48741447 Active 201202/07/20 21 - Comments only - Shreya Jean [employer] - Asuncion Crow ed pelvic floor exercise s/ kegels. Problem Code: N39.3; Problem Code Type: ICD-10; SHREYA JEAN APRN [address], [place], [address] , [facility] 3 09:05:06 Non-toxi c multinod ular goiter 53927927 Active 201402/07/20 21 - Comments only - Shreya Jean [employer]EL[employer] - Check TSH with reflex next visit. Continue to see surgeon ammon iqbal. has a FU in March / May time period. Problem Code: E04.2; Problem Code Type: ICD-10; SHREYA JEAN APRN [address], [place], [address] , [facility] 3 09:05:06 Low back pain 166861856 Active 201702/07/20 21 - Comments only - Shreya Jean [employer]EL[employer] - no complain ts today. monitor for now. Problem Code: M54.5; Problem Code Type: ICD-10; SHREYA JEAN APRN [address], [place], [address] , [facility] 3 09:05:06 Epigastr ic pain 22225019 Active 201707/15/20 22 - Unchange d - [...] ure, as [facility]. If no better w/ that, consider referral to PT and back imaging vs. spine referral . 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 has seen hematolo gy, no concerns . Check every fall. Problem Code: D72.829; Problem Code Type: ICD-10; SHREYA JEAN APRN [address], [place], [address] , [facility] 3 09:05:06 History of gynecolo gical disorder 318757863 Active 2017 Hx of ovarian cyst. [address], [place], [address] , [facility] 4 10:04:16 Disease of liver 953647837 Active 2017 Liver and splenic cysts. [address], [place], [address] , [facility] 4 10:04:01 Divertic nakul of intestin e 71282592 Active 201704/04/20 22 - Comments only - Paola Gomez M.D. - Assured her studies have shown NO dietary triggers of divertic ulitis, so okay to resume eating nuts! And in fact, eat a handful a day to reduce LDL. 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 [address], [place], [address] , [facility] 4 10:04:53 Finding of serum tumor marker level 639952402 Active 2017 Abnormal tumor markers, elevated CA19-9. [address], [place], [address] , [facility] 4 10:04:41 [facility] l hyperten wale 12498153 Active 201802/07/20 21 - Comments only - Shreya Jean APRN - Diet managed. Monitor for now. Problem Code: I10; Problem Code Type: ICD-10; [address], [place], [address] , [facility] 3 09:05:06 Screenin g for cancer Active 2019 Problem Code: Z12.10; Problem Code Type: ICD-10; [address], [place], [address] , [facility] 3 09:05:06 Hyperlip idemia 89740203 Active 201904/04/20 22 - Comments only - Paola Gomez M.D. - Discusse d decreasi ng saturate d fats and increasi ng intake of unsatura saumya fats. Problem Code: E78.5; Problem Code Type: ICD-10; [address], [facility] [address] , [facility] 3 09:05:06 Bone density finding 894202998 Active 2020 Problem Code: M85.80; Problem Code Type: ICD-10; [address], [facility] [address] , [facility] 3 09:05:06 Abdomina l pain 06886945 Completed 202006/14/2021 Problem Code: R10.9; Problem Code Type: ICD-10; Not Available [facility] 3 04:26:21 Idiopath ic osteoart hritis 557457765 Active 2021 Problem Code: M19.049; Problem Code Type: ICD-10; [address], [facility] [address] , [facility] 3 09:05:06 Bilatera l tinnitus 23178439248 02 Active 202104/04/20 22 - Comments only - Paola Gomez M.D. - Unfortun ate lasting effect of amitript yline. Denies hearing loss. May be improved w/ AI diet. Could consider ENT referral , but I doubt they would have much to offer her. Problem Code: H93.13; Problem Code Type: ICD-10; SHREYA JEAN, ULISES [address], [place], [address] , [facility] 3 09:05:06 Active immuniza tion Completed 202109/09/2022 Problem Code: Z23; Problem Code Type: ICD-10; Not Available [facility] 3 04:26:21 Chronic rhinitis 55415153 Active 2022 Problem Code: J31.0; Problem Code Type: ICD-10; SHREYA JEAN, [employer]ELOPER [address], [place], [address] , [facility] 3 09:05:06 Menmaureen e present 477075839 Completed 202006/07/2021 Problem Code: Z78.0; Problem Code Type: ICD-10; Not Available [facility] 3 04:26:25 Bone density finding 692373338 Completed 202002/15/2021 Problem Code: M85.88; Problem Code Type: ICD-10; SHREYA JEAN APRN [address], [place], [address] , [facility] 3 09:05:06 Elevated blood-pr essure reading without diagnosi s of hyperten wale 382486119 Completed 201707/28/2018 12/10/19 19 - Comments only - Shreya Jean APRN - unsure of trigger, but has had periodic blood pressure spikes over the last year. More recently was reassdayan samaniego. Recheck in 1 month with nursing and 2 months with myself. If at that appt, remains elevated , would check urine for protien / MA and treat as indicate d. Princessag ed DASH diet. Problem Code: R03.0; Problem Code Type: ICD-10; Not Available [facility] 3 04:26:25 Trigger thumb of left hand 49332400003 9107 Completed 201503/21/2023 Problem Code: M65.312; Problem Code Type: ICD-10; Not Available [facility] 3 04:26:25 Acute upper respirat ory infectio n 15518231 Completed 201512/23/2016 Problem Code: J06.9; Problem Code Type: ICD-10; Not Available [facility] 3 04:26:26 Primary malignan t neoplasm of thyroid gland 39526912 Completed 201408/27/2023 Problem Code: 193; Problem Code Type: ICD-9; Not Available [facility] 3 04:26:26 Screenin g for disorder Completed 201704/23/2018 Problem Code: Z13.89; Problem Code Type: ICD-10; Not Available [facility] 3 04:26:26 Abnormal weight loss 369146046 Completed 201711/09/2019 Problem Code: R63.4; Problem Code Type: ICD-10; Not Available [facility] 3 04:26:26 Chest pain 57829264 Completed 201812/11/2021 Problem Code: R07.9; Problem Code Type: ICD-10; Not Available [facility] 3 04:26:26 Abdomina l pain 18922409 Completed 201707/28/2018 Problem Code: R10.9; Problem Code Type: ICD-10; Not Available [facility] 3 04:26:27 Pre-surg charley testing Completed 202012/11/2021 Problem Code: Z01.812; Problem Code Type: ICD-10; Not Available [facility] 3 04:26:27 Acquired absence of genital organ 940301115 Completed 201911/07/2020 Problem Code: Z90.79; Problem Code Type: ICD-10; Not Available [facility] 3 04:26:27 Pain of toe of left foot 27687886321 9108 Completed 201602/06/2021 Problem Code: M79.675; Problem Code Type: ICD-10; Not Available [facility] 3 04:26:28 Female stress incontin ence 57025614 Completed 201208/27/2023 Problem Code: 625.6; Problem Code Type: ICD-9; Not Available [facility] 3 04:26:28 Trigger finger of right hand 33558187216 245324 Completed 201503/21/2023 Problem Code: M65.341; Problem Code Type: ICD-10; Not Available [facility] 3 04:26:28 Pain of right knee joint 03969053692 4100 Active 2022 Problem Code: M25.561; Problem Code Type: ICD-10; Not Available [facility] 4 05:37:20 Acute low back pain 712343885 Active 2023 SHREYA JEAN APRN [address], [facility] [address] , [facility] 4 12:06:59 Impaired fasting glycemia 436791321 Active 2023 SHREYA JEAN APRN [address], [facility] [address] , [facility] 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, [facility] 4 12:39:17 Arthriti s of hand 237989326 Active 2023 SHREYA JEAN APRN [address], [place], [address] , [facility]. 4 11:30:10 Osteopen ia 532044915 Active 2023 SHREYA JEAN APRN [address], [place], [address] , [facility]. 4 11:30:14 Varicose vein of ankle region Active 2023 SHREYA JEAN APRN [address], [place], [address] , [facility] 4 12:43:38 Neuropat hy 509196339 Active 2023 SHREYA JEAN, [employer]ELOPER [address], [place], [address] , [facility] 4 12:43:38 Eczema 32299510 Active 2023 dermatit is left anterior smith SHIRA FITOPAUL, TOBY MAKER null, [facility] 4 07:42:18 Problem Notes None recorded. Procedures Surgical History Date Name Laterality Status Provider Name and Address Organization Details Recorded Time 1 Date of Last Colonoscopy completed [facility] 11/10/2023 12:22:36 1 Date of Last Mammogram completed [facility] 11/10/2023 12:21:22 9 Date of Last Pap Smear completed [facility] 11/10/2023 12:20:27 Imaging Results None recorded. Procedure [...] Not Available Not Available Not Available Vitals None Recorded Social History Question Answer Notes LastModified by Organizat ion Details LastModified Time Tobacco Smoking Status Never Smoker SHIRA GRIER, TOBY MAKER null, [place] - [facility]. 12/29/2023 11:57:31 What Was The Date Of [...] preservative free, adsorbed 0 completed Not Available [facility] 10/10/2023 05:22:48 Tdap 1 completed Not Available [facility] 10/10/2023 05:22:48 zoster live 9 completed Not Available [facility] 10/10/2023 05:22:49 Influenza, split virus, trivalent, preservative 4 completed Not Available [facility] 10/10/2023 05:22:49 Influenza, split virus, trivalent, preservative 7 completed Not Available [facility] 10/10/2023 05:22:49 Influenza, split virus, trivalent, preservative 5 completed Not Available [facility] 10/10/2023 05:22:49 Influenza, split virus, quadrivalent, PF 9 completed Not Available [facility] 10/10/2023 05:22:49 Influenza, split virus, quadrivalent, preservative 8 completed Not Available [facility] 10/10/2023 05:22:50 Influenza, split virus, quadrivalent, preservative 7 completed Not Available [facility] 10/10/2023 05:22:50 zoster recombinant 8 completed Not Available [facility] 10/10/2023 05:22:50 zoster, unspecified formulation 5 completed Not Available [facility] 10/10/2023 05:22:50 Influenza, high-dose, quadrivalent, PF 2 completed Not Available [facility] 10/10/2023 05:22:50 COVID-19, mRNA, LNP-S, PF, 100 mcg/0.5mL dose or 50 mcg/0.25mL dose 1 completed Not Available [facility] 10/10/2023 05:22:51 COVID-19, mRNA, LNP-S, PF, 100 mcg/0.5mL dose or 50 mcg/0.25mL dose 1 completed Not Available [facility] 10/10/2023 05:22:51 COVID-19, mRNA, LNP-S, PF, 100 mcg/0.5mL dose or 50 mcg/0.25mL dose 1 completed Not Available [facility] 10/10/2023 05:22:51 SARS-COV-2 (COVID-19) vaccine, UNSPECIFIED 2 completed Not Available [facility] 10/10/2023 05:22:51 Pneumococcal conjugate PCV20, polysaccharide [id number] conjugate, adjuvant, PF 2 completed Not Available [facility] 10/10/2023 05:22:51 pneumococcal polysaccharide PPV23 0 completed Not Available [facility] 10/10/2023 05:22:51 influenza, unspecified formulation 9 completed Not Available [facility] 10/10/2023 05:22:51 influenza, unspecified formulation 1 completed Not Available [facility] 10/10/2023 05:22:51 influenza, unspecified formulation 0 completed Not Available [facility] 10/10/2023 05:22:52 Influenza, high-dose, trivalent, PF 4 completed DEWAYNE Ponce [facility], [place] - [facility] 10/08/2024 14:10:11 Influenza, high-dose, quadrivalent, PF 3 completed Not Available [facility] 12/12/2023 05:32:03 Past Encounters Encounter ID Performer Location Encounter Start Date Encounter Closed Date Diagnosis/Indication Diagnosis SNOMED-CT Code Diagnosis ICD10 Code Diagnosis Note [id number] DEWAYNE Ponce [address] [address] 10/08/2024 13:48:40 10/08/2024 15:30:14 Active or passive immunization [id number] Z23 Health Concerns Section Related Observation LastModified by Organization Detai ls LastModified Time None Recorded Concern Status LastModified by Organization Details LastModified Time None Recorded Payers Encounter Date Sequence Insurance Name Policy Number Policy Ortiz Covered Member ID Ortiz Member ID Guarantor Name 10/08/2024 1 [place] [employer] Audrey Magaña Page [id number] Audrye Magaña Page 10/08/2024 2 [employer] (MEDICARE SUPPLEMENT) Audrey Magaña Page [id number] Audrey Magaña Page OBGyn Episode No OBEpisode recorded.
--- OUTSIDE RECORDS SUMMARY | 2024-12-22 14:01 | XMS_ITS | Encounter Summary ---
[facility] [place] [address] Care Team Providers Care Clarifying Plant Operator Name Role Phone Shreya Ambrose APRN Primary Care Provider [phone] Reason for Visit * Reason Comments Skin Check Encounter Details Date Type Department Care Team (Late st Contact Info) Description 09/02/2024 4:00 PM EDT Office Visit Dermatology at [address] [id number] José Villeda MD [address] [facility], [place] [address] Photoaging of skin; Hemangioma of skin; Seborrheic keratosis Social History Tobacco Use Types Packs/Day Years [...] as of this encounter Progress Notes * José Villeda MD - 09/02/2024 4:00 PM EDT Problem: New patient, initial visit, skin checkup Audrey would like to have a general skin checkup today. She wonders what can be done for photoagingof her face. She would like to have a general skin checkup. She has noted significant changes with more wrinkling of her face over the last year or 2. Physical examination reveals a pleasant 69-year-old woman who has a benign examination of the head and the neck the chest back the hands on forearms thighs and calves. She has mild to moderate solar elastotic damage of her face. She has some photodamage on the right nasal sidewall manifesting with patchy erythema and a little hyperpigmentation. She has elias red hemangiomas scattered diffusely on her torso. There is no evidence of any cutaneous malignancies today. She is fair skinned blond hair blue eyes and type II Mooney pigmentation. She has very mild varicosity formation on the lower extremities bilaterally with patchy eczematous dermatitis on the left anterior smith. CeraVe cream seems to help for the itching and the for the rash to a degree. Assessment plan: Benign skin examination in a patient with facial photoaging 1. Begin tretinoin 0.025% cream apply on a q. OHS basis for 2 weeks and nightly thereafter. Apply just a drop size amount to face. Dispense 20 g with 5 refills. Patient will use [employer] to find best pricing for this. 2. Discussed the importance of sun avoidance precautions. Eczematous dermatitis left anterior smith 1. Begin triamcinolone 0.1% cream apply twice daily as needed to affected areas on the shins. Dispense 15 g with 2 refills. CC: Shreya Ambrose APRN documented in this encounter Plan of Treatment Not on file documented as of this encounter Visit Diagnoses Diagnosis Photoaging of skin Other chronic dermatitis due to solar radiation Hemangioma of skin Hemangioma of skin and subcutaneous tissue Seborrheic keratosis Other seborrheic keratosis documented in this encounter Care Teams Clarifying Plant Operator Relationship Specialty Start Date End Date Shreya Ambrose APRN [address] [place] [address] PCP - General 09/06/14 documented as of this encounter
--- OUTSIDE RECORDS SUMMARY | 2024-12-22 14:01 | XMS_ITS | Encounter Summary ---
Author Organization [facility] [place] [address] Care Team Providers Care Relief Manager Name Role Phone Arnol Shreya Any MONTGOMERY Primary Care Provider [phone] [phone] Encounter Details Date Type Department Care Team (Late st Contact Info) Description 12/13/2019 Ancillary Procedure Radiology Library at [facility] KANU Ramirez [address] Sunday Turner DO [facility] [place]OCRIN[place] [address] Social History Tobacco Use Types Packs/Day Years [...] Ultrasound Study (12/13/2019 12:00 AM EST) Narrative MEME KRAUSE - 04/22/2020 4:57 PM EDT This exam is auto-finalizing. It's purpose is for storage only. Sunday REYES FILM LIBRARY ORD ERABLES [place] documented in this encounter Visit Diagnoses Not on filedocumented in this encounter Care Teams Relief Manager Relationship Specialty Start Date End Date Shreya Ambrose APRN [address] [place] [address] PCP - General 09/06/14 documented as of this encounter
--- OUTSIDE RECORDS SUMMARY | 2024-12-22 14:01 | XMS_ITS | Encounter Summary ---
Author Organization [facility] Address [facility] [place] [address] Care Team Providers Care Assistant Laboratory Director Name Role Phone Shreya Ambrose APRN Primary Care Provider [phone] [phone] Encounter Details Date Type Department Care Team (Latest Contact Info) Description 09/04/2021 4:40 PM EDT TH Visit (TeleHealth) [place] [address] lAec Barraza MD [facility] [place] [address] Screening for colon cancer (Primary Dx); Epigastric [...] discomfort and has undergone extensive testing in [place] including an MRI of the abdomen, an [...] ONCE DAILY AT BEDTIME ??? flu vacc qq2314-17,65yr up,/PF (FluZONE HighDose Quad 20-21 PF) 240 [...] abnormalities on CT imaging. Alec Barraza MD rehabilitation caseworker Director, GI Endoscopy Section of Gastroenterology and Hepatology [facility] [place] [address] Cc:Shreya Ambrose APRN documented in this encounter Plan of Treatment Scheduled Orders Name Type Priority Associated Diagnoses Orde r Schedule ENDOSCOPY CASE REQUEST: EGD, UPPER GI ENDOSCOPY, COLONOSCOPY, DIAGNOSTIC Procedures Routine Epigastric pain Screening for colon cancer Ordered: 09/04/2021 documented as of this encounter Visit Diagnoses Diagnosis Screening for colon cancer- Primary Special screening for malignant neoplasms, colon Epigastric pain Abdominal pain, epigastric documented in this encounter Care Teams Assistant Laboratory Director Relationship Specialty Start Date End Date Shreya Ambroes APRN [address] [place] [address] PCP - General 09/06/14 documented as of this encounter
--- OUTSIDE RECORDS SUMMARY | 2024-12-22 14:01 | XMS_ITS | Encounter Summary ---
Author Organization [facility] Address [facility] [place] [address] Care Team Providers Care Floor Care Specialist Name Role Phone Shreya Ambrose APRN Primary Care Provider [phone] Reason for Visit * Reason Comments Follow-up Encounter Details Date Type Department Care Team (Late st Contact Info) Description 11/06/2023 2:15 PM EST Office [place] [id number] Marilyn Mcleod MD [facility] [place] [address] Multiple thyroid nodules Social History Tobacco Use [...] Dr. Toño Edwards, a general surgeon at [facility]. 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 She was subsequently followed by ultrasound. Her biopsy history since surgery is as follows: January 2017 (FNAs at [facility]) Right inferior: benign Right posterior: nondiagnostic Left remnant: benign October 2017 (FNA with Dr. Turner, [facility] endocrinology) Right posterior: [place] [facility] cytology (predominantly Hurthle cells, some with nuclear atypia) ThyGenX: no mutations, very highly likely benign July 2020 (FNA with [facility] IR) Right superior (appears to be same as right inferior above): [place] [facility] cytology (rare clusters of atypical follicular cells with mild nuclear enlargement and nuclear grooves.) ThyroSeq: NRAS (50% risk of malignancy) May 2021 Left remnant nodule: [place] [facility] cytology ThyroSeq: negative, but low cell content Right posterior: aborted due to aspiration of jaime blood x 3 Given that she is [...] Visit from 11/06/2023 in General Surgery at [facility] Weight 46.5 kg (102 lb 8 oz) [...] following her. This is the nodulethat had [place] 3 cytology with an NRAS mutation detected [...] goiter documented in this encounter Care Teams Floor Care Specialist Relationship Specialty Start Date End Date Shreya Ambrose, ULISES [address] [place] [address] PCP - General 09/06/14 documented as of this encounter
--- OUTSIDE RECORDS SUMMARY | 2024-12-22 14:01 | XMS_ITS | Encounter Summary ---
Author Organization [facility] Address [facility] [place] [address] Care Team Providers Care Database Manager Name Role Phone Shreya Ambrose APRN Primary Care Provider [phone] [phone] Encounter Details Date Type Department Care Team (Late st Contact Info) Description 03/24/2019 Telephone Hematology [place] [address] Treasure Calderon MD [facility] [address] HEMATOLOGY [place] [address] Social History Tobacco Use Types Packs/Day Years [...] type documented in this encounter Care Teams Database Manager Relationship Specialty Start Date End Date Shreya Ambrose APRN [address] [place] [address] PCP - General 09/06/14 documented as of this encounter
--- OUTSIDE RECORDS SUMMARY | 2024-12-22 14:01 | XMS_ITS | Encounter Summary ---
Author Organization Formerly [facility] Address [facility] [place] [address] Care Team Providers Care Pre Parole Counseling Aide Name Role Phone Shreya Ambrose APRN Primary Care Provider +1 -[phone] Encounter Details Date Type Department Care Team (Late st Contact Info) Description 09/05/2021 Telephone Gastroenterology at [facility] [place] [phone] BoniMarch Social History Tobacco Use Types Packs/Day [...] 09/05/2021 1:48 PM EDT Audrey Magaña Page [id number] Diagnosis/Indication: ABnl CT, dyspepsia and screening Age:66 y.o. 1. Have you ever had a/an Upper Endoscopy & Colonoscopy before? Yes: Date 3 years ago EGD [place], [place]; [place] - [facility] [...] to patient: You must have a responsible republican who will drive you to your procedure, [...] on filedocumented in this encounter Care Teams Pre Parole Counseling Aide Relationship Specialty Start Date End Date Shreya Ambrose APRN [address] [place] [address] PCP - General 09/06/14 documented as of this encounter
--- OUTSIDE RECORDS SUMMARY | 2024-12-22 14:01 | XMS_ITS | Encounter Summary ---
Author Organization [facility] [place] [place] [address] Care Team Providers Care Test Man Name Role Phone Shreya Ambrose APRN Primary Care Provider +1 -[phone] Encounter Details Date Type Department Care Team [...] on filedocumented in this encounter Care Teams Test Man Relationship Specialty Start Date End Date Shreya Ambrose APRN [address] [place] [address] PCP - General 09/06/14 documented as of this encounter
--- OUTSIDE RECORDS SUMMARY | 2024-12-22 14:01 | XMS_ITS | Encounter Summary ---
[facility] [place] [address] Care Team Providers Care Clinical Research Spec Name Role Phone Shreya Ambrose APRN Primary Care Provider +1 -[phone] Encounter Details Date Type Department Care Team (Late st Contact Info) Description 08/23/2020 Tele[place] [phone] Amelia Schwartz RN Social History Tobacco Use [...] in this encounter Care Teams Clinical Research Spec Relationship Specialty Start Date End Date Shreya Ambrose APRN [address] [place] [address] PCP - General 09/06/14 documented as of this encounter
--- OUTSIDE RECORDS SUMMARY | 2024-12-22 14:01 | XMS_ITS | Encounter Summary ---
Author [facility] [place] [place] [address] Care Team Providers Care Reeling And Tubing Machine Operator Name Role Phone Shreya Ambrose APRN Primary Care Provider +1 -[phone] Encounter Details Date Type Department Care Team (Late st Contact Info) Description 06/05/2021 Telephone [place] [phone] Marilyn Mcleod MD [facility] [address] Social History Tobacco Use Types Packs/Day Years [...] on filedocumented in this encounter Care Teams Reeling And Tubing Machine Operator Relationship Specialty Start Date End Date Shreya Ambrose APRN [address] [place] [address] PCP - General 09/06/14 documented as of this encounter
--- OUTSIDE RECORDS SUMMARY | 2024-12-22 14:01 | XMS_ITS | Encounter Summary ---
Author Organization [facility] [place] [address] Care Team Providers Care Signal Tester Name Role Phone Shreya Ambrose APRN Primary Care Provider +1 -[phone] Encounter Details Date Type Department Care Team (Late st Contact Info) Description 09/04/2021 Telephone [place] [phone] Bre Ferrari Social History Tobacco Use Types [...] on filedocumented in this encounter Care Teams Signal Tester Relationship Specialty Start Date End Date Shreya Ambrose APRN [address] [place] [address] PCP - General 09/06/14 documented as of this encounter
--- OUTSIDE RECORDS SUMMARY | 2024-12-22 14:01 | XMS_ITS | Encounter Summary ---
Author Organization Formerly [facility] Address [facility] [place] [address] Care Team Providers Care Senior Naval Parachutist Name Role Phone Shreya Ambrose APRN Primary Care Provider +1 -[phone] Encounter Details Date Type Department Care Team (Late st Contact Info) Description 01/11/2020 4:00 PM EST Office Visit Hematology/Oncology at [address] [address] Treasure Calderon MD [facility] DR HEMATOLOGY [place] [address] Leukopenia, unspecified type Social History Tobacco Use [...] normal. Most recent labs from 11/09/2019 at [facility] report: WBC 3.47, hemoglobin [...] type documented in this encounter Care Teams Senior Naval Parachutist Relationship Specialty Start Date End Date Shreya Ambrose APRN [address] [place] [address] PCP - General 09/06/14 documented as of this encounter
--- OUTSIDE RECORDS SUMMARY | 2024-12-22 14:01 | XMS_ITS | Encounter Summary ---
Author Organization [facility] [place] [address] Care Team Providers Care Undertaker Assistant Name Role Phone Shreya Ambrose APRN Primary Care Provider +1 -[phone] Encounter Details Date Type Department Care Team [...] on filedocumented in this encounter Care Teams Undertaker Assistant Relationship Specialty Start Date End Date Shreya Ambrose APRN [address] [place] [address] PCP - General 09/06/14 documented as of this encounter
--- OUTSIDE RECORDS SUMMARY | 2024-12-22 14:01 | XMS_ITS | Encounter Summary ---
Author Organization [facility] Address [facility] [place] [address] Care Team Providers Care Home Based Assistant Name Role Phone Shreya Ambrose APRN Primary Care Provider +1 -[phone] Reason for Visit * Consultation (Routine) - [...] finding of 1mm PTC. Sunday Turner DO [facility] [place] [address] Marilyn Mcleod MD [facility] [place] [address] Referral ID Status Reason Start Date Expiration Date V isits Requested Visits Authorized [id number] Closed Consult, Test & Treat 08/25/2020 08/25/2021 1 1 Encounter Details Date Type Department Care Team (Late st Contact Info) Description 11/02/2020 9:30 AM EST Office Visit [place] [address] Marilyn Mcleod MD [facility] [place] [address] Shell Carlson APRN [facility] [place] [address] Multiple thyroid nodules Social History Tobacco Use [...] ultrasound performed most recently by radiology at [facility] which demonstrated right lobe measuring 5.6 [...] and cytology was atypia of undetermined significance ([place] 3). 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 She is now referred to me for consideration of surgical management of her thyroid disease. No past medical history on file. Past Surgical History: Procedure Laterality Date ??? IR FNA THYROID NODULE 07/28/2020 IR US Guided Biopsy Thyroid FNA 07/28/2020 Dylan Blackwell MD [facility] INTERVENTION[facility] RAD ??? SALPINGO-OOPHORECTOMY Bilateral ??? THYROIDECTOMY, PARTIAL Left Current Outpatient Medications on File Prior to Visit Medication Sig Dispense Refill ??? flu vacc [id number],65yr up,/PF (FluZONE HighDose Quad 20-21 PF) 240 [...] right-sided nodules demonstrated atypia of undetermined significance ([place] 3) cytology with indeterminate (risk of malignancy [...] of compression: yes FNA: no FNA Classification: [place] 3 documented in this encounter Plan of Treatment Not on file documented as of this encounter Procedures Procedure Name Priority Date/Time Associated Diagnosis Comments AMB REFERRAL TO GENERAL SURGERY Routine 11/14/2020 11:08 PM EST Thyroid nodule documented in this encounter Visit Diagnoses Diagnosis Multiple thyroid nodules Nontoxic multinodular goiter documented in this encounter Care Teams Home Based Assistant Relationship Specialty Start Date End Date Shreya Ambrose APRN [address] [place] [address] PCP - General 09/06/14 documented as of this encounter
--- OUTSIDE RECORDS SUMMARY | 2024-12-22 14:01 | XMS_ITS | Encounter Summary ---
Author Organization Formerly [facility] [address] Care Team Providers Care Conveyor Monitor Name Role Phone Shreya Ambrose APRN Primary Care Provider +1 -[phone] Encounter Details Date Type Department Care Team (Latest Contact Info) Description 09/02/2024 Travel Social History Tobacco Use Types Packs/Day [...] on filedocumented in this encounter Care Teams Conveyor Monitor Relationship Specialty Start Date End Date Shreya Ambrose APRN [address] [place] [address] PCP - General 09/06/14 documented as of this encounter
--- OUTSIDE RECORDS SUMMARY | 2024-12-22 14:01 | XMS_ITS | Encounter Summary ---
Author Organization [facility] [place] [address] Care Team Providers Care Supervisor Shed Workers Name Role Phone Shreya Ambrose APRN Primary Care Provider +1 -[phone] Encounter Details Date Type Department Care Team (Late st Contact Info) Description 12/14/2021 Tele[place] [phone] Tracey Nelson Social History Tobacco Use Types [...] filedocumented in this encounter Care Teams Supervisor Shed Workers Relationship Specialty Start Date End Date Shreya Ambrose APRN [address] [place] [address] PCP - General 09/06/14 documented as of this encounter
--- OUTSIDE RECORDS SUMMARY | 2024-12-22 14:01 | XMS_ITS | Encounter Summary ---
Author Organization [facility] Address [facility] [place] [address] Care Team Providers Care Structural Steel Trades Worker Name Role Phone Shreya Ambrose APRN Primary Care Provider +1 -[phone] Encounter Details Date Type Department Care Team (Late st Contact Info) Description 09/02/2024 Refill Dermatology at [address] [address] Ursula Higginbotham, CORPORATE COMMUNICATIONS MANAGER Social History Tobacco Use Types Packs/Day Years [...] on filedocumented in this encounter Care Teams Structural Steel Trades Worker Relationship Specialty Start Date End Date Shreya Ambrose APRN [address] [place] [address] PCP - General 09/06/14 documented as of this encounter
--- OUTSIDE RECORDS SUMMARY | 2024-12-22 14:01 | XMS_ITS | Encounter Summary ---
[place] [address] Care Team Providers Care Pipe Fittings Molder Name Role Phone Shreya Ambrose APRN Primary Care Provider +1 -[phone] Reason for Visit * Reason Onset Date Comments Reminder Appointment 09/04/2021 Encounter Details Date Type Department Care Team (Late st Contact Info) Description 09/04/2021 [place] [phone] Cecy Alvarado CMA Reminder Appointment Social History Tobacco Use Types [...] on filedocumented in this encounter Care Teams Pipe Fittings Molder Relationship Specialty Start Date End Date Shreya Ambrose APRN [address] [place] [address] PCP - General 09/06/14 documented as of this encounter
--- OUTSIDE RECORDS SUMMARY | 2024-12-22 14:01 | XMS_ITS | Encounter Summary ---
Author Organization [facility]ly [facility] Address [facility] [place] [address] Care Team Providers Care Environmental Laboratory Technician Name Role Phone Shreya Ambrose APRN Primary Care Provider +1 -[phone] Encounter Details Date Type Department Care Team (Late st Contact Info) Description 04/25/2020 Orders [place] [address] Ferny Franks MD [facility] [place] [address] Social History Tobacco Use Types Packs/Day Years [...] Indication: Right thyroid nodule Presenting Diagnosis/ Complaint: Audrye Magaña Page is 65 y.o. female with [...] file Gets together: Not on file Attends mu-ism service: Not on file Active member of [...] on filedocumented in this encounter Care Teams Environmental Laboratory Technician Relationship Specialty Start Date End Date Shreya Ambrose APRN [address] [place] [address] PCP - General 09/06/14 documented as of this encounter
--- OUTSIDE RECORDS SUMMARY | 2024-12-22 14:01 | XMS_ITS | Encounter Summary ---
Author Organization [facility] [place] [address] Care Team Providers Care Director Of Investigations Name Role Phone Shreya Ambrose APRN Primary Care Provider +1 -[phone] Encounter Details Date Type Department Care Team [...] in this encounter Care Teams Director Of Investigations Relationship Specialty Start Date End Date Shreya Ambrose APRN [address] [place] [address] PCP - General 09/06/14 documented as of this encounter
--- OUTSIDE RECORDS SUMMARY | 2024-12-22 14:01 | XMS_ITS | Encounter Summary ---
Author Organization [facility] Address [facility] [place] [address] Care Team Providers Care Dip Painter Name Role Phone Shreya Ambrose APRN Primary Care Provider +1 -[phone] Encounter Details Date Type Department Care Team (Late st Contact Info) Description 11/07/2022 11:15 AM EST Office [place] [address] Marilyn Mcleod MD [facility] [place] [address] Multiple thyroid nodules Social History Tobacco Use [...] Dr. Toño Edwards, a general surgeon at [facility]. 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 ? Her biopsy history since surgery is as follows: ?? January 2017 (FNAs at [facility]) Right inferior: benign Right posterior: nondiagnostic Left remnant: benign ?? October 2017 (FNA with Dr. Turner, [facility] endocrinology) Right posterior: [place] 3 cytology (predominantly Hurthle cells, some with nuclear atypia) ThyGenX: no mutations, very highly likely benign ?? July 2020 (FNA with [facility] IR) Right superior (appears to be same as right inferior above): [place] 3 cytology (rare clusters of atypical follicular cells with mild nuclear enlargement and nuclear grooves.) ThyroSeq: NRAS (50% risk of malignancy) ?? May 2021 Left remnant nodule: [place] 3 cytology ThyroSeq: negative, but low cell [...] Visit from 11/07/2022 in General Surgery at [facility] Weight 49.4 kg (109 lb) Temp 36.1 [...] goiter documented in this encounter Care Teams Dip Painter Relationship Specialty Start Date End Date Shreya Ambrose APRN [address] [place] [address] PCP - General 09/06/14 documented as of this encounter
--- OUTSIDE RECORDS SUMMARY | 2024-12-22 14:01 | XMS_ITS | Encounter Summary ---
[place] [address] Care Team Providers Care Technical Services Representative Name Role Phone Shreya Ambrose APRN Primary Care Provider +1 -[phone] Reason for Referral * Diagnostic Test (Routine) - Closed Specialty Diagnoses / Procedures Referred By Prerna odell Referred To Contact Radiology Diagnoses Thyroid nodule Procedures IR US [facility]ided [facility] [place] [address] [place] [address] Referral ID Status Reason Start Date Expiration Date V isits Requested Visits Authorized [id number] Closed Specialty Service Requested 04/26/2020 10/22/2021 1 1 Reason for Visit * Diagnostic Test (Routine) - Closed Specialty Diagnoses / Procedures Referred By Prerna odell Referred To Contact Radiology Diagnoses Thyroid nodule Procedures IR US Guided Biopsy Thyroid FNA Sunday Turner [facility] [address] [place] [address] Referral ID Status Reason Start Date Expiration Date V isits Requested Visits Authorized [id number] Closed Specialty Service Requested 04/26/2020 10/22/2021 1 1 Encounter Details Date Type Department Care Team (Latest Contact Info) Description 07/28/2020 8:41 AM EDT - 07/28/2020 11:59 PM EDT Hospital En[place] [address] Sunday Turner [facility] [place] [address] Thyroid nodule Discharge Disposition: Home Social History [...] Routine 07/28/2020 11:17 AM EDT Thyroid nodule NON-LEAD SECTION SUPERVISOR FINAL REPORT Routine 07/28/2020 10:44 AM EDT [...] number below. Electronically signed by: Dylan Blackwell [facility]([phone]), at 07/31/2020 4:47 PM Sunday Turner DO IMG IR ORDERABLES * Non-Chief Meteorologist Final Report (07/28/2020 10:44 AM EDT) Diagnosis Discussion [id number] ? Location: 3 The signing pathologist has (i) examined the relevant preparation(s) for the specimen(s) and (ii) rendered or confirmed the diagnosis(es). . ? Non-Chief Meteorologist Final DIAGNOSIS Atypia of Undetermined Significance Electronically signed by: ??Leonardo SPEARS, Angely Verified: ??07/31/2020 ?Pathologist Performed at: ??-[facility] Dept. of [facility]ology, [place], [place] DISCUSSION Thyroid, right (US guided FNA): Atypia of Undetermined Significance (see note). A rare cluster of atypical follicular cells with mild nuclear enlargement and nuclear grooves, is noted. The specimen contains ?predominantly Hurthle cells, ??abundant macrophages, rare lymphocytes, and small amount colloid. Note: Clinical correlation is recommended. ?A sample will be sent for molecular testing. Reference: Ladonna TELLEZ, ??[place] ??ES. The [employer] System for Reporting Thyroid Cytopathology. [place]: [place]; 2018. CLINICAL INFORMATION Specimen Source : [...] potential molecular testing. 07/31/2020 12:43 PM EDT [facility] THYROID STRUCTURE / Unknown 07/28/2020 10:44 AM EDT 07/28/2020 10:44 AM EDT Sunday Turner DO PATHOLOGY/CYTOLOGY O RDERABLES Performing Organization Address [facility]/ZIP Co de Phone Number [facility] [place] [address] * Cytopathology Non-Gynecological (07/28/2020 10:44 AM EDT) AP Specimen 07/28/2020 10:4 4 AM EDT 07/28/2020 10:44 AM EDT Narrative [facility] - 07/28/2020 10:44 AM EDT Specimen requisition ordered. ??Separate Pathology report to follow Sunday Yue DO PATHOLOGY/CYTOLOGY O RDERABLES Performing Organization Address [facility] [place] [address] documented in this encounter Visit Diagnoses Diagnosis Thyroid nodule Nontoxic uninodular goiter documented in this encounter Care Teams Technical Services Representative Relationship Specialty Start Date End Date Shreya Ambrose APRN [address] [place] [address] PCP - General 09/06/14 documented as of this encounter
--- OUTSIDE RECORDS SUMMARY | 2024-12-22 14:01 | XMS_ITS | Encounter Summary ---
Author Organization [facility] [place] [address] Care Team Providers Care Rag Washer Name Role Phone Shreya Ambrose APRN Primary Care Provider +1 -[phone] Encounter Details Date Type Department Care Team (Late st Contact Info) Description 01/31/2020 Tele[place] [address] Amelia Schwartz RN Social History [...] this recommendation. Faxing to her attention at [phone]. Amelia Hoyos RN * Telephone Encounter - Amelia Hoyos RN - 01/31/2020 3:03 PM EST Images from the original note were not included. Msg from Denice at [facility]. They sent U/S report for Dr Turner's review on 12/14/19 andare looking for interp and plan. Keara Ambrose is PCP. They can be reached at [phone] or info can be faxed to [phone]. Per phone note of 07/22/19: July 28, [...] on filedocumented in this encounter Care Teams Rag Washer Relationship Specialty Start Date End Date Shreya Ambrose APRN [address] [place] [address] PCP - General 09/06/14 documented as of this encounter
--- OUTSIDE RECORDS SUMMARY | 2024-12-22 14:01 | XMS_ITS | Encounter Summary ---
Author Organization [facility] [place] [address] Care Team Providers Care Diesel Service Apprentice Name Role Phone Shreya Ambrose APRN Primary Care Provider +1 -[phone] Encounter Details Date Type Department Care Team [...] on filedocumented in this encounter Care Teams Diesel Service Apprentice Relationship Specialty Start Date End Date Shreya Ambrose APRN [address] [place] [address] PCP - General 09/06/14 documented as of this encounter
--- OUTSIDE RECORDS SUMMARY | 2024-12-22 14:01 | XMS_ITS | Encounter Summary ---
Author Organization [facility] Address [facility] [place] [address] Care Team Providers Care Head Doffer Name Role Phone Shreya Ambrose APRN Primary Care Provider +1 [phone] Encounter Details Date Type Department Care Team (Late st Contact Info) Description 10/08/2021 1:00 PM EST - 10/08/2021 2:15 PM EST [place] [phone] Alec Barraza MD [facility] [place] [address] EGD, UPPER GI ENDOSCOPY (VU 2.09) Social [...] the day after the test, use an grvo-jgz-qerhlmv spray or lozenges to numbyour throat. Warm [...] occurs, please contact your doctor. Please call [phone] before 8pm Mon-Fri with problems, questions, or concerns. If you call after 8pm or on weekends, call the Hospital at [phone] and ask for the Coffee Grinder ornamental iron worker and the game operator will contact that person for you. When should you call for help? Call [phone] anytime you think you may need emergency [...] more? You can view health information on [employer], your personal patient account. Log in or sign up today. Content Version: 12.2 ?? 7157-5771 60mo. Care instructions adapted under license by [facility]. If you have questions about a medical condition or this instruction, always ask your healthcare professional. [employer] disclaims any warranty or liability for your [...] the day after the procedure, use an jpoi-dgg-fdmfdkv spray to numb your throat. Sucking on [...] occurs, please contact your Doctor. Please call [phone] before 8pm Mon-Fri with problems, questions or concerns. If you call after 8pm or on weekends, call the Hospital at [phone] and ask to speak to the Coffee Grinder ornamental iron worker and the game operator will contact that person for you. When should you call for help? Call [phone] anytime you think you may need emergency [...] any problems. Where can you learn more? [facility] View your After Visit Summary and more online at [email or web address] If you would like to provide [...] cost to you. Content Version: 12.2 ?? 2845-7402 60mo. Care instructions adapted under license by [facility]. If you have questions about a medical condition or this instruction, always ask your healthcare professional. [employer] disclaims any warranty or liability for your use of this information. * Patient Instructions* Alec Barraza MD - 10/08/2021 2:16 PM EST Please see Recommendations in the Provation procedure report which is documented in the procedural note in E-DH. documented in this encounter Medications at Time of Discharge Medication Sig Dispensed Refills Start Date End Date flu vacc [id number],65yr up,/PF (FluZONE HighDose Quad 20-21 PF) 240 [...] Barraza MD - 10/08/2021 1:27 PM EST [facility] Operative Note Patient Name: Audrey Gaston : [id number] MR#: [id number] Case Date: 10/08/2021 Surgeon: Surgeon(s) and Role: * Alec Barraza MD - Primary Preoperative diagnosis: ABnl CT, dyspepsia and screening Postoperative diagnosis: * No post-op diagnosis entered * Procedure(s) (LRB): EGD, UPPER GI ENDOSCOPY (N/A) UPPER EUS- ENDOSCOPIC ULTRASOUND (N/A) COLONOSCOPY, POLYPECTOMY, REMOVAL LESION BY SNARE (WRVU 4.67) (N/A) Anesthesia: MAC Full procedure note is documented under the Procedure section of [facility]. documented in this encounter Plan of Treatment Not on file documented as of this encounter Procedures Procedure Name Priority Date/Time Associated Diagnosis Comments SPECIMEN TO PATHOLOGY Routine 10/08/2021 2:04 PM EST SURGICAL PATHOLOGY REPORT Routine 10/08/2021 2:01 PM EST Colonoscopy, Remv Lesn, Snare ([id number]) 10/08/2021 1:16 PM EST Epigastric pain Screening for colon cancer Endoscopic Us Exam, Esoph ([id number]) 10/08/2021 1:16 PM EST Epigastric pain Screening for colon cancer Upper GI Endoscopy, Diagnostic ([id number]) 10/08/2021 1:16 PM EST Epigastric pain Screening for colon cancer UPPER GI ENDOSCOPY Routine 10/08/2021 11 :30 AM EST UPPER EUS-ENDOSCOPIC ULTRASOUND Routine 10/08/2021 11:29 AM EST COLONOSCOPY Routine 10/08/2021 11:29 AM EST documented in this encounter Results * Specimen to Pathology (10/08/2021 2:04 PM EST) AP Specimen 10/08/2021 2:04 PM EST 10/08/2021 2:04 PM EST Narrative [facility] - 10/08/2021 2:04 PM EST Specimen requisition ordered. ??Separate Pathology report to follow Alec Barraza MD PATHOLOGY/CYTOLOGY Everardo KIDD [facility] [place] [address] * Surgical Pathology Report (10/08/2021 2:01 PM EST) Final Diagnosis [id number] ? Location: 4T; EA08; A The signing pathologist has (i) examined the relevant preparation(s) for the specimen(s) and (ii) rendered or confirmed the diagnosis(es). . ?Surgical Pathology DIAGNOSIS A - Rectal polyp, excision: - ??Hyperplastic polyp. CR-PX Electronically signed by: ?Edmond Banks MD Verified: ??10/12/2021 12:53 ??Pathologist Performed at: ??-[facility] [place], [place], [place] SPECIMEN(S) SUBMITTED A - Rectal polyp, excision (1) CLINICAL INFORMATION 66-year-old with abdominal pain SPECIMEN PROCESSING A - Labeled/Fixativ e: Rectal polyp, formalin. Quantity/Size: Single, 1.0 x 0.4 x 0.1 cm. Tissue Description: Soft, pink-red tissue. Sections/Proces sing: Quadrisected and entirely submitted in 1 cassette labeled A1. ??sns 10/12/2021 12:53 PM EST [facility] GI Biopsy 10/08/2021 2:01 PM EST 10/08/2021 2:01 PM EST Alec Barraza MD PATHOLOGY/CYTOLOGY O MARTI [facility] [place] [address] * UPPER GI ENDOSCOPY (10/08/2021 11:30 AM EST) UPPER GI ENDOSCOPY [facility] Endoscopy ___ Procedure Date: 10/08/2021 11:30 AM ? Patient Name: Audery Page ? N: [id number] ? Date of : 1955 ? Age: 66 ? Order #: [id number] ? Instrument Name: [id number] ? ___ Procedure: ? Upper GI endoscopy [...] (10/08/2021 11:29 AM EST) UPPER ENDOSCOPIC ULTRASOUND [facility] Endoscopy Procedure Date: 10/08/2021 11:29 AM ? Patient Name: Audrey Page ? Date of : 1955 ? Age: 66 ? Order #: [id number] ? Instrument Name: [id number] ? Procedure: ? Upper EUS Indications: ? [...] * COLONOSCOPY (10/08/2021 11:29 AM EST) COLONOSCOPY [facility] Endoscopy ___ Procedure Date: 10/08/2021 11:29 AM ? Patient Name: Audrey Page ? N: [id number] ? Date of : 1955 ? Age: 66 ? Order #: [id number] ? Instrument Name: [id number] ? ___ Procedure: ? Colonoscopy Indications: ? [...] preparation ? was evaluated using the BBPS ([place] ? Bowel Preparation Scale) with scores ? [...] 10/08/2021 11:2 9 AM EST Shreya Ambrose ADDICTION SOCIAL WORKER GENERAL SURGICAL ORDERABLES PROVATION documented in this [...] CRNA) documented in this encounter Care Teams Head Doffer Relationship Specialty Start Date End Date Shreya Ambrose APRN [address] [place] [address] PCP - General 09/06/14 documented as of this encounter
--- OUTSIDE RECORDS SUMMARY | 2024-12-22 14:01 | XMS_ITS | Encounter Summary ---
Author Organization [facility] [place] [address] Care Team Providers Care Brand Activation Manager Name Role Phone Shreya Ambrose APRN Primary Care Provider +1 [phone] Encounter Details Date Type Department Care Team [...] on filedocumented in this encounter Care Teams Brand Activation Manager Relationship Specialty Start Date End Date Shreya Ambrose APRN [address] [place] [address] PCP - General 09/06/14 documented as of this encounter
--- OUTSIDE RECORDS SUMMARY | 2024-12-22 14:01 | XMS_ITS | Encounter Summary ---
Author Organization [facility] Address [facility] [place] [address] Care Team Providers Care Glassware Verifier Name Role Phone ArnolAngieShreya Any MONTGOMERY Primary Care Provider +1 [phone] Encounter Details Date Type Department Care Team (Late st Contact Info) Description 10/08/2021 1:14 PM EST Anesthesia [place] [address] Gordon Chris MD [facility] [place] [address] Anesthesia Record Procedure Summary Procedure Name Responsible [...] 1219; metacarpal vein (top of hand), right; oslx-sxp-qyodka catheter system; Anatomical Landmarks; US Not Used; [...] Procedure Summary Date: 10/08/21 Room / Location: [facility] ENDO 2 / [facility] Anesthesia Start: 1314 Anesthesia Stop: 1409 [...] All Anesthesia Providers: Anesthesiologist: Gordon Chris MD MIXING AND DISPENSING SUPERVISOR: Eoduard Choudhary CRNA Vitals Value Taken Time BP 102/57 10/08/21 1450 Temp Pulse Resp 16 10/08/21 1450 SpO2 100 % 10/08/21 1455 Pain Level 0 10/08/21 1450 Vitals shown include unvalidated device data. Patient Location: PACU/[facility] Level of Consciousness: Conscious but Sleepy Pain [...] Biopsy Thyroid FNA 07/28/2020 Dylan Blackwell MD [facility] INTERVENTIONL RAD ??? SALPINGO-OOPHORECTOMY Bilateral ??? THYROIDECTOMY, [...] consented to blood products. Plan discussed with MIXING AND DISPENSING SUPERVISOR. Anesthesia Screening documented in this encounter Miscellaneous [...] mL/hr documented in this encounter Care Teams Glassware Verifier Relationship Specialty Start Date End Date Shreya Ambrose APRN [address] [place] [address] PCP - General 09/06/14 documented as of this encounter
--- OUTSIDE RECORDS SUMMARY | 2024-12-22 14:01 | XMS_ITS | Encounter Summary ---
Author Organization [facility] Address [facility] [place] [address] Care Team Providers Care Commercial Manager Name Role Phone Shreya Ambrose APRN Primary Care Provider +1 [phone] Encounter Details Date Type Department Care Team (Late st Contact Info) Description 05/13/2024 11:15 AM EDT Office [place] [address] Marilyn Mcleod MD [facility] [address] Multiple thyroid nodules Social History Tobacco Use [...] Dr. Toño Edwards, a general surgeon at [facility]. 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 She was subsequently followed by ultrasound. Her biopsy history since surgery is as follows: January 2017 (FNAs at [facility]) Right inferior: benign Right posterior: nondiagnostic Left remnant: benign October 2017 (FNA with Dr. Turner, [facility] [place]) Right posterior: [place] 3 cytology (predominantly Hurthle cells, some with nuclear atypia) ThyGenX: no mutations, very highly likely benign July 2020 (FNA with [facility] IR) Right superior (appears to be same as right inferior above): [place] 3 cytology (rare clusters of atypical follicular cells with mild nuclear enlargement and nuclear grooves.) ThyroSeq: NRAS (50% risk of malignancy) May 2021 Left remnant nodule: [place] 3 cytology ThyroSeq: negative, but low cell [...] Visit from 05/13/2024 in General Surgery at [facility] Weight 48.3 kg (106 lb 8 oz) [...] goiter documented in this encounter Care Teams Commercial Manager Relationship Specialty Start Date End Date Shreya Ambrose, ULISES [address] [place] [address] PCP - General 09/06/14 documented as of this encounter
--- OUTSIDE RECORDS SUMMARY | 2024-12-22 14:01 | XMS_ITS | Encounter Summary ---
[place] [address] Care Team Providers Care Commissioning Agent Name Role Phone Shreya Ambrose APRN Primary Care Provider +1 [phone] Reason for Referral * Diagnostic Test (Routine) - Closed Specialty Diagnoses / Procedures Referred By Prerna odell Referred To Contact Radiology Diagnoses Thyroid nodule Procedures IR US Guided Biopsy Thyroid FNA Sunday Turner [facility] [place] [address] [place] [address] Referral ID Status Reason Start Date Expiration Date V isits Requested Visits Authorized [id number] Closed Specialty Service Requested 04/26/2020 10/22/2021 1 1 Encounter Details Date Type Department Care Team (Late st Contact Info) Description 04/21/2020 Orders [place] [address] Sunday Turner [facility] [place] [address] Thyroid nodule Social History Tobacco Use Types Packs/Day Years Used Date Smoking Tobacco: Former Cigarettes 1 01/20/1977 - 11/19/1992 Smokeless Tobacco: Never Comments:Social smoker Sex and Gender Information Value Date Recorded Sex Assigned at Not on file Gender Identity Not on file Sexual Orientation Not on file documented as of this encounter Plan of Treatment Not on file documented as of this encounter Results * [...] goiter documented in this encounter Care Teams Commissioning Agent Relationship Specialty Start Date End Date Shreya Ambrose, [address] [place] [address] PCP - General 09/06/14 documented as of this encounter
--- OUTSIDE RECORDS SUMMARY | 2024-12-22 14:01 | XMS_ITS | Encounter Summary ---
Author Organization [facility] Address [facility] [place] [address] Care Team Providers Care Box Gluer Name Role Phone Shreya Ambrose APRN Primary Care Provider +1 [phone] Reason for Visit * Reason Comments Follow-up Encounter Details Date Type Department Care Team (Late st Contact Info) Description 05/31/2021 11:00 AM EDT Office [place] [phone] Marilyn Mcleod MD [facility] [place] [address] Multiple thyroid nodules Social History Tobacco Use [...] Dr. Toño Edwards, a general surgeon at [facility]. Per Dr. 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 She was subsequently followed by ultrasound. In January 2017, she underwent FNA of 3 nodules at [facility]: 2 nodules in the right lobe [...] the right. This [place]biops[place] [facility] [place], with [place] [facility] cytology and a comment that there [...] Biopsy Thyroid FNA 07/28/2020 Dylan Blackwell MD [facility] INTERVENTIONL RAD ??? SALPINGO-OOPHORECTOMY Bilateral ??? THYROIDECTOMY, PARTIAL Left Current Outpatient Medications on File Prior to Visit Medication Sig Dispense Refill ??? amitriptyline (Elavil) 25 mg Tablet TAKE ONE TABLET BY MOUTH AT ONCE DAILY AT BEDTIME ??? flu vacc [id number],65yr up,/PF (FluZONE HighDose Quad 20-21 PF) 240 [...] twice in 2017, once in January with [place] [facility] cytology andonce in October with [place] 3 cytology and subsequent molecular testing with ThyGenX was benign;and the larger isoechoic right-sided nodule in 2016, at which point [place] 2 cytology was favored, and again in 2020 [place] 3 cytology was reported with the NRAS [...] Procedure Name Priority Date/Time Associated Diagnosis Comments NON-X RAY ELECTRONICS WIREMAN FINAL REPORT Routine 05/31/2021 11:56 AM EDT CYTOPATHOLOGY NON-GYNECOLOGICAL Routine 05/31/2021 11:56 AM EDT Multiple thyroid nodules documented in this encounter Results * Non-Mule Spinner Final Report (05/31/2021 11:56 AM EDT) Diagnosis Discussion [id number] ? Location: 4L The signing pathologist has (i) examined the relevant preparation(s) for the specimen(s) and (ii) rendered or confirmed the diagnosis(es). . ? Non-Mule Spinner Final DIAGNOSIS Atypia of Undetermined Significance Electronically signed by: ?Avelino Briones MD Verified: ??06/02/2021 14:37 ??Cytopathologist Performed at: ??-[facility] [place]. [place], [place], [place] DISCUSSION Thyroid: left (US-guided FNA) - Atypia of Undetermined Significance. Low to moderate cellularity aspirate in which most of the follicular epithelial cells display Hurthle cell features. Scattered macrophages and a small amount of colloid are seen. Lymphocytes are not conspicuous. A sample is being sent for molecular testing. Reference: Ladonna TELLEZ, Edward ES. The [place] System for Reporting Thyroid Cytopathology. [place]: [place]; 2018. CLINICAL INFORMATION Specimen Source : [...] potential molecular testing. 06/02/2021 2:37 PM EDT [facility] THYROID STRUCTURE / Unknown 05/31/2021 11:56 AM EDT 05/31/2021 11:56 AM EDT Marilyn Mcleod MD PATHOLOGY/CYTOLOG Y ORDERABLES Performing Organization Address City/[facility]/ZIP Co de Phone Number [facility] [place] [address] * Cytopathology Non-Gynecological (05/31/2021 11:56 AM EDT) AP Specimen 05/31/2021 11:5 6 AM EDT 05/31/2021 11:56 AM EDT Narrative [facility] - 05/31/2021 11:56 AM EDT Specimen requisition ordered. ??Separate Pathology report to follow Marilyn Mcleod MD PATHOLOGY/CYTOLOG Y ORDERABLES Performing Organization Address City/[facility]/ZIP Co de Phone Number [facility] [place] [address] documented in this encounter Visit Diagnoses Diagnosis Multiple thyroid nodules Nontoxic multinodular goiter documented in this encounter Care Teams Box Gluer Relationship Specialty Start Date End Date Shreya Ambrose, AIR GUN OPERATOR [address] [place] [address] PCP - General 09/06/14 documented as of this encounter
--- OUTSIDE RECORDS SUMMARY | 2024-12-22 14:01 | XMS_ITS | Encounter Summary ---
Author Organization [facility] Address [facility] [place] [address] Care Team Providers Care Bean Picker Name Role Phone Shreya Ambrose APRN Primary Care Provider +1 [phone] Encounter Details Date Type Department Care Team (Latest Contact Info) Description 10/08/2021 11:57 AM EST - 10/08/2021 3:21 PM EST Hospital Encounter [place] [phone] Alec Barraza MD [facility] [place] [address] Discharge Disposition: Home Social History Tobacco Use [...] the day after the test, use an ggly-uhn-ouqhwss spray or lozenges to numbyour throat. Warm [...] occurs, please contact your doctor. Please call [phone] before 8pm Mon-Fri with problems, questions, or concerns. If you call after 8pm or on weekends, call the Hospital at [phone] and ask for the Chef & Owner interventional physiatrist and the rotary drill rig operator will contact that person for you. When should you call for help? Call [phone] anytime you think you may need emergency [...] more? You can view health information on [employer], your personal patient account. Log in or sign up today. Content Version: 12.2 ?? 4918-8419 [employer] Care instructions adapted under license by [facility]. If you have questions about a medical condition or this instruction, always ask your healthcare professional. [employer] disclaims any warranty or liability for your [...] the day after the procedure, use an louo-fxw-ysafnhr spray to numb your throat. Sucking on [...] occurs, please contact your Doctor. Please call [phone] before 8pm Mon-Fri with problems, questions or concerns. If you call after 8pm or on weekends, call the Hospital at [phone] and ask to speak to the Chef & Owner interventional physiatrist and the rotary drill rig operator will contact that person for you. When should you call for help? Call [phone] anytime you think you may need emergency [...] any problems. Where can you learn more? [facility] View your After Visit Summary and more online at [email or web address] If you would like to [...] cost to you. Content Version: 12.2 ?? 6663-2352 [employer] Care instructions adapted under license by [facility]. If you have questions about a medical condition or this instruction, always ask your healthcare professional. [employer] disclaims any warranty or liability for your use of this information. * Patient Instructions* Alec Barraza MD - 10/08/2021 2:16 PM EST Please see Recommendations in the Provation procedure report which is documented in the procedural note in E-DH. documented in this encounter Medications at Time of Discharge Medication Sig Dispensed Refills Start Date End Date flu vacc da4752-02,65yr up,/PF (FluZONE HighDose Quad 20-21 PF) 240 [...] Miscellaneous Notes * Op Note - Alec Braraza MD - 10/08/2021 1:27 PM EST [facility] Operative Note Patient Name: Audrey Gaston : [id number] MR#: [id number] Case Date: 10/08/2021 Surgeon: Surgeon(s) and Role: [...] 2:01 PM EST Colonoscopy, Remv Kevan, Snare ([id number]) 10/08/2021 1:16 PM EST Epigastric pain Screening for colon cancer Endoscopic Us Exam, Esoph ([id number]) 10/08/2021 1:16 PM EST Epigastric pain Screening for colon cancer Upper GI Endoscopy, Diagnostic ([id number]) 10/08/2021 1:16 PM EST Epigastric pain Screening for colon cancer UPPER GI ENDOSCOPY Routine 10/08/2021 11 :30 AM EST UPPER EUS-ENDOSCOPIC ULTRASOUND Routine 10/08/2021 11:29 AM EST COLONOSCOPY Routine 10/08/2021 11:29 AM EST documented in this encounter Results * Specimen to Pathology (10/08/2021 2:04 PM EST) AP Specimen 10/08/2021 2:04 PM EST 10/08/2021 2:04 PM EST Narrative [facility] - 10/08/2021 2:04 PM EST Specimen requisition ordered. ??Separate Pathology report to follow Alec Barraza MD PATHOLOGY/CYTOLOGY O RDERABREANNE [facility] [place] [address] * Surgical Pathology Report (10/08/2021 2:01 PM EST) Final Diagnosis [id number] ? Location: 4T; EA08; A The signing pathologist has (i) examined the relevant preparation(s) for the specimen(s) and (ii) rendered or confirmed the diagnosis(es). . ?Surgical Pathology DIAGNOSIS A - Rectal polyp, excision: - ??Hyperplastic polyp. CR-PX Electronically signed by: ?Edmond Banks MD Verified: ??10/12/2021 12:53 ??Pathologist Performed at: ??-[facility] Dept. of Pathology, [place], [place] SPECIMEN(S) SUBMITTED A - Rectal polyp, excision (1) CLINICAL INFORMATION 66-year-old with abdominal pain SPECIMEN PROCESSING A - Labeled/Fixativ e: Rectal polyp, formalin. Quantity/Size: Single, 1.0 x 0.4 x 0.1 cm. Tissue Description: Soft, pink-red tissue. Sections/Proces sing: Quadrisected and entirely submitted in 1 cassette labeled A1. ??sns 10/12/2021 12:53 PM EST [facility] GI Biopsy 10/08/2021 2:01 PM EST 10/08/2021 2:01 PM EST Alec Barraza MD PATHOLOGY/CYTOLOGY O RDBALJIT Performing Organization Address [facility]/State/ZIP Co de Phone Number [facility] [place] [address] * UPPER GI ENDOSCOPY (10/08/2021 11:30 AM EST) UPPER GI ENDOSCOPY [facility] ___ Procedure Date: 10/08/2021 11:30 AM ? Patient Name: Audrey Page ? N: [id number] ? Date of : 1955 ? Age: 66 ? Order #: [id number] ? Instrument Name: [id number] ? ___ Procedure: ? Upper GI endoscopy [...] (10/08/2021 11:29 AM EST) UPPER ENDOSCOPIC ULTRASOUND [facility] Procedure Date: 10/08/2021 11:29 AM ? Patient Name: Audrey Page ? Date of : 1955 ? Age: 66 ? Order #: [id number] ? Instrument Name: [id number] ? Procedure: ? Upper EUS Indications: ? [...] * COLONOSCOPY (10/08/2021 11:29 AM EST) COLONOSCOPY [facility] ___ Procedure Date: 10/08/2021 11:29 AM ? Patient Name: Audrey Page ? Date of : 1955 ? Age: 66 ? Order #: [id number] ? Instrument Name: [id number] ? ___ Procedure: ? Colonoscopy Indications: ? [...] preparation ? was evaluated using the BBPS ([place] ? Bowel Preparation Scale) with scores ? [...] 10/08/2021 11:2 9 AM EST Shreya Ambrose ATOMIZER ASSEMBLER GENERAL SURGICAL ORDERABLES PROVATION documented in this [...] CRNA) documented in this encounter Care Teams Bean Picker Relationship Specialty Start Date End Date Shreya Ambrose APRN [address] [place] [address] PCP - General 09/06/14 documented as of this encounter
--- OUTSIDE RECORDS SUMMARY | 2024-12-22 14:01 | XMS_ITS | Clinical Summary ---
Author Organization [facility]ly [facility] Address [facility] [place] [address] Care Team Providers Care Career Services Manager Name Role Phone Shreya Ambrose APRN Primary Care Provider [phone] [phone] Allergies No known active allergies Medications Medication Sig Dispensed Refills Start Date End Date Status simvastatin (Zocor) 20 mg tablet 10/21/2023 Active fluticasone propionate (Flonase) 50 mcg/actuation Gabbs, Suspension 11/05/2023 Active cholecalciferol, Vitamin D3, (Vitamin D) 25 mcg (1,000 unit) Capsule Take 50 mcg by mouth. 04/15/2023 Active amitriptyline (Elavil) 10 mg tablet Take 1 tablet by mouth nightly. Active triamcinolone (Kenalog) 0.1 % Cream Apply twice daily as needed to affected areas on the shins 15 g 2 09/02/2024 Active Active Problems Problem Noted Date Diagnosed Date Epigastric pain 09/04/2021 Trigger finger 11/02/2020 Pain in toe 11/02/2020 Goiter 11/02/2020 Female stress incontinence 11/02/2020 Leucopenia 01/10/2020 Immunizations Name Administration Dates Next Due Influenza Unspecified Formulation 12/23/2016,01/2015,12/22/2013 Tdap (Adacel, Boostrix) 06/24/2011 Zoster LIVE (Zostavax) 04/06/2015 Social History Tobacco Use Types Packs/Day [...] 05/13/2024 11:21 AM EDT Plan of Treatment Health Maintenance Due Date Last Done Comments CT Colonography 1955 FIT DNA 1955 FIT 1955 Sigmoidoscopy 1955 Hepatitis C Screening 1973 Breast Cancer Share Decision Needed 1995 Breast Cancer screening 1995 Pneumoccocal Vaccine: 50+ (1 of 1 - PCV) 2005 Advance Directive 2010 Zoster vaccine (2 of 3) 06/01/2015 04/06/2015 Bone Density Scan 2020 Tetanus/Diphtheria/Pertussis Vaccines (2 - Td or Tdap) 06/24/2021 06/24/2011 Covid-19 Vaccine (1 - season) 2024 Influenza (Flu) vaccine (1 o [...] COLONOSCOPY (10/08/2021 11:29 AM EST) COLONOSCOPY [facility] ___ Procedure Date: 10/08/2021 11:29 AM ? Patient Name: Audrey Page ? Date of : 1955 ? Age: 66 ? Order #: [id number] ? Instrument Name: [id number] ? ___ Procedure: ? Colonoscopy Indications: ? Screening for colorectal malignant ? neoplasm, Incidental - Abnormal CT of ? the GI tract Providers: ? Alec Barraza MD, Rodrigo Bauer ? Bhanu, IVAN, Taisha Acevedo Referring : ?Shreya Ambrose Medicines: [...] preparation ? was evaluated using the BBPS ([place] ? Bowel Preparation Scale) with scores ? [...] 10/08/2021 11:2 9 AM EST Shreya Ambrose OFFICE MACHINE INSPECTOR GENERAL SURGICAL ORDERABLES PROVATION from Last 3 Months or Most Recently Relevant to Health Maintenance Care Teams Career Services Manager Relationship Specialty Start Date End Date Shreya Ambrose APRN [address] [place] [address] PCP - General 09/06/14
--- OUTSIDE RECORDS SUMMARY | 2024-12-22 14:01 | XMS_ITS | Encounter Summary ---
Author Organization [facility] Address [facility] [place] [address] Care Team Providers Care Braille Proofreader Name Role Phone Shreya Ambrose APRN Primary Care Provider [phone] Reason for Visit * Reason Comments Follow-up Encounter Details Date Type Department Care Team (Late st Contact Info) Description 11/01/2021 11:15 AM EST Office [place] [id number] Marilyn Mcleod MD [facility] [place] [address] Multiple thyroid nodules Social History Tobacco Use [...] Toño Edwards, a general surgeon at [facility]. 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 She was subsequently followed by ultrasound. Her biopsy history since surgery is as follows: January 2017 (FNAs at [facility]) Right inferior: benign Right posterior: nondiagnostic Left remnant: benign October 2017 (FNA with Dr. Turner, [facility] endocrinology) Right posterior: [place] 3 cytology (predominantly Hurthle cells, some with nuclear atypia) ThyGenX: no mutations, very highly likely benign July 2020 (FNA with [facility] IR) Right superior (appears to be same as right inferior above): [place] 3 cytology (rare clusters of atypical follicular cells with mild nuclear enlargement and nuclear grooves.) ThyroSeq: NRAS (50% risk of malignancy) May 2021 Left remnant nodule: [place] 3 cytology ThyroSeq: negative, but low cell [...] goiter documented in this encounter Care Teams Braille Proofreader Relationship Specialty Start Date End Date Shreya Ambrose APRN [address] [place] [address] PCP - General 09/06/14 documented as of this encounter
--- OUTSIDE RECORDS SUMMARY | 2024-12-22 14:01 | XMS_ITS | Encounter Summary ---
Author Organization [facility] Address [facility] [place] [address] Care Team Providers Care Dev Manager Name Role Phone Shreya Ambrose APRN Primary Care Provider [phone] Reason for Referral * Consultation (Routine) - [...] DO [facility] [address] Marilyn Mcleod MD [facility] [place] [address] Referral ID Status Reason Start Date Expiration Date V isits Requested Visits Authorized [id number] Closed Consult, Test & Treat 08/25/2020 08/25/2021 1 1 Encounter Details Date Type Department Care Team (Late st Contact Info) Description 08/25/2020 12:00 PM EDT TH Visit (TeleHealth) [place] [address] Sunday Turner DO [facility] [address] Thyroid nodule Social History Tobacco Use Types [...] She underwent left lobectomy (Dr Pham in [facility]). The pathology revealed a multinodular goiter with [...] file Gets together: Not on file Attends oriental orthodox service: Not on file Active member of [...] thyroidectomy vs surveillance. Sunday Turner DO, [place] Jewel Stringerflange machine operator Department of Medicine Section of Endocrinology [facility] cc: [address] documented in this encounter Plan of Treatment Not on file documented as of this encounter Procedures Procedure Name Priority Date/Time Associated Diagnosis Comments AMB REFERRAL TO GENERAL SURGERY Routine 11/14/2020 11:08 PM EST Thyroid nodule documented in this encounter Results * Referral to General Surgery (11/14/2020 11:08 PM EST) Sunday Yue DO OUTPATIENT REFERRAL ORDERABLES documented in this encounter Visit Diagnoses Diagnosis Thyroid nodule Nontoxic uninodular goiter documented in this encounter Care Teams Dev Manager Relationship Specialty Start Date End Date Shreya Ambrose, ULISES [address] [place] [address] PCP - General 09/06/14 documented as of this encounter
--- OUTSIDE RECORDS SUMMARY | 2024-12-22 14:02 | XMS_ITS | Encounter Summary ---
Author Organization [facility] Address [facility] [place] [address] Care Team Providers Care Feltmaker And Weigher Name Role Phone Shreya Ambrose APRN Primary Care Provider [phone] Encounter Details Date Type Department Care Team (Late st Contact Info) Description 12/17/2017 External [place] [address] Provider, Scanning Social History Tobacco Use Types [...] on filedocumented in this encounter Care Teams Feltmaker And Weigher Relationship Specialty Start Date End Date Shreya Ambrose APRN [address] [place] [address] PCP - General 09/06/14 documented as of this encounter
--- OUTSIDE RECORDS SUMMARY | 2024-12-22 14:02 | XMS_ITS | Encounter Summary ---
Author Organization [facility] Address [address] [place] [address] Care Team Providers Care Lye Boiler Name Role Phone Unavailable Primary Care Provider Unavailabl e Encounter Details Date Type Department Care Team (Late st Contact Info) Description 02/28/2009 Before PRISM Converted Visit (Maple) [facility] - Maple conversion [address] [place] [address] Arabella Wilson, [facility] [address] [place] [address] [place] [address] Social History Tobacco Use Types Packs/Day Years Used Date Smoking Tobacco: Never Assessed Comments Unknown Sex and Gender Information Value Date Recorded Sex Assigned at Not on file Legal Sex Female 18:12 EST Gender Identity Not on file Sexual Orientation [...] PAGE, MAURISIO M ? Accession #: ? [id number] ? : ? 1955 (Age: 53) ??F ?Collect Date: ? 02/28/2009 ? Location: ? [facility] ? Receive Date: ? 03/01/2009 ? Provider: ?ARABELLA ROWAN HYDROGEN PLANT OPERATOR ? Copy to: ? Specimen/Source: ?Pap Test, [...] of Report ? [facility] 02/28/2009 03/01/2009 us Arabella Wilson HYDROGEN PLANT OPERATOR PATHOLOGY ORDERABLES Final R esult [facility] [address] [place] [address] documented in this encounter Visit Diagnoses Not on filedocumented in this encounter
--- OUTSIDE RECORDS SUMMARY | 2024-12-22 14:02 | XMS_ITS | Encounter Summary ---
Author Organization [facility] Address [address] [place] [address] Care Team Providers Care Operations Dispatcher Name Role Phone Unavailable Primary Care Provider Unavailabl e Encounter Details Date Type Department Care Team (Late st Contact Info) Description 02/08/2008 Results Only [facility] - Maple conversion [address] [place] [address] Arabella Wilson, [facility] [address] [place] [address] [place] [address] Social History Tobacco Use Types [...] ? MAURISIO WILSON ? Accession #: ? [id number] : ? 1955 (Age: 52) ??F ?Collect Date: ? 02/08/2008 Location: ? [facility] ? Receive Date: ? 02/09/2008 Provider: ?ARABELLA WILSON METAL ALLOY SCIENTIST Copy to: ? Specimen/Source: ?ThinPrep Pap Test, Cervix/Endocervix, processed on [email or web address] ThinPrep Imaging System, with manual evaluation Last [...] End of Report [facility] 02/08/2008 02/09/2008 us Arabella Wilson METAL ALLOY SCIENTIST PATHOLOGY ORDERABLES Final R esult [facility] [address] [place] [address] documented in this encounter Visit Diagnoses Not on filedocumented in this encounter
--- OUTSIDE RECORDS SUMMARY | 2024-12-22 14:02 | XMS_ITS | Encounter Summary ---
Author Organization [facility] Address [address] [place] [address] Care Team Providers Care Hedis Review Nurse Name Role Phone Unavailable Primary Care Provider Unavailabl e Encounter Details Date Type Department Care Team (Late st Contact Info) Description 04/16/2011 Results Only [facility] Laboratory Services - [facility] ([facility] [address] [place], [place] [id number] Arabella Wilson, [facility] [address] [place] [address] [place] [address] Social History Tobacco Use Types [...] PAGE, MAURISIO M ? Accession #: ? [id number] ? : ? 1955 (Age: 56) ??F ?Collect Date: ? 04/16/2011 ? Location: ? [facility] ? Receive Date: ? 04/17/2011 ? Provider: ?ARABELLA ROWAN BUSINESS LINE MANAGER ? Copy to: ? Specimen/Source: ?Pap Test, Cervix/Endocervix, ThinPrep Imaging System ? with manual evaluation ? Last Menstrual Period: ? 01/07/2011 ? SPECIMEN ADEQUACY ? Satisfactory for Evaluation ? - transformation zone component present ? GENERAL CATEGORIZATION ? Negative for Intraepithelial Lesion or Malignancy ? Document reviewed and electronically signed by: ? Neil Stumcarline, CT(ASCP) ? Report Date: ??04/22/2011 10:06 ? End of Report ? [facility] 04/16/2011 04/17/2011 us Arabella Wilson BUSINESS LINE MANAGER PATHOLOGY ORDERABLES Final R esult Performing Organization Address City/State/[facility] Co de Phone Number [facility] [address] [place] [address] documented in this encounter Visit Diagnoses Not on filedocumented in this encounter
--- OUTSIDE RECORDS SUMMARY | 2024-12-22 14:02 | XMS_ITS | Encounter Summary ---
Author Organization [facility] Address [address] [place] [address] Care Team Providers Care Submersible Pilot Name Role Phone Unavailable Primary Care Provider Unavailabl e Encounter Details Date Type Department Care Team (Late st Contact Info) Description 09/20/2003 Results Only [facility] - Maple conversion [address] [place] [address] Arabella Wilson, [facility] [address] [place] [address] [place] [address] Social History Tobacco Use Types [...] ? MAURISIO GASTON ? Accession #: ? [id number] : ? 1955 (Age: 48) ??F ?Collect Date: ? 09/20/2003 Location: ? [facility] ? Receive Date: ? 09/22/2003 Provider: ?ARABELLA WILSON TORCH OPERATOR Copy to: ? Specimen/Source: ?ThinPrep Pap [...] End of Report [facility] 09/20/2003 09/22/2003 us Arabella Wilson TORCH OPERATOR PATHOLOGY ORDERABLES Final R esult [facility] [address] [place] [address] documented in this encounter Visit Diagnoses Not on filedocumented in this encounter
--- OUTSIDE RECORDS SUMMARY | 2024-12-22 14:02 | XMS_ITS | Encounter Summary ---
Author Organization [facility] Address [address] [place] [address] Care Team Providers Care Marble Polisher Name Role Phone Unavailable Primary Care Provider Unavailabl e Encounter Details Date Type Department Care Team (Late st Contact Info) Description 09/25/2004 Results Only [facility] - Maple conversion [address] [place] [address] Arabella Wilson, [facility] [address] [place] [address] [place] [address] Social History Tobacco Use Types [...] ? MAURISIO GASTON ? Accession #: ? [id number] : ? 1955 (Age: 49) ??F ?Collect Date: ? 09/25/2004 Location: ? [facility] ? Receive Date: ? 09/26/2004 Provider: ?ARABELLA WILSON ELEMENTARY SCHOOL SOCIAL WORKER Copy to: ? Specimen/Source: ?ThinPrep Pap Test, [...] End of Report [facility] 09/25/2004 09/26/2004 us Arabella Wilson ELEMENTARY SCHOOL SOCIAL WORKER PATHOLOGY ORDERABLES Final R esult [facility] [address] [place] [address] documented in this encounter Visit Diagnoses Not on filedocumented in this encounter
--- OUTSIDE RECORDS SUMMARY | 2024-12-22 14:02 | XMS_ITS | Encounter Summary ---
Author Organization [facility] Address [address] [place] [address] Care Team Providers Care Hothouse Worker Name Role Phone Tiffany Ambrose Any [place] Primary Care Provider [phone] [phone] Encounter Details Date Type Department Care Team (Late st Contact Info) Description 02/14/2017 Results Only [facility] [phone] Cherrie Gresham, DO [address] [facility] [address] [place], [place] [id number] Social History Tobacco Use Types Packs/Day Years [...] ? MAURISIO GASTON ? Accession #: ? [id number] : ? 1955 (Age: 61) ??F ?Collect Date: ? 02/14/2017 Location: ? [facility] ? Receive Date: ? 02/17/2017 Provider: ? CHERRIE GRESHAM DO Copy to: ?TIFFANY AMBROSE BAKER HEAD ? CYTOLOGIC DIAGNOSIS: A. THYROID, RIGHT, INFERIOR, [...] cellular enhancement technique. ? End of Report [facility] 02/14/2017 02/17/2017 9:2 0 EDT us Cherrie Gresham DO PATHOLOGY ORDERABLES Fi nal Result [facility] [address] [place] [address] documented in this encounter Visit Diagnoses Not on filedocumented in this encounter Care Teams Hothouse Worker Relationship Specialty Start Date End Date Tiffany Ambrose APRN [address] [facility] [address] [place] [address] PCP - General 09/01/14 documented as of this encounter
--- OUTSIDE RECORDS SUMMARY | 2024-12-22 14:02 | XMS_ITS | Encounter Summary ---
Author Organization [facility] Address [address] [place] [address] Care Team Providers Care Turkey Cleaner Name Role Phone Nishi, Kiara CHALRI Primary Care Provider [phone] Encounter Details Date Type Department Care Team (Late st Contact Info) Description 05/06/2013 Results Only [facility] Laboratory Services - [facility] [address] [place], [place] [phone] Ralf Wilson, [facility] [address] [place] [address] Social History Tobacco Use Types Packs/Day [...] when reading/interpreti ng unformatted reports. Name: ? MARILINMAURISIO ? Accession #: ? [id number] ? : ? 1955 (Age: 58) ??F ?Collect Date: ? 05/06/2013 ? Location: ? [facility] ? Receive Date: ? 05/10/2013 ? Provider: RALF WILSON WEB PROJECT MANAGER Copy to: KIARA AUGUSTIN ? Final Report SPECIMEN ADEQUACY ? Satisfactory for Evaluation - transformation zone component present GENERAL CATEGORIZATION ? Epithelial Cell Abnormality INTERPRETATION ? Squamous Cell Abnormality - Atypical squamous cells, undetermined significance (ASC-US). EDUCATIONAL NOTES/RECOMMENDATI ONS ? [facility] recommends following ASCCP's 2012 Updated Consensus Guidelines [...] types 16,18,31,33,35, 39,45,51,52,56,58, 59,66, and 68 by reimbursement specialist mediated amplification. Comments Document reviewed and electronically signed by: ? System Interface ? Report date: 05/24/2013 By the signature above, the attending physician certifies that he/she has personally conducted a gross and/or microscopic examination of the described specimens and rendered or confirmed the above diagnosis. End of Report [facility] 05/06/2013 05/10/2013 us Ralf Wilson WEB PROJECT MANAGER PATHOLOGY ORDERABLES Final R esult [facility] [address] [place] [address] documented in this encounter Visit Diagnoses Not on filedocumented in this encounter Care Teams Turkey Cleaner Relationship Specialty Start Date End Date Kiara Almodovar ARNP [address] [place] [address] PCP - General 07/02/11 08/31/14 documented as of this encounter
--- OUTSIDE RECORDS SUMMARY | 2024-12-22 14:02 | XMS_ITS | Encounter Summary ---
Author Organization [facility] Address [address] [place] [address] Care Team Providers Care Rod Piler Name Role Phone Kiara Almodovar Primary Care Provider [phone] Encounter Details Date Type Department Care Team (Late st Contact Info) Description 08/30/2014 Results Only [facility] [phone] Pau Edwards, DO [address] [place] [address] Social History Tobacco Use Types [...] ? MAURISIO GASTON ? Accession #: ? [id number] : ? 1955 (Age: 59) ??F ?Collect Date: ? 08/30/2014 Location: ? [facility] ? Receive Date: ? 08/30/2014 Provider: ? PAU EDWARDS DO Copy to: ?TIFFANY JEAN SEWING MACHINE ADJUSTER ? CYTOLOGIC DIAGNOSIS: THYROID, LEFT, 2.5 CM [...] [facility] 08/30/2014 08/30/2014 8:3 6 EDT us Pau Edwards DO PATHOLOGY ORDERABLES Final Res ult [facility] [address] [place] [address] documented in this encounter Visit Diagnoses Not on filedocumented in this encounter Care Teams Rod Piler Relationship Specialty Start Date End Date Kiara Almodovar ARNP [address] [place] [address] PCP - General 07/02/11 08/31/14 documented as of this encounter
--- OUTSIDE RECORDS SUMMARY | 2024-12-22 14:02 | XMS_ITS | Encounter Summary ---
Author Organization [facility] Address [address] [place] [address] Care Team Providers Care Diagnostic Radiologist Name Role Phone Shreya Ambrose APRN Primary Care Provider [phone] Encounter Details Date Type Department Care Team (Latest Contact Info) Description 10/10/2014 17:17 EST - 10/10/2014 23:59 EST Hospital Encounter [address] [address] Unknown, Provider, MD Discharge Disposition: Home or Self Care Social [...] Code Departure Means Destination Home or Self Long Term documented in this encounter Plan of Treatment Not on file documented as of this encounter Visit Diagnoses Not on filedocumented in this encounter Care Teams Diagnostic Radiologist Relationship Specialty Start Date End Date Shreya Ambrose APRN [address] [facility] [address] [place] [address] PCP - General 09/01/14 documented as of this encounter
--- OUTSIDE RECORDS SUMMARY | 2024-12-22 14:02 | XMS_ITS | Encounter Summary ---
Author Organization [facility] [place] [address] Care Team Providers Care Roller Engraver Name Role Phone Shreya Ambrose APRN Primary Care Provider [phone] Encounter Details Date Type Department Care Team (Late st Contact Info) Description 11/25/2017 [place] [address] Patti Robert RN Social History [...] on filedocumented in this encounter Care Teams Roller Engraver Relationship Specialty Start Date End Date Shreya Ambrose APRN [address] [place] [address] PCP - General 09/06/14 documented as of this encounter
--- OUTSIDE RECORDS SUMMARY | 2024-12-22 14:02 | XMS_ITS | Encounter Summary ---
Author Organization [facility] Address [address] [place] [address] Care Team Providers Care Procurement Director Name Role Phone Unavailable Primary Care Provider Unavailabl e Encounter Details Date Type Department Care Team (Late st Contact Info) Description 09/17/2000 Results Only [facility] - Maple conversion [address] [place] [address] Arabella Wilson, [facility] [address] [place] [address] [place] [address] Social History Tobacco Use Types [...] ? MAURISIO WILSON ? Accession #: ? [id number] : ? 1955 (Age: 45) ??F ?Collect Date: ? 09/17/2000 Location: ? [facility] ? Receive Date: ? 09/18/2000 Provider: ?ARABELLA WILSON SEAM CLOSER Copy to: ? Specimen/Source: ?ThinPrep Pap Test, Cervix/Endocervix Last Menstrual Period: ? 08/26/00 ? SPECIMEN ADEQUACY ? Satisfactory for evaluation. GENERAL CATEGORIZATION ? Within Normal Limits ? Document reviewed and electronically signed by: ? MIRELLA Carr(ASCP) ? Report Date: ??09/26/2000 13:48 End of Report [facility] 09/17/2000 09/18/2000 Arabella Wilson SEAM CLOSER PATHOLOGY ORDERABLES Final R esult [facility] [address] [place] [address] documented in this encounter Visit Diagnoses Not on filedocumented in this encounter
--- OUTSIDE RECORDS SUMMARY | 2024-12-22 14:02 | XMS_ITS | Clinical Summary ---
Author Organization [facility] Address [address] [place] [address] Care Team Providers Care Development Geologist Name Role Phone Shreya Ambrose APRN Primary Care Provider [phone] Encounters Date Type Department Care Team Description 10/04/2024 Lab Requisition [facility] Pathology & Laboratory Medicine - [facility] [address] [place] [address] Outr Resulting Lab, Provider from Last 3 Months Social History Tobacco Use Types Packs/Day Years Used Date Smoking Tobacco: Never Assessed Interpersonal Safety Answer Date Record ed Physically Hurt Never 07/02/2020 Verbally Threaten Not on file 07/02/2020 Comments Unknown Sex and Gender Information Value Date Recorded Sex Assigned at Not on file Legal Sex Female 18:12 EST Gender Identity Not on file Sexual Orientation Not on file Plan of Treatment Health Maintenance Due Date Last Done Comments Hepatitis C Screen 1955 Fall Risk Screening 2020 COVID-19 Vaccine ( season) 2024 RSV Immunization ( o r 60+ Years) (1 - 1-dose 75+ series) 2030 Procedures Procedure Name Priority Date/Time Associated Diagnosis Comments SPEP, INCLUDES QUANTITATION OF MONOCLONAL SPIKE PERFORMABLE Today 10/04/2024 10:28 EST PROTEIN, TOTAL Today 10/04/2024 10:28 EST SPEP, INCLUDES QUANTITATION OF MONOCLONAL SPIKE Routine 10/04/2024 10:28 EST from Last 3 Months Results * (ABNORMAL) SPEP, INCLUDES QUANTITATION OF MONOCLONAL SPIKE PERFORMABLE (10/04/2024 10:28 EST) Albumin % 67.3(H) 55.8 - 66.1 % 10/05/2024 14:10 [facility] Albumin g/dL 4.4 3.6 - 5.2 g/dL 10/05/2024 14:10 [facility] Alpha-1 % 4.2 2.9 - 4.9 % 10/05/2024 14:10 [facility] Alpha-1 g/dL 0.30 0.15 - 0.40 g/dL 10/05/2024 14:10 [facility] Alpha-2 % 9.1 7.1 - 11.8 % 10/05/2024 14:10 [facility] Alpha-2 g/dL 0.60 0.50 - 1.00 g/dL 10/05/2024 14:10 [facility] Beta % 10.4 8.4 - 13.1 % 10/05/2024 14:10 [facility] Beta g/dL 0.70 0.60 - 1.20 g/dL 10/05/2024 14:10 [facility] Gamma % 9.0(L) 11.1 - 18.8 % 10/05/2024 14:10 [facility] Gamma g/dL 0.60 0.60 - 1.60 g/dL 10/05/2024 14:10 [facility] SPEP Comment No apparent monoclonal protein seen on serum electrophoresis 10/05/2024 14:10 [facility] Comment:See scanned/suppleme ntary report. Total Protein 6.6 6.3 - 8.2 g/dL 10/05/2024 14:10 [facility] Blood VENOUS BLOOD / Unknown 10/04/2024 10:28 EST 10/04/2024 17:03 EST us Provider Outr Resulting Lab CHEMISTRY & BLOOD GA S ORDERABLES Final Result [facility] [address] [place] [address] * PROTEIN, TOTAL (10/04/2024 10:28 EST) Blood VENOUS BLOOD / Unknown 10/04/2024 10:28 EST 10/04/2024 17:03 EST us Provider Outr Resulting Lab CHEMISTRY & BLOOD GA S ORDERABLES Final Result [facility] [address] [place] [address] from Last 3 Months Insurance [place] Care Teams Development Geologist Relationship Specialty Start Date End Date Shreya Ambrose APRN [address] [facility] [address] [place] [phone] PCP - General 09/01/14
--- OUTSIDE RECORDS SUMMARY | 2024-12-22 14:02 | XMS_ITS | Encounter Summary ---
Author Organization [facility] [place] [address] Care Team Providers Care Horse Breeder Name Role Phone Shreya Ambrose APRN Primary Care Provider [phone] Reason for Visit * Consultation (Routine) - Closed Specialty Diagnoses / Procedures Referred By Contandree t Referred To Contact Hematology and Oncology Diagnoses Leukocytosis Shreya Ambrose APRN [address] [place] [address] [facility] [address] [place] [address] Referral ID Status Reason Start Date Expiration Date V isits Requested Visits Authorized [id number] Closed Consult, Test & Treat Connection Center 07/31/2018 07/31/2019 1 1 Encounter Details Date Type Department Care Team (Late st Contact Info) Description 08/20/2018 2:30 PM EDT Office Visit [place] [phone] Treasure Calderon MD [facility] [place] [address] Treasure Wheeler APRN [facility] [address] HEMATOLOGY AND ONCOLOGY [place], [place] [id number] Leukopenia, unspecified type Social History Tobacco Use [...] - 08/20/2018 2:30 PM EDT Hematology Clinic [place] [id number] NEW PATIENT EVALUATION Patient Active Problem List [...] met with Dr. Neil Valenzuela, gastroenterology, at [place] this morning. He is planning endoscopies. No [...] 3 grandchildren 12, 13.14. 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 ETOH: none [...] met with Dr. Valenzuela of gastroenterology at [place] who is planning on endoscopies in thenear [...] of 6.0. These were drawn either at [facility] or [facility]. I do not have the hard copy [...] double-stranded DNA today. She is not of -Iranian heritage ( heritage often has a slightly [...] but we will see her back in [facility] in March 2019 for one last CBC to be sure there is not been progression orother cause for concern. She was comfortable with this plan. I appreciate the opportunity to meet this delightful female and look forward to seeing her again [facility] in the spring. Addendum: Labs came back near normal. Very little concern for any underlying problem. Will see in spring in [facility] for final CBC but no concerns. I discussed all of the above with the patient and all of her questions were answered. Support and counseling given as appropriate. This note was written or modified using [employer] voice recognition software. The final note was screened for mistakes. Please excuse any remaining errors. total time: time in counselling: Copy Shreya Ambrose APRN . documented in this encounter Plan of Treatment Not on file documented as of this encounter Results * DNA Antibody (Double-Stranded) (08/20/2018 3:30 PM EDT) DNA Ab (DS) Neg Neg [facility] Blood specimen (specimen) 08/20/2018 3:30 PM EDT 08/21/2018 7:33 AM EDT Narrative Resulting Agency Comment Spec In Lab Treasure Calderon MD LAB SEND OUT ORD ERABLES [facility] [place] [address] * (ABNORMAL) Immunoglobulins, Quantitative (08/20/2018 3:30 PM EDT) Immunoglobulin G 619(L) 700 - 1,600 mg/dL [facility] IgA 95 70 - 400 mg/dL [facility] IgM 80 40 - 230 mg/dL [facility] Blood specimen (specimen) 08/20/2018 3:30 PM EDT 08/20/2018 3:38 PM EDT Narrative Resulting Agency Comment Spec In Lab Treasure Calderon MD CHEMISTRY ORDERA BLES [facility] [place] [address] * Folate, serum (08/20/2018 3:30 PM EDT) Folate >20.0 4.8 - 24.2 ng/mL [facility] Blood specimen (specimen) 08/20/2018 3:30 PM EDT 08/20/2018 3:38 PM EDT Narrative Resulting Agency Comment Spec In Lab Treasure Calderon MD CHEMISTRY ORDERA BLES [facility] [place] [address] * Vitamin B12 (08/20/2018 3:30 PM EDT) Vitamin B12 416 232 - 1,245 pg/mL [facility] Blood specimen (specimen) 08/20/2018 3:30 PM EDT 08/20/2018 3:38 PM EDT Narrative Resulting Agency Comment Spec In Lab Treasure Calderon MD CHEMISTRY ORDERA BLES [facility] [place] [address] documented in this encounter Visit Diagnoses Diagnosis Leukopenia, unspecified type documented in this encounter Care Teams Horse Breeder Relationship Specialty Start Date End Date Shreya Ambrose, RADIO TIME SALESPERSON [address] [place] [address] PCP - General 09/06/14 documented as of this encounter
--- OUTSIDE RECORDS SUMMARY | 2024-12-22 14:02 | XMS_ITS | Encounter Summary ---
Author Organization [facility] [place] [address] Care Team Providers Care Moss Gatherer Name Role Phone Shreya Ambrose APRN Primary Care Provider [phone] [phone] Encounter Details Date Type Department Care Team (Late st Contact Info) Description 09/10/2016 Ancillary Procedure Radiology Library at [facility] [place] [place] [address] Sunday Turner [facility] [place] [address] Social History Tobacco Use Types Packs/Day Years [...] Ultrasound Study (09/10/2016 12:00 AM EDT) Narrative RAD - 04/22/2020 4:58 PM EDT This exam is auto-finalizing. It's purpose is for storage only. Sunday REYES FILM LIBRARY ORD ERABLES [place], [place] documented in this encounter Visit Diagnoses Not on filedocumented in this encounter Care Teams Moss Gatherer Relationship Specialty Start Date End Date Shreya Ambrose APRN [address] [place] [address] PCP - General 09/06/14 documented as of this encounter
--- OUTSIDE RECORDS SUMMARY | 2024-12-22 14:02 | XMS_ITS | Encounter Summary ---
Author Organization Health system Address [address] [place] [address] Care Team Providers Care Car Hop Name Role Phone Unavailable Primary Care Provider Unavailabl e Encounter Details Date Type Department Care Team (Late st Contact Info) Description 01/28/2006 Results Only [facility] - Maple conversion [address] [place] [address] Arabella Wilson, [facility] [address] [place] [address] [place] [address] Social History Tobacco Use Types [...] 68. [facility] Report Status Final [id number] [facility] 01/28/2006 10:5 0 EST 02/07/2006 9:44 EST Arabella Wilson GRADUATE RN MICROBIOLOGY - GENERAL ORDER WILFREDO Final Result [facility] [address] [place] [address] * CYTOPATHOLOGY (01/28/2006 0:00 EST) Pathology Report: CYTOPATHOLOGY REPORT Reports generated via electronic interface contain original data; however they are lacking the format of the original report. Caution should be taken when reading/interpreti ng unformatted reports. Name: ? MARILIN, MAURISIO Magaña ? Accession #: ? [id number] : ? 1955 (Age: 50) ??F ?Collect Date: ? 01/28/2006 Location: ? [facility] ? Receive Date: ? 01/29/2006 Provider: ?ARABELLA WILSON GRADUATE RN Copy to: ? Specimen/Source: ?ThinPrep Pap Test, Cervix/Endocervix, processed on IPM [place] ThinPrep Imaging System, with manual evaluation Last [...] cells, undetermined significance. EDUCATIONAL NOTES/RECOMMENDATI ONS ? [facility] recommends following the 2001 Consensus Guidelines for the Management of Women with Cervical Cytological Abnormalities (CEM,2002;287:212 0-9). Management algorithms have been distributed by [facility] and are available online at www.ASCCP.org. ? Document reviewed and electronically signed by: ? ANNE MARIE WATERS [facility] ? Report Date: ??02/06/2006 18:41 End of Report [facility] 01/28/2006 01/29/2006 us Arabella Wilson GRADUATE RN PATHOLOGY ORDERABLES Final R esult [facility] [address] [place] [address] documented in this encounter Visit Diagnoses Not on filedocumented in this encounter
--- OUTSIDE RECORDS SUMMARY | 2024-12-22 14:02 | XMS_ITS | Referral Summary ---
Author Organization [facility] Address [address] [place] [address] Care Team Providers Care Sticker Hand Name Role Phone Shreya Ambrose APRN Primary Care Provider [phone] [phone] Encounters Date Type Department Care Team Description 10/04/2024 Lab Requisition [facility] Pathology & Laboratory Medicine - [facility] [address] [place] [address] Outr Resulting Lab, Provider from Last 3 [...] file Plan of Treatment Not on file Procedures Procedure Name Priority Date/Time Associated Diagnosis Comments SPEP, INCLUDES QUANTITATION OF MONOCLONAL SPIKE PERFORMABLE Today 10/04/2024 10:28 EST PROTEIN, TOTAL Today 10/04/2024 10:28 EST SPEP, INCLUDES QUANTITATION OF MONOCLONAL SPIKE Routine 10/04/2024 10:28 EST from Last 3 Months Results * (ABNORMAL) SPEP, INCLUDES QUANTITATION OF MONOCLONAL SPIKE PERFORMABLE (10/04/2024 10:28 EST) Albumin % 67.3(H) 55.8 - 66.1 % 10/05/2024 14:10 EST [facility] Albumin g/dL 4.4 3.6 - 5.2 g/dL 10/05/2024 14:10 [facility] Alpha-1 % 4.2 2.9 - 4.9 % 10/05/2024 14:10 [facility] Alpha-1 g/dL 0.30 0.15 - 0.40 g/dL 10/05/2024 14:10 [facility] Alpha-2 % 9.1 7.1 - 11.8 % 10/05/2024 14:10 [facility] Alpha-2 g/dL 0.60 0.50 - 1.00 g/dL 10/05/2024 14:10 [facility] Beta % 10.4 8.4 - 13.1 % 10/05/2024 14:10 [facility] Beta g/dL 0.70 0.60 - 1.20 g/dL 10/05/2024 14:10 [facility] Gamma % 9.0(L) 11.1 - 18.8 % 10/05/2024 14:10 [facility] Gamma g/dL 0.60 0.60 - 1.60 g/dL 10/05/2024 14:10 [facility] SPEP Comment No apparent monoclonal protein seen on serum electrophoresis 10/05/2024 14:10 [facility] Comment:See scanned/suppleme ntary report. Total Protein 6.6 6.3 - 8.2 g/dL 10/05/2024 14:10 [facility] Blood VENOUS BLOOD / Unknown 10/04/2024 10:28 EST 10/04/2024 17:03 EST us Provider Outr Resulting Lab CHEMISTRY & BLOOD GA S ORDERABLES Final Result [facility] [address] [place] [address] * PROTEIN, TOTAL (10/04/2024 10:28 EST) Blood VENOUS BLOOD / Unknown 10/04/2024 10:28 EST 10/04/2024 17:03 EST us Provider Outr Resulting Lab CHEMISTRY & BLOOD GA S ORDERABLES Final Result [facility] [address] [place] [address] from Last 3 Months Insurance [place]ICAID [place] Care Teams Sticker Hand Relationship Specialty Start Date End Date Shreya Ambrose APRN [address] [facility] [address] [place] [phone] PCP - General 09/01/14
--- OUTSIDE RECORDS SUMMARY | 2024-12-22 14:02 | XMS_ITS | Encounter Summary ---
Author Organization [facility] Address [address] [place] [address] Care Team Providers Care Buffing Machine Operator Semiautomatic Name Role Phone Unavailable Primary Care Provider Unavailabl e Encounter Details Date Type Department Care Team (Late st Contact Info) Description 10/03/2005 Results Only [facility] Maple conversion [address] [place] [address] Zoie Bonilla MD [address] [place] [address] [place] [address] Social History Tobacco Use Types Packs/Day Years [...] ? MAURISIO GASTON ? Accession #: ? [id number] ? : ? 1955 (Age: 50) ??F ? Collect Date: ? 10/03/2005 ? Location: ? [facility] ? Receive Date: ? 10/03/2005 ? Provider: ZOIE BONILLA MD Copy to: [facility] NURSE ? Final Pathologic Diagnosis: ? Endometrium, curettage: 1. ?Weakly proliferative endometrium with papillary syncytial metaplasia and stromal breakdown. ??See comment. 2. 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 Comment: ? Dr. Josy San has reviewed this case in consultation and agrees with the above diagnoses. ??(Dr. Adrian)/[facility] Document reviewed and electronically signed by: BLOSSOM [...] submitted in toto as (A1) ??(A3). ??(Megan Mora)/[facility] End of Report [facility] 10/03/2005 10/03/2005 9:4 5 EST us Zoie Bonilla MD PATHOLOGY ORDERABLES Final Resu lt [facility] [address] [place] [address] documented in this encounter Visit Diagnoses Not on filedocumented in this encounter
--- OUTSIDE RECORDS SUMMARY | 2024-12-22 14:02 | XMS_ITS | Encounter Summary ---
Author Organization [facility] Address [address] [place] [address] Care Team Providers Care Bulb Brander Name Role Phone Unavailable Primary Care Provider Unavailabl e Encounter Details Date Type Department Care Team (Late st Contact Info) Description 05/08/2011 Results Only [facility] [phone] Pau Leonardo, DO [address] [place] [address] Social History Tobacco Use Types [...] PAGE, MAURISIO M ? Accession #: ? [id number] ? : ? 1955 (Age: 56) ??F ? Collect Date: ? 05/08/2011 ? Location: ? [facility] ? Receive Date: ? 05/08/2011 ? Provider: PAU LEONARDO DO ? Copy to: NARCISO AYALA COMBUSTION ANALYST ? Final Pathologic Diagnosis: ? Soft tissue, [...] and negative controls stained ? appropriately. ??(Dr. Tracy)/clare ? Block ?Antibody (Clone) ? Result ? [...] ??performance ? characteristics have been determined by [facility]. ??This ? laboratory is certified under the Clinical Laboratory Improvement Amendments of 1988 (CLIA-88) as qualified to perform high complexity clinical laboratory ? testing. ? Document reviewed and electronically signed by: ? EFRAIN TRACY MD ? Report ??Date: 05/17/2011 08:33 ? [...] smaller tissue fragments are submitted as (A2). (M. Hughes)/mpl ? End of Report ? [facility] 05/08/2011 05/08/2011 8:1 3 EDT us Pau Leonardo DO PATHOLOGY ORDERABLES Final Res ult Performing Organization Address City/State/[facility] Co de Phone Number [facility] [address] [place] [address] documented in this encounter Visit Diagnoses Not on filedocumented in this encounter
--- OUTSIDE RECORDS SUMMARY | 2024-12-22 14:02 | XMS_ITS | Encounter Summary ---
Author Organization [facility] Address [facility] [place] [address] Care Team Providers Care Instructional Designer Name Role Phone Shreya Ambrose APRN Primary Care Provider [phone] [phone] Encounter Details Date Type Department Care Team (Late st Contact Info) Description 12/16/2017 Telephone [place] [address] Lucita Richter LPN Social History [...] Patient agrees with plan of care. Spokewith logging contractor Teresitawho placed reminder for appointment in edh documented in this encounter Plan of Treatment Not on file documented as of this encounter Visit Diagnoses Not on filedocumented in this encounter Care Teams Instructional Designer Relationship Specialty Start Date End Date Shreya Ambrose APRN [address] [place] [address] PCP - General 09/06/14 documented as of this encounter
--- OUTSIDE RECORDS SUMMARY | 2024-12-22 14:02 | XMS_ITS | Encounter Summary ---
Author Organization [facility] Address [address] [place] [address] Care Team Providers Care Community Service Officer Coordinator Name Role Phone Unavailable Primary Care Provider Unavailabl e Encounter Details Date Type Department Care Team (Late st Contact Info) Description 06/24/2005 Results Only [facility] - Maple conversion [address] [place] [address] Zoie Bonilla MD [address] [place] [address] [place] [address] Social History Tobacco Use Types Packs/Day Years [...] ? MAURISIO GASTON ? Accession #: ? [id number] ? : ? 1955 (Age: 50) ??F ? Collect Date: ? 06/24/2005 ? Location: ? [facility] ? Receive Date: ? 06/26/2005 ? Provider: ZOIE BONILLA MD Copy to: [facility] EMERGENCY TECHNICIAN ? Final Pathologic Diagnosis: ? Endometrium, biopsy: [...] is entirely submitted in one cassette. ??(Ananda Dennis)/[facility] End of Report [facility] 06/24/2005 06/26/2005 9:2 4 EDT us Zoie Bonilla MD PATHOLOGY ORDERABLES Final Resu lt [facility] [address] [place] [address] documented in this encounter Visit Diagnoses Not on filedocumented in this encounter
--- OUTSIDE RECORDS SUMMARY | 2024-12-22 14:02 | XMS_ITS | Encounter Summary ---
Author Organization [facility] Address [address] [place] [address] Care Team Providers Care Cnc Field Service Engineer Name Role Phone Unavailable Primary Care Provider Unavailabl e Encounter Details Date Type Department Care Team (Late st Contact Info) Description 09/18/2001 Results Only [facility] - Maple conversion [address] [place] [address] Arabella Wilson, [facility] [address] [place] [address] [place] [address] Social History Tobacco Use Types [...] ? MAURISIO GASTON ? Accession #: ? [id number] : ? 1955 (Age: 46) ??F ?Collect Date: ? 09/18/2001 Location: ? [facility] ? Receive Date: ? 09/21/2001 Provider: ?ARABELLA WILSON OPS ANALYST Copy to: ? Specimen/Source: ?ThinPrep Pap Test, Cervix/Endocervix Last Menstrual Period: ? 09/05/01 ? SPECIMEN ADEQUACY ? Satisfactory for evaluation. GENERAL CATEGORIZATION ? Within Normal Limits ? Document reviewed and electronically signed by: ? MIRELLA Balbuena(ASCP) ? Report Date: ??09/23/2001 12:54 End of Report [facility] 09/18/2001 09/21/2001 Arabella Wilson OPS ANALYST PATHOLOGY ORDERABLES Final R esult [facility] [address] [place] [address] documented in this encounter Visit Diagnoses Not on filedocumented in this encounter
--- OUTSIDE RECORDS SUMMARY | 2024-12-22 14:02 | XMS_ITS | Encounter Summary ---
Author Organization [facility] Address [address] [place] [address] Care Team Providers Care Box Brander Name Role Phone Lucita Ibarra MD Primary Care Provider [phone] Encounter Details Date Type Department Care Team (Late st Contact Info) Description 06/25/2011 Results Only [facility] Non-Invasive Cardiology - [facility] [address] [place] [address] Kiara Almodovar, CHARLI [address] [place] [address] Social History Tobacco Use Types Packs/Day Years [...] ? 06/26/2011 08:00 ? Provider: ?KIARA JAMIE ADMINISTRATIVE COURT JUSTICE ? Copy to: ? FINAL IMMUNOPHENOTYPIC INTERPRETATION: [...] reviewed and electronically signed by: ? MI J LAINA MD ? Report Date: ??06/26/2011 14:01 [...] the Department of Pathology and Laboratory Medicine, [place] ??It has not been cleared or approved by the U.S. Food and Drug ?? Administration. ? End of Report ? [facility] 06/25/2011 06/26/2011 8:0 0 EDT us Kiara AUGUSTIN PATHOLOGY ORDERABLES Final Res ult [facility] [address] [place] [address] documented in this encounter Visit Diagnoses Not on filedocumented in this encounter Care Teams Box Brander Relationship Specialty Start Date End Date Lucita Ibarra MD [address],[facility] [address] [place] [address] PCP - General 05/10/11 07/01/11 documented as of this encounter
--- OUTSIDE RECORDS SUMMARY | 2024-12-22 14:02 | XMS_ITS | Encounter Summary ---
Author Organization [facility] [place] [address] Care Team Providers Care Professor Of Biblical Studies Name Role Phone Shreya Ambrose APRN Primary Care Provider [phone] Encounter Details Date Type Department Care Team (Late st Contact Info) Description 09/08/2017 Ancillary Procedure Radiology Library at [facility] [place] [address] Sunday Turner [facility] [place] [address] Social History Tobacco Use Types Packs/Day Years [...] Ultrasound Study (09/08/2017 12:00 AM EDT) Narrative RAD - 04/22/2020 4:59 PM EDT This exam is auto-finalizing. It's purpose is for storage only. Sunday REYES FILM LIBRARY ORD ERABLES [place], [place] documented in this encounter Visit Diagnoses Not on filedocumented in this encounter Care Teams Professor Of Biblical Studies Relationship Specialty Start Date End Date Shreya Ambrose APRN [address] [place] [address] PCP - General 09/06/14 documented as of this encounter
--- OUTSIDE RECORDS SUMMARY | 2024-12-22 14:02 | XMS_ITS | Encounter Summary ---
Author Organization [facility] Address [address] [place] [address] Care Team Providers Care Manager Project Management Name Role Phone Shreya Ambrose APRN Primary Care Provider +1 -[phone] Encounter Details Date Type Department Care Team (Late st Contact Info) Description 10/04/2024 Lab Requisition [facility] Pathology & Laboratory Medicine - [facility] [address] [place], [place] [address] Outr Resulting Lab, Provider Social History Tobacco [...] MONOCLONAL SPIKE PERFORMABLE Today 10/04/2024 10:28 EST SPEP, INCLUDES QUANTITATION OF MONOCLONAL SPIKE Routine 10/04/2024 10:28 EST PROTEIN, TOTAL Today 10/04/2024 10:28 EST documented in this encounter Results * (ABNORMAL) SPEP, INCLUDES QUANTITATION OF MONOCLONAL SPIKE PERFORMABLE (10/04/2024 10:28 EST) Albumin % 67.3(H) 55.8 - 66.1 % 10/05/2024 14:10 [facility] Albumin g/dL 4.4 3.6 - 5.2 g/dL 10/05/2024 14:10 [facility] Alpha-1 % 4.2 2.9 - 4.9 % 10/05/2024 14:10 [facility] Alpha-1 g/dL 0.30 0.15 - 0.40 g/dL 10/05/2024 14:10 [facility] Alpha-2 % 9.1 7.1 - 11.8 % 10/05/2024 14:10 [facility] Alpha-2 g/dL 0.60 0.50 - 1.00 g/dL 10/05/2024 14:10 [facility] Beta % 10.4 8.4 - 13.1 % 10/05/2024 14:10 [facility] Beta g/dL 0.70 0.60 - 1.20 g/dL 10/05/2024 14:10 [facility] Gamma % 9.0(L) 11.1 - 18.8 % 10/05/2024 14:10 [facility] Gamma g/dL 0.60 0.60 - 1.60 g/dL 10/05/2024 14:10 [facility] SPEP Comment No apparent monoclonal protein seen on serum electrophoresis 10/05/2024 14:10 [facility] Comment:See scanned/suppleme ntary report. Total Protein 6.6 6.3 - 8.2 g/dL 10/05/2024 14:10 [facility] Blood VENOUS BLOOD / Unknown 10/04/2024 10:28 EST 10/04/2024 17:03 EST us Provider Outr Resulting Lab CHEMISTRY & BLOOD GA S ORDERABLES Final Result [facility] [address] [place] [address] * PROTEIN, TOTAL (10/04/2024 10:28 EST) Blood VENOUS BLOOD / Unknown 10/04/2024 10:28 EST 10/04/2024 17:03 EST us Provider Outr Resulting Lab CHEMISTRY & BLOOD GA S ORDERABLES Final Result [facility] [address] [place] [address] documented in this encounter Visit Diagnoses Not on filedocumented in this encounter Care Teams Manager Project Management Relationship Specialty Start Date End Date Shreya Ambrose APRN [address] [place] [phone] PCP - General 09/01/14 documented as of this encounter
--- OUTSIDE RECORDS SUMMARY | 2024-12-22 14:02 | XMS_ITS | Encounter Summary ---
Author Organization [facility] [place] [address] Care Team Providers Care Efficiency Engineer Name Role Phone Shreya Ambrose APRN Primary Care Provider +1 -[phone] Encounter Details Date Type Department Care Team (Late st Contact Info) Description 12/17/2017 External Results [place] [address] Provider, Scanning Social History Tobacco Use Types [...] on filedocumented in this encounter Care Teams Efficiency Engineer Relationship Specialty Start Date End Date Shreya Ambrose APRN [address] [place] [address] PCP - General 09/06/14 documented as of this encounter
--- OUTSIDE RECORDS SUMMARY | 2024-12-22 14:02 | XMS_ITS | Encounter Summary ---
Author Organization [facility] Address [address] [place] [address] Care Team Providers Care Nurse Manager Name Role Phone Arnol Shreya Any MONTGOMERY Primary Care Provider +1 -[phone] Encounter Details Date Type Department Care Team (Late st Contact Info) Description 09/19/2023 Lab Requisition [facility] Pathology & Laboratory Medicine - [address] [address] Outr Resulting Lab, Provider Social History Tobacco [...] 2.8 - 5.3 pg/mL 09/19/2023 22:11 EDT [facility] Blood VENOUS BLOOD / Unknown 09/19/2023 10:35 EDT 09/19/2023 21:28 EDT us Provider Outr Resulting Lab CHEMISTRY & BLOOD GA S ORDERABLES Final Result [facility] [address] [place] [address] documented in this encounter Visit Diagnoses Not on filedocumented in this encounter Care Teams Nurse Manager Relationship Specialty Start Date End Date Shreya Ambrose APRN [address] [place] [phone] PCP - General 09/01/14 documented as of this encounter
--- OUTSIDE RECORDS SUMMARY | 2024-12-22 14:02 | XMS_ITS | Encounter Summary ---
Author Organization [facility] Address [address] [place] [address] Care Team Providers Care Assistant Professor Surgical Technology Name Role Phone Tiffany Jean APRN Primary Care Provider +1 -[phone] Encounter Details Date Type Department Care Team (Late st Contact Info) Description 07/05/2019 Results Only [facility]- [facility] [phone] Arabella Wilson, [facility] [address] [place] [address] Social History Tobacco Use Types [...] ? MAURISIO GASTON ? Accession #: ? [id number] ? : ? 1955 (Age: 64) ??F ?Collect Date: ? 07/05/2019 ? Location: ? [facility] ? Receive Date: ? 07/06/2019 ? Provider: ARABELLA WILSON TRAVEL REGISTERED NURSE NICU Copy to: TIFFANY JEAN BRACELET FORM COVERER ? Final Report SPECIMEN ADEQUACY ? Satisfactory [...] types 16,18,31,33,35, 39,45,51,52,56,58, 59,66, and 68 by ship superintendent mediated amplification. Comments Document reviewed and electronically signed by: ? System Interface ? Report date: 07/14/2019 By the signature above, the attending physician certifies that he/she has personally conducted a gross and/or microscopic examination of the described specimens and rendered or confirmed the above diagnosis. End of Report [facility] 07/05/2019 07/06/2019 us Arabella Wilson TRAVEL REGISTERED NURSE NICU PATHOLOGY ORDERABLES Final R esult [facility] [address] [place] [address] documented in this encounter Visit Diagnoses Not on filedocumented in this encounter Care Teams Assistant Professor Surgical Technology Relationship Specialty Start Date End Date Tiffany Jaen APRN 26 [facility] [address] [place] [address] PCP - General 09/01/14 documented as of this encounter
--- OUTSIDE RECORDS SUMMARY | 2024-12-22 14:02 | XMS_ITS | Encounter Summary ---
Author Organization [facility] Address [address] [place] [address] Care Team Providers Care Roll Cutting Operator Name Role Phone Arnol Shreya Any MONTGOMERY Primary Care Provider +1 -[phone] Encounter Details Date Type Department Care Team (Late st Contact Info) Description 09/01/2020 Lab Requisition [facility] Pathology & Laboratory Medicine - [facility] [address] [place], [place] [address] Outr Resulting Lab, Provider Social History Tobacco [...] rt-PCR Result NEGATIVE Negative 09/02/2020 18:18 EDT [facility] Comment: 2019-novel Coronavirus (2019-nCoV) not [...] in accordance with CLIA regulations, College of [place] [employer] (CAP) guidelines (Feb 17, 2020), and FDA guidance (Jan 29, 2020). This test is only for use under the Food and Drug Administration's Emergency Use Authorization. Swab ENTIRE NASOPHARYNX / Unknown 09/01/2020 10:20 EDT 09/01/2020 15:42 EDT us Provider Outr Resulting Lab MICROBIOLOGY - GENER AL ORDERABLES Final Result [facility] [place] * COVID-19 TESTING (09/01/2020 10:20 EDT) COVID-19 rt-PCR Result NEGATIVE Negative 09/02/2020 20:35 EDT [facility] Comment: 2019-novel Coronavirus (2019-nCoV) not detected [...] in accordance with CLIA regulations, College of [place] [employer]ologists (CAP) guidelines (Feb 17, 2020), and FDA guidance (Jan 29, 2020). This test is only for use under the Food and Drug Administration's Emergency Use Authorization. Performing Lab [facility] 09/02/2020 20:35 EDT [facility] Swab 09/01/2020 10:2 0 EDT 09/01/2020 15:42 EDT us Provider Outr Resulting Lab MICROBIOLOGY - GENER AL ORDERABLES Final Result [facility] [address] [place] [address] [facility] [place] documented in this encounter Visit Diagnoses Not on filedocumented in this encounter Care Teams Roll Cutting Operator Relationship Specialty Start Date End Date Shreya Ambrose APRN [address] [facility] [address] [place] [address] PCP - General 09/01/14 documented as of this encounter
--- OUTSIDE RECORDS SUMMARY | 2024-12-22 14:02 | XMS_ITS | Encounter Summary ---
Author Organization [facility] Address [address] [place] [address] Care Team Providers Care Window Treatment Installer Name Role Phone ArnolTiffany head Any MONTGOMERY Primary Care Provider +1 -[phone] Encounter Details Date Type Department Care Team (Late st Contact Info) Description 11/29/2014 Results Only [facility]- [facility] [phone] Pau Edwards, DO [address] [place] [address] Social History Tobacco Use Types [...] ? MAURISIO GASTON ? Accession #: ? [id number] ? : ? 1955 (Age: 59) ??F ? Collect Date: ? 11/29/2014 ? Location: ? [facility] ? Receive Date: ? 11/29/2014 ? Provider: PAU EDWARDS DO Copy to: TIFFANY JEAN FAST FOOD CREW MEMBER ? Final Pathologic Diagnosis: THYROID, LEFT LOBE, [...] Leon 11/30/2014 09:04 AM End of Report [facility] 11/29/2014 18:1 4 EST 11/29/2014 18:14 EST us Pau Edwards DO PATHOLOGY ORDERABLES Final Res ult Performing Organization Address City/State/[facility] Co de Phone Number [facility] [address] [place] [address] documented in this encounter Visit Diagnoses Not on filedocumented in this encounter Care Teams Window Treatment Installer Relationship Specialty Start Date End Date Tiffany Jean APRN [address] [place] [address] [address] [place] [address] PCP - General 09/01/14 documented as of this encounter
--- OUTSIDE RECORDS SUMMARY | 2024-12-22 14:02 | XMS_ITS | Encounter Summary ---
Author Organization [facility] Address [address] [place] [address] Care Team Providers Care Pharmacy Affairs Assistant Name Role Phone Unavailable Primary Care Provider Unavailabl e Encounter Details Date Type Department Care Team (Late st Contact Info) Description 02/02/2007 Results Only [facility] [address] [place] [address] Arabella Wilson, [facility] [address] [place] [address] [place] [address] Social History Tobacco Use Types [...] ? MAURISIO GASTON ? Accession #: ? [id number] : ? 1955 (Age: 51) ??F ?Collect Date: ? 02/02/2007 Location: ? [facility] ? Receive Date: ? 02/02/2007 Provider: ?ARABELLA WILSON WALKING DRAGLINE OILER Copy to: ? Specimen/Source: ?ThinPrep Pap Test, Cervix/Endocervix, processed on MOVL ThinPrep Imaging System, with manual evaluation Last [...] End of Report [facility] 02/02/2007 02/02/2007 us Arabella Wilson WALKING DRAGLINE OILER PATHOLOGY ORDERABLES Final R esult [facility] [address] [place] [address] documented in this encounter Visit Diagnoses Not on filedocumented in this encounter
--- OUTSIDE RECORDS SUMMARY | 2024-12-22 14:02 | XMS_ITS | Encounter Summary ---
Author Organization [facility] Address [address] [place] [address] Care Team Providers Care Still Cleaner Name Role Phone Kiara Almodovar Primary Care Provider [phone] Encounter Details Date Type Department Care Team (Latest Contact Info) Description 08/29/2014 9:13 EDT - 08/29/2014 23:59 EDT Hospital Encounter [address] [address] Unknown, Provider, MD Discharge Disposition: Home or [...] Code Departure Means Destination Home or Self Retirement documented in this encounter Plan of Treatment Not on file documented as of this encounter Visit Diagnoses Not on filedocumented in this encounter Care Teams Still Cleaner Relationship Specialty Start Date End Date Kiara Almodovar ARNP [address] [place] [address] PCP - General 07/02/11 08/31/14 documented as of this encounter
--- OUTSIDE RECORDS SUMMARY | 2024-12-22 14:02 | XMS_ITS | Encounter Summary ---
Author Organization [facility] Address [address] [place] [address] Care Team Providers Care Java Engineer Name Role Phone Shreya Ambrose APRN Primary Care Provider +1 -[phone] Encounter Details Date Type Department Care Team (Latest Contact Info) Description 12/02/2014 7:00 EST - 12/02/2014 23:59 EST Hospital Encounter [address] [address] Unknown, Provider, MD Discharge Disposition: Home or [...] Code Departure Means Destination Home or Self Penitentiary documented in this encounter Plan of Treatment Not on file documented as of this encounter Visit Diagnoses Not on filedocumented in this encounter Care Teams Java Engineer Relationship Specialty Start Date End Date Shreya Ambrose APRN [address] [place] [address] PCP - General 09/01/14 documented as of this encounter
--- OUTSIDE RECORDS SUMMARY | 2024-12-22 14:02 | XMS_ITS | Encounter Summary ---
Author Organization [facility] Address [address] [place] [address] Care Team Providers Care Silk Screen Printer Name Role Phone Tiffany Jean APRN Primary Care Provider [phone] -[phone] Encounter Details Date Type Department Care Team (Late st Contact Info) Description 06/28/2016 Results Only [facility] [phone] Arabella Wilson, [facility] [address] [place] [address] Social History Tobacco Use Types [...] ? MAURISIO GASTON ? Accession #: ? [id number] ? : ? 1955 (Age: 61) ??F ?Collect Date: ? 06/28/2016 ? Location: ? [facility] ? Receive Date: ? 07/02/2016 ? Provider: ARABELLA WILSON SAFETY RELIEF VALVE TECHNICIAN Copy to: TIFFANY JEAN AUTO CLAIMS ADJUSTER ? Final Report SPECIMEN ADEQUACY ? Satisfactory [...] types 16,18,31,33,35, 39,45,51,52,56,58, 59,66, and 68 by component prep operator mediated amplification. Comments Document reviewed and electronically signed by: ? System Interface ? Report date: 07/11/2016 By the signature above, the attending physician certifies that he/she has personally conducted a gross and/or microscopic examination of the described specimens and rendered or confirmed the above diagnosis. End of Report [facility] 06/28/2016 07/02/2016 us Arabella Wilson SAFETY RELIEF VALVE TECHNICIAN PATHOLOGY ORDERABLES Final R esult [facility] [address] [place] [address] documented in this encounter Visit Diagnoses Not on filedocumented in this encounter Care Teams Silk Screen Printer Relationship Specialty Start Date End Date Tiffany Jean APRN 26 [facility] [address] [place] [address] PCP - General 09/01/14 documented as of this encounter
--- OUTSIDE RECORDS SUMMARY | 2024-12-22 14:02 | XMS_ITS | Encounter Summary ---
Author Organization [facility] Address [address] [place] [address] Care Team Providers Care Sales Special Agent Name Role Phone Shreya Ambrose APRN Primary Care Provider [phone] -[phone] Encounter Details Date Type Department Care Team (Late st Contact Info) Description 09/07/2020 Lab Requisition [facility] Pathology & Laboratory Medicine - [address] [address] Roshan Ambriz MD [address] [place] [address] Encounter for other general examination Social History [...] with no specific pathologic features. 09/11/2020 9:18 [facility] Attestation There was significant resident/fellow involvement in the diagnostic evaluation of this case. By the signature below, the attending physician certifies that they have personally conducted a gross and/or microscopic examination of the described specimens and rendered or confirmed the above diagnosis. 09/11/2020 9:18 [facility] at 0918 Clinical History Ovarian cyst 09/11/2020 9:18 [facility] Gross Description A. Received in [...] cut surfaces show an unremarkable pinpoint lumen. Biomedical Analytical Scientist sections are submitted as follows: BLOCK RAYMOND [...] cut surfaces show an unremarkable pinpoint lumen. Biomedical Analytical Scientist sections are submitted as follows: BLOCK RAYMOND B1- ovary B2- fimbria, longitudinally bisected and 1 cross section CHERRIE DOTSON(ASCP) 09/07/2020 10:47 09/11/2020 9:18 [facility] Resident/Ashu w: Nanette Maya DO 09/11/2020 9:18 EDT [facility] Performing Lab [facility] 09/11/2020 9:18 EDT [facility] Scanned Images 09/11/2020 9:18 EDT [facility] Tissue FALLOPIAN TUBE AND OVARY, CS / Unknown 09/06/2020 12:11 EDT 09/07/2020 8:08 EDT Tissue specimen (specimen) FALLOPIAN TUBE [employer] OVARY, CS / Unknown 09/06/2020 12:11 EDT 09/07/2020 8:08 EDT us Roshan Ambriz MD PATHOLOGY ORDERABLES Final Resul t [facility] [address] [place] [address] documented in this encounter Visit Diagnoses Diagnosis Encounter for other general examination documented in this encounter Care Teams Sales Special Agent Relationship Specialty Start Date End Date Shreya Ambrose APRN [address] [facility] [address] [place] [address] PCP - General 09/01/14 documented as of this encounter
--- OUTSIDE RECORDS SUMMARY | 2024-12-22 14:02 | XMS_ITS | Encounter Summary ---
Author Organization [facility] Address [address] [place] [address] Care Team Providers Care Outpatient Physical Therapist Assistant Name Role Phone Tiffany Ambrose ULISES Primary Care Provider +1 -[phone] Encounter Details Date Type Department Care Team (Late st Contact Info) Description 10/10/2014 Results Only [facility] Services - [facility] [address] [place] [phone] Ramirez Gresham MD [address] [place] [address] Social History Tobacco Use Types Packs/Day Years [...] ? MAURISIO GASTON ? Accession #: ? [id number] : ? 1955 (Age: 59) ??F ?Collect Date: ? 10/10/2014 Location: ? [facility] ? Receive Date: ? 10/11/2014 Provider: ? RAMIREZ GRESHAM MD Copy to: ?TIFFANY AMBROSE APRN PAU JUNIOREN DO ? CYTOLOGIC DIAGNOSIS: THYROID, LEFT LOBE [...] cellular enhancement technique. ? End of Report [facility] 10/10/2014 10/11/2014 7:2 8 EST us Ramirez Gresham MD PATHOLOGY ORDERABLES Final Result [facility] [address] [place] [address] documented in this encounter Visit Diagnoses Not on filedocumented in this encounter Care Teams Outpatient Physical Therapist Assistant Relationship Specialty Start Date End Date Tiffany Ambrose APRN [address] [facility] [address] [place] [address] PCP - General 09/01/14 documented as of this encounter
--- OUTSIDE RECORDS SUMMARY | 2024-12-22 14:02 | XMS_ITS | Encounter Summary ---
Author Organization [facility] Address [address] [place] [address] Care Team Providers Care Silo Filler Name Role Phone ArnolShreya ULISES Primary Care Provider +1 -[phone] Encounter Details Date Type Department Care Team (Late st Contact Info) Description 05/13/2020 Lab Requisition [facility] Pathology & Laboratory Medicine - [address] [address] Outr Resulting Lab, Provider Social History Tobacco [...] 2.8 - 5.3 pg/mL 05/14/2020 16:[address] [facility] Blood VENOUS BLOOD / Unknown 05/12/2020 10:30 EDT 05/14/2020 15:51 EDT us Provider Outr Resulting Lab CHEMISTRY & BLOOD GA S ORDERABLES Final Result [facility] [address] [place] [address] documented in this encounter Visit Diagnoses Not on filedocumented in this encounter Care Teams Silo Filler Relationship Specialty Start Date End Date Shreya Ambrose APRN [address] [place] [address] PCP - General 09/01/14 documented as of this encounter
--- OUTSIDE RECORDS SUMMARY | 2024-12-22 14:02 | XMS_ITS | Encounter Summary ---
Author Organization [facility] Address [address] [place] [address] Care Team Providers Care Costume Cutter Name Role Phone Shreya Ambrose APRN Primary Care Provider +1 -[phone] Encounter Details Date Type Department Care Team (Late st Contact Info) Description 08/31/2018 Results Only [facility] [phone] Jennifer Valenzuela MD [address] [place] [address] Social History Tobacco Use Types [...] ? MAURISIO GASTON ? Accession #: ? [id number] ? : ? 1955 (Age: 63) ??F [...] (ASCP) 09/01/2018 8:39 AM End of Report [facility] 08/31/2018 22:5 6 EDT 08/31/2018 22:56 EDT us Jennifer Valenzuela MD PATHOLOGY ORDERABLES Final Res ult [facility] [address] [place] [address] documented in this encounter Visit Diagnoses Not on filedocumented in this encounter Care Teams Costume Cutter Relationship Specialty Start Date End Date Shreya Ambrose APRN 26 [facility] [address] [place] [phone] PCP - General 09/01/14 documented as of this encounter
--- OUTSIDE RECORDS SUMMARY | 2024-12-22 14:02 | XMS_ITS | Encounter Summary ---
Author Organization [facility] Address [address] [place] [address] Care Team Providers Care Party Plan Dealer Name Role Phone Shreya Ambrose APRN Primary Care Provider +1 -[phone] Encounter Details Date Type Department Care Team (Latest Contact Info) Description 08/31/2018 22:17 EDT - 08/31/2018 23:59 EDT Hospital Encounter [address] [address] Unknown, Provider, MD Discharge Disposition: Home or [...] on filedocumented in this encounter Care Teams Party Plan Dealer Relationship Specialty Start Date End Date Shreya Ambrose APRN 26 [facility] [address] [place] [address] PCP - General 09/01/14 documented as of this encounter
--- OUTSIDE RECORDS SUMMARY | 2024-12-22 14:02 | XMS_ITS | Encounter Summary ---
Author Organization [facility] Address [address] [place] [address] Care Team Providers Care Electronic Prepress System Operator Name Role Phone Shreya Ambrose APRN Primary Care Provider +1 -[phone] Encounter Details Date Type Department Care Team (Latest Contact Info) Description 02/14/2017 15:29 EDT - 02/14/2017 23:59 EDT Hospital Encounter [address] [address] Unknown, Provider, MD Discharge Disposition: Home or [...] Code Departure Means Destination Home or Self Senior Living documented in this encounter Plan of Treatment Not on file documented as of this encounter Visit Diagnoses Not on filedocumented in this encounter Care Teams Electronic Prepress System Operator Relationship Specialty Start Date End Date Shreya Ambrose APRN [address] [place] [address] PCP - General 09/01/14 documented as of this encounter
--- OUTSIDE RECORDS SUMMARY | 2024-12-22 14:02 | XMS_ITS | Encounter Summary ---
[place] [address] Care Team Providers Care Supervisor Boiler Repair Name Role Phone Shreya Ambrose APRN Primary Care Provider [phone] Encounter Details Date Type Department Care Team (Latest Contact Info) Description 08/20/2018 2:15 PM EDT - 08/20/2018 11:59 PM EDT Hospital Encounter Hematology [place] [address] Leukopenia, unspecified type Discharge Disposition: Home Social [...] PM EDT) Neutrophil % 53.3 % [facility] Neutrophil Absolute 1.97 1.70 - 6.10 x10(3)/[facility] Lymph % 34.6 % [facility] Lymphocytes Abs 1.3 0.9 - 3.2 x10(3)/[facility] Monocyte % 10.5 % [facility] Monocyte Abs 0.4 0.3 - 0.9 x10(3)/[facility] Eos % 0.8 % [facility] Eosinophils Abs 0.0 0.0 - 0.4 x10(3)/[facility] Basophil % 0.8 % [facility] Baso Absolute 0.0 0.0 - 0.1 x10(3)/[facility] Immature Gran % 0.00 % [facility] Comment: Immature granulocytes(IG's)percentage and absolute count will include metamyelocytes, myelocytes, and promyelocytes. Blood smears from CBCs yielding IG's will be scanned manually for concordance. If this scan disagrees with the automated IG or if promyelocytes are noted, a manual differential will be performed. Immature Gran Absolute 0.00 0.00 - 0.04 x10(3)/[facility] Blood specimen (specimen) 08/20/2018 3:30 PM EDT 08/20/2018 3:38 PM EDT Narrative Resulting Agency Comment Spec In Lab Treasure Calderon MD HEMATOLOGY ORDER WILFREDO Performing Organization Address City/[facility]/ZIP Co de Phone Number [facility] [place] [address] * (ABNORMAL) Hemogram (08/20/2018 3:30 PM EDT) White Blood Cell 3.7(L) 4.0 - 9.5 x10(3)/mc L [facility] Red Blood Cell 4.95 4.00 - 5.21 x10(6)/mc L [facility] Hemoglobin 14.4 11.7 - 15.5 gm/dL [facility] Hematocrit 41.7 35.7 - 45.8 % [facility] Mean Cell Volume 84.2 82.6 - 94.4 fL [facility] Mean Cell Hemoglobin 29.1 27.1 - 32.0 pg [facility] Mean Cell Hemoglobin Concentration 34.5 31.7 - 35.0 gm/dL [facility] Platelet 173 145 - 357 x10(3)/ L [facility] RDW Standard Deviation 36.0(L) 37.0 - 46.0 [facility] RDW coefficient of variation 11.9 11.5 - 14.1 % [facility] Mean Platelet Volume 9.9 7.6 - 12.9 [facility] NRBC% auto 0.0 % [facility] NRBC Absolute 0.000 0.000 - 0.000 x10(3)/mc L [facility] Blood specimen (specimen) 08/20/2018 3:30 PM EDT 08/20/2018 3:38 PM EDT Narrative Resulting Agency Comment Spec In Lab Treasure Calderon MD HEMATOLOGY ORDER WILFREDO Performing Organization Address City/[facility]/ZIP Co de Phone Number [facility] [place] [address] * DNA Antibody (Double-Stranded) (08/20/2018 3:30 PM EDT) [facility] DNA Ab (DS) Neg Neg [facility] Blood specimen (specimen) 08/20/2018 3:30 PM EDT 08/21/2018 7:33 AM EDT Narrative Resulting Agency Comment Spec In Lab Treasure Calderon MD LAB SEND OUT ORD ERABLES [facility] [place] [address] * (ABNORMAL) Immunoglobulins, Quantitative (08/20/2018 3:30 PM EDT) [facility] Immunoglobulin G 619(L) 700 - 1,600 mg/dL [facility] IgA 95 70 - 400 mg/dL [facility] IgM 80 40 - 230 mg/dL [facility] Blood specimen (specimen) 08/20/2018 3:30 PM EDT 08/20/2018 3:38 PM EDT Narrative Resulting Agency Comment Spec In Lab Treasure Calderon MD CHEMISTRY ORDERA BLES Performing Organization Address City/[facility]/ZIP Co de Phone Number [facility] [place] [address] * Folate, serum (08/20/2018 3:30 PM EDT) [facility] Folate >20.0 4.8 - 24.2 ng/mL [facility] Blood specimen (specimen) 08/20/2018 3:30 PM EDT 08/20/2018 3:38 PM EDT Narrative Resulting Agency Comment Spec In Lab Treasure Calderon MD CHEMISTRY ORDERA BLES [facility] [place] [address] * Vitamin B12 (08/20/2018 3:30 PM EDT) Vitamin B12 416 232 - 1,245 pg/mL [facility] Blood specimen (specimen) 08/20/2018 3:30 PM EDT 08/20/2018 3:38 PM EDT Narrative Resulting Agency Comment Spec In Lab Treasure Calderon MD CHEMISTRY ORDERA BLES [facility] [place] [place] [address] documented in this encounter Visit Diagnoses Diagnosis Leukopenia, unspecified type documented in this encounter Care Teams Supervisor Boiler Repair Relationship Specialty Start Date End Date Shreya Ambrose APRN [address] [place] [address] PCP - General 09/06/14 documented as of this encounter
--- OUTSIDE RECORDS SUMMARY | 2024-12-22 14:02 | XMS_ITS | Encounter Summary ---
[place] [address] Care Team Providers Care Front Edger Name Role Phone Shreya Ambrose APRN Primary Care Provider [phone] Reason for Visit * Consultation (Routine) - Closed Specialty Diagnoses / Procedures Referred By Prerna odell Referred To Contact Endocrinology Diagnoses goiter multinodular w/ adenmatous, hyperplastic Shreya Ambrose APRN [address] [place] [address] [facility] Endocrinology [address] [place] [id number] Referral ID Status Reason Start Date Expiration Date V isits Requested Visits Authorized [id number] Closed Consult, Test & Treat Connection [facility] 09/16/2017 09/16/2018 1 1 Encounter Details Date Type Department Care Team (Late st Contact Info) Description 11/19/2017 9:00 AM EST Office [place] [phone] Sunday Turner [facility] [place] [address] Thyroid cancer Social History Tobacco Use Types [...] which was uncomplicated with Dr. Pham in [facility]. The pathology revealed a multinodular goiter with [...] requesting a second opinion. The plan at [facility] was to repeat the ultrasound in 1 [...] with any questions. Sunday Boh, DO, MS Public Policy Analystsocial media analyst Department of Medicine Section of Endocrinology [facility] cc: Shreya Ambrose APRN * Sunday [...] handout upon completion. Sunday Turner DO, MS Public Policy Analystsocial media analyst Department of Medicine Section of Endocrinology [facility] Addendum: 12/02/2017 procedure/US note correction. There was a motor equipment captain error in the original note that has been corrected. documented in this encounter Plan of Treatment Not on file documented as of this encounter Procedures Procedure Name Priority Date/Time Associated Diagnosis Comments NON-DISTRIBUTION SPECIALIST FINAL REPORT Routine 11/19/2017 10:42 AM EST CYTOPATHOLOGY NON-GYNECOLOGICAL Routine 11/19/2017 9:45 AM EST Thyroid cancer documented in this encounter Results * Non-Regional Sales Consultant Final Report (11/19/2017 10:42 AM EST) Diagnosis Discussion [id number] ? Location: 5C The signing pathologist has (i) examined the relevant preparation(s) for the specimen(s) and (ii) rendered or confirmed the diagnosis(es). . ? Addendum ADDENDUM DISCUSSION SPECIAL TEST PERFORMED: Test: ??[facility] Case: ??[id number] Performing Lab: ??[facility] Performing Lab Case: ??[id number] Reported by Chantal Farias MD Date reported: ??12/15/2017 For the full text of the [facility] report(s) please refer to Non- Documentation Pathology in the electronic health record (eDH). Electronically signed by: ??Martin SPEARS PhD, Castro Vargas Verified: ??12/18/2017 ?Pathologist Performed at: ??-[facility] Dept. of Pathology, [place], [place] ? Non-Regional Sales Consultant Final DIAGNOSIS Atypical Electronically signed by: ??Martin SPEARS PhD, Castro Vargas Verified: ??11/21/2017 ?Pathologist Performed at: ??-[facility] Dept. of Pathology, [place], [place] DISCUSSION Thyroid, right (US-guided FNA): Atypia of Undetermined Significance (see note). Predominantly Hurthle cells, some with nuclear atypia, are present. ??Scant colloid noted. Note: Clinical correlation is recommended. Molecular testing or a repeat aspirate after an appropriate interval of observation might be helpful if clinically indicated. Reference: Ladonna TELLEZ, Edward ES. The [place] System for Reporting Thyroid Cytopathology. [place]: [place]; [...] for completed interpretation. 12/18/2017 10:46 AM EST [facility] THYROID STRUCTURE / Unknown 11/19/2017 10:42 AM EST 11/19/2017 10:42 AM EST Sunday Turner DO PATHOLOGY/CYTOLOGY O RDERABLES [facility] [place] [address] * Cytopathology Non-Gynecological (11/19/2017 9:45 AM EST) AP Specimen 11/19/2017 9:45 AM EST 11/19/2017 9:45 AM EST Narrative [facility] - 11/19/2017 9:45 AM EST Specimen requisition ordered. ??Separate Pathology report to follow Sunday Turner DO PATHOLOGY/CYTOLOGY O RDERABLES Performing Organization Address City/State/[facility] Co de Phone Number [facility] [place] [address] documented in this encounter Visit Diagnoses Diagnosis Thyroid cancer Malignant neoplasm of thyroid gland documented in this encounter Care Teams Front Edger Relationship Specialty Start Date End Date Shreya Ambrose, SHIRT CLEANER [address] [place] [address] PCP - General 09/06/14 documented as of this encounter
--- OUTSIDE RECORDS SUMMARY | 2024-12-22 14:02 | XMS_ITS | Encounter Summary ---
Author Organization [facility] Address [address] [place] [address] Care Team Providers Care Media Sales Representative Name Role Phone Unavailable Primary Care Provider Unavailabl e Encounter Details Date Type Department Care Team (Late st Contact Info) Description 09/24/2002 Results Only [facility] [address] [place] [address] Arabella Wilson, [facility] [address] [place] [address] [place] [address] Social History Tobacco Use Types [...] ? MAURISIO GASTON ? Accession #: ? [id number] : ? 1955 (Age: 47) ??F ?Collect Date: ? 09/24/2002 Location: ? [facility] ? Receive Date: ? 09/27/2002 Provider: ?ARABELLA WILSON PROCUREMENT MANAGER Copy to: ? Specimen/Source: ?ThinPrep Pap [...] End of Report SAMANTA ORNELAS 09/24/2002 09/27/2002 us Arabella Wilson PROCUREMENT MANAGER PATHOLOGY ORDERABLES Final R esult SAMANTA ORNELAS [address] [place] [address] documented in this encounter Visit Diagnoses Not on filedocumented in this encounter
[2024-12-22 15:41] LABS: ALT 18 U/L (14-59); AST 25 U/L (15-37); Albumin 4.2 g/dL (3.4-5.0); Alkaline Phosphatase 91 U/L (46-116); Anion Gap 8.8 mmol/L (3-11); BUN 19 mg/dL (7-18); Bilirubin, Total 0.58 mg/dL (0.2-1.0); CO2 30.2 mmol/L (21.0-32.0); CREATININE 0.9 mg/dL (0.55-1.02); Calcium 9.5 mg/dL (8.5-10.1); Calculated LDL 98 mg/dL (<100); Chloride 107 mmol/L (98-107); Cholesterol 224 mg/dL (<200); Glucose 94 mg/dL (74-106); HDL Cholesterol 112 mg/dL (40-60); Potassium 4.6 mmol/L (3.5-5.1); Sodium 146 mmol/L (136-145); Total Protein 6.8 g/dL (6.4-8.2); Triglyceride 70 mg/dL (<150)
== END 2024-12-22 13:55 | disposition home or self-care (01) ==
LOC: NCHCN 13:54
PROVIDERS: PCP Nurse Practitioner Family; Visit Provider Nurse Practitioner Family
DX: E78.5 Hyperlipidemia, unspecified (principal)
CPT/HCPCS: 80053; 80061

== ENCOUNTER 2024-12-30 17:36 | Outpatient (REF) | payer MEDICARE, SELFPAY ==
[2024-12-30 15:05] LABS: Abs Immature Grans 0.01 10^3/uL (0.0-0.06); Absolute Basophil Count 0.04 10^3/uL (0.0-0.2); Absolute Eosinophil Count 0.07 10^3/uL (0.0-0.7); Absolute Lymphocyte Count 0.97 10^3/uL (1.2-3.4); Absolute Monocyte Count 0.36 10^3/uL (0.1-0.8); Absolute Neutrophil Count 2.05 10^3/uL (1.2-6.7); Basophils % 1.1 %; HCT 39.4 % (36.0-46.0); HGB 13.7 g/dL (11.2-15.7); Immature Grans % 0.3 %; Lymphocytes % 27.7 %; MCH 29.5 pg (27.0-33.0); MCHC 34.8 % (32.0-36.0); MCV 85 fL (80-95); MPV 10.1 fL (8.0-11.0); Monocytes % 10.3 %; Neutrophils % 58.6 %; Platelet Count 155 10^3/uL (130-400); RBC 4.65 10^6/uL (3.93-5.22); RDW 11.9 % (11.7-14.6); RDW-SD 36.3 fL
== END 2024-12-30 17:37 | disposition home or self-care (01) ==
LOC: NCHCN 17:36
PROVIDERS: PCP Nurse Practitioner Family; Visit Provider Nurse Practitioner Family
DX: D72.829 Elevated white blood cell count, unspecified (principal)
CPT/HCPCS: 85025

== ENCOUNTER 2025-01-20 00:47 | Outpatient (CLI) | payer MEDICARE, SELFPAY ==
--- NOTE | 2025-01-20 13:21 | DI.RAD_ITS ---
Exam(s) XR FOOT RT COMPLETE EXAM: XR FOOT RT COMPLETE CLINICAL HISTORY: Right foot pain,m79.671. TECHNIQUE: 2D digital imaging was performed. COMPARISON: CR XR FOOT LT COMPLETE from 01/20/2025 FINDINGS: 3 views No evidence of acute fracture or diastasis of the Lisfranc joint. Prominent hallux valgus noted which is similar to the opposite-left foot and not associated with sign ificant degenerative change in the great toe metatarsophalangeal joint. Other MTP joints appear unre markable as do the tarsometatarsal articulations of the midfoot. No obvious degenerative changes in the hindfoot articulations. On the AP image there is a bone sliver parallel to the lateral cortex of the base of the 5th metatars al. This finding is not seen on the opposite side-left foot. This either represents an avulsion inj ury (there is no transverse fracture of the 5th metatarsal base) or a tug-type exostoses related to t he insertional aspect of the peroneus brevis tendon which inserts at the base of the 5th metatarsal. There is no radiopaque foreign body at this level nor elsewhere in the foot. No pes planus IMPRESSION: Prominent hallux valgus which is equal to the same finding on the opposite-left foot. Base of 5th metatarsal findings as above. Correlation with site of tenderness is recommended DATA REPOSITORY: RADIATION DOSE DELIVERED:
--- NOTE | 2025-01-20 13:21 | DI.RAD_ITS ---
Exam(s) XR FOOT LT COMPLETE EXAM: XR FOOT LT COMPLETE CLINICAL HISTORY: left foot pain,m79.672. TECHNIQUE: 2D digital imaging was performed. COMPARISON: CR XR FOOT RT COMPLETE from 01/20/2025 FINDINGS: 3 views There is no evidence of fracture or diastasis of the Lisfranc joint. There is significant hallux valgus which is approximately equal to the opposite-right foot. There ar e minimal degenerative changes in the great toe metatarsophalangeal joint. Other MTP joints appear u nremarkable as do the midfoot tarsometatarsal articulations and other mid and hindfoot articulations. There is no pes planus. No inferior calcaneal spur. Tiny calcifications noted at the insertional aspect of the Achilles on the posterior calcaneus. Bone density is normal. No osseous lesions. No erosions. IMPRESSION: Hallux valgus, similar to the opposite-right foot. DATA REPOSITORY: RADIATION DOSE DELIVERED:
== END 2025-01-20 01:07 ==
PROVIDERS: PCP Nurse Practitioner Family; Visit Provider Podiatrist
DX: M79.671 Pain in right foot (principal); M79.672 Pain in left foot; M20.22 Hallux rigidus, left foot; M20.21 Hallux rigidus, right foot
CPT/HCPCS: 73630

== ENCOUNTER 2025-01-20 14:59 | Outpatient (CLI) | payer MEDICARE, SELFPAY ==
--- NOTE | 2025-01-20 14:30 | DI.US_ITS ---
Exam(s) US EXTREMITY VENOUS BI EXAM: US EXTREMITY VENOUS BI CLINICAL HISTORY: DVT/ Calf pain M79.661 PAIN RT LOWER LEG M79.662 PAIN LT LEG I82.409 TECHNIQUE: Grayscale, color, and doppler imaging of the deep venous system of both lower extremities was performed. COMPARISON: No exams were available for comparison FINDINGS: There is no evidence of intraluminal thrombus and there is normal compression and augmentation demons trated within the common femoral veins, femoral veins, and popliteal veins of both lower extremities. In the calves the interrogated veins also exhibit normal compression/ augmentation properties. The greater saphenous veins also appear patent as do the saphenofemoral junctions bilaterally.. IMPRESSION: 1. No ultrasound evidence of DVT in either lower extremity. DATA REPOSITORY:
== END 2025-01-20 15:19 ==
LOC: DI 14:59
PROVIDERS: PCP Nurse Practitioner Family; Visit Provider Podiatrist
DX: M79.661 Pain in right lower leg (principal); M79.662 Pain in left lower leg; M20.21 Hallux rigidus, right foot
CPT/HCPCS: 73630; 93970

== ENCOUNTER 2025-04-01 14:47 | Outpatient (REF) | payer MEDICARE, SELFPAY ==
[2025-04-01 14:57] LABS: Bilirubin Negative (Negative); Blood Negative (Negative); Clarity Clear (Clear); Glucose Negative (Negative); Ketones Negative (Negative); Leukocyte Esterase Negative (Negative); Nitrite Negative (Negative); Urobilinogen 0.2 mg/dL (Up to 0.2); pH 5.5 (5-8)
[2025-04-01 15:45] LABS: COMMENT (LAB VIEW ONLY) 32.33 mg/dL; Microalb ug/mg Crea 13.3 ug/mg Cr
== END 2025-04-01 14:48 | disposition home or self-care (01) ==
LOC: NCHCN 14:47
PROVIDERS: PCP Nurse Practitioner Family; Visit Provider Nurse Practitioner Family
DX: I10 Essential (primary) hypertension (principal)
CPT/HCPCS: 81003; 82043; 82570

== ENCOUNTER 2025-05-09 12:35 | Outpatient (REF) | payer MEDICARE, SELFPAY ==
[2025-05-09 14:47] LABS: Abs Immature Grans 0.01 10^3/uL (0.0-0.06); Absolute Basophil Count 0.03 10^3/uL (0.0-0.2); Absolute Eosinophil Count 0.08 10^3/uL (0.0-0.7); Absolute Lymphocyte Count 1.25 10^3/uL (1.2-3.4); Absolute Monocyte Count 0.35 10^3/uL (0.1-0.8); Absolute Neutrophil Count 1.88 10^3/uL (1.2-6.7); Basophils % 0.8 %; Eosinophils % 2.2 %; HCT 39.9 % (36.0-46.0); HGB 13.6 g/dL (11.2-15.7); Immature Grans % 0.3 %; Lymphocytes % 34.7 %; MCHC 34.1 % (32.0-36.0); MCV 88 fL (80-95); MPV 10.2 fL (8.0-11.0); Monocytes % 9.7 %; Neutrophils % 52.3 %; Platelet Count 175 10^3/uL (130-400); RBC 4.53 10^6/uL (3.93-5.22); RDW 12.6 % (11.7-14.6); RDW-SD 40.7 fL
[2025-05-09 16:16] LABS: Vitamin D 25 Total 39 ng/mL (30-100)
[2025-05-09 16:44] LABS: FREE T4 0.79 ng/dL (0.76-1.46)
[2025-05-09 22:48] LABS: T3,Free 3.6 pg/mL (2.8-5.3)
== END 2025-05-09 12:36 | disposition home or self-care (01) ==
LOC: NCHCN 12:35
PROVIDERS: PCP Nurse Practitioner Family; Visit Provider Nurse Practitioner Family
DX: E04.2 Nontoxic multinodular goiter (principal); D72.829 Elevated white blood cell count, unspecified; Z13.820 Encounter for screening for osteoporosis
CPT/HCPCS: 82306; 84439; 84443; 84481; 85025

== ENCOUNTER 2025-05-26 00:39 | Outpatient (CLI) | payer MEDICARE, SELFPAY ==
--- NOTE | 2025-05-26 | DI.DEXA_ITS ---
Exam(s) XR DEXA BONE DENSITY W/WO DALI EXAM: XR DEXA BONE DENSITY W/WO DALI CLINICAL HISTORY: Other specified disorders of bone density and structure, other site, M85.88 TECHNIQUE: HoloKitani Horizon C densitometer analysis of left hip, lumbar spine and left forearm. Lateral survey image of the thoracic and lumbar spine. COMPARISON: CR XR DEXA BONE DENSITY W/WO DALI from 02/08/2021 CR XR LUMBAR SPINE COMPLETE from 12/29/2023 FINDINGS: Lateral view of the thoracic and lumbar spine shows no evidence of compression fractures. Bone mineral density measurements of the lumbar spine correspond to a total T- score of -1.4, in the osteopenic range. This is not significantly changed from the prior exam. Bone mineral density measurements of the left hip correspond to a total T-score of -1.5. This represents a 5.7 percent increase compared with 2020. The femoral neck T-score is -2.6, in the osteoporotic range.. Theleft forearm bone mineral density measurements correspond to a T-score of the distal 3rd of -2.5, in the osteoporotic range. This represents a 9.5 percent decrease compared to the prior exam.. IMPRESSION: Osteoporosis of the forearm and hip. Osteopenia of the spine.
== END 2025-05-26 00:59 ==
PROVIDERS: PCP Nurse Practitioner Family; Visit Provider Nurse Practitioner Family
DX: M85.88 Other specified disorders of bone density and structure, other site (principal)
CPT/HCPCS: 77080

== ENCOUNTER 2025-10-17 18:23 | Outpatient (REF) | payer MEDICARE, SELFPAY | END 2025-10-17 18:24 | disposition home or self-care (01) | LOC: NCHCN 18:23 | PROVIDERS: PCP Nurse Practitioner Family; Visit Provider Nurse Practitioner Family | DX: R39.89 Other symptoms and signs involving the genitourinary system (principal) | CPT/HCPCS: 87086 ==

== ENCOUNTER → 2025-11-04 00:26 | Outpatient (CLI) | payer MEDICARE, SELFPAY ==
--- NOTE | 2025-11-04 | DI.MAMMO_ITS ---
Exam(s) MAMMO SCREENING EXAM: MAMMO SCREENING CLINICAL HISTORY: SCREENING, Z12.31. TECHNIQUE: Bilateral full field digital CC and MLO mammographic images were obtained with 3D tomosynthesis and utilizing computer aided detection (CAD). COMPARISON: Prior mammograms were reviewed. FINDINGS: There has been no significant change in the appearance and distribution of the fibroglandular tissue. There are no CAD designations There are no new spiculated masses nor malignant appearing microcalcification groups. Small asymmetric density posteriorly in the left breast is unchanged from prior mammograms. There is no significant architectural distortion nor skin thickening-retraction. IMPRESSION: No radiographic evidence of malignancy. BI-RADS Category 1 - Negative Breast Density - Category B - There are scattered areas of fibroglandular density. Breast density Category C or D implies that the patient has dense breast tissue. Dense breast tissue can make it harder to find cancer on a mammogram. Dense breast tissue is also associated with an increased risk of breast cancer. This information about the result of the mammogram report was provided to the patient to raise their awareness. Use this report when you speak with the patient about their risks for breast cancer, which includes their family history. At that time, you may recommend additional screening tests (Ultrasound or MRI) as these tests may add significant information. A negative radiographic report should not delay biopsy if a dominant or clinically suspicious mass is present. Up to ten percent of cancers are not identified on mammography. A negative report may reinforce clinical impression. Adenosis and dense breasts may obscure an underlying neoplasm. False positive reports average 6 to 10%. Patient will receive a letter notifying them of these results.
== END ==
PROVIDERS: PCP Nurse Practitioner Family; Visit Provider Nurse Practitioner Family
DX: Z12.31 Encounter for screening mammogram for malignant neoplasm of breast (principal)
CPT/HCPCS: 77063; 77067